=== PATIENT | female | born 1955 ===

== ENCOUNTER 2017-05-30 08:44 | Day surgery (SDC) | payer MEDICARE, OTHER ==
[2017-05-30 08:58] VITALS: BMI 27.2
[2017-05-30 09:19] LABS: HEMATOCRIT 46.3 % (34.0-47.0); MEAN CELL VOLUME 97.9 fl (81.0-99.0); MEAN CORPUSCULAR HEMOGLOBIN 33.2 pg (27.0-31.0); MEAN CORPUSCULAR HGB CONC 33.9 g/dL (33.0-37.0); RED CELL DISTRIBUTION WIDTH 14.4 % (11.5-14.5); WHITE BLOOD COUNT 2.9 K/uL (4.8-10.8)
[2017-05-30 09:22] VITALS: BP 129/82; PULSE 81; RESP 20; TEMP 98.2; O2SAT 97
--- NOTE | 2017-05-30 10:09 | CP.PCM.CON ---
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 She was recently discharged from [facility] a couple weeks ago for possible overdose. Hematology Oncology at that time stated she is clear for surgery from their stand point with INR <1.5 and Plt >75. No dyspnea or chest pain at rest or on exertion. METS > 4. Patient is low risk for moderate risk procedure, medically stable for surgery at this time. 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 per chart review hx heroin use Meds: as below Allergies: NKDA Vitals: reviewed and currently stable Temp Pulse Resp BP Pulse Ox 98.2 F 81 20 129/82 97 05/30/17 09:21 05/30/17 09:23 05/30/17 09:21 05/30/17 09:21 05/30/17 09:21 Exam: GEN: WDWN, alert, cooperative HEENT: NCAT, PERRL, EOMI NECK: supple, no JVD, no lymphadenopathy CARDIAC: +S1S2 RRR LUNG: CTAB No WRR ABD: SOFT NT ND BSX4 NO MASSES NO HSM EXT: +pedal pulses, equal strength NEURO: AAOx3 SKIN warm, dry PSYCH normal mood, normal affect Labs: 05/30/17 09:00 reviewed in chart Rads: no active disease on chest xr 05/30/17 13:54 Haloperidol [Haldol] 5 mg PO Q6 PRN Temazepam [Restoril] 15 mg PO HS PRN 05/30/17 13:55 Bisacodyl [Dulcolax] 10 mg PO DAILY PRN Ibuprofen [Motrin Tab] 400 mg PO Q6 PRN Ondansetron [Zofran Inj] 4 mg IVP Q6 PRN oxyCODONE/Acetaminophen [Percocet 5/325 mg Tab] 1 tab PO Q4 PRN 05/30/17 17:00 DULoxetine [Cymbalta] 60 mg PO BID Lamotrigine [Lamictal] 200 mg PO BID Saccharomyces Boulardi [Florastor] 250 mg PO BID ceFAZolin 2 GM/NS 100ML Q8 ceFAZolin [Ancef] 2 gm Sodium Chloride 0.9% 100 ml IVPB Q8 Assessment and Plan: 62 F PMH (per chart review as pt poor historian) 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 She was recently discharged from [facility] a couple weeks ago for possible overdose. Hematology Oncology at that time stated she is clear for surgery from their stand point with INR <1.5 and Plt >75. No dyspnea or chest pain at rest or on exertion. METS > 4. Patient is low risk for moderate risk procedure, medically stable for surgery at this time. R TKR s/p FALL R total knee with Dr. Sharpe today Ancef total three doses Incentive Spirometry Weight bearing and CPM per Ortho team PT OT Pain Control Zofran for nausea HX CVA on lamictal for SEIZURE prophylaxis Schizoaffective Disorder, Bipliar cont cymbalta cont haldol VTE ppx Past Patient History - Infectious Disease Hx of Infectious Diseases: None - Past Medical History & Family History Past Medical History?: Yes - Past Social History Smoking Status: Never Smoked - CARDIAC Hx Cardiac Disorders: No Hx Angina: No Hx Cardia Arrhythmia: No Hx Circulatory Problems: No Hx Congestive Heart Failure: No Hx Heart Attack: No Hx Heart Murmur: No Hx Heart Transplant: No Hx Hypercholesterolemia: No Hx Hypertension: No - PULMONARY Hx Respiratory Disorders: No Hx Asthma: No Hx Bronchitis: No Hx Chronic Obstructive Pulmonary Disease (COPD): No Hx Emphysema: No Hx Lung Cancer: No Hx Tuberculosis: No - NEUROLOGICAL Hx Neurological Disorder: No Hx Alzheimer's Disease: No HX Cerebrovascular Accident: Yes Hx Dementia: No Hx Dizziness: No Hx Seizures: Yes Hx Transient Ischemic Attacks (TIA): Yes Other/Comment: ANEURYSM - HEENT Hx HEENT Problems: No Hx Blind: No Hx Cataracts: No Hx Difficulty Chewing: No - RENAL Hx Chronic Kidney Disease: No - ENDOCRINE/METABOLIC Hx Endocrine Disorders: No Hx Diabetes Mellitus Type 2: No - HEMATOLOGICAL/ONCOLOGICAL Hx Cancer: No Hx Hepatitis C: Yes Hx Human Immunodeficiency Virus (HIV): No - INTEGUMENTARY Hx Dermatological Problems: No - MUSCULOSKELETAL/RHEUMATOLOGICAL Hx Musculoskeletal Disorders: Yes Hx Back Pain: Yes Hx Falls: Yes - GASTROINTESTINAL Hx Gastrointestinal Disorders: Yes Hx Gastritis: Yes Hx Irritable Bowel: Yes - GENITOURINARY/GYNECOLOGICAL Hx Genitourinary Disorders: No Hx Sexually Transmitted Disorders: No - PSYCHIATRIC Hx Psychophysiologic Disorder: Yes Hx Anxiety: Yes Hx Bipolar Disorder: Yes Hx Depression: Yes Hx Schizophrenia: Yes Hx Substance Use: No - SURGICAL HISTORY Hx Surgeries: No Hx Section: Yes (x2) Hx Cholecystectomy: Yes Hx Orthopedic Surgery: Yes (right hand fx wrist) - ANESTHESIA Hx Anesthesia: Yes Hx Anesthesia Reactions: No Hx Malignant Hyperthermia: No Has any member of the family had a problem w/ anesthesia?: No Meds Allergies/Adverse Reactions: Allergies Allergy/AdvReac Type Severity Reaction Status Date / Time No Known Allergies Allergy Verified 05/03/17 14:38 Results - Vital Signs Recent Vital Signs: Last Vital Signs Temp 98.2 F 05/30/17 09:21 Pulse 81 05/30/17 09:23 Resp 20 05/30/17 09:21 BP 129/82 05/30/17 09:21 Pulse Ox 97 05/30/17 09:21 - Labs Result Diagrams: 05/30/17 09:00 Labs: Laboratory Results - last 24 hr 05/30/17 09:00 WBC 2.9 L RBC 4.72 Hgb 15.7 Hct 46.3 MCV 97.9 MCH 33.2 H MCHC 33.9 RDW 14.4 Plt Count 91 L
[2017-05-30] MEDS ORDERED: Thrombin Topical 5,000 IU Spray Kit ONE (10:52)
[2017-05-30] MEDS ORDERED: Bacitracin Ointment 30 GM TUBE ONE (10:52)
[2017-05-30] MEDS ORDERED: Absorbable Gelatin Sponge Size 100 ONE (10:52)
[2017-05-30] MEDS ORDERED: Lactated Ringer's 1,000 ML IV ONE (12:06)
[2017-05-30] MEDS ORDERED: Ropivacaine 0.5% 30ML IV ONE (13:03)
[2017-05-30] MEDS ORDERED: Propofol 10 mg/ml Inj (20 ML) ONE (13:14)
[2017-05-30] MEDS ORDERED: Lidocaine 4% (Laryng-O-Jet) Kit MM ONE (13:14)
[2017-05-30] MEDS ORDERED: Rocuronium 10 mg/ml (5 ml) ONE (13:14)
[2017-05-30] MEDS ORDERED: Lidocaine Hydrochloride 5 ML INJ ONE (13:14)
[2017-05-30] MEDS ORDERED: Succinylcholine 200 mg/10 ml Inj IV ONE (13:14)
[2017-05-30] MEDS ORDERED: Phenylephrine 10 mg/ml Inj ONE (13:17)
[2017-05-30] MEDS ORDERED: Bisacodyl 5mg EC Tab PO PRN (13:55)
[2017-05-30] MEDS ORDERED: Oxycodone/Acetaminophen 5/325 mg Tab PO PRN (13:55)
[2017-05-30] MEDS ORDERED: ceFAZolin 2 GM in Sodium Chloride 0.9% 100 ML IVPB SCH (17:00)
[2017-05-30] MEDS ORDERED: Saccharomyces Boulardi 250 mg Cap PO SCH (17:00)
[2017-05-31 10:20] LABS: HEMATOCRIT 42.5 % (34.0-47.0); MEAN CELL VOLUME 98.7 fl (81.0-99.0); MEAN CORPUSCULAR HEMOGLOBIN 32.8 pg (27.0-31.0); MEAN CORPUSCULAR HGB CONC 33.3 g/dL (33.0-37.0); RED CELL DISTRIBUTION WIDTH 14.1 % (11.5-14.5); WHITE BLOOD COUNT 2.4 K/uL (4.8-10.8)
[2017-05-31 10:39] LABS: BLOOD UREA NITROGEN 7 mg/dl (7-17); CALCIUM 9.1 mg/dL (8.4-10.2); CARBON DIOXIDE 23 mmol/L (22-30); CHLORIDE 106 mmol/L (98-107); GFR AFRICAN-AMERICAN > 60; GLUCOSE,RANDOM 169 mg/dL (65-105); POTASSIUM 3.7 MMOL/L (3.6-5.0); SODIUM 139 mmol/l (132-148)
--- NOTE | 2017-06-01 09:48 | CP.PCM.CON ---
History of Present Illness - History of Present Illness History of Present Illness: ID 62 yo female CC: chronic Right knee pain and restricted ROM HPI- 62 yo female presents with persistent R knee pain and restricted ROM PT originally treated at [facility];pt not cleared medically for surghery Pt presents at this point with SEVERE pain and restricted ROM R knee; can n o longer stand the discomfort. Pt presents with chronic tibial plateau fx with arthritic changes. Pt presents for surgery today, but presents with multiple comorbidities including neutropenia and throbocytopenia. Surgery cancelled, and case discussed with Dr Yang- hematology/oncology Past Patient History - Infectious Disease Hx of Infectious Diseases: None - Past Medical History & Family History Past Medical History?: Yes - Past Social History Smoking Status: Never Smoked - CARDIAC Hx Cardiac Disorders: No Hx Angina: No Hx Cardia Arrhythmia: No Hx Circulatory Problems: No Hx Congestive Heart Failure: No Hx Heart Attack: No Hx Heart Murmur: No Hx Heart Transplant: No Hx Hypercholesterolemia: No Hx Hypertension: No - PULMONARY Hx Respiratory Disorders: No Hx Asthma: No Hx Bronchitis: No Hx Chronic Obstructive Pulmonary Disease (COPD): No Hx Emphysema: No Hx Lung Cancer: No Hx Tuberculosis: No - NEUROLOGICAL Hx Neurological Disorder: No Hx Alzheimer's Disease: No HX Cerebrovascular Accident: Yes Hx Dementia: No Hx Dizziness: No Hx Seizures: Yes Hx Transient Ischemic Attacks (TIA): Yes Other/Comment: ANEURYSM - HEENT Hx HEENT Problems: No Hx Blind: No Hx Cataracts: No Hx Difficulty Chewing: No - RENAL Hx Chronic Kidney Disease: No - ENDOCRINE/METABOLIC Hx Endocrine Disorders: No Hx Diabetes Mellitus Type 2: No - HEMATOLOGICAL/ONCOLOGICAL Hx Cancer: No Hx Hepatitis C: Yes Hx Human Immunodeficiency Virus (HIV): No - INTEGUMENTARY Hx Dermatological Problems: No - MUSCULOSKELETAL/RHEUMATOLOGICAL Hx Musculoskeletal Disorders: Yes Hx Back Pain: Yes Hx Falls: Yes - GASTROINTESTINAL Hx Gastrointestinal Disorders: Yes Hx Gastritis: Yes Hx Irritable Bowel: Yes - GENITOURINARY/GYNECOLOGICAL Hx Genitourinary Disorders: No Hx Sexually Transmitted Disorders: No - PSYCHIATRIC Hx Psychophysiologic Disorder: Yes Hx Anxiety: Yes Hx Bipolar Disorder: Yes Hx Depression: Yes Hx Schizophrenia: Yes Hx Substance Use: No - SURGICAL HISTORY Hx Surgeries: No Hx Section: Yes (x2) Hx Cholecystectomy: Yes Hx Orthopedic Surgery: Yes (right hand fx wrist) - ANESTHESIA Hx Anesthesia: Yes Hx Anesthesia Reactions: No Hx Malignant Hyperthermia: No Has any member of the family had a problem w/ anesthesia?: No Meds Allergies/Adverse Reactions: Allergies Allergy/AdvReac Type Severity Reaction Status Date / Time No Known Allergies Allergy Verified 05/03/17 14:38 - Medications Medications: Current Medications Bisacodyl (Dulcolax) 10 mg PO DAILY PRN PRN Reason: Constipation Duloxetine HCl (Cymbalta) 60 mg PO BID [facility] Haloperidol (Haldol) 5 mg PO Q6 PRN PRN Reason: SEVERE Agitation Ibuprofen (Motrin Tab) 400 mg PO Q6 PRN PRN Reason: Fever >100.4 F Lamotrigine (Lamictal) 200 mg PO BID [facility] Ondansetron HCl (Zofran Inj) 4 mg IVP Q6 PRN PRN Reason: Nausea/Vomiting Oxycodone/Acetaminophen (Percocet 5/325 Mg Tab) 1 tab PO Q4 PRN PRN Reason: Pain, moderate (4-7) Stop: 06/02/17 13:56 Saccharomyces Boulardii (Florastor) 250 mg PO BID [facility] Temazepam (Restoril) 15 mg PO HS PRN PRN Reason: Insomnia Physical Exam - ENT Exam Additional comments: Physical Exam Systemic exam pt oriented x3 pt with hx of schizophrenia, but lucid at this point and aware fo the medical situation remainder of systemic exam wnl Musculoskeletal: Stance/ gait - deferred R knee immobilizer intact N/V intact no gross/progressive deficits Xraychronic tibial-plateau fx with depresssion; because of the superimposed arthritic change and the poor nature of the bone, Total knere replacement, tholugh technically difficult, is the option of choice Results - Vital Signs Recent Vital Signs: Last Vital Signs Temp 98.2 F 05/30/17 09:21 Pulse 81 05/30/17 09:23 Resp 20 05/30/17 09:21 BP 129/82 05/30/17 09:21 Pulse Ox 97 05/30/17 09:21 - Labs Result Diagrams: 05/31/17 09:30 05/31/17 09:30 Labs: Laboratory Results - last 24 hr 05/31/17 05/31/17 09:30 09:30 WBC 2.4 L RBC 4.30 Hgb 14.1 Hct 42.5 MCV 98.7 MCH 32.8 H MCHC 33.3 RDW 14.1 Plt Count 77 L Sodium 139 Potassium 3.7 Chloride 106 Carbon Dioxide 23 Anion Gap 14 BUN 7 Creatinine 0.5 L Est GFR ( Amer) > 60 Est GFR (Non-Af Amer) > 60 Random Glucose 169 H Calcium 9.1 - Impressions Impression: Imaging Xrays reveal the aforementioned tibial plateau fx,as well as superimposed osteoarthritic chnages Assessment & Plan - Assessment and Plan (Free Text) Assessment: A- 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
== END 2017-05-30 14:00 | disposition short-term general hospital (02) ==
LOC: H.OPSURG 08:44
PROVIDERS: ATTEND Orthopaedic Surgery
DX: S82.143A Displaced bicondylar fracture of unspecified tibia, initial encounter for closed fracture (principal); M17.11 Unilateral primary osteoarthritis, right knee; B19.20 Unspecified viral hepatitis C without hepatic coma; D69.6 Thrombocytopenia, unspecified; D70.9 Neutropenia, unspecified; F25.9 Schizoaffective disorder, unspecified; F31.9 Bipolar disorder, unspecified; G89.29 Other chronic pain; M25.561 Pain in right knee; K29.70 Gastritis, unspecified, without bleeding; K58.9 Irritable bowel syndrome, unspecified; Z86.73 Personal history of transient ischemic attack (TIA), and cerebral infarction without residual deficits; Z87.898 Personal history of other specified conditions; Z53.09 Procedure and treatment not carried out because of other contraindication; Z91.81 History of falling

== ENCOUNTER 2017-05-30 17:54 | Inpatient (IN) | payer MEDICARE, OTHER ==
[2017-05-30 17:54] VITALS: BMI 27.2
--- NOTE | 2017-05-30 18:37 | ED PDOC ---
Lower Extremity Pain/Injury Time Seen by Provider: 05/30/17 18:04 Chief Complaint (Nursing): Lower Extremity Problem/Injury Chief Complaint (Provider): Right knee pain History Per: Patient History/Exam Limitations: no limitations Additional Complaint(s): Nadira Leslie is a 62 y/o female, with a past medical history of Schizophrenia , Bipolar Disorder, and Substance Abuse, presenting to the ER on 05/30/2017 with complaints of right knee pain. Patient denies any chest pain, vomiting, diarrhea , or other symptoms at this time. Patient's PMD is Dr. Yang. She notes her right knee surgery has been canceled due to Leukopenia. Past Medical History Reviewed: Historical Data, Nursing Documentation, Vital Signs Vital Signs: Last Vital Signs Temp 97.8 F 05/30/17 18:03 Pulse 97 H 05/30/17 18:03 Resp 19 05/30/17 18:03 BP 115/78 05/30/17 18:03 Pulse Ox 95 05/30/17 18:03 - Medical History PMH: Anxiety, Bipolar Disorder, Depression, Gastritis, Personality Disorder, Schizophrenia, Seizures, TIA Denies: Alzheimer's Disease, Asthma, Atrial Fibrillation, Bronchitis, Cardia Arrhythmia, CHF, COPD, Dementia, Emphysema, HIV, HTN, Hypercholesterolemia, Chronic Kidney Disease, Sexually Transmitted Disease - Surgical History Surgical History: Cholecystectomy - Family History Family History: States: Unknown Family Hx - Social History Current smoker - smoking cessation education provided: No Alcohol: None Drugs: Denies - Immunization History Hx Tetanus Toxoid Vaccination: No Hx Influenza Vaccination: No Hx Pneumococcal Vaccination: No - Home Medications Home Medications: Ambulatory Orders Medication Instructions Recorded Famotidine [Pepcid] 20 mg PO BID tab 05/14/17 Potassium Chloride [K-Dur 20 mEq 40 meq PO DAILY 5 Days 05/14/17 ER Tab] Saccharomyces Boulardi [Florastor] 250 mg PO BID cap 05/14/17 Acetaminophen [Tylenol 325mg tab] 650 mg PO Q4H PRN 05/30/17 LORazepam [Ativan] 0.5 mg PO Q6H 05/30/17 Magnesium Hydroxide [Milk Of 30 ml PO HS PRN 05/30/17 Magnesia] Paliperidone Palmitate [Invega 156 mg IM Q28D 05/30/17 Sustenna] lamoTRIgine [Lamictal] 25 mg PO DAILY 05/30/17 traZODone [Desyrel] 50 mg PO HS 05/30/17 Benztropine [Cogentin] 0.5 mg PO Q12 tab 06/04/17 Enoxaparin [Lovenox] 40 mg SC DAILY syr 06/04/17 Paliperidone [Invega] [address] 06/04/17 oxyCODONE/Acetaminophen [Percocet 1 tab PO Q4 PRN tab 06/04/17 5/325 mg Tab] oxyCODONE/Acetaminophen [Percocet 2 tab PO Q6 PRN #30 tab 06/04/17 5/325 mg Tab] - Allergies Allergies/Adverse Reactions: Allergies Allergy/AdvReac Type Severity Reaction Status Date / Time No Known Allergies Allergy Verified 05/03/17 14:38 Review of Systems ROS Statement: Except As Marked, All Systems Reviewed And Found Negative Constitutional: Negative for: Fever Cardiovascular: Negative for: Chest Pain Gastrointestinal: Negative for: Vomiting, Diarrhea Musculoskeletal: Positive for: Leg Pain ((+) right knee ) Neurological: Negative for: Weakness, Numbness Physical Exam - Reviewed Nursing Documentation Reviewed: Yes Vital Signs Reviewed: Yes - Physical Exam Appears: Positive for: Non-toxic, No Acute Distress Head Exam: Positive for: ATRAUMATIC, NORMOCEPHALIC Skin: Positive for: Normal Color. Negative for: Rash Neck: Positive for: Normal Cardiovascular/Chest: Positive for: Regular Rate, Rhythm. Negative for: Murmur Respiratory: Positive for: Normal Breath Sounds. Negative for: Respiratory Distress Gastrointestinal/Abdominal: Positive for: Normal Exam, Soft. Negative for: Tenderness Extremity: Negative for: Normal ROM (right knee is in immobilizer ), Tenderness , Deformity, Swelling Neurologic/Psych: Positive for: Alert, Oriented. Negative for: Motor/Sensory Deficits - Laboratory Results Result Diagrams: 06/04/17 06:25 06/04/17 06:25 - ECG O2 Sat by Pulse Oximetry: 95 Medical Decision Making Medical Decision Makin:04 Initial Impression- 62 y/o female with right knee pain sp TKR Initial Plan- * Type and Screen * CMP * CBC w/ differential * PT * PTT 18:39 Case will be consulted with Dr. Samson, orthopedic supervisor photocomposition. Patient will be admitted under the hospitalis as per dr samson. who is made aware. . Documented by Jaydip Keith, acting as a scribe for Mir Gregory MD. All medical record entries made by the Scribe were at my direction and personally dictated by me. I have reviewed the chart and agree that the record accurately reflects my personal performance of the history, physical exam, medical decision making, and the department course for this patient. I have also personally directed, reviewed, and agree with the discharge instructions and disposition. Disposition - Clinical Impression Clinical Impression: Knee pain - Patient ED Disposition Is Patient to be Admitted: Yes Counseled Patient/Family Regarding: Studies Performed, Diagnosis - Disposition Disposition Time: 20:00 Condition: STABLE
[2017-05-30 18:46] LABS: BASO % 1.1 % (0.0-2.0); EOS # 0.2 K/uL (0.0-0.7); EOS % 7.8 % (0.0-4.0); HEMATOCRIT 44.4 % (34.0-47.0); LYMPH # 1.3 K/uL (1.0-4.3); LYMPH % 57.4 % (20.0-40.0); MEAN CELL VOLUME 98.2 fl (81.0-99.0); MEAN CORPUSCULAR HEMOGLOBIN 32.4 pg (27.0-31.0); MEAN PLATELET VOLUME 8.9 fl (7.2-11.7); MONO # 0.3 K/uL (0.0-0.8); MONO % 12.3 % (0.0-10.0); NEUT # 0.5 K/uL (1.8-7.0); NEUT % 21.4 % (50.0-75.0); NRBC % 0.2 % (0.0-0.0); RED CELL DISTRIBUTION WIDTH 14.5 % (11.5-14.5); WHITE BLOOD COUNT 2.3 K/uL (4.8-10.8)
[2017-05-30 18:57] LABS: ALKALINE PHOSPHATASE 146 U/L (38-126); ALT/SGPT 114 U/L (9-52); AST/SGOT 98 U/L (14-36); BILIRUBIN,TOTAL 1.4 mg/dl (0.2-1.3); BLOOD UREA NITROGEN 6 mg/dl (7-17); CALCIUM 9.3 mg/dL (8.4-10.2); CARBON DIOXIDE 24 mmol/L (22-30); CHLORIDE 105 mmol/L (98-107); GFR AFRICAN-AMERICAN > 60; GLUCOSE,RANDOM 83 mg/dL (65-105); SODIUM 137 mmol/l (132-148)
[2017-05-30 19:09] LABS: PARTIAL THROMBOPLASTIN TIME 39.4 Seconds (25.6-37.1)
[2017-05-30] MEDS ORDERED: Magnesium Hydroxide Susp 30 ml UD PO PRN (23:02)
--- NOTE | 2017-05-30 23:09 | CP.PCM.HP ---
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 She was recently discharged from [facility] a couple weeks ago for possible overdose. Hematology Oncology at that time stated she is clear for surgery from their stand point with INR <1.5 and Plt >75. No dyspnea or chest pain at rest or on exertion. METS > 4. Patient is low risk for moderate risk procedure, medically stable for surgery at this time. 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 per chart review hx heroin use Meds: as below Allergies: NKDA Vitals: reviewed and currently stable Temp Pulse Resp BP Pulse Ox 98.2 F 81 20 129/82 97 05/30/17 09:21 05/30/17 09:23 05/30/17 09:21 05/30/17 09:21 05/30/17 09:21 Exam: GEN: WDWN, alert, cooperative HEENT: NCAT, PERRL, EOMI NECK: supple, no JVD, no lymphadenopathy CARDIAC: +S1S2 RRR LUNG: CTAB No WRR ABD: SOFT NT ND BSX4 NO MASSES NO HSM EXT: +pedal pulses, equal strength NEURO: AAOx3 SKIN warm, dry PSYCH normal mood, normal affect Labs: 05/30/17 18:38 05/30/17 18:38 Allergies No Known Allergies Allergy (Verified 05/03/17 14:38) Height & Weight Height 4 ft 10 in Weight 135 lb Start Date/Time Active Medications 05/30/17 23:02 Acetaminophen [Tylenol 325mg tab] 650 mg PO Q4H PRN Acetaminophen [Tylenol 325mg tab] 650 mg PO Q4H PRN Magnesium Hydroxide [Milk Of Magnesia] 30 ml PO HS PRN Temazepam [Restoril] 15 mg PO HS PRN 05/30/17 23:15 LORazepam [Ativan] 0.5 mg PO Q6H Paliperidone Palmitate [Invega Sustenna] 156 mg IM Q28D traZODone [Desyrel] 50 mg PO HS 05/31/17 09:00 Famotidine [Pepcid] 20 mg PO BID Potassium Chloride [K-Dur 20 mEq ER Tab] 40 meq PO DAILY Saccharomyces Boulardi [Florastor] 250 mg PO BID lamoTRIgine [LaMICtal] 25 mg PO DAILY Assessment and Plan: 62 F PMH (per chart review as pt poor historian) 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 She was recently discharged from [facility] a couple weeks ago for possible overdose. Hematology Oncology at that time stated she is clear for surgery from their stand point with INR <1.5 and Plt >75. No dyspnea or chest pain at rest or on exertion. METS > 4. Patient is low risk for moderate risk procedure, medically stable for surgery at this time. s/p FALL R total knee with Dr. Sharpe likely Saturday will getAncef total three doses Pain control for now Cardiology Consult Dr. Serrano Neutropenia, Thrombocytopenia Dr. Yang hematology onc consult WBC 2.3, Plt 95 HX CVA on lamictal for SEIZURE prophylaxis Schizoaffective Disorder, Bipliar cont trazodone cont invega Psych consult per Ortho Present on Admission - Present on Admission Any Indicators Present on Admission: No Past Patient History - Infectious Disease Hx of Infectious Diseases: None - Past Medical History & Family History Past Medical History?: Yes - Past Social History Alcohol: None Drugs: Denies - CARDIAC Hx Atrial Fibrillation: No Hx Cardia Arrhythmia: No Hx Congestive Heart Failure: No Hx Hypercholesterolemia: No Hx Hypertension: No - PULMONARY Hx Asthma: No Hx Bronchitis: No Hx Chronic Obstructive Pulmonary Disease (COPD): No Hx Emphysema: No - NEUROLOGICAL Hx Neurological Disorder: Yes (CVA, aneurysm, seizures) - HEENT Hx HEENT Problems: No Hx Blind: No Hx Cataracts: No Hx Difficulty Chewing: No - RENAL Hx Chronic Kidney Disease: No - ENDOCRINE/METABOLIC Hx Endocrine Disorders: No Hx Diabetes Mellitus Type 2: No - HEMATOLOGICAL/ONCOLOGICAL Hx Blood Disorders: Yes (Hep C) - INTEGUMENTARY Hx Dermatological Problems: No - MUSCULOSKELETAL/RHEUMATOLOGICAL Hx Musculoskeletal Disorders: Yes Hx Back Pain: Yes Hx Falls: Yes - GASTROINTESTINAL Hx Gastritis: Yes - GENITOURINARY/GYNECOLOGICAL Hx Sexually Transmitted Disorders: No - PSYCHIATRIC Hx Psychophysiologic Disorder: Yes (anxiety, bipolar, depression, schizophrenia) - SURGICAL HISTORY Hx Cholecystectomy: Yes - ANESTHESIA Hx Anesthesia: Yes Hx Anesthesia Reactions: No Hx Malignant Hyperthermia: No Meds Allergies/Adverse Reactions: Allergies Allergy/AdvReac Type Severity Reaction Status Date / Time No Known Allergies Allergy Verified 05/03/17 14:38 Results - Vital Signs Recent Vital Signs: Last Vital Signs Temp 98.4 F 05/30/17 21:02 Pulse 88 05/30/17 21:02 Resp 18 05/30/17 21:02 BP 130/91 H 05/30/17 21:02 Pulse Ox 96 05/30/17 21:02 - Labs Result Diagrams: 05/30/17 18:38 05/30/17 18:38 Labs: Laboratory Results - last 24 hr 05/30/17 05/30/17 05/30/17 18:38 18:38 18:38 WBC 2.3 L RBC 4.52 Hgb 14.7 Hct 44.4 MCV 98.2 MCH 32.4 H MCHC 33.0 RDW 14.5 Plt Count 78 L MPV 8.9 Neut % (Auto) 21.4 L Lymph % (Auto) 57.4 H [place] % (Auto) 12.3 H Eos % (Auto) 7.8 H Baso % (Auto) 1.1 Neut # 0.5 L Lymph # 1.3 [place] # 0.3 Eos # 0.2 Baso # 0.0 PT 13.9 H INR 1.2 APTT 39.4 H Sodium 137 Potassium 4.0 Chloride 105 Carbon Dioxide 24 Anion Gap 12 BUN 6 L Creatinine 0.5 L Est GFR ( Amer) > 60 Est GFR (Non-Af Amer) > 60 Random Glucose 83 Calcium 9.3 Total Bilirubin 1.4 H AST 98 H ALT 114 H Alkaline Phosphatase 146 H Total Protein 7.0 Albumin 3.5 Globulin 3.5 Albumin/Globulin Ratio 1.0 Blood Type Antibody Screen BBK History Checked 05/30/17 18:38 WBC RBC Hgb Hct MCV MCH MCHC RDW Plt Count MPV Neut % (Auto) Lymph % (Auto) [place] % (Auto) Eos % (Auto) Baso % (Auto) Neut # Lymph # [place] # Eos # Baso # PT INR APTT Sodium Potassium Chloride Carbon Dioxide Anion Gap BUN Creatinine Est GFR ( Amer) Est GFR (Non-Af Amer) Random Glucose Calcium Total Bilirubin AST ALT Alkaline Phosphatase Total Protein Albumin Globulin Albumin/Globulin Ratio Blood Type O POSITIVE Antibody Screen Negative BBK History Checked Patient has bt
[2017-05-30] MEDS ORDERED: Paliperidone 156 mg/1 ml Syringe IM SCH (23:15)
[2017-05-31] MEDS: Saccharomyces Boulardi 250 mg Cap PO SCH ×2 (08:38→17:17)
[2017-05-31] MEDS: Potassium Chloride 20 mEq ER Tab PO SCH (08:39)
--- NOTE | 2017-05-31 09:15 | CP.PCM.CON ---
History of Present Illness - History of Present Illness History of Present Illness: THE PATIENT IS A 62 YEAR OLD FEMALE WHO IS NOW ADMITTED FOR RIGHT KNEE SURGERY FOLLOWING TRAUMA 2 WEEKS AGO. SHE HAS A LONG MEDICAL HISTORY INCLUDING A CVA TEN YEARS AGO THAT SHE STATES WAS DUE TO A BRAIN ANEURYSM AND REQUIRED SURGERY, HEPATITIS C AND DEPRESSION. CARDIOLOGY WAS ASKED TO SEE AND FOLLOW THE PATIENT. SHE DENIES CHEST PAIN OR CAD. Past Patient History - Infectious Disease Hx of Infectious Diseases: None - Past Medical History & Family History Past Medical History?: Yes - Past Social History Smoking Status: Former Smoker - CARDIAC Hx Atrial Fibrillation: No Hx Cardia Arrhythmia: No - PULMONARY Hx Asthma: No Hx Bronchitis: No Hx Chronic Obstructive Pulmonary Disease (COPD): No Hx Emphysema: No - NEUROLOGICAL Hx Neurological Disorder: Yes (CVA, aneurysm, seizures) - HEENT Hx HEENT Problems: No Hx Blind: No Hx Cataracts: No Hx Difficulty Chewing: No - RENAL Hx Chronic Kidney Disease: No - ENDOCRINE/METABOLIC Hx Endocrine Disorders: No Hx Diabetes Mellitus Type 2: No - HEMATOLOGICAL/ONCOLOGICAL Hx Blood Disorders: Yes (Hep C) Hx AIDS: No Hx Human Immunodeficiency Virus (HIV): No - INTEGUMENTARY Hx Dermatological Problems: No - MUSCULOSKELETAL/RHEUMATOLOGICAL Hx Musculoskeletal Disorders: Yes Hx Back Pain: Yes Hx Falls: Yes - GASTROINTESTINAL Hx Gastritis: Yes - GENITOURINARY/GYNECOLOGICAL Hx Sexually Transmitted Disorders: No - PSYCHIATRIC Hx Psychophysiologic Disorder: Yes (anxiety, bipolar, depression, schizophrenia) Hx Substance Use: Yes - SURGICAL HISTORY Hx Cholecystectomy: Yes - ANESTHESIA Hx Anesthesia: Yes Hx Anesthesia Reactions: No Hx Malignant Hyperthermia: No Meds Allergies/Adverse Reactions: Allergies Allergy/AdvReac Type Severity Reaction Status Date / Time No Known Allergies Allergy Verified 05/03/17 14:38 - Medications Medications: Current Medications Acetaminophen (Tylenol 325mg Tab) 650 mg PO Q4H PRN PRN Reason: Pain, Mild (1-3) Last Admin: 05/31/17 04:35 Dose: 650 mg Acetaminophen (Tylenol 325mg Tab) 650 mg PO Q4H PRN PRN Reason: Temp 101 and above Famotidine (Pepcid) 20 mg PO BID [facility] Last Admin: 05/31/17 08:39 Dose: 20 mg Lamotrigine (Lamictal) 25 mg PO DAILY [facility] Last Admin: 05/31/17 08:39 Dose: 25 mg Lorazepam (Ativan) 0.5 mg PO Q6H [facility] Last Admin: 05/31/17 04:31 Dose: 0.5 mg Magnesium Hydroxide (Milk Of Magnesia) 30 ml PO HS PRN PRN Reason: Constipation Paliperidone Palmitate (Invega Sustenna) 156 mg IM Q28D [facility] Last Admin: 05/31/17 00:00 Dose: Not Given Potassium Chloride (K-Dur 20 Meq Er Tab) 40 meq PO DAILY [facility] Last Admin: 05/31/17 08:39 Dose: 40 meq Saccharomyces Boulardii (Florastor) 250 mg PO BID [facility] Last Admin: 05/31/17 08:38 Dose: 250 mg Temazepam (Restoril) 15 mg PO HS PRN PRN Reason: Insomnia Trazodone HCl (Desyrel) 50 mg PO HS [facility] Last Admin: 05/30/17 23:44 Dose: 50 mg Physical Exam - Respiratory Exam Respiratory Exam: Clear to Auscultation Bilateral - Cardiovascular Exam Cardiovascular Exam: REGULAR RHYTHM, +S1, +S2 - Additional Findings Additional findings: WBC 2.[address] 78K LFT ELEVATED Results - Vital Signs Recent Vital Signs: Last Vital Signs Temp 98.7 F 05/31/17 08:44 Pulse 72 05/31/17 08:44 Resp 20 05/31/17 08:44 BP 118/77 05/31/17 08:44 Pulse Ox 98 05/31/17 08:44 - Labs Result Diagrams: 05/30/17 18:38 05/30/17 18:38 Labs: Laboratory Results - last 24 hr 05/30/17 05/30/17 05/30/17 18:38 18:38 18:38 WBC 2.3 L RBC 4.52 Hgb 14.7 Hct 44.4 MCV 98.2 MCH 32.4 H MCHC 33.0 RDW 14.5 Plt Count 78 L MPV 8.9 Neut % (Auto) 21.4 L Lymph % (Auto) 57.4 H [place] % (Auto) 12.3 H Eos % (Auto) 7.8 H Baso % (Auto) 1.1 Neut # 0.5 L Lymph # 1.3 [place] # 0.3 Eos # 0.2 Baso # 0.0 PT 13.9 H INR 1.2 APTT 39.4 H Sodium 137 Potassium 4.0 Chloride 105 Carbon Dioxide 24 Anion Gap 12 BUN 6 L Creatinine 0.5 L Est GFR ( Amer) > 60 Est GFR (Non-Af Amer) > 60 Random Glucose 83 Calcium 9.3 Total Bilirubin 1.4 H AST 98 H ALT 114 H Alkaline Phosphatase 146 H Total Protein 7.0 Albumin 3.5 Globulin 3.5 Albumin/Globulin Ratio 1.0 Blood Type Antibody Screen BBK History Checked 05/30/17 18:38 WBC RBC Hgb Hct MCV MCH MCHC RDW Plt Count MPV Neut % (Auto) Lymph % (Auto) [place] % (Auto) Eos % (Auto) Baso % (Auto) Neut # Lymph # [place] # Eos # Baso # PT INR APTT Sodium Potassium Chloride Carbon Dioxide Anion Gap BUN Creatinine Est GFR ( Amer) Est GFR (Non-Af Amer) Random Glucose Calcium Total Bilirubin AST ALT Alkaline Phosphatase Total Protein Albumin Globulin Albumin/Globulin Ratio Blood Type O POSITIVE Antibody Screen Negative BBK History Checked Patient has bt Assessment & Plan - Assessment and Plan (Free Text) Assessment: RIGHT KNEE TRAUMA HEPATITIS C OLD CVA Plan: HEMATOLOGY TO SEE
--- NOTE | 2017-05-31 14:00 | CP.PCM.PN ---
Subjective - Date & Time of Evaluation Date of Evaluation: 05/31/17 Time of Evaluation: 13:59 - Subjective Subjective: PATIENT DOING WELL TODAY NO COMPLAINTS HD STABLE Objective - Vital Signs/Intake and Output Vital Signs (last 24 hours): Temp Pulse Resp BP Pulse Ox 98.7 F 72 20 118/77 98 05/31/17 08:44 05/31/17 08:44 05/31/17 08:44 05/31/17 08:44 05/31/17 08:44 - Medications Medications: Current Medications Acetaminophen (Tylenol 325mg Tab) 650 mg PO Q4H PRN PRN Reason: Pain, Mild (1-3) Last Admin: 05/31/17 04:35 Dose: 650 mg Acetaminophen (Tylenol 325mg Tab) 650 mg PO Q4H PRN PRN Reason: Temp 101 and above Benztropine Mesylate (Cogentin) 0.5 mg PO Q12 [facility] Famotidine (Pepcid) 20 mg PO BID [facility] Last Admin: 05/31/17 08:39 Dose: 20 mg Lamotrigine (Lamictal) 25 mg PO DAILY [facility] Last Admin: 05/31/17 08:39 Dose: 25 mg Lorazepam (Ativan) 0.5 mg PO Q6H [facility] Last Admin: 05/31/17 11:27 Dose: 0.5 mg Magnesium Hydroxide (Milk Of Magnesia) 30 ml PO HS PRN PRN Reason: Constipation Paliperidone (Invega) 6 mg PO HS [facility] Paliperidone Palmitate (Invega Sustenna) 156 mg IM Q28D [facility] Last Admin: 05/31/17 00:00 Dose: Not Given Potassium Chloride (K-Dur 20 Meq Er Tab) 40 meq PO DAILY [facility] Last Admin: 05/31/17 08:39 Dose: 40 meq Saccharomyces Boulardii (Florastor) 250 mg PO BID [facility] Last Admin: 05/31/17 08:38 Dose: 250 mg Temazepam (Restoril) 15 mg PO HS PRN PRN Reason: Insomnia Trazodone HCl (Desyrel) 50 mg PO HS [facility] Last Admin: 05/30/17 23:44 Dose: 50 mg - Labs Labs: 05/30/17 18:38 05/30/17 18:38 PT 13.9 Seconds (9.8-13.1) H 05/30/17 18:38 INR 1.2 (0.9-1.2) 05/30/17 18:38 APTT 39.4 Seconds (25.6-37.1) H 05/30/17 18:38 - Constitutional Appears: Non-toxic, No Acute Distress - Head Exam Head Exam: ATRAUMATIC, NORMOCEPHALIC - Eye Exam Eye Exam: EOMI, Normal appearance, PERRL Pupil Exam: NORMAL ACCOMODATION - ENT Exam ENT Exam: Mucous Membranes Dry - Neck Exam Neck Exam: Full ROM, Normal Inspection. absent: Lymphadenopathy - Respiratory Exam Respiratory Exam: Clear to Ausculation Bilateral, NORMAL BREATHING PATTERN - Cardiovascular Exam Cardiovascular Exam: Bradycardia - GI/Abdominal Exam GI & Abdominal Exam: Soft, Normal Bowel Sounds. 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 She was recently discharged from [facility] a couple weeks ago for possible overdose. Hematology Oncology at that time stated she is clear for surgery from their stand point with INR <1.5 and Plt >75. No dyspnea or chest pain at rest or on exertion. METS > 4. Patient is low risk for moderate risk procedure, medically stable for surgery at this time. s/p FALL R total knee with Dr. Sharpe likely Saturday will getAncef total three doses Pain control for now Cardiology Consult Dr. Serrano Neutropenia, Thrombocytopenia Dr. Yang hematology onc consult WBC 2.3, Plt 95 HX CVA on lamictal for SEIZURE prophylaxis Schizoaffective Disorder, Bipliar cont trazodone cont invega -- ONLY ABLE TO GIVE PT HOME DOSE. HOLD WHILE IN HOUSE. Psych consult per Ortho
--- NOTE | 2017-05-31 14:15 | CP.PCM.CON ---
History of Present Illness - History of Present Illness History of Present Illness: psychiatry consult ordered by dr. flores reason: schizoaffective disorder cc: i was seeing things when i got here hpi: 62 yo female, lives with family. has history of cocaine dependence-states sober 1 month, distant history of heroin dependence. she has been dx with schizoaffective disorder and per her report was on invega sustenna, but did not take for over 4 months per pt. in early may was at [facility] and her psychotropic medications were held there (was risperdal, cymbalta at that time) . pt states she is feeling calm now and denies any a/v hallucinations. she states she would seek help if she were to have any suicidal or homicidal thoughts. past psych: reports one hospitalization in past. reports she has outpt providers. reports a suicide attempt in distant past. substance abuse: history of heroin dependence, most recently crack cocaine dependence. denies cigarette use, alcohol use. social: [place], has a daughter who is involved. medical: for knee replacement mse: alert, oriented to self, time and circumstances. poor historian. reports some visual hallucinations. denies si/hi. denies ah. poor i/j. assessment: history of opioid and cocaine dependence schizoaffective disorder recommendation: restart oral invega with cogentin obtain info from outpt providers Past Patient History - Infectious Disease Hx of Infectious Diseases: None - Past Medical History & Family History Past Medical History?: Yes - Past Social History Smoking Status: Former Smoker - CARDIAC Hx Atrial Fibrillation: No Hx Cardia Arrhythmia: No - PULMONARY Hx Asthma: No Hx Bronchitis: No Hx Chronic Obstructive Pulmonary Disease (COPD): No Hx Emphysema: No - NEUROLOGICAL Hx Neurological Disorder: Yes (CVA, aneurysm, seizures) - HEENT Hx HEENT Problems: No Hx Blind: No Hx Cataracts: No Hx Difficulty Chewing: No - RENAL Hx Chronic Kidney Disease: No - ENDOCRINE/METABOLIC Hx Endocrine Disorders: No Hx Diabetes Mellitus Type 2: No - HEMATOLOGICAL/ONCOLOGICAL Hx Blood Disorders: Yes (Hep C) Hx AIDS: No Hx Human Immunodeficiency Virus (HIV): No - INTEGUMENTARY Hx Dermatological Problems: No - MUSCULOSKELETAL/RHEUMATOLOGICAL Hx Musculoskeletal Disorders: Yes Hx Back Pain: Yes Hx Falls: Yes - GASTROINTESTINAL Hx Gastritis: Yes - GENITOURINARY/GYNECOLOGICAL Hx Sexually Transmitted Disorders: No - PSYCHIATRIC Hx Psychophysiologic Disorder: Yes (anxiety, bipolar, depression, schizophrenia) Hx Substance Use: Yes - SURGICAL HISTORY Hx Cholecystectomy: Yes - ANESTHESIA Hx Anesthesia: Yes Hx Anesthesia Reactions: No Hx Malignant Hyperthermia: No Meds Allergies/Adverse Reactions: Allergies Allergy/AdvReac Type Severity Reaction Status Date / Time No Known Allergies Allergy Verified 05/03/17 14:38 - Medications Medications: Current Medications Acetaminophen (Tylenol 325mg Tab) 650 mg PO Q4H PRN PRN Reason: Pain, Mild (1-3) Last Admin: 05/31/17 04:35 Dose: 650 mg Acetaminophen (Tylenol 325mg Tab) 650 mg PO Q4H PRN PRN Reason: Temp 101 and above Benztropine Mesylate (Cogentin) 0.5 mg PO Q12 [facility] Famotidine (Pepcid) 20 mg PO BID [facility] Last Admin: 05/31/17 08:39 Dose: 20 mg Lamotrigine (Lamictal) 25 mg PO DAILY [facility] Last Admin: 05/31/17 08:39 Dose: 25 mg Lorazepam (Ativan) 0.5 mg PO Q6H [facility] Last Admin: 05/31/17 11:27 Dose: 0.5 mg Magnesium Hydroxide (Milk Of Magnesia) 30 ml PO HS PRN PRN Reason: Constipation Paliperidone (Invega) 6 mg PO HS [facility] Paliperidone Palmitate (Invega Sustenna) 156 mg IM Q28D [facility] Last Admin: 05/31/17 00:00 Dose: Not Given Potassium Chloride (K-Dur 20 Meq Er Tab) 40 meq PO DAILY [facility] Last Admin: 05/31/17 08:39 Dose: 40 meq Saccharomyces Boulardii (Florastor) 250 mg PO BID [facility] Last Admin: 05/31/17 08:38 Dose: 250 mg Temazepam (Restoril) 15 mg PO HS PRN PRN Reason: Insomnia Trazodone HCl (Desyrel) 50 mg PO HS [facility] Last Admin: 05/30/17 23:44 Dose: 50 mg Results - Vital Signs Recent Vital Signs: Last Vital Signs Temp 98.7 F 05/31/17 08:44 Pulse 72 05/31/17 08:44 Resp 20 05/31/17 08:44 BP 118/77 05/31/17 08:44 Pulse Ox 98 05/31/17 08:44 - Labs Result Diagrams: 05/30/17 18:38 05/30/17 18:38 Labs: Laboratory Results - last 24 hr 05/30/17 05/30/17 05/30/17 18:38 18:38 18:38 WBC 2.3 L RBC 4.52 Hgb 14.7 Hct 44.4 MCV 98.2 MCH 32.4 H MCHC 33.0 RDW 14.5 Plt Count 78 L MPV 8.9 Neut % (Auto) 21.4 L Lymph % (Auto) 57.4 H Beauregard % (Auto) 12.3 H Eos % (Auto) 7.8 H Baso % (Auto) 1.1 Neut # 0.5 L Lymph # 1.3 Beauregard # 0.3 Eos # 0.2 Baso # 0.0 PT 13.9 H INR 1.2 APTT 39.4 H Sodium 137 Potassium 4.0 Chloride 105 Carbon Dioxide 24 Anion Gap 12 BUN 6 L Creatinine 0.5 L Est GFR ( Amer) > 60 Est GFR (Non-Af Amer) > 60 Random Glucose 83 Calcium 9.3 Total Bilirubin 1.4 H AST 98 H ALT 114 H Alkaline Phosphatase 146 H Total Protein 7.0 Albumin 3.5 Globulin 3.5 Albumin/Globulin Ratio 1.0 Blood Type Antibody Screen BBK History Checked 05/30/17 18:38 WBC RBC Hgb Hct MCV MCH MCHC RDW Plt Count MPV Neut % (Auto) Lymph % (Auto) Beauregard % (Auto) Eos % (Auto) Baso % (Auto) Neut # Lymph # Beauregard # Eos # Baso # PT INR APTT Sodium Potassium Chloride Carbon Dioxide Anion Gap BUN Creatinine Est GFR ( Amer) Est GFR (Non-Af Amer) Random Glucose Calcium Total Bilirubin AST ALT Alkaline Phosphatase Total Protein Albumin Globulin Albumin/Globulin Ratio Blood Type O POSITIVE Antibody Screen Negative BBK History Checked Patient has bt
[2017-05-31] MEDS: Paliperidone 6 MG ER TAB PO SCH (22:04)
[2017-06-01] MEDS: Potassium Chloride 20 mEq ER Tab PO SCH (09:13)
[2017-06-01] MEDS: Saccharomyces Boulardi 250 mg Cap PO SCH ×2 (09:15→16:33)
--- NOTE | 2017-06-01 10:04 | CP.PCM.CON ---
History of Present Illness - History of Present Illness History of Present Illness: ID: 62 yo female CC: pain and restricted ROM R knee HPI: 62 yo female presents with pain and restricted ROM R knee-pt had sustained trauma several months prior- pt presents with pain and restricted ROMR knee Iconsulted [facility] in [facility] Pt NOT cleared for surg at that point. Pt had been admitted for surg to perform R TKR, but pt presented with neutropeniaand thrombocytopenia. Pt admitted as an emergency- case discussed with Dr Yang- pt admitted for workup, clearance. Surgery must be done, but mata not want to perform surg until clearance obtained Past Patient History - Infectious Disease Hx of Infectious Diseases: None - Past Medical History & Family History Past Medical History?: Yes - Past Social History Smoking Status: Former Smoker - CARDIAC Hx Atrial Fibrillation: No Hx Cardia Arrhythmia: No - PULMONARY Hx Asthma: No Hx Bronchitis: No Hx Chronic Obstructive Pulmonary Disease (COPD): No Hx Emphysema: No - NEUROLOGICAL Hx Neurological Disorder: Yes (CVA, aneurysm, seizures) - HEENT Hx HEENT Problems: No Hx Blind: No Hx Cataracts: No Hx Difficulty Chewing: No - RENAL Hx Chronic Kidney Disease: No - ENDOCRINE/METABOLIC Hx Endocrine Disorders: No Hx Diabetes Mellitus Type 2: No - HEMATOLOGICAL/ONCOLOGICAL Hx Blood Disorders: Yes (Hep C) Hx AIDS: No Hx Human Immunodeficiency Virus (HIV): No - INTEGUMENTARY Hx Dermatological Problems: No - MUSCULOSKELETAL/RHEUMATOLOGICAL Hx Musculoskeletal Disorders: Yes Hx Back Pain: Yes Hx Falls: Yes - GASTROINTESTINAL Hx Gastritis: Yes - GENITOURINARY/GYNECOLOGICAL Hx Sexually Transmitted Disorders: No - PSYCHIATRIC Hx Psychophysiologic Disorder: Yes (anxiety, bipolar, depression, schizophrenia) Hx Substance Use: Yes - SURGICAL HISTORY Hx Cholecystectomy: Yes - ANESTHESIA Hx Anesthesia: Yes Hx Anesthesia Reactions: No Hx Malignant Hyperthermia: No Meds Allergies/Adverse Reactions: Allergies Allergy/AdvReac Type Severity Reaction Status Date / Time No Known Allergies Allergy Verified 05/03/17 14:38 - Medications Medications: Current Medications Acetaminophen (Tylenol 325mg Tab) 650 mg PO Q4H PRN PRN Reason: Pain, Mild (1-3) Last Admin: 05/31/17 20:02 Dose: 650 mg Acetaminophen (Tylenol 325mg Tab) 650 mg PO Q4H PRN PRN Reason: Temp 101 and above Benztropine Mesylate (Cogentin) 0.5 mg PO Q12 [facility] Last Admin: 06/01/17 09:16 Dose: 0.5 mg Famotidine (Pepcid) 20 mg PO BID [facility] Last Admin: 06/01/17 09:16 Dose: 20 mg Lamotrigine (Lamictal) 25 mg PO DAILY [facility] Last Admin: 06/01/17 09:12 Dose: 25 mg Lorazepam (Ativan) 0.5 mg PO Q6H [facility] Last Admin: 06/01/17 06:06 Dose: 0.5 mg Magnesium Hydroxide (Milk Of Magnesia) 30 ml PO HS PRN PRN Reason: Constipation Paliperidone (Invega) 6 mg PO HS [facility] Last Admin: 05/31/17 22:04 Dose: 6 mg Potassium Chloride (K-Dur 20 Meq Er Tab) 40 meq PO DAILY [facility] Last Admin: 06/01/17 09:13 Dose: 40 meq Saccharomyces Boulardii (Florastor) 250 mg PO BID [facility] Last Admin: 06/01/17 09:15 Dose: 250 mg Temazepam (Restoril) 15 mg PO HS PRN PRN Reason: Insomnia Trazodone HCl (Desyrel) 50 mg PO HS [facility] Last Admin: 05/31/17 22:04 Dose: 50 mg Physical Exam - Additional Findings Additional findings: Objective exam Musculoskeltal stance/ gait- defrred knee immobilizer intact R Lower extremity. 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
[2017-06-01 12:47] LABS: BASO % 1.2 % (0.0-2.0); EOS # 0.3 K/uL (0.0-0.7); EOS % 7.8 % (0.0-4.0); HEMATOCRIT 44.3 % (34.0-47.0); LYMPH # 1.4 K/uL (1.0-4.3); LYMPH % 41.6 % (20.0-40.0); MEAN CELL VOLUME 98.2 fl (81.0-99.0); MEAN CORPUSCULAR HGB CONC 33.6 g/dL (33.0-37.0); MEAN PLATELET VOLUME 8.8 fl (7.2-11.7); MONO # 0.7 K/uL (0.0-0.8); MONO % 22.1 % (0.0-10.0); NEUT # 0.9 K/uL (1.8-7.0); NEUT % 27.3 % (50.0-75.0); NRBC % 0.3 % (0.0-0.0); PLATELET COUNT 88 K/uL (130-400); RED CELL DISTRIBUTION WIDTH 14.7 % (11.5-14.5); WHITE BLOOD COUNT 3.3 K/uL (4.8-10.8)
--- NOTE | 2017-06-01 12:50 | CP.PCM.CON ---
History of Present Illness - History of Present Illness History of Present Illness: 62 year old female with a history of bipolar depression, schizoaffective disorder, found to have leukopenia, anemia, and coagulopathy prior to elective orthopedic knee surgery, requiring clearance. The patient was seen by me about 3 weeks ago at [facility] and felt to have cytopenias related to her psychiatric medication. A bone marrow biopsy was advised to rule out bone marrow pathology and deferred by the patient. The patient denies abnormal bleeding and bruising. She has had surgery in the past without wound or bleeding complications. Past medical history: Bipolar depression, schizoaffective disorder Past surgical history; Family history: Denies hematologic and oncologic problems Social history: +cocaine Allergies: NKA Review of systems: All remaining review of systems including HEENT, cardiovascular, respiratory, gastrointestinal, genitourinary, musculoskeletal, dermatologic, neurologic, and psychiatric are negative unless mentioned in the HPI. Past Patient History - Infectious Disease Hx of Infectious Diseases: None - Past Medical History & Family History Past Medical History?: Yes - Past Social History Smoking Status: Former Smoker - CARDIAC Hx Atrial Fibrillation: No Hx Cardia Arrhythmia: No - PULMONARY Hx Asthma: No Hx Bronchitis: No Hx Chronic Obstructive Pulmonary Disease (COPD): No Hx Emphysema: No - NEUROLOGICAL Hx Neurological Disorder: Yes (CVA, aneurysm, seizures) - HEENT Hx HEENT Problems: No Hx Blind: No Hx Cataracts: No Hx Difficulty Chewing: No - RENAL Hx Chronic Kidney Disease: No - ENDOCRINE/METABOLIC Hx Endocrine Disorders: No Hx Diabetes Mellitus Type 2: No - HEMATOLOGICAL/ONCOLOGICAL Hx Blood Disorders: Yes (Hep C) Hx AIDS: No Hx Human Immunodeficiency Virus (HIV): No - INTEGUMENTARY Hx Dermatological Problems: No - MUSCULOSKELETAL/RHEUMATOLOGICAL Hx Musculoskeletal Disorders: Yes Hx Back Pain: Yes Hx Falls: Yes - GASTROINTESTINAL Hx Gastritis: Yes - GENITOURINARY/GYNECOLOGICAL Hx Sexually Transmitted Disorders: No - PSYCHIATRIC Hx Psychophysiologic Disorder: Yes (anxiety, bipolar, depression, schizophrenia) Hx Substance Use: Yes - SURGICAL HISTORY Hx Cholecystectomy: Yes - ANESTHESIA Hx Anesthesia: Yes Hx Anesthesia Reactions: No Hx Malignant Hyperthermia: No Meds Allergies/Adverse Reactions: Allergies Allergy/AdvReac Type Severity Reaction Status Date / Time No Known Allergies Allergy Verified 05/03/17 14:38 - Medications Medications: Current Medications Acetaminophen (Tylenol 325mg Tab) 650 mg PO Q4H PRN PRN Reason: Pain, Mild (1-3) Last Admin: 05/31/17 20:02 Dose: 650 mg Acetaminophen (Tylenol 325mg Tab) 650 mg PO Q4H PRN PRN Reason: Temp 101 and above Benztropine Mesylate (Cogentin) 0.5 mg PO Q12 [facility] Last Admin: 06/01/17 09:16 Dose: 0.5 mg Famotidine (Pepcid) 20 mg PO BID [facility] Last Admin: 06/01/17 09:16 Dose: 20 mg Lamotrigine (Lamictal) 25 mg PO DAILY [facility] Last Admin: 06/01/17 09:12 Dose: 25 mg Lorazepam (Ativan) 0.5 mg PO Q6H [facility] Last Admin: 06/01/17 12:16 Dose: 0.5 mg Magnesium Hydroxide (Milk Of Magnesia) 30 ml PO HS PRN PRN Reason: Constipation Paliperidone (Invega) 6 mg PO HS [facility] Last Admin: 05/31/17 22:04 Dose: 6 mg Potassium Chloride (K-Dur 20 Meq Er Tab) 40 meq PO DAILY [facility] Last Admin: 06/01/17 09:13 Dose: 40 meq Saccharomyces Boulardii (Florastor) 250 mg PO BID [facility] Last Admin: 06/01/17 09:15 Dose: 250 mg Temazepam (Restoril) 15 mg PO HS PRN PRN Reason: Insomnia Trazodone HCl (Desyrel) 50 mg PO HS [facility] Last Admin: 05/31/17 22:04 Dose: 50 mg Physical Exam - Head Exam Head Exam: ATRAUMATIC - Eye Exam Eye Exam: Normal appearance - ENT Exam ENT Exam: Mucous Membranes Dry - Respiratory Exam Respiratory Exam: NORMAL BREATHING PATTERN - Cardiovascular Exam Cardiovascular Exam: +S1, +S2 - GI/Abdominal Exam GI & Abdominal Exam: Normal Bowel Sounds Results - Vital Signs Recent Vital Signs: Last Vital Signs Temp 98.8 F 06/01/17 08:06 Pulse 97 H 06/01/17 08:06 Resp 20 06/01/17 08:06 BP 119/81 06/01/17 08:06 Pulse Ox 95 06/01/17 08:06 - Labs Result Diagrams: 05/30/17 18:38 05/30/17 18:38 Assessment & Plan (1) Neutropenia Assessment and Plan: Chronic mild to moderate neutropenia since 2013 suspect related to psych meds deferred bone marrow evaluation Status: Acute (2) Thrombocytopenia Assessment and Plan: will check hepatitis and HIV suspect related to psychiatric meds pt cleared for orthopedic surgery if plt 75,000 and above. Status: Acute (3) Coagulopathy Assessment and Plan: mild cleared for orthopedic surgery if INR < 1.5 Thank you for this interesting consult. Status: Acute
--- NOTE | 2017-06-01 13:30 | CP.PCM.PN ---
Subjective - Date & Time of Evaluation Date of Evaluation: 06/01/17 Time of Evaluation: 12:30 - Subjective Subjective: NO NEW COMPLAINTS Objective - Vital Signs/Intake and Output Vital Signs (last 24 hours): Temp Pulse Resp BP Pulse Ox 98.8 F 97 H 20 119/81 95 06/01/17 08:06 06/01/17 08:06 06/01/17 08:06 06/01/17 08:06 06/01/17 08:06 - Medications Medications: Current Medications Acetaminophen (Tylenol 325mg Tab) 650 mg PO Q4H PRN PRN Reason: Pain, Mild (1-3) Last Admin: 05/31/17 20:02 Dose: 650 mg Acetaminophen (Tylenol 325mg Tab) 650 mg PO Q4H PRN PRN Reason: Temp 101 and above Benztropine Mesylate (Cogentin) 0.5 mg PO Q12 [facility] Last Admin: 06/01/17 09:16 Dose: 0.5 mg Famotidine (Pepcid) 20 mg PO BID [facility] Last Admin: 06/01/17 09:16 Dose: 20 mg Lamotrigine (Lamictal) 25 mg PO DAILY [facility] Last Admin: 06/01/17 09:12 Dose: 25 mg Lorazepam (Ativan) 0.5 mg PO Q6H [facility] Last Admin: 06/01/17 12:16 Dose: 0.5 mg Magnesium Hydroxide (Milk Of Magnesia) 30 ml PO HS PRN PRN Reason: Constipation Paliperidone (Invega) 6 mg PO HS [facility] Last Admin: 05/31/17 22:04 Dose: 6 mg Potassium Chloride (K-Dur 20 Meq Er Tab) 40 meq PO DAILY [facility] Last Admin: 06/01/17 09:13 Dose: 40 meq Saccharomyces Boulardii (Florastor) 250 mg PO BID [facility] Last Admin: 06/01/17 09:15 Dose: 250 mg Temazepam (Restoril) 15 mg PO HS PRN PRN Reason: Insomnia Trazodone HCl (Desyrel) 50 mg PO HS [facility] Last Admin: 05/31/17 22:04 Dose: 50 mg - Labs Labs: 06/01/17 12:40 05/30/17 18:38 PT 13.9 Seconds (9.8-13.1) H 05/30/17 18:38 INR 1.2 (0.9-1.2) 05/30/17 18:38 APTT 39.4 Seconds (25.6-37.1) H 05/30/17 18:38 - Respiratory Exam Respiratory Exam: Clear to Ausculation Bilateral - Cardiovascular Exam Cardiovascular Exam: REGULAR RHYTHM, +S1, +S2 - Additional Findings Additional findings: ORTHOPEDIC AND HEMATOLOGY NOTES REVIEWED Assessment and Plan - Assessment and Plan (Free Text) Assessment: RIGHT KNEE TRAUMA LEUKOPENIA AND THROMBOCYTOPENIA Plan: 12 LEAD EKG ORDERED COMPLETE CBC PENDING
--- NOTE | 2017-06-01 14:33 | RAD ---
HISTORY: Severe djd R knee/possible tibial fx COMPARISON: No prior FINDINGS: BONES: Normal. No fracture. JOINTS: Large effusion. Mild degenerative change. Mild degenerative change. SOFT TISSUE: Normal. OTHER FINDINGS: None . IMPRESSION: Large effusion. Mild degenerative change. Mild degenerative change.
[2017-06-01 15:06] LABS: BASOPHIL 1 % (0-2); EOSINOPHIL 8 % (0-7); NEUTROPHIL 34 % (42-75); TOTAL CELLS COUNTED 100
[2017-06-01 15:07] LABS: GIANT PLATELETS PRESENT; LARGE PLATELETS PRESENT
--- NOTE | 2017-06-01 16:59 | CP.PCM.PN ---
Subjective - Date & Time of Evaluation Date of Evaluation: 06/01/17 Time of Evaluation: 15:00 - Subjective Subjective: No complaints Objective - Vital Signs/Intake and Output Vital Signs (last 24 hours): Temp Pulse Resp BP Pulse Ox 97.7 F 102 H 18 136/81 95 06/01/17 16:28 06/01/17 16:28 06/01/17 16:28 06/01/17 16:28 06/01/17 16:28 - Medications Medications: Current Medications Acetaminophen (Tylenol 325mg Tab) 650 mg PO Q4H PRN PRN Reason: Pain, Mild (1-3) Last Admin: 05/31/17 20:02 Dose: 650 mg Acetaminophen (Tylenol 325mg Tab) 650 mg PO Q4H PRN PRN Reason: Temp 101 and above Benztropine Mesylate (Cogentin) 0.5 mg PO Q12 [facility] Last Admin: 06/01/17 09:16 Dose: 0.5 mg Famotidine (Pepcid) 20 mg PO BID [facility] Last Admin: 06/01/17 16:34 Dose: 20 mg Lamotrigine (Lamictal) 25 mg PO DAILY [facility] Last Admin: 06/01/17 09:12 Dose: 25 mg Lorazepam (Ativan) 0.5 mg PO Q6H [facility] Last Admin: 06/01/17 16:33 Dose: 0.5 mg Magnesium Hydroxide (Milk Of Magnesia) 30 ml PO HS PRN PRN Reason: Constipation Paliperidone (Invega) 6 mg PO HS [facility] Last Admin: 05/31/17 22:04 Dose: 6 mg Potassium Chloride (K-Dur 20 Meq Er Tab) 40 meq PO DAILY [facility] Last Admin: 06/01/17 09:13 Dose: 40 meq Saccharomyces Boulardii (Florastor) 250 mg PO BID [facility] Last Admin: 06/01/17 16:33 Dose: 250 mg Temazepam (Restoril) 15 mg PO HS PRN PRN Reason: Insomnia Trazodone HCl (Desyrel) 50 mg PO HS [facility] Last Admin: 05/31/17 22:04 Dose: 50 mg - Labs Labs: 06/01/17 12:40 05/30/17 18:38 PT 13.9 Seconds (9.8-13.1) H 05/30/17 18:38 INR 1.2 (0.9-1.2) 05/30/17 18:38 APTT 39.4 Seconds (25.6-37.1) H 05/30/17 18:38 - Head Exam Head Exam: ATRAUMATIC - Eye Exam Eye Exam: Normal appearance - ENT Exam ENT Exam: Mucous Membranes Dry - Respiratory Exam Respiratory Exam: NORMAL BREATHING PATTERN - Cardiovascular Exam Cardiovascular Exam: +S1, +S2 - GI/Abdominal Exam GI & Abdominal Exam: Normal Bowel Sounds Assessment and Plan (1) Neutropenia Assessment & Plan: suspect secondary to psychiatric meds mild to moderate neutropenia deferred bone marrow evaluation Status: Acute (2) Thrombocytopenia Assessment & Plan: improved secondary to psych meds Status: Chronic (3) Coagulopathy Assessment & Plan: mild s/p vit k Status: Chronic
--- NOTE | 2017-06-01 17:46 | CP.PCM.PN ---
Subjective - Date & Time of Evaluation Date of Evaluation: 06/01/17 Time of Evaluation: 17:00 - Subjective Subjective: Pt seen and examined Son at bedside Pt is a poor historian accdg to her son , pt gets confused at times- effect of her Psych dis and all the meds she takes discussed plan for surgery on Saturday - pt and son agrees to the surgery Pt denies bleeding denies headache, no dizziness no CP no SOB no abd pain Objective - Vital Signs/Intake and Output Vital Signs (last 24 hours): Temp Pulse Resp BP Pulse Ox 97.7 F 102 H 18 136/81 95 06/01/17 16:28 06/01/17 16:28 06/01/17 16:28 06/01/17 16:28 06/01/17 16:28 - Medications Medications: Current Medications Acetaminophen (Tylenol 325mg Tab) 650 mg PO Q4H PRN PRN Reason: Pain, Mild (1-3) Last Admin: 05/31/17 20:02 Dose: 650 mg Acetaminophen (Tylenol 325mg Tab) 650 mg PO Q4H PRN PRN Reason: Temp 101 and above Benztropine Mesylate (Cogentin) 0.5 mg PO Q12 [facility] Last Admin: 06/01/17 09:16 Dose: 0.5 mg Famotidine (Pepcid) 20 mg PO BID [facility] Last Admin: 06/01/17 16:34 Dose: 20 mg Lamotrigine (Lamictal) 25 mg PO DAILY [facility] Last Admin: 06/01/17 09:12 Dose: 25 mg Lorazepam (Ativan) 0.5 mg PO Q6H [facility] Last Admin: 06/01/17 16:33 Dose: 0.5 mg Magnesium Hydroxide (Milk Of Magnesia) 30 ml PO HS PRN PRN Reason: Constipation Paliperidone (Invega) 6 mg PO HS [facility] Last Admin: 05/31/17 22:04 Dose: 6 mg Potassium Chloride (K-Dur 20 Meq Er Tab) 40 meq PO DAILY [facility] Last Admin: 06/01/17 09:13 Dose: 40 meq Saccharomyces Boulardii (Florastor) 250 mg PO BID [facility] Last Admin: 06/01/17 16:33 Dose: 250 mg Temazepam (Restoril) 15 mg PO HS PRN PRN Reason: Insomnia Trazodone HCl (Desyrel) 50 mg PO HS [facility] Last Admin: 05/31/17 22:04 Dose: 50 mg - Labs Labs: 06/01/17 12:40 05/30/17 18:38 PT 13.9 Seconds (9.8-13.1) H 05/30/17 18:38 INR 1.2 (0.9-1.2) 05/30/17 18:38 APTT 39.4 Seconds (25.6-37.1) H 05/30/17 18:38 - Constitutional Appears: No Acute Distress - Head Exam Head Exam: NORMAL INSPECTION, NORMOCEPHALIC - Eye Exam Eye Exam: EOMI, Normal appearance Pupil Exam: NORMAL ACCOMODATION - ENT Exam ENT Exam: Mucous Membranes Moist, Normal External Ear Exam - Neck Exam Neck Exam: Full ROM. absent: Meningismus - Respiratory Exam Respiratory Exam: NORMAL BREATHING PATTERN. absent: Respiratory Distress - Cardiovascular Exam Cardiovascular Exam: REGULAR RHYTHM, +S1, +S2 - GI/Abdominal Exam GI & Abdominal Exam: Soft, Normal Bowel Sounds. absent: Tenderness - Extremities Exam Extremities Exam: Normal Capillary Refill. absent: Calf Tenderness, Pedal Edema Additional comments: right knee with immobilizer - Back Exam Back Exam: Full ROM. absent: CVA tenderness (L), CVA tenderness (R) - Neurological Exam Neurological Exam: Alert, Awake, CN II-XII Intact Neuro motor strength exam: Left Upper Extremity: 5, Right Upper Extremity: 5, Left Lower Extremity: 5 Additional comments: oriented to person and place - Psychiatric Exam Psychiatric exam: Normal Affect, Normal Mood - Skin Skin Exam: Dry, Normal Color, Warm Assessment and Plan (1) Tibial plateau fracture, right Status: Acute (2) Leukopenia Status: Chronic (3) Thrombocytopenia Status: Chronic (4) Schizoaffective disorder Status: Chronic (5) History of CVA (cerebrovascular accident) Status: Chronic (6) Coagulopathy Status: Chronic (7) Hepatitis C Status: Chronic (8) History of heroin abuse Status: Chronic (9) Abnormal LFTs Status: Chronic - Assessment and Plan (Free Text) Assessment: 62 y/o lady with hx of CVA, Hep C, Schizoaffective Dis, Heroin/Cocaine Abuse, Seizure Dis, came because of right knee pain. Sustained Right knee fracture after a fall. Noted to have Leukopenia and Thrombocytopenia on admission. (1) Tibial plateau fracture, right Status: Acute Ortho consulted- dr Sharpe , plan for TKR on Saturday Dr Serrano consulted for pre op cardiac optimization Pain mgt (2) Leukopenia prob sec to meds Status: Chronic Hematology - Dr Yang consulted (3) Thrombocytopenia Status: Chronic prob sec to meds and also due to liver proble . Pt has Hepc and abn LFTs Hematology consulted to optimize hematological status prior to surgery Platelet better today at 88 no active bleeding (4) Schizoaffective disorder Status: Chronic Pt is on multiple Psych meds- Cymbalta, Haldol, Ativan, Trazodone, Invega and Restoril Psych - Dr Hou consulted (5) History of CVA (cerebrovascular accident) Status: Chronic Pt states this happened when she was on drugs stable at present CT of head : old infarct (6) Coagulopathy Status: Chronic likely sec to liver dis INR normal at present (7) Hepatitis C Status: Chronic abn LFTs discussed with pt need to ff up with Liver soecialist on discharge (8) History of heroin/Cocaine abuse Status: Chronic pt states has been clean for 10 years until she took some Cocaine about 4 wks ago (9) Abnormal LFTs Status: Chronic likely sec to Hep c on top of meds will monitor 10) Seizure Disorder, history - cont lamictal DVT proph : SCD
[2017-06-01] MEDS: Paliperidone 6 MG ER TAB PO SCH (21:29)
[2017-06-01 23:47] LABS: RBC URINE 2 /hpf (0-3); URINE BACTERIA RARE (<OCC); URINE BILIRUBIN NEGATIVE (NEGATIVE); URINE BLOOD NEGATIVE (NEGATIVE); URINE COLOR YELLOW (YELLOW); URINE GLUCOSE (UA) NEG (Normal); URINE KETONE NEGATIVE (NEGATIVE); URINE LEUKOCYTE ESTERASE LARGE Leu/uL (Negative); URINE PROTEIN NEGATIVE (NEGATIVE); WBC URINE 20 /hpf (0-5)
[2017-06-02 07:31] LABS: BASO % 0.8 % (0.0-2.0); EOS # 0.3 K/uL (0.0-0.7); EOS % 5.9 % (0.0-4.0); HEMATOCRIT 44.4 % (34.0-47.0); LYMPH # 1.4 K/uL (1.0-4.3); LYMPH % 33.7 % (20.0-40.0); MEAN CELL VOLUME 98.2 fl (81.0-99.0); MEAN CORPUSCULAR HEMOGLOBIN 33.6 pg (27.0-31.0); MEAN CORPUSCULAR HGB CONC 34.2 g/dL (33.0-37.0); MEAN PLATELET VOLUME 9.5 fl (7.2-11.7); MONO # 0.7 K/uL (0.0-0.8); MONO % 17.3 % (0.0-10.0); NEUT # 1.8 K/uL (1.8-7.0); NEUT % 42.3 % (50.0-75.0); NRBC % 0.3 % (0.0-0.0); RED CELL DISTRIBUTION WIDTH 14.6 % (11.5-14.5); WHITE BLOOD COUNT 4.3 K/uL (4.8-10.8)
[2017-06-02 07:55] LABS: ALB/GLOB RATIO 1.1 (1.0-2.1); ALKALINE PHOSPHATASE 183 U/L (38-126); ALT/SGPT 107 U/L (9-52); AST/SGOT 86 U/L (14-36); BILIRUBIN,TOTAL 1.2 mg/dl (0.2-1.3); BLOOD UREA NITROGEN 5 mg/dl (7-17); CALCIUM 9.8 mg/dL (8.4-10.2); CARBON DIOXIDE 26 mmol/L (22-30); CHLORIDE 106 mmol/L (98-107); GFR AFRICAN-AMERICAN > 60; GLUCOSE,RANDOM 108 mg/dL (65-105); POTASSIUM 3.9 MMOL/L (3.6-5.0); SODIUM 144 mmol/l (132-148); TOTAL PROTEIN 7.8 G/DL (6.3-8.2)
[2017-06-02 08:11] LABS: PARTIAL THROMBOPLASTIN TIME 34.5 Seconds (25.6-37.1)
[2017-06-02] MEDS: Saccharomyces Boulardi 250 mg Cap PO SCH ×2 (09:00→16:20)
[2017-06-02] MEDS: Potassium Chloride 20 mEq ER Tab PO SCH (09:00)
--- NOTE | 2017-06-02 11:11 | CP.PCM.PN ---
Subjective - Date & Time of Evaluation Date of Evaluation: 06/02/17 Time of Evaluation: 11:00 - Subjective Subjective: No fever has slight right knee pain episodes of confusion, pt has hx of Bipolar Dis/Schizoaffective Dis and is on multiple Psyc meds and Benzo , also has hx of Cocaine abuse denies CP no SOB no abd pain no dysuria Objective - Vital Signs/Intake and Output Vital Signs (last 24 hours): Temp Pulse Resp BP Pulse Ox 98.3 F 110 H 20 126/92 H 96 06/02/17 09:20 06/02/17 00:17 06/02/17 09:20 06/02/17 00:17 06/02/17 09:20 - Medications Medications: Current Medications Acetaminophen (Tylenol 325mg Tab) 650 mg PO Q4H PRN PRN Reason: Pain, Mild (1-3) Last Admin: 05/31/17 20:02 Dose: 650 mg Acetaminophen (Tylenol 325mg Tab) 650 mg PO Q4H PRN PRN Reason: Temp 101 and above Benztropine Mesylate (Cogentin) 0.5 mg PO Q12 [facility] Last Admin: 06/02/17 08:59 Dose: 0.5 mg Famotidine (Pepcid) 20 mg PO BID [facility] Last Admin: 06/02/17 09:01 Dose: 20 mg Ceftriaxone Sodium 1 gm/ (Sodium Chloride) 100 mls @ 100 mls/hr IVPB DAILY [facility] Last Admin: 06/02/17 10:53 Dose: 100 mls/hr Lamotrigine (Lamictal) 25 mg PO DAILY [facility] Last Admin: 06/02/17 09:01 Dose: 25 mg Lorazepam (Ativan) 0.5 mg PO Q6H PRN PRN Reason: Agitation Magnesium Hydroxide (Milk Of Magnesia) 30 ml PO HS PRN PRN Reason: Constipation Paliperidone (Invega) 6 mg PO HS [facility] Last Admin: 06/01/17 21:29 Dose: 6 mg Potassium Chloride (K-Dur 20 Meq Er Tab) 40 meq PO DAILY [facility] Last Admin: 06/02/17 09:00 Dose: 40 meq Saccharomyces Boulardii (Florastor) 250 mg PO BID [facility] Last Admin: 06/02/17 09:00 Dose: 250 mg Trazodone HCl (Desyrel) 50 mg PO HS [facility] Last Admin: 06/01/17 21:29 Dose: 50 mg - Labs Labs: 06/02/17 06:00 06/02/17 06:00 PT 13.0 Seconds (9.8-13.1) 06/02/17 06:00 INR 1.2 (0.9-1.2) 06/02/17 06:00 APTT 34.5 Seconds (25.6-37.1) 06/02/17 06:00 - Constitutional Appears: No Acute Distress - Head Exam Head Exam: NORMAL INSPECTION, NORMOCEPHALIC - Eye Exam Eye Exam: EOMI, Normal appearance Pupil Exam: NORMAL ACCOMODATION - ENT Exam ENT Exam: Mucous Membranes Moist, Normal External Ear Exam - Neck Exam Neck Exam: Full ROM. absent: Meningismus - Respiratory Exam Respiratory Exam: NORMAL BREATHING PATTERN. absent: Respiratory Distress - Cardiovascular Exam Cardiovascular Exam: REGULAR RHYTHM, +S1, +S2 - GI/Abdominal Exam GI & Abdominal Exam: Soft, Normal Bowel Sounds. absent: Tenderness - Extremities Exam Extremities Exam: Normal Capillary Refill. absent: Calf Tenderness, Pedal Edema Additional comments: right knee pain on ROM - Back Exam Back Exam: Full ROM. absent: CVA tenderness (L), CVA tenderness (R) - Neurological Exam Neurological Exam: Alert, Awake, CN II-XII Intact Neuro motor strength exam: Left Upper Extremity: 5, Right Upper Extremity: 5, Left Lower Extremity: 5 Additional comments: oriented to person and place - Psychiatric Exam Psychiatric exam: Normal Affect, Normal Mood - Skin Skin Exam: Dry, Normal Color, Warm Assessment and Plan (1) Tibial plateau fracture, right Status: Acute (2) Leukopenia Status: Chronic (3) Thrombocytopenia Status: Chronic (4) Schizoaffective disorder Status: Chronic (5) History of CVA (cerebrovascular accident) Status: Chronic (6) Coagulopathy Status: Chronic (7) Hepatitis C Status: Chronic (8) History of heroin abuse Status: Chronic (9) Abnormal LFTs Status: Chronic - Assessment and Plan (Free Text) Assessment: 62 y/o lady with hx of CVA, Hep C, Schizoaffective Dis, Heroin/Cocaine Abuse, Seizure Dis, came because of right knee pain. Sustained Right knee fracture after a fall. Noted to have Leukopenia and Thrombocytopenia on admission. (1) Tibial plateau fracture, right Status: Acute Ortho consulted- dr Sharpe , plan for TKR tomorrow Dr Serrano consulted for pre op cardiac optimization Pain mgt NPO from [place] (2) Leukopenia prob sec to meds Status: Chronic Hematology - Dr Yang consulted (3) Thrombocytopenia, improving Status: Chronic prob sec to meds and also due to liver proble . Pt has Hep C and abn LFTs Hematology consulted to optimize hematological status prior to surgery- accdg to Dr Yang ok from hematological standpoint as long as Platelet greater than 75 Platelet better today at 98 no active bleeding (4) Schizoaffective disorder Status: Chronic Pt is on multiple Psych meds- Cymbalta, Haldol, Ativan, Trazodone, Invega and Restoril Psych - Dr Hou consulted d/c Restoril, give Ativan PRN only (5) History of CVA (cerebrovascular accident) Status: Chronic Pt states this happened when she was on drugs stable at present CT of head : old infarct (6) Coagulopathy Status: Chronic likely sec to liver dis INR normal at present (7) Hepatitis C Status: Chronic abn LFTs discussed with pt need to ff up with Liver specialist as outpt (8) History of heroin/Cocaine abuse Status: Chronic pt states has been clean for 10 years until she took some Cocaine about 4 wks ago (9) Abnormal LFTs Status: Chronic likely sec to Hep C on top of meds will monitor 10) Seizure Disorder, history - cont lamictal DVT proph : SCD
--- NOTE | 2017-06-02 12:32 | CP.PCM.PN ---
Subjective - Date & Time of Evaluation Date of Evaluation: 06/02/17 Time of Evaluation: 11:40 - Subjective Subjective: NO NEW COMPLAINTS Objective - Vital Signs/Intake and Output Vital Signs (last 24 hours): Temp Pulse Resp BP Pulse Ox 98.3 F 90 20 123/88 96 06/02/17 09:20 06/02/17 08:00 06/02/17 09:20 06/02/17 08:00 06/02/17 09:20 - Medications Medications: Current Medications Acetaminophen (Tylenol 325mg Tab) 650 mg PO Q4H PRN PRN Reason: Pain, Mild (1-3) Last Admin: 05/31/17 20:02 Dose: 650 mg Acetaminophen (Tylenol 325mg Tab) 650 mg PO Q4H PRN PRN Reason: Temp 101 and above Benztropine Mesylate (Cogentin) 0.5 mg PO Q12 [facility] Last Admin: 06/02/17 08:59 Dose: 0.5 mg Famotidine (Pepcid) 20 mg PO BID [facility] Last Admin: 06/02/17 09:01 Dose: 20 mg Ceftriaxone Sodium 1 gm/ (Sodium Chloride) 100 mls @ 100 mls/hr IVPB DAILY [facility] Last Admin: 06/02/17 10:53 Dose: 100 mls/hr Lamotrigine (Lamictal) 25 mg PO DAILY [facility] Last Admin: 06/02/17 09:01 Dose: 25 mg Lorazepam (Ativan) 0.5 mg PO Q6H PRN PRN Reason: Agitation Magnesium Hydroxide (Milk Of Magnesia) 30 ml PO HS PRN PRN Reason: Constipation Paliperidone (Invega) 6 mg PO HS [facility] Last Admin: 06/01/17 21:29 Dose: 6 mg Potassium Chloride (K-Dur 20 Meq Er Tab) 40 meq PO DAILY [facility] Last Admin: 06/02/17 09:00 Dose: 40 meq Saccharomyces Boulardii (Florastor) 250 mg PO BID [facility] Last Admin: 06/02/17 09:00 Dose: 250 mg Trazodone HCl (Desyrel) 50 mg PO HS [facility] Last Admin: 06/01/17 21:29 Dose: 50 mg - Labs Labs: 06/02/17 06:00 06/02/17 06:00 PT 13.0 Seconds (9.8-13.1) 06/02/17 06:00 INR 1.2 (0.9-1.2) 06/02/17 06:00 APTT 34.5 Seconds (25.6-37.1) 06/02/17 06:00 - Respiratory Exam Respiratory Exam: Clear to Ausculation Bilateral - Cardiovascular Exam Cardiovascular Exam: REGULAR RHYTHM, +S1, +S2 - Additional Findings Additional findings: PLT CT 06/01/17 REPORTED SLIGHTLY DECREASED Assessment and Plan - Assessment and Plan (Free Text) Assessment: RIGHT KNEE TRAUMA Plan: FOR SURGERY TOMORROW IF CLEARED BY HEMATOLOGY
--- NOTE | 2017-06-02 19:03 | CP.PCM.PN ---
Subjective - Date & Time of Evaluation Date of Evaluation: 06/02/17 Time of Evaluation: 16:00 - Subjective Subjective: No complaints. Pt cleared for orthopedic surgery from hematology standpoint if plt > 75,000, INR < 1.5 mild leukopenia, neutropenia resolved Objective - Vital Signs/Intake and Output Vital Signs (last 24 hours): Temp Pulse Resp BP Pulse Ox 98 F 86 18 117/77 97 06/02/17 17:00 06/02/17 17:00 06/02/17 17:00 06/02/17 17:00 06/02/17 17:00 - Medications Medications: Current Medications Acetaminophen (Tylenol 325mg Tab) 650 mg PO Q4H PRN PRN Reason: Pain, Mild (1-3) Last Admin: 05/31/17 20:02 Dose: 650 mg Acetaminophen (Tylenol 325mg Tab) 650 mg PO Q4H PRN PRN Reason: Temp 101 and above Benztropine Mesylate (Cogentin) 0.5 mg PO Q12 [facility] Last Admin: 06/02/17 08:59 Dose: 0.5 mg Famotidine (Pepcid) 20 mg PO BID [facility] Last Admin: 06/02/17 16:20 Dose: 20 mg Ceftriaxone Sodium 1 gm/ (Sodium Chloride) 100 mls @ 100 mls/hr IVPB DAILY [facility] Last Admin: 06/02/17 10:53 Dose: 100 mls/hr Lamotrigine (Lamictal) 25 mg PO DAILY [facility] Last Admin: 06/02/17 09:01 Dose: 25 mg Lorazepam (Ativan) 0.5 mg PO Q6H PRN PRN Reason: Agitation Magnesium Hydroxide (Milk Of Magnesia) 30 ml PO HS PRN PRN Reason: Constipation Paliperidone (Invega) 6 mg PO HS [facility] Last Admin: 06/01/17 21:29 Dose: 6 mg Potassium Chloride (K-Dur 20 Meq Er Tab) 40 meq PO DAILY [facility] Last Admin: 06/02/17 09:00 Dose: 40 meq Saccharomyces Boulardii (Florastor) 250 mg PO BID [facility] Last Admin: 06/02/17 16:20 Dose: 250 mg Trazodone HCl (Desyrel) 50 mg PO HS [facility] Last Admin: 06/01/17 21:29 Dose: 50 mg - Labs Labs: 06/02/17 06:00 06/02/17 06:00 PT 13.0 Seconds (9.8-13.1) 06/02/17 06:00 INR 1.2 (0.9-1.2) 06/02/17 06:00 APTT 34.5 Seconds (25.6-37.1) 06/02/17 06:00 - Head Exam Head Exam: ATRAUMATIC - Eye Exam Eye Exam: Normal appearance - ENT Exam ENT Exam: Mucous Membranes Dry - Cardiovascular Exam Cardiovascular Exam: +S1, +S2 - GI/Abdominal Exam GI & Abdominal Exam: Normal Bowel Sounds Assessment and Plan (1) Neutropenia Status: Acute (2) Thrombocytopenia Status: Chronic (3) Coagulopathy Status: Chronic
[2017-06-02] MEDS: Paliperidone 6 MG ER TAB PO SCH (21:57)
[2017-06-03] MEDS ORDERED: Ropivacaine 0.5% 30ML IV ONE (07:09)
[2017-06-03 07:16] LABS: BASO % 0.9 % (0.0-2.0); EOS # 0.3 K/uL (0.0-0.7); EOS % 8.3 % (0.0-4.0); HEMATOCRIT 41.4 % (34.0-47.0); LYMPH # 1.7 K/uL (1.0-4.3); LYMPH % 53.9 % (20.0-40.0); MEAN CORPUSCULAR HEMOGLOBIN 33.2 pg (27.0-31.0); MEAN CORPUSCULAR HGB CONC 34.2 g/dL (33.0-37.0); MEAN PLATELET VOLUME 9.9 fl (7.2-11.7); MONO # 0.5 K/uL (0.0-0.8); MONO % 15.5 % (0.0-10.0); NEUT # 0.7 K/uL (1.8-7.0); NEUT % 21.4 % (50.0-75.0); NRBC % 0.4 % (0.0-0.0); RED CELL DISTRIBUTION WIDTH 14.4 % (11.5-14.5); WHITE BLOOD COUNT 3.2 K/uL (4.8-10.8)
[2017-06-03] MEDS ORDERED: Succinylcholine 200 mg/10 ml Inj IV ONE (07:18)
[2017-06-03] MEDS ORDERED: Rocuronium 10 mg/ml (5 ml) ONE ×2 (07:18→08:42)
[2017-06-03] MEDS ORDERED: Propofol 10 mg/ml Inj (20 ML) ONE (07:18)
[2017-06-03] MEDS ORDERED: Etomidate 20 mg/10ml Inj IV ONE (07:20)
[2017-06-03 07:24] LABS: BLOOD UREA NITROGEN 8 mg/dl (7-17); CALCIUM 9.3 mg/dL (8.4-10.2); CARBON DIOXIDE 24 mmol/L (22-30); CHLORIDE 109 mmol/L (98-107); GFR AFRICAN-AMERICAN > 60; GLUCOSE,RANDOM 94 mg/dL (65-105); POTASSIUM 3.7 MMOL/L (3.6-5.0); SODIUM 142 mmol/l (132-148)
[2017-06-03] MEDS ORDERED: Dexamethasone 4 mg/1 ml ONE ×2 (07:24→08:47)
[2017-06-03] MEDS ORDERED: Bupivacaine 0.5% Inj(30mL) ONE (07:31)
[2017-06-03] MEDS ORDERED: Thrombin Topical 5,000 IU Spray Kit ONE (07:31)
[2017-06-03] MEDS ORDERED: Bacitracin Ointment 30 GM TUBE ONE (07:31)
[2017-06-03] MEDS ORDERED: Absorbable Gelatin Sponge Size 100 ONE (07:31)
--- NOTE | 2017-06-03 07:34 | CP.PCM.PN ---
Subjective - Date & Time of Evaluation Date of Evaluation: 06/03/17 Time of Evaluation: 15:00 - Subjective Subjective: Patient was seen and evaluated . Hemodynamically stable, afebrile. S/p right TKR.Still a little sedated , denies any pain Objective - Vital Signs/Intake and Output Vital Signs (last 24 hours): Temp Pulse Resp BP Pulse Ox 98.2 F 109 H 20 137/76 98 06/03/17 00:42 06/03/17 00:42 06/03/17 00:42 06/03/17 00:42 06/03/17 00:42 - Medications Medications: Current Medications Acetaminophen (Tylenol 325mg Tab) 650 mg PO Q4H PRN PRN Reason: Pain, Mild (1-3) Last Admin: 05/31/17 20:02 Dose: 650 mg Acetaminophen (Tylenol 325mg Tab) 650 mg PO Q4H PRN PRN Reason: Temp 101 and above Benztropine Mesylate (Cogentin) 0.5 mg PO Q12 [facility] Last Admin: 06/02/17 21:57 Dose: 0.5 mg Famotidine (Pepcid) 20 mg PO BID [facility] Last Admin: 06/02/17 16:20 Dose: 20 mg Ceftriaxone Sodium 1 gm/ (Sodium Chloride) 100 mls @ 100 mls/hr IVPB DAILY [facility] Last Admin: 06/02/17 10:53 Dose: 100 mls/hr Lamotrigine (Lamictal) 25 mg PO DAILY [facility] Last Admin: 06/02/17 09:01 Dose: 25 mg Lorazepam (Ativan) 0.5 mg PO Q6H PRN PRN Reason: Agitation Magnesium Hydroxide (Milk Of Magnesia) 30 ml PO HS PRN PRN Reason: Constipation Paliperidone (Invega) 6 mg PO HS [facility] Last Admin: 06/02/17 21:57 Dose: 6 mg Potassium Chloride (K-Dur 20 Meq Er Tab) 40 meq PO DAILY [facility] Last Admin: 06/02/17 09:00 Dose: 40 meq Saccharomyces Boulardii (Florastor) 250 mg PO BID [facility] Last Admin: 06/02/17 16:20 Dose: 250 mg Trazodone HCl (Desyrel) 50 mg PO HS [facility] Last Admin: 06/02/17 21:57 Dose: 50 mg - Labs Labs: 06/03/17 06:05 07/31/17 06:05 PT 13.0 Seconds (9.8-13.1) 06/02/17 06:00 INR 1.2 (0.9-1.2) 06/02/17 06:00 APTT 34.5 Seconds (25.6-37.1) 06/02/17 06:00 - Constitutional Appears: Non-toxic, No Acute Distress - Head Exam Head Exam: ATRAUMATIC, NORMOCEPHALIC - Eye Exam Eye Exam: EOMI, Normal appearance, PERRL Pupil Exam: NORMAL ACCOMODATION - ENT Exam ENT Exam: Mucous Membranes Dry, Normal Exam - Neck Exam Neck Exam: Full ROM, Normal Inspection - Respiratory Exam Respiratory Exam: Clear to Ausculation Bilateral. absent: Rales, Rhonchi, Wheezes - Cardiovascular Exam Cardiovascular Exam: REGULAR RHYTHM, RRR, +S1, +S2. absent: JVD - GI/Abdominal Exam GI & Abdominal Exam: Soft, Normal Bowel Sounds. absent: Distended, Guarding, Tenderness, Rebound - Rectal Exam Rectal Exam: Deferred - Extremities Exam Extremities Exam: Normal Inspection Additional comments: right knee dressing and immobilizer in place - Neurological Exam Neurological Exam: Alert, Awake - Psychiatric Exam Psychiatric exam: Flat Affect - Skin Skin Exam: Dry, Pallor, Warm Assessment and Plan - Assessment and Plan (Free Text) Assessment: 62 y/o lady with hx of CVA, Hep C, Schizoaffective Dis, Heroin/Cocaine Abuse, Seizure Dis, came because of right knee pain. Sustained Right knee fracture after a fall. Noted to have Leukopenia and Thrombocytopenia on admission. Patient cleared for surgery by hematology and cardiology T boston underwent Right TKR 1. Tibial plateau fracture, right s/p TKR Acute Cleared for surgery by cardiology and hematology Ortho consulted- Dr Sharpe s/p TKR today Continue pain management Incentive spirometry CPM machine and PRT as per ortho Start physical therapyt as soon as possible Hold anticoagulation for now 2.Leukopenia prob sec to meds Chronic Hematology - Dr Yang consulted 3. Thrombocytopenia, improving Chronic prob sec to meds and Hep C Hematology consulted to optimize hematological status prior to surgery- accdg to Dr Yang ok from hematological standpoint as long as Platelet greater than 75 no active bleeding 4. Schizoaffective disorder Chronic Pt is on multiple Psych meds- Cymbalta, Haldol, Ativan, Trazodone, Invega and Restoril Psych - Dr Hou consulted d/c Restoril, hold Ativan today for obver sedation 5.History of CVA (cerebrovascular accident) Chronic Pt states this happened when she was on drugs stable at present CT of head : old infarct 6. Coagulopathy Chronic likely sec to liver dis INR normal at present 7.Hepatitis C Chronic abn LFTs discussed with pt need to ff up with Liver specialist as outpt 8. History of heroin/Cocaine abuse Chronic pt states has been clean for 10 years until she took some Cocaine about 4 wks ago 9. Abnormal LFTs Chronic likely sec to Hep C on top of meds monitor 10.Seizure Disorder, history cont lamictal 11.DVT proph SCD
[2017-06-03 07:36] LABS: PARTIAL THROMBOPLASTIN TIME 37.5 Seconds (25.6-37.1)
[2017-06-03] MEDS ORDERED: Lidocaine 4% (Laryng-O-Jet) Kit MM ONE (07:42)
[2017-06-03] MEDS ORDERED: Lactated Ringer's 500 ML IV ONE ×3 (07:45→10:00)
[2017-06-03] MEDS: Saccharomyces Boulardi 250 mg Cap PO SCH ×2 (09:00→16:43)
[2017-06-03] MEDS: Potassium Chloride 20 mEq ER Tab PO SCH (09:00)
[2017-06-03] MEDS ORDERED: Phenylephrine 10 mg/ml Inj ONE ×2 (09:29→10:34)
[2017-06-03] MEDS ORDERED: Neostigmine Methylsulfate 3mg/3ml Syringe IV ONE (09:32)
--- NOTE | 2017-06-03 10:43 | CP.PCM.PN ---
Subjective - Date & Time of Evaluation Date of Evaluation: 06/03/17 Time of Evaluation: 07:00 - Subjective Subjective: NO CHEST PAIN OR SOB Objective - Vital Signs/Intake and Output Vital Signs (last 24 hours): Temp Pulse Resp BP Pulse Ox 98.5 F 107 H 18 116/75 97 06/03/17 07:39 06/03/17 07:39 06/03/17 07:39 06/03/17 07:39 06/03/17 07:39 - Medications Medications: Current Medications Acetaminophen (Tylenol 325mg Tab) 650 mg PO Q4H PRN PRN Reason: Pain, Mild (1-3) Last Admin: 05/31/17 20:02 Dose: 650 mg Acetaminophen (Tylenol 325mg Tab) 650 mg PO Q4H PRN PRN Reason: Temp 101 and above Benztropine Mesylate (Cogentin) 0.5 mg PO Q12 [facility] Last Admin: 06/02/17 21:57 Dose: 0.5 mg Famotidine (Pepcid) 20 mg PO BID [facility] Last Admin: 06/02/17 16:20 Dose: 20 mg Ceftriaxone Sodium 1 gm/ (Sodium Chloride) 100 mls @ 100 mls/hr IVPB DAILY [facility] Last Admin: 06/02/17 10:53 Dose: 100 mls/hr Lamotrigine (Lamictal) 25 mg PO DAILY [facility] Last Admin: 06/02/17 09:01 Dose: 25 mg Lorazepam (Ativan) 0.5 mg PO Q6H PRN PRN Reason: Agitation Magnesium Hydroxide (Milk Of Magnesia) 30 ml PO HS PRN PRN Reason: Constipation Paliperidone (Invega) 6 mg PO HS [facility] Last Admin: 06/02/17 21:57 Dose: 6 mg Potassium Chloride (K-Dur 20 Meq Er Tab) 40 meq PO DAILY [facility] Last Admin: 06/02/17 09:00 Dose: 40 meq Saccharomyces Boulardii (Florastor) 250 mg PO BID [facility] Last Admin: 06/02/17 16:20 Dose: 250 mg Trazodone HCl (Desyrel) 50 mg PO HS [facility] Last Admin: 06/02/17 21:57 Dose: 50 mg - Labs Labs: 06/03/17 06:05 06/03/17 06:05 PT 13.4 Seconds (9.8-13.1) H 06/03/17 06:05 INR 1.2 (0.9-1.2) 06/03/17 06:05 APTT 37.5 Seconds (25.6-37.1) H 06/03/17 06:05 - Respiratory Exam Respiratory Exam: Clear to Ausculation Bilateral - Cardiovascular Exam Cardiovascular Exam: REGULAR RHYTHM, +S1, +S2 Assessment and Plan - Assessment and Plan (Free Text) Assessment: RIGHT KNEE TRAUMA STABLE CARDIAC STATUS Plan: FOR SURGERY TODAY BY DR MORAN
[2017-06-03] MEDS ORDERED: Lactated Ringer's 1,000 ML IV PRN (11:02)
[2017-06-03] MEDS ORDERED: HYDROmorphone 0.5 mg/0.5 ml ISec IVP PRN (11:02)
--- NOTE | 2017-06-03 11:18 | PCM.ANESB2 ---
Popliteal Nerve Block - Popliteal Nerve Block Date of Procedure: 06/03/17 Anesthesiologist: melina Pre-Procedure Diagnosis: Right knee OA Post-Procedure Diagnosis: same Procedure Performed: Popliteal Nerve Block Right - Procedure Popliteal Nerve Block: This procedure was explained to the patient that it is for post-operative pain management. Consent was obtained after a thorough discussion with the patient regarding the benefits and possible complications of local anesthetic block of the sciatic nerve at the popliteal level. The patient was brought to the operating room and standard monitors are applied. Time-out was held with the circulating nurse to confirm the correct surgery and the appropriate block. Under general anesthesia, patient's operative leg was gently raised and supported and the groove in between the biceps femoris and vastus lateralis muscles was carefully palpated. The skin approximately 8cm above the popliteal crease was then marked. The ultrasound transducer was then applied to the posterior thigh approximately 8cm above the popliteal crease in the transverse plane and the sciatic nerve before its division was visualized lateral to the popliteal artery and in between the bicep femoris and semimembranosus/ semitendinosus muscles. After identification, the lateral portion of the thigh was prepped with Betadine solution three times and Lidocaine 1% was injected subcutaneously for topical anesthesia. At this point, a # 21 gauge Stimuplex insulated 4 inch needle was inserted into pre-marked area and advanced in a perpendicular direction. The needle was inserted above the ultrasound transducer in-plane towards the sciatic nerve in a [id number] direction. Needle advancement was performed carefully under direct ultrasound visualization. Nerve stimulator was used and dorsiflexion of the _right____ foot was elicited at a current of __0.5___ MA. After repeated negative aspiration, _2____cc of __0.5___ % ____ropivicaine was injected and this was flowed with ____12__ cc of __0.5____% ____ropivicaine ___. Under ultrasound guidance the local anesthetics were observed tenting the epidural sheath and surrounding the roots of the sciatic nerve. The needle was removed intact and sterile dressing was applied. The patient tolerated the popliteal nerve block well with stable vital signs and was subsequently prepared for the surgery.
--- NOTE | 2017-06-03 11:19 | PCM.ANESB3 ---
Femoral Nerve Block - Femoral Nerve Block Date of Procedure: 06/03/17 Anesthesiologist: Janett Pre-Procedure Diagnosis: Right knee OA Post-Procedure Diagnosis: same Procedure Performed: Femoral Nerve Block Right - Procedure Femoral Nerve Block: The procedure was explained to the patient that it is for the post-operative pain management. Consent was obtained after a thorough discussion with the patient regarding the benefits and possible complications of local anesthetic block of the femoral nerve at the inguinal crease area. The patient was brought to the operating room and standard monitors were applied. Time-out was held with the circulating nurse to confirm the correct surgery and the appropriate block. While under general anesthesia, patient was placed in supine position with fully extended lower extremities and the right___ groin exposed. The femoral artery was then carefully palpated. The ultrasound transducer was then applied to this area in the transverse plane and the femoral nerve was visualized lateral to the femoral artery and underneath the fascia iliaca. After thorough identification, the inguinal crease area was prepped with Betadine solution three times and 1 % Lidocaine was injected subcutaneously for topical anesthesia. At this point, a #22 gauge Stimuplex 2-inch needle was inserted immediately lateral to the femoral artery pulse at the inguinal crease and advanced perpendicularly. The needle was inserted to the ultrasound transducer in-plane towards the femoral nerve in a [id number] direction. Needle advancement was performed carefully under direct ultrasound visualization. Nerve stimulator was used and twitch of the quadriceps muscle was obtained at current of __0.5___ MA. After negative aspiration, __2___cc of __0.5___% ____ropivicaine ____was injected and this was followed with ____12__ cc of ____0.5___ % ropivicaine . Under ultrasound guidance the local anesthetics were observed spreading below fascia iliaca and around the femoral nerve. The needle was removed intact and sterile dressing was applied. The patient had stable vital signs, was conscious and in no apparent distress. The patient tolerated the femoral nerve block well with stable vital signs and was prepared for subsequent surgery.
[2017-06-03] MEDS ORDERED: Naloxone 0.4 mg/ml Inj (Adult) IVP PRN (12:30)
--- NOTE | 2017-06-03 15:55 | RAD ---
PROCEDURE: Right Knee Radiographs. HISTORY: s/p right total knee replacement COMPARISON: Prior right knee radiographs 06/01/2017. FINDINGS: BONES: Patient osteotomy status post total knee replacement prominent spacers in the intervening joint space of the spaces of the medial and lateral femoral tibial compartments. Further clinical correlation is advised. The distal femoral proximal tibial prosthetic components appear at adequately daniels placed. Postop soft tissue changes are identified surrounding the right knee joint with skin trinidad noted anteriorly. JOINTS: As above JOINT EFFUSION: As above OTHER FINDINGS: None. IMPRESSION: Postop change status post right total knee replacement as per above.
--- NOTE | 2017-06-03 19:02 | PCM.SURG1 ---
Surgeon's Initial Post Op Note - Surgeon's Notes Surgeon: Annemarie Manager Domestic: [place] De La Cruz/ 2nd assist [place] De La Cruz Type of Anesthesia: General Endo Anesthesia Administered By: DR Guzman Pre-Operative Diagnosis: Ostearthritis Rigth knee. medial tibial plateau fx Operative Findings: as above. tricompartmenal synovitis. posteroior capsular contracture. lateral patella contracture Post-Operative Diagnosis: as above Operation Performed: R TKR. Open treatment of medial tibial plateau fx. posterior capsular release. lateral patella release. anterior and posterior synovectomy Specimen/Specimens Removed: cartilage/bone/synvoium Estimated Blood Loss: EBL {In ML}: 125 Blood Products Given: N/A Drains Used: No Drains Post-Op Condition: Good Date of Surgery/Procedure: 06/03/17 Time of Surgery/Procedure: 08:55 (time in room/anaesthesia indcution time 0745)
[2017-06-03] MEDS: Sodium Chloride 0.9% 1,000 ML IV SCH (21:15)
[2017-06-03] MEDS: Paliperidone 6 MG ER TAB PO SCH (22:09)
[2017-06-04] MEDS: Sodium Chloride 0.9% 1,000 ML IV SCH (04:43)
[2017-06-04 07:12] LABS: HEMATOCRIT 27.4 % (34.0-47.0); MEAN CELL VOLUME 98.5 fl (81.0-99.0); MEAN CORPUSCULAR HEMOGLOBIN 33.2 pg (27.0-31.0); MEAN CORPUSCULAR HGB CONC 33.7 g/dL (33.0-37.0); RED CELL DISTRIBUTION WIDTH 14.2 % (11.5-14.5); WHITE BLOOD COUNT 5.6 K/uL (4.8-10.8)
[2017-06-04 07:16] LABS: BLOOD UREA NITROGEN 7 mg/dl (7-17); CARBON DIOXIDE 25 mmol/L (22-30); CHLORIDE 107 mmol/L (98-107); GFR AFRICAN-AMERICAN > 60; GLUCOSE,RANDOM 122 mg/dL (65-105); POTASSIUM 3.9 MMOL/L (3.6-5.0); SODIUM 137 mmol/l (132-148)
[2017-06-04] MEDS: Potassium Chloride 20 mEq ER Tab PO SCH (09:08)
[2017-06-04] MEDS: Saccharomyces Boulardi 250 mg Cap PO SCH (09:09)
--- NOTE | 2017-06-04 10:21 | CP.PCM.PN ---
Subjective - Date & Time of Evaluation Date of Evaluation: 06/04/17 Time of Evaluation: 07:45 - Subjective Subjective: NO COMPLAINTS Objective - Vital Signs/Intake and Output Vital Signs (last 24 hours): Temp Pulse Resp BP Pulse Ox 98.4 F 72 18 96/62 L 98 06/04/17 07:58 06/04/17 07:58 06/04/17 07:58 06/04/17 07:58 06/04/17 07:58 - Medications Medications: Current Medications Acetaminophen (Tylenol 325mg Tab) 650 mg PO Q4H PRN PRN Reason: Pain, Mild (1-3) Last Admin: 05/31/17 20:02 Dose: 650 mg Acetaminophen (Tylenol 325mg Tab) 650 mg PO Q4H PRN PRN Reason: Temp 101 and above Benztropine Mesylate (Cogentin) 0.5 mg PO Q12 [facility] Last Admin: 06/04/17 09:09 Dose: 0.5 mg Famotidine (Pepcid) 20 mg PO BID [facility] Last Admin: 06/04/17 09:08 Dose: 20 mg Hydromorphone HCl (Dilaudid 0.2 Mg/Ml [employer]) 0 mg IV PRN PRN; Protocol PRN Reason: Pain, moderate (4-7) Ceftriaxone Sodium 1 gm/ (Sodium Chloride) 100 mls @ 100 mls/hr IVPB DAILY [facility] Last Admin: 06/04/17 09:10 Dose: 100 mls/hr Lactated Ringer's (Lactated Ringer's) 1,000 mls @ 1,000 mls/hr IV .Q1H PRN PRN Reason: Hypotension Last Admin: 06/03/17 13:45 Dose: 300 mls Sodium Chloride (Sodium Chloride 0.9%) 1,000 mls @ 100 mls/hr IV .Q10H [facility] Last Admin: 06/04/17 04:43 Dose: 100 mls/hr Lamotrigine (Lamictal) 25 mg PO DAILY [facility] Last Admin: 06/04/17 09:09 Dose: 25 mg Lorazepam (Ativan) 0.5 mg PO Q6H PRN PRN Reason: Agitation Magnesium Hydroxide (Milk Of Magnesia) 30 ml PO HS PRN PRN Reason: Constipation Naloxone HCl (Narcan) 0.1 mg IVP Q2M PRN PRN Reason: Shortness of Breath Paliperidone (Invega) 6 mg PO HS [facility] Last Admin: 06/03/17 22:09 Dose: 6 mg Potassium Chloride (K-Dur 20 Meq Er Tab) 40 meq PO DAILY [facility] Last Admin: 06/04/17 09:08 Dose: 40 meq Saccharomyces Boulardii (Florastor) 250 mg PO BID [facility] Last Admin: 06/04/17 09:09 Dose: 250 mg Trazodone HCl (Desyrel) 50 mg PO HS [facility] Last Admin: 06/03/17 22:09 Dose: 50 mg - Labs Labs: 06/04/17 06:25 06/04/17 06:25 PT 13.4 Seconds (9.8-13.1) H 06/03/17 06:05 INR 1.2 (0.9-1.2) 06/03/17 06:05 APTT 37.5 Seconds (25.6-37.1) H 06/03/17 06:05 - Respiratory Exam Respiratory Exam: Clear to Ausculation Bilateral - Cardiovascular Exam Cardiovascular Exam: REGULAR RHYTHM, +S1, +S2 - Additional Findings Additional findings: PATIENT HAD RIGHT TKR YESTERDAY BY DR MORAN-OPERATIVE REPORT REVIEWED Assessment and Plan - Assessment and Plan (Free Text) Assessment: S/P RIGHT TKR STABLE CARDIAC STATUS Plan: CONTINUE ANTIBIOTICS AND PAIN MEDS FOR REHAB POST-OP EKG PENDING
--- NOTE | 2017-06-04 14:19 | CP.PCM.PN ---
Objective - Vital Signs/Intake and Output Vital Signs (last 24 hours): Temp Pulse Resp BP Pulse Ox 98.4 F 72 18 116/67 98 06/04/17 07:58 06/04/17 10:22 06/04/17 07:58 06/04/17 10:22 06/04/17 10:22 - Medications Medications: Current Medications Acetaminophen (Tylenol 325mg Tab) 650 mg PO Q4H PRN PRN Reason: Pain, Mild (1-3) Last Admin: 05/31/17 20:02 Dose: 650 mg Acetaminophen (Tylenol 325mg Tab) 650 mg PO Q4H PRN PRN Reason: Temp 101 and above Benztropine Mesylate (Cogentin) 0.5 mg PO Q12 [facility] Last Admin: 06/04/17 09:09 Dose: 0.5 mg Famotidine (Pepcid) 20 mg PO BID [facility] Last Admin: 06/04/17 09:08 Dose: 20 mg Hydromorphone HCl (Dilaudid 0.2 Mg/Ml Bacteriologist Medical) 6 mg IV PRN PRN; Protocol PRN Reason: Pain, moderate (4-7) Stop: 06/05/17 13:30 Ceftriaxone Sodium 1 gm/ (Sodium Chloride) 100 mls @ 100 mls/hr IVPB DAILY [facility] Last Admin: 06/04/17 09:10 Dose: 100 mls/hr Lactated Ringer's (Lactated Ringer's) 1,000 mls @ 1,000 mls/hr IV .Q1H PRN PRN Reason: Hypotension Last Admin: 06/03/17 13:45 Dose: 300 mls Sodium Chloride (Sodium Chloride 0.9%) 1,000 mls @ 100 mls/hr IV .Q10H [facility] Last Admin: 06/04/17 04:43 Dose: 100 mls/hr Lamotrigine (Lamictal) 25 mg PO DAILY [facility] Last Admin: 06/04/17 09:09 Dose: 25 mg Lorazepam (Ativan) 0.5 mg PO Q6H PRN PRN Reason: Agitation Magnesium Hydroxide (Milk Of Magnesia) 30 ml PO HS PRN PRN Reason: Constipation Naloxone HCl (Narcan) 0.1 mg IVP Q2M PRN PRN Reason: Shortness of Breath Paliperidone (Invega) 6 mg PO HS [facility] Last Admin: 06/03/17 22:09 Dose: 6 mg Potassium Chloride (K-Dur 20 Meq Er Tab) 40 meq PO DAILY [facility] Last Admin: 06/04/17 09:08 Dose: 40 meq Saccharomyces Boulardii (Florastor) 250 mg PO BID [facility] Last Admin: 06/04/17 09:09 Dose: 250 mg Trazodone HCl (Desyrel) 50 mg PO HS [facility] Last Admin: 06/03/17 22:09 Dose: 50 mg - Labs Labs: 06/04/17 06:25 06/04/17 06:25 PT 13.4 Seconds (9.8-13.1) H 06/03/17 06:05 INR 1.2 (0.9-1.2) 06/03/17 06:05 APTT 37.5 Seconds (25.6-37.1) H 06/03/17 06:05 Assessment and Plan - Assessment and Plan (Free Text) Assessment: 62 y/o lady with hx of CVA, Hep C, Schizoaffective Dis, Heroin/Cocaine Abuse, Seizure Dis, came because of right knee pain. Sustained Right knee fracture after a fall. Noted to have Leukopenia and Thrombocytopenia on admission. Patient cleared for surgery by hematology and cardiology T boston underwent Right TKR 1. Tibial plateau fracture, right s/p TKR Acute Cleared for surgery by cardiology and hematology Ortho consulted- Dr Sharpe s/p TKR today Continue pain management Incentive spirometry CPM machine and PRT as per ortho Start physical therapyt as soon as possible Hold anticoagulation for now 2.Leukopenia prob sec to meds Chronic Hematology - Dr Yang consulted 3. Thrombocytopenia, improving Chronic prob sec to meds and Hep C Hematology consulted to optimize hematological status prior to surgery- accdg to Dr Yang ok from hematological standpoint as long as Platelet greater than 75 no active bleeding 4. Schizoaffective disorder Chronic Pt is on multiple Psych meds- Cymbalta, Haldol, Ativan, Trazodone, Invega and Restoril Psych - Dr Hou consulted d/c Restoril, hold Ativan today for obver sedation 5.History of CVA (cerebrovascular accident) Chronic Pt states this happened when she was on drugs stable at present CT of head : old infarct 6. Coagulopathy Chronic likely sec to liver dis INR normal at present 7.Hepatitis C Chronic abn LFTs discussed with pt need to ff up with Liver specialist as outpt 8. History of heroin/Cocaine abuse Chronic pt states has been clean for 10 years until she took some Cocaine about 4 wks ago 9. Abnormal LFTs Chronic likely sec to Hep C on top of meds monitor 10.Seizure Disorder, history cont lamictal 11.DVT proph SCD
[2017-06-04] MEDS ORDERED: Oxycodone/Acetaminophen 5/325 mg Tab PO PRN ×2 (14:28)
--- NOTE | 2017-06-04 14:29 | OP ---
PROCEDURE DATE: 06/03/2017 PREOPERATIVE DIAGNOSES: 1. Tricompartmental osteoarthritis of the right knee. 2. Displaced medial tibial plateau fracture. POSTOPERATIVE DIAGNOSES: 1. Tricompartmental osteoarthritis, right knee. 2. Displaced tibial plateau fracture. 3. Anterior and posterior synovitis. 4. Posterior capsular contracture. 5. Lateral patellar retinacular contracture. PROCEDURES: 1. Right total knee replacement arthroplasty. 2. Open treatment of medial tibial plateau fracture. 3. Anterior posterior synovectomy. 4. Posterior capsular release. 5. Lateral patellar retinacular release. 6. Computer navigation. SURGEON: Isaac Sharpe MD TELEPATHIST: HUSSEIN Dickinson SECOND OUTSOLE HANDLER: Marin Doss. TYPE OF ANESTHESIA: Spinal and regional anesthesia, by . ESTIMATED BLOOD LOSS: 125 mL. COMPLICATIONS: None. DRAINS: None. OPERATIVE INDICATIONS: The patient is a 62-year-old woman, who has sustained trauma to the knee several months ago. The patient presents now with decompensation of arthritic change in the right knee and the medial tibial plateau fracture. Because of the nature of the fragment and the length of duration of the nonunion pros, cons, risks, and benefits of knee replacement arthroplasty was discussed. Possibility of mechanical failure, infection, thromboembolic disease, secondary or tertiary surgery discussed. The patient can no longer withstand the discomfort and wished the surgery to be accomplished. Informed consent was obtained from the patient and her daughter, possibility of mechanical failure, infection, thromboembolic disease, secondary or tertiary surgery is discussed. DESCRIPTION OF PROCEDURE: After having obtained informed consent, after having identified side, site and procedure and a critical pause/timeout satisfactory induction of anesthetic. The patient identified as Nadira Leslie, in supine position with all bony prominences well padded. The right lower extremity was prepped and free-draped in the usual fashion for lower extremity surgery. The tourniquet had been applied, but it is not yet inflated. After exsanguinating the limb with 6-inch Esmarch bandage, the tourniquet which had been applied was inflated to 350 mmHg. A straight thin line approach to make the knee 6 inches in extent. Skin incision was carried down to the skin and subcutaneous tissue. A medial arthrotomy was accomplished and the patella was everted, the knee was flexed. Dissection was carried around posterior medially to the direct head up semimembranosus tendon. Anterior and posterior cruciate ligaments were excised. Medial and lateral meniscectomies were accomplished. The tibia was dislocated anteriorly and initial osteotomy was accomplished on the tibial site. This having been accomplished, computer navigation at this point commences, accelerometer was used as the computer navigation device. The anterior tibial struts are fixed. The accelerometer was placed to as was the sensor. This having been accomplished, varus and valgus was set to 0 degrees, posterior slope to 3 degrees. This having been accomplished, the depth was set to 10-mm below the involved the side. The tibial osteotomy was accomplished. The proximal tibia was prepared. Guidance to rotation of the lateral aspect of the tibial condyle, mid malleolar access, medial third of the tibial tuberosity. The proximal tibia was punched. At this point in time, it should be noted that the displaced medial tibial plateau fracture has been identified and taken great care to carry the dissection posterior medially, the fragment was identified and open treatment of the tibial plateau fracture was accomplished. The fragment was excised and the tibial osteotomy was accomplished on the medial aspect. This point having been accomplished, the tibial osteotomy having been accomplished, guidance rotation of the lateral aspect of the tibial condyle, mid malleolar axis, medial third of the tibial tuberosity. The proximal tibia was then prepared as described. Attention was turned to the femur and large osteophytes and border osteophytes were debrided. A pin was placed in the area of the intercondylar notch. The distal cutting guide was fixed one fingerbreadth above. Extensor and the accelerometer was placed. The hip center was found and the varus valgus was set at the 0 degrees as well. On flexion of the femoral components took 25 degrees. This having been accomplished, the femur was osteotomized of the distal cut was accomplished with the depth set at 10 mm. Anterior and posterior sizing is for #1 femoral component. The anterior and posterior osteotomies were accomplished, chamfer cuts as well. At this point in time, the laminar rn homecare was placed, this found to be a posterior capsular contracture. Posterior capsule was released. Lateral patellar retinaculum was released. This having been accomplished, the notch cutter was applied and that intercondylar notch was accomplished as well. Hemostasis controlled at this point with the Aquamantys, especially posteriorly in the area of the posterior capsular release and in the intercondylar notch. was accomplished with the appropriate-sized femoral tibial component and a 26 mm polyethylene. Flexion extension gap was found to be excellent. The patient does achieve full extension. The wound was thoroughly irrigated and found to be excellent. Hemostasis was controlled with the Aquamantys. Attention was turned to the patella. Patella girth was measured. Free hand patellar osteotomy was accomplished and the patella was reamed using the patellar reamer, 32 mm patella was employed. Flexion extension gap was found to be excellent. Patella balance was found to be excellent. The trails were removed. The femur, tibia, and patellar bone was prepared with the [place]. The femoral component was cemented. Tibial component was cemented. A 26 mm polyethylene was inserted, flexion extension gap was found to be excellent. Full flexion and extension was achieved. Patellar balance was achieved as well. The wound was thoroughly irrigated. Closure was in layers with #2 Quill followed by 0 Vicryl, and trinidad for skin. The tourniquet had been deflated. Hemostasis have been controlled with the Aquamantys. Harvey Womack compression dressing and knee immobilizer was applied. Isaac Sharpe MD
[2017-06-04 15:56] VITALS: BP 103/59; PULSE 82; RESP 20; TEMP 98.2
--- NOTE | 2017-06-04 16:52 | CP.PCM.DIS ---
Provider - Provider Date of Admission: 05/30/17 18:17 Attending physician: Vangie Santos DO Primary care physician: Teresita lee Consults: Ortho consult hematology consult cardiology consult psychiatry consult PT / Ot Time Spent in preparation of Discharge (in minutes): 20 Hospital Course - Lab Results Lab Results: Micro Results 06/02/17 14:56 Urine,Clean Catch Urine Culture - Final No Growth (<1,000 CFU/ML) Most Recent Lab Values WBC 5.6 K/uL (4.8-10.8) D 06/04/17 06:25 RBC 2.78 Mil/uL (3.80-5.20) L 06/04/17 06:25 Hgb 9.2 g/dL (12.0-16.0) L D 06/04/17 06:25 Hct 27.4 % (34.0-47.0) L 06/04/17 06:25 MCV 98.5 fl (81.0-99.0) 06/04/17 06:25 MCH 33.2 pg (27.0-31.0) H 06/04/17 06:25 MCHC 33.7 g/dL (33.0-37.0) 06/04/17 06:25 RDW 14.2 % (11.5-14.5) 06/04/17 06:25 Plt Count 68 K/uL (130-400) L 06/04/17 06:25 MPV 9.9 fl (7.2-11.7) 06/03/17 06:05 Neut % (Auto) 21.4 % (50.0-75.0) L 06/03/17 06:05 Lymph % (Auto) 53.9 % (20.0-40.0) H 06/03/17 06:05 Burke % (Auto) 15.5 % (0.0-10.0) H 06/03/17 06:05 Eos % (Auto) 8.3 % (0.0-4.0) H 06/03/17 06:05 Baso % (Auto) 0.9 % (0.0-2.0) 06/03/17 06:05 Neut # 0.7 K/uL (1.8-7.0) L 06/03/17 06:05 Lymph # 1.7 K/uL (1.0-4.3) 06/03/17 06:05 Burke # 0.5 K/uL (0.0-0.8) 06/03/17 06:05 Eos # 0.3 K/uL (0.0-0.7) 06/03/17 06:05 Baso # 0.0 K/uL (0.0-0.2) 06/03/17 06:05 Neutrophils % (Manual) 34 % (42-75) L 06/01/17 12:40 Lymphocytes % (Manual) 42 % (20-50) 06/01/17 12:40 Monocytes % (Manual) 15 % (0-10) H 06/01/17 12:40 Eosinophils % (Manual) 8 % (0-7) H 06/01/17 12:40 Basophils % (Manual) 1 % (0-2) 06/01/17 12:40 Platelet Estimate Slightly decreased (NORMAL) L 06/01/17 12:40 Large Platelets Present 06/01/17 12:40 Giant Platelets Present 06/01/17 12:40 Poikilocytosis (manual Slight 06/01/17 12:40 Anisocytosis (manual) Slight 06/01/17 12:40 Macrocytosis (manual) Slight 06/01/17 12:40 Tear Drop Cells Slight 06/01/17 12:40 Ovalocytes Slight 06/01/17 12:40 PT 13.4 Seconds (9.8-13.1) H 06/03/17 06:05 INR 1.2 (0.9-1.2) 06/03/17 06:05 APTT 37.5 Seconds (25.6-37.1) H 06/03/17 06:05 Sodium 137 mmol/l (132-148) 06/04/17 06:25 Potassium 3.9 MMOL/L (3.6-5.0) 06/04/17 06:25 Chloride 107 mmol/L (98-107) 06/04/17 06:25 Carbon Dioxide 25 mmol/L (22-30) 06/04/17 06:25 Anion Gap 9 (10-20) L 06/04/17 06:25 BUN 7 mg/dl (7-17) 06/04/17 06:25 Creatinine 0.5 mg/dL (0.7-1.2) L 06/04/17 06:25 Est GFR ( Amer) > 60 06/04/17 06:25 Est GFR (Non-Af Amer) > 60 06/04/17 06:25 Random Glucose 122 mg/dL (65-105) H 06/04/17 06:25 Calcium 8.0 mg/dL (8.4-10.2) L 06/04/17 06:25 Total Bilirubin 1.2 mg/dl (0.2-1.3) 06/02/17 06:00 AST 86 U/L (14-36) H 06/02/17 06:00 ALT 107 U/L (9-52) H 06/02/17 06:00 Alkaline Phosphatase 183 U/L (38-126) H D 06/02/17 06:00 Total Protein 7.8 G/DL (6.3-8.2) 06/02/17 06:00 Albumin 4.0 g/dL (3.5-5.0) 06/02/17 06:00 Globulin 3.8 gm/dL (2.2-3.9) 06/02/17 06:00 Albumin/Globulin Ratio 1.1 (1.0-2.1) 06/02/17 06:00 Urine Color Yellow (YELLOW) 06/01/17 23:30 Urine Clarity Slighty-cloudy (Clear) 06/01/17 23:30 Urine pH 6.0 (5.0-8.0) 06/01/17 23:30 Ur Specific [place] 1.011 (1.003-1.030) 06/01/17 23:30 Urine Protein Negative mg/dL (NEGATIVE) 06/01/17 23:30 Urine Glucose (UA) Neg mg/dL (Normal) 06/01/17 23:30 Urine Ketones Negative mg/dL (NEGATIVE) 06/01/17 23:30 Urine Blood Negative (NEGATIVE) 06/01/17 23:30 Urine Nitrate Negative (NEGATIVE) 06/01/17 23:30 Urine Bilirubin Negative (NEGATIVE) 06/01/17 23:30 Urine Urobilinogen 2.0 mg/dL (0.2-1.0) H 06/01/17 23:30 Ur Leukocyte Esterase Large Shannon/uL (Negative) 06/01/17 23:30 Urine RBC (Auto) 2 /hpf (0-3) 06/01/17 23:30 Urine Microscopic WBC 20 /hpf (0-5) H 06/01/17 23:30 Ur Squamous Epith Cells 3 /hpf (0-5) 06/01/17 23:30 Urine Bacteria Rare (<OCC) 06/01/17 23:30 HIV 1&2 Antibody Screen Negative (NEGATIVE) 06/02/17 06:00 Blood Type O POSITIVE 06/03/17 08:20 Antibody Screen Negative 06/03/17 08:20 Crossmatch See Detail 06/03/17 08:20 BBK History Checked Patient has bt 06/03/17 08:20 - Hospital Course Hospital Course: 62 y/o lady with hx of CVA, Hep C, Schizoaffective Dis, Heroin/Cocaine Abuse, Seizure Dis, came because of right knee pain. Sustained Right knee fracture after a fall. Noted to have Leukopenia and Thrombocytopenia on admission. Patient cleared for surgery by hematology and cardiology She underwent right TKR by ortho 06/03 . Post op recovering well and participating with PT . Pain is controlled Cleared for discharge by orthopedist. Will discharge to [facility] for continuation on physical therapy 1. Tibial plateau fracture, right s/p TKR ( 06/03/17) Acute Cleared for surgery by cardiology and hematology Ortho consulted- Dr Sharpe s/p TKR pain is controlled . Continue Percoset PRN Incentive spirometry CPM machine and PT as per ortho recommendations with full weight beraing Discussed with Hematology Dr. yang . Ok to start Lovenox prophylactic Will start Lovenox 40 mg Sq daily d/c to [facility] 2.Leukopenia prob sec to meds Chronic Hematology - Dr Yang consulted 3. Thrombocytopenia Chronic prob sec to meds and Hep C Hematology consulted to optimize hematological status prior to surgery- accdg to Dr Yang ok from hematological standpoint as long as Platelet greater than 75 no active bleeding Can start Lovenox as long as Plt > 50 K 4. Schizoaffective disorder Chronic Pt is on multiple Psych meds- Cymbalta, Haldol, Ativan, Trazodone, Invega and Restoril Psych - Dr Hou consulted d/c Restoril, hold Ativan for sedation 5.History of CVA (cerebrovascular accident) Chronic Pt states this happened when she was on drugs stable at present CT of head : old infarct 6. Coagulopathy Chronic likely sec to liver dis INR normal at present 7.Hepatitis C Chronic abn LFTs discussed with pt need to ff up with Liver specialist as outpt 8. History of heroin/Cocaine abuse Chronic pt states has been clean for 10 years until she took some Cocaine about 4 wks ago 9. Abnormal LFTs Chronic likely sec to Hep C on top of meds monitor 10.Seizure Disorder, history cont lamictal 11. Anemia of acute blood loss Hgb dropped from 14 - 9.2 Continue monitoring 12.DVT proph SCD Discharge Exam - Head Exam Head Exam: ATRAUMATIC, NORMAL INSPECTION, NORMOCEPHALIC - Eye Exam Eye Exam: EOMI, Normal appearance, PERRL Pupil Exam: NORMAL ACCOMODATION - ENT Exam ENT Exam: Mucous Membranes Moist, Normal Exam - Neck Exam Neck exam: Full Rom, Normal Inspection - Respiratory Exam Respiratory Exam: Clear to PA & Lateral, NORMAL BREATHING PATTERN. absent: Rales, Rhonchi, Wheezes, Respiratory Distress - Cardiovascular Exam Cardiovascular Exam: REGULAR RHYTHM, RRR, +S1, +S2. absent: JVD - GI/Abdominal Exam GI & Abdominal Exam: Normal Bowel Sounds, Soft. absent: Distended, Guarding, Rebound, Tenderness - Rectal Exam Rectal Exam: Deferred - Extremities Exam Extremities exam: full ROM, normal inspection Additional comments: Right knee dressing in place pulses intact warm to touch - Back Exam Back exam: NORMAL INSPECTION - Neurological Exam Neurological exam: Alert, CN II-XII Intact, Oriented x3 - Psychiatric Exam Psychiatric exam: Normal Affect - Skin Skin Exam: Dry, Normal Color, Warm Discharge Plan - Follow Up Plan Condition: STABLE Disposition: TRANSF TO SNF Patient education suggested?: Yes Additional Instructions: full weight bearing to RLE CPM machine use Referrals: Isaac Sharpe III, MD [Staff Provider] -
[2017-06-05 03:43] VITALS: O2SAT 95
[2017-06-05] MEDS ORDERED: Enoxaparin 40 mg Syringe SC SCH (09:00)
--- NOTE | 2017-06-05 18:09 | CARD ---
APPROVED REPORT EKG Measurement Heart [id number] <Conclusion> Normal sinus rhythm Minimal voltage criteria for LVH, may be normal variant Anterior infarct, age undetermined Abnormal ECG
== END 2017-06-04 18:08 | DRG 470 ==
LOC: H.ER 17:54 → H.ERHOLD 18:17 → H.MEDSURG1 20:47
PROVIDERS: ADMIT Student in an Organized Health Care Education/Training Program; ATTEND Student in an Organized Health Care Education/Training Program
PROC: 0SNC0ZZ Release Right Knee Joint, Open Approach (ICD-10-PCS; 2017-06-03)
PROC: 8E0YXBZ Computer Assisted Procedure of Lower Extremity (ICD-10-PCS; 2017-06-03)
PROC: 3E0T3BZ Introduction of Anesthetic Agent into Peripheral Nerves and Plexi, Percutaneous Approach (ICD-10-PCS; 2017-06-03)
PROC: 3E0T3BZ Introduction of Anesthetic Agent into Peripheral Nerves and Plexi, Percutaneous Approach (ICD-10-PCS; 2017-06-03)
PROC: 0SRC0J9 Replacement of Right Knee Joint with Synthetic Substitute, Cemented, Open Approach (ICD-10-PCS; principal; 2017-06-03 07:45)
PROC: 0QSG0ZZ Reposition Right Tibia, Open Approach (ICD-10-PCS; 2017-06-03 07:45)
PROC: 0SBC0ZZ Excision of Right Knee Joint, Open Approach (ICD-10-PCS; 2017-06-03 07:45)
DX: S82.141A Displaced bicondylar fracture of right tibia, initial encounter for closed fracture (principal); D68.4 Acquired coagulation factor deficiency; D70.2 Other drug-induced agranulocytosis; D69.59 Other secondary thrombocytopenia; D62 Acute posthemorrhagic anemia; W10.9XXA Fall (on) (from) unspecified stairs and steps, initial encounter; B18.2 Chronic viral hepatitis C; Y93.9 Activity, unspecified; Y92.9 Unspecified place or not applicable; G40.909 Epilepsy, unspecified, not intractable, without status epilepticus; M17.11 Unilateral primary osteoarthritis, right knee; Z86.73 Personal history of transient ischemic attack (TIA), and cerebral infarction without residual deficits; Z87.891 Personal history of nicotine dependence; F25.0 Schizoaffective disorder, bipolar type; K29.70 Gastritis, unspecified, without bleeding; R79.89 Other specified abnormal findings of blood chemistry; R04.0 Epistaxis; M65.9 Synovitis and tenosynovitis, unspecified; T43.95XA Adverse effect of unspecified psychotropic drug, initial encounter; F11.21 Opioid dependence, in remission

== ENCOUNTER 2017-06-23 17:05 | Inpatient (IN) | payer MEDICARE, OTHER ==
[2017-06-23 17:05] VITALS: BMI 27.2
[2017-06-23] MEDS ORDERED: Sodium Chloride 0.9% 1,000 ML IV STA (17:20)
[2017-06-23] MEDS ORDERED: ceFAZolin 1 GM in Sodium Chloride 0.9% 100 ML IVPB ONE (17:24)
[2017-06-23 17:42] LABS: VENOUS BLOOD GAS BASE EXCESS 2.2 mmol/L (0.0-2.0); VENOUS BLOOD GAS PCO2 25 mmHg (40-60); VENOUS BLOOD PH 7.57 (7.32-7.43)
[2017-06-23] MEDS ORDERED: Povidone Iodine Topical 10% Sol ONE ×2 (17:51→18:14)
--- NOTE | 2017-06-23 17:52 | ED PDOC ---
Lower Extremity Pain/Injury Time Seen by Provider: 06/23/17 17:08 Chief Complaint (Nursing): Lower Extremity Problem/Injury Chief Complaint (Provider): "I fell" History Per: Patient History/Exam Limitations: other (poor historian) Current Symptoms Are (Timing): Still Present Severity: Severe Additional Complaint(s): 62yo female s/p TKR approx 3 weeks ago, states went home from rehab on saturday, today was transferring off toilet falling, did not have cane at the time, falling twisting her right knee/leg and falling. Denies head or neck injury, denies pelvic or back pain. C/o pain and bleeding as operative site R knee. EMS states significant blood loss at scene. Patient states she is taking lovenox injections. Past Medical History Reviewed: Historical Data, Nursing Documentation, Vital Signs Vital Signs: Last Vital Signs Temp 99.3 F 06/23/17 17:07 Pulse 90 06/23/17 17:07 Resp 22 06/23/17 17:07 BP 135/78 06/23/17 17:07 Pulse Ox 99 06/23/17 17:07 - Medical History PMH: Anxiety, Bipolar Disorder, Depression, Gastritis, Personality Disorder, Schizophrenia, Seizures, TIA Denies: Alzheimer's Disease, Asthma, Atrial Fibrillation, Bronchitis, Cardia Arrhythmia, CHF, COPD, Dementia, Emphysema, HIV, HTN, Hypercholesterolemia, Chronic Kidney Disease, Sexually Transmitted Disease - Surgical History Surgical History: Cholecystectomy - Family History Family History: States: Unknown Family Hx - Living Arrangements Living Arrangements: With Family - Social History Drugs: Other (history of substance abuse) - Immunization History Hx Tetanus Toxoid Vaccination: No Hx Influenza Vaccination: No Hx Pneumococcal Vaccination: No - Home Medications Home Medications: Ambulatory Orders Medication Instructions Recorded Famotidine [Pepcid] 20 mg PO BID tab 05/14/17 Potassium Chloride [K-Dur 20 mEq 40 meq PO DAILY 5 Days 05/14/17 ER Tab] Saccharomyces Boulardi [Florastor] 250 mg PO BID cap 05/14/17 Acetaminophen [Tylenol 325mg tab] 650 mg PO Q4H PRN 05/30/17 Magnesium Hydroxide [Milk Of 30 ml PO HS PRN 05/30/17 Magnesia] Paliperidone Palmitate [Invega 156 mg IM Q28D 05/30/17 Sustenna] lamoTRIgine [Lamictal] 25 mg PO DAILY 07/27/17 traZODone [Desyrel] 50 mg PO HS 05/30/17 Benztropine [Cogentin] 0.5 mg PO Q12 tab 06/04/17 Enoxaparin [Lovenox] 40 mg SC DAILY syr 06/04/17 Paliperidone [Invega] [address] 06/04/17 oxyCODONE/Acetaminophen [Percocet 2 tab PO Q6 PRN #30 tab 06/04/17 5/325 mg Tab] - Allergies Allergies/Adverse Reactions: Allergies Allergy/AdvReac Type Severity Reaction Status Date / Time lorazepam [From Ativan] Allergy SHORTNESS Verified 06/23/17 17:33 OF BREATH Review of Systems ROS Statement: Except As Marked, All Systems Reviewed And Found Negative Constitutional: Positive for: Weakness. Negative for: Fever, Chills Cardiovascular: Negative for: Chest Pain, Palpitations Gastrointestinal: Negative for: Nausea, Vomiting Musculoskeletal: Positive for: Leg Pain. Negative for: Neck Pain, Arm Pain, Back Pain Neurological: Positive for: Dizziness. Negative for: Weakness, Headache Physical Exam - Reviewed Nursing Documentation Reviewed: Yes Vital Signs Reviewed: Yes - Physical Exam Appears: Positive for: Uncomfortable Head Exam: Positive for: ATRAUMATIC, NORMAL INSPECTION, NORMOCEPHALIC Skin: Positive for: Warm, Pallor Eye Exam: Positive for: EOMI, Normal appearance, PERRL ENT: Positive for: Normal ENT Inspection Neck: Positive for: Normal, Painless ROM Cardiovascular/Chest: Positive for: Regular Rate, Rhythm Respiratory: Positive for: CNT, Normal Breath Sounds Gastrointestinal/Abdominal: Positive for: Bowel Sounds, Soft. Negative for: Tenderness Back: Positive for: Normal Inspection Extremity: Negative for: Other (R knee with large wound dehiscence with visible subcutaneous structures, trace active venous bleeding with clot present; foot and ankle warm/ FROM) Neurologic/Psych: Positive for: Alert, Oriented - Laboratory Results Result Diagrams: 06/26/17 07:00 06/26/17 07:00 - ECG O2 Sat by Pulse Oximetry: 99 Pulse Ox Interpretation: Normal Medical Decision Making Medical Decision Making: Orthopedics Dr Sharpe contacted and case discussed. Wound care initiated immediately with sterile irrigation, betadine rinse to margins and sterile dressings with betadine to margins as per Dr Sharpe. Ancef 1gm ordered. Remain NPO, Labs reviewed, lactate elevated likely secondary to blood loss. IVF bolus ordered, will repeat lactate 3hrs. T&S ordered. XRays reveal no hip fx, knee hardware in place per my prelim read. Admit Dr Kinsey. Recommend psych consult as pt w poor insight. Disposition - Clinical Impression Clinical Impression: Wound dehiscence, surgical - Patient ED Disposition Is Patient to be Admitted: Yes Counseled Patient/Family Regarding: Studies Performed, Diagnosis - Disposition Disposition Time: 17:35 Condition: GUARDED - Pt Status Changed To: Hospital Disposition Of: Inpatient - Admit Certification Admit to Inpatient:: After my assessment, the patient will require hospitalization for at least two midnights. This is because of the severity of symptoms shown, intensity of services needed, and/or the medical risk in this patient being treated as an outpatient. - POA Present On Arrival: Falls Or Trauma
--- NOTE | 2017-06-23 18:20 | CP.PCM.HP ---
History of Present Illness - History of Present Illness History of Present Illness: 62 yo female with history of CVA, Bipolar DO and Heroin use recently discharged from rehab 2 days ago after undergoing right TKR fell and twisted her right knee in the bathroom opening up the surgical wound. Had significant amount of blood loss and pain according to EMS. Present on Admission - Present on Admission Any Indicators Present on Admission: No History of DVT/PE: No History of Uncontrolled Diabetes: No Urinary Catheter: No Decubitus Ulcer Present: No Review of Systems - Review of Systems All systems: reviewed and no additional remarkable complaints except (aside from those mentioned above, 12 point system review were negative by me) Past Patient History - Infectious Disease Hx of Infectious Diseases: None - Tetanus Immunizations Tetanus Immunization: Unknown - Past Medical History & Family History Past Medical History?: Yes - Past Social History Smoking Status: Never Smoked Alcohol: None Drugs: Opiates (heroin user) Home Situation {Lives}: With Family - CARDIAC Hx Atrial Fibrillation: No Hx Cardia Arrhythmia: No Hx Congestive Heart Failure: No Hx Hypercholesterolemia: No Hx Hypertension: No - PULMONARY Hx Asthma: No Hx Bronchitis: No Hx Chronic Obstructive Pulmonary Disease (COPD): No Hx Emphysema: No - NEUROLOGICAL Hx Alzheimer's Disease: No Hx Dementia: No Hx Seizures: Yes Hx Transient Ischemic Attacks (TIA): Yes - HEENT Hx HEENT Problems: No Hx Blind: No Hx Cataracts: No Hx Difficulty Chewing: No - RENAL Hx Chronic Kidney Disease: No - ENDOCRINE/METABOLIC Hx Diabetes Mellitus Type 2: No - HEMATOLOGICAL/ONCOLOGICAL Hx Human Immunodeficiency Virus (HIV): No - INTEGUMENTARY Hx Dermatological Problems: No - MUSCULOSKELETAL/RHEUMATOLOGICAL Hx Falls: Yes - GASTROINTESTINAL Hx Gastritis: Yes - GENITOURINARY/GYNECOLOGICAL Hx Sexually Transmitted Disorders: No - PSYCHIATRIC Hx Anxiety: Yes Hx Bipolar Disorder: Yes Hx Depression: Yes Hx Schizophrenia: Yes - SURGICAL HISTORY Hx Cholecystectomy: Yes Hx Joint Replacement: Yes (right TKR, 06/03/2017) - ANESTHESIA Hx Anesthesia: Yes Hx Anesthesia Reactions: No Meds Allergies/Adverse Reactions: Allergies Allergy/AdvReac Type Severity Reaction Status Date / Time lorazepam [From Ativan] Allergy SHORTNESS Verified 06/23/17 17:33 OF BREATH Physical Exam - Constitutional Appears: No Acute Distress - Head Exam Head Exam: ATRAUMATIC - Eye Exam Eye Exam: absent: Scleral icterus - ENT Exam ENT Exam: Mucous Membranes Moist - Neck Exam Neck exam: Negative for: Meningismus - Respiratory Exam Respiratory Exam: absent: Rhonchi, Wheezes, Respiratory Distress - Cardiovascular Exam Cardiovascular Exam: REGULAR RHYTHM, +S1, +S2 - GI/Abdominal Exam GI & Abdominal Exam: Soft. absent: Tenderness - Rectal Exam Rectal Exam: Deferred - Extremities Exam Extremities exam: Negative for: full ROM (right knee wound dehisced, limited ROM ) - Neurological Exam Neurological exam: Alert, Oriented x3 - Psychiatric Exam Psychiatric exam: Normal Affect - Skin Skin Exam: Dry, Intact Results - Vital Signs Recent Vital Signs: Last Vital Signs Temp 99.3 F 06/23/17 17:07 Pulse 90 06/23/17 17:07 Resp 22 06/23/17 17:07 BP 135/78 06/23/17 17:07 Pulse Ox 99 06/23/17 17:54 Assessment & Plan - Assessment and Plan (Free Text) Assessment: 62 yo female with history of CVA, Bipolar DO and Seizure DO recently discharged from rehab 2 days ago after undergoing right TKR fell and twisted her right knee in the bathroom opening up the surgical wound. Had significant amount of blood loss and pain according to EMS. 1. Wound Dehiscence, Right Knee S/P Right TKR (06/03/2017) orthopedist consult with Dr Sharpe 2. Schizoaffective disorder on multiple psych meds psyche consult with Dr Anderson 3. Seizure Disorder, history continue Lamictal seizure precaution
[2017-06-23 18:22] LABS: PARTIAL THROMBOPLASTIN TIME 45.4 Seconds (25.6-37.1)
[2017-06-23 18:33] LABS: ALB/GLOB RATIO 0.9 (1.0-2.1); ALKALINE PHOSPHATASE 145 U/L (38-126); ALT/SGPT 39 U/L (9-52); AST/SGOT 45 U/L (14-36); BLOOD UREA NITROGEN 3 mg/dl (7-17); CALCIUM 8.3 mg/dL (8.4-10.2); CARBON DIOXIDE 21 mmol/L (22-30); CHLORIDE 107 mmol/L (98-107); GFR AFRICAN-AMERICAN > 60; GLUCOSE,RANDOM 98 mg/dL (65-105); POTASSIUM 3.7 MMOL/L (3.6-5.0); SODIUM 138 mmol/l (132-148); TOTAL PROTEIN 6.5 G/DL (6.3-8.2)
[2017-06-23 18:46] LABS: BASO % 0.6 % (0.0-2.0); EOS # 0.1 K/uL (0.0-0.7); EOS % 2.3 % (0.0-4.0); LYMPH # 1.5 K/uL (1.0-4.3); LYMPH % 45.9 % (20.0-40.0); MEAN CORPUSCULAR HEMOGLOBIN 34.4 pg (27.0-31.0); MEAN CORPUSCULAR HGB CONC 33.4 g/dL (33.0-37.0); MEAN PLATELET VOLUME 8.2 fl (7.2-11.7); MONO # 0.6 K/uL (0.0-0.8); MONO % 17.3 % (0.0-10.0); NEUT # 1.1 K/uL (1.8-7.0); NEUT % 33.9 % (50.0-75.0); NRBC % 0.4 % (0.0-0.0); PLATELET COUNT 166 K/uL (130-400); WHITE BLOOD COUNT 3.3 K/uL (4.8-10.8)
[2017-06-23 18:47] LABS: HEMATOCRIT 34.4 % (34.0-47.0)
[2017-06-23] MEDS ORDERED: Paliperidone 156 mg/1 ml Syringe IM SCH (19:15)
[2017-06-23 19:25] LABS: GIANT PLATELETS PRESENT; LARGE PLATELETS PRESENT; NEUTROPHIL 39 % (42-75); SPHEROCYTES SLIGHT; TOTAL CELLS COUNTED 100
[2017-06-23] MEDS: Sodium Chloride 0.9% 1,000 ML IV SCH (21:30)
[2017-06-23] MEDS: Oxycodone/Acetaminophen 5/325 mg Tab PO PRN (22:16)
[2017-06-23] MEDS: Paliperidone 6 MG ER TAB PO SCH (22:24)
[2017-06-24] MEDS: Sodium Chloride 0.9% 1,000 ML IV SCH ×2 (04:42→14:00)
[2017-06-24 07:08] LABS: BASO % 0.4 % (0.0-2.0); EOS # 0.1 K/uL (0.0-0.7); EOS % 4.8 % (0.0-4.0); HEMATOCRIT 29.5 % (34.0-47.0); LYMPH # 1.2 K/uL (1.0-4.3); LYMPH % 44.4 % (20.0-40.0); MEAN CORPUSCULAR HEMOGLOBIN 33.9 pg (27.0-31.0); MEAN CORPUSCULAR HGB CONC 33.2 g/dL (33.0-37.0); MEAN PLATELET VOLUME 7.8 fl (7.2-11.7); MONO # 0.5 K/uL (0.0-0.8); MONO % 16.9 % (0.0-10.0); NEUT # 0.9 K/uL (1.8-7.0); NEUT % 33.5 % (50.0-75.0); NRBC % 0.3 % (0.0-0.0); RED CELL DISTRIBUTION WIDTH 15.7 % (11.5-14.5); WHITE BLOOD COUNT 2.8 K/uL (4.8-10.8)
[2017-06-24 07:31] LABS: CALCIUM 7.9 mg/dL (8.4-10.2); CARBON DIOXIDE 24 mmol/L (22-30); CHLORIDE 108 mmol/L (98-107); GFR AFRICAN-AMERICAN > 60; GLUCOSE,RANDOM 88 mg/dL (65-105); POTASSIUM 3.8 MMOL/L (3.6-5.0); SODIUM 138 mmol/l (132-148)
[2017-06-24 07:37] LABS: BLOOD UREA NITROGEN 2 mg/dl (7-17)
--- NOTE | 2017-06-24 08:56 | RAD ---
PROCEDURE: Right Knee Radiographs. HISTORY: R knee injury s/p TKR COMPARISON: Postoperative right knee radiographs 06/03/2017 FINDINGS: BONES: Prior right total knee replacement hardware unchanged in position. No acute fracture or dislocation. No suspicious lytic or blastic change. Prior skin [place] been removed gas is seen in the subcutaneous soft tissues anteriorly likely reflecting recent intervention. Clinically correlate as the differential diagnosis would reflect infection or recent trauma. JOINTS: As discussed above. JOINT EFFUSION: A mild suprapatellar bursa effusion is identified with trace gas suspected. OTHER FINDINGS: None. IMPRESSION: Prior right total knee replacement hardware is unchanged in appearance and position overall. Anterior subcutaneous and likely bursal emphysema are identified likely reflecting recent surgical intervention. Clinically correlate. Differential diagnosis discussed above.
--- NOTE | 2017-06-24 09:16 | RAD ---
PROCEDURE: Radiographs of the right tibia and fibula. HISTORY: fall COMPARISON: None available. TECHNIQUE: Frontal and lateral views obtained. FINDINGS: BONES: No fracture or destructive lesion. PA seen to be status post right total knee replacement. JOINT SPACES: As above. No subluxation or dislocation of the right ankle or right knee. OTHER FINDINGS: None. IMPRESSION: Status post right total knee replacement with no initial findings involving the right tibia. The fibula is unremarkable diffusely.
--- NOTE | 2017-06-24 09:18 | RAD ---
PROCEDURE: Right Hip with pelvis Radiographs. HISTORY: fall COMPARISON: None. FINDINGS: BONES: There is no acute fracture dislocation identified. Sclerotic changes at the acetabulum are noted superiorly in reflect degenerative joint changes which are [id number] in severity. Mild osteophyte is seen at the lateral, superior portion of the acetabulum. Pelvic ring appears intact although degenerate change seen the bilateral hip and sacroiliac joints. The sacral arcades appear normal as well as iliac bones and the pubic symphysis is intact. JOINTS: As above SOFT TISSUES: Normal. OTHER FINDINGS: None. IMPRESSION: No acute fracture or dislocation. Degenerative joint disease is seen at the weight-bearing portion of the right hip joint [id number] in severity.
--- NOTE | 2017-06-24 09:21 | RAD ---
PROCEDURE: Right Femur Radiographs. HISTORY: fall COMPARISON: None. TECHNIQUE: AP and Lateral Radiographs of the right femur. FINDINGS: FEMUR: There is no acute fracture involving the right femur. No suspicious lytic or blastic changes identified related. No definite fracture or dislocation delete involving the right hip or knee joints. Note is made of prior right total knee replacement with femoral hardware appearing in good apparent position. Emphysematous soft tissues identified anteriorly at the distal femur and anterior knee soft tissues potentially representing interval instrumentation, trauma or even infection. Clinically correlate. SOFT TISSUES: Normal. OTHER FINDINGS: None. IMPRESSION: No acute fracture seen throughout the right femur with distal right femoral knee replacement hardware in good apparent position. Emphysema soft tissue changes seen anterior to the distal femur and knee potentially representing recent instrumentation. Clinically correlate. See differential diagnosis above.
--- NOTE | 2017-06-24 09:33 | CP.PCM.CON ---
History of Present Illness - History of Present Illness History of Present Illness: THE PATIENT IS A 62 YEAR OLD FEMALE WHO RECENTLY HAD A RIGHT KNEE REPLACEMENT HERE AT [facility]. SHE THEN WENT TO REHAB AND THE OTHER DAY FELL AFTER GOING TO THE BATHROOM AND HURT HER RIGHT KNEE WITH RESULTANT SURGICAL WOUND DEHISCENCE. SHE ALSO HAS A HISTORY OF HYPERTENSION IN THE PAST AND SYNCOPE IN THE PAST. SHE HAD BIPOLAR DISEASE AND HAS A HISTORY OF SUBSTANCE ABUSE. Past Patient History - Infectious Disease Hx of Infectious Diseases: None - Tetanus Immunizations Tetanus Immunization: Unknown - Past Medical History & Family History Past Medical History?: Yes - Past Social History Smoking Status: Former Smoker - CARDIAC Hx Atrial Fibrillation: No Hx Cardia Arrhythmia: No Hx Congestive Heart Failure: No Hx Hypercholesterolemia: No Hx Hypertension: No - PULMONARY Hx Respiratory Disorders: No Hx Asthma: No Hx Bronchitis: No Hx Chronic Obstructive Pulmonary Disease (COPD): No Hx Emphysema: No - NEUROLOGICAL HX Cerebrovascular Accident: Yes Hx Seizures: Yes Hx Transient Ischemic Attacks (TIA): Yes - HEENT Hx HEENT Problems: No - RENAL Hx Chronic Kidney Disease: No - ENDOCRINE/METABOLIC Hx Diabetes Mellitus Type 2: No - HEMATOLOGICAL/ONCOLOGICAL Hx AIDS: No Hx Human Immunodeficiency Virus (HIV): No - INTEGUMENTARY Hx Dermatological Problems: No - MUSCULOSKELETAL/RHEUMATOLOGICAL Hx Falls: Yes - GASTROINTESTINAL Hx Gastritis: Yes - GENITOURINARY/GYNECOLOGICAL Hx Sexually Transmitted Disorders: No - PSYCHIATRIC Hx Anxiety: Yes Hx Bipolar Disorder: Yes Hx Depression: Yes Hx Schizophrenia: Yes Hx Substance Use: Yes - SURGICAL HISTORY Hx Cholecystectomy: Yes Hx Joint Replacement: Yes (right TKR, 06/03/2017) - ANESTHESIA Hx Anesthesia: Yes Hx Anesthesia Reactions: No Meds Allergies/Adverse Reactions: Allergies Allergy/AdvReac Type Severity Reaction Status Date / Time lorazepam [From Ativan] Allergy SHORTNESS Verified 06/23/17 17:33 OF BREATH - Medications Medications: Current Medications Acetaminophen (Tylenol 325mg Tab) 650 mg PO Q4H PRN PRN Reason: Temp 101 and above Benztropine Mesylate (Cogentin) 0.5 mg PO Q12 [facility] Last Admin: 06/24/17 08:48 Dose: 0.5 mg Famotidine (Pepcid) 20 mg PO BID [facility] Last Admin: 06/24/17 08:49 Dose: 20 mg Sodium Chloride (Sodium Chloride 0.9%) 1,000 mls @ 100 mls/hr IV .Q10H [facility] Last Admin: 06/24/17 04:42 Dose: 100 mls/hr Lamotrigine (Lamictal) 25 mg PO DAILY [facility] Last Admin: 06/24/17 08:49 Dose: 25 mg Morphine Sulfate (Morphine) 2 mg IVP Q4 PRN PRN Reason: Pain, moderate (4-7) Last Admin: 06/24/17 08:48 Dose: 2 mg Oxycodone/Acetaminophen (Percocet 5/325 Mg Tab) 2 tab PO Q6 PRN PRN Reason: Pain, severe (8-10) Stop: 06/26/17 19:02 Last Admin: 06/23/17 22:16 Dose: 2 tab Paliperidone (Invega) 6 mg PO [facility] Last Admin: 06/23/17 22:24 Dose: 6 mg Paliperidone Palmitate (Invega Sustenna) 156 mg IM Q28D [facility] Last Admin: 06/23/17 19:27 Dose: Not Given Trazodone HCl (Desyrel) 50 mg PO [facility] Last Admin: 06/23/17 22:24 Dose: 50 mg Physical Exam - Respiratory Exam Respiratory Exam: Clear to Auscultation Bilateral - Cardiovascular Exam Cardiovascular Exam: REGULAR RHYTHM, +S1, +S2 - Additional Findings Additional findings: 12 LEAD EKG SHOWS NSR Results - Vital Signs Recent Vital Signs: Last Vital Signs Temp 98 F 06/24/17 08:00 Pulse 87 06/24/17 08:00 Resp 20 06/24/17 08:00 BP 114/76 06/24/17 08:00 Pulse Ox 97 06/24/17 08:00 - Labs Result Diagrams: 06/24/17 05:40 06/24/17 05:40 Labs: Laboratory Results - last 24 hr 06/23/17 06/24/17 06/24/17 20:15 05:40 05:40 WBC 2.8 L RBC 2.89 L Hgb 9.8 L Hct 29.5 L MCV 102.0 H MCH 33.9 H MCHC 33.2 RDW 15.7 H Plt Count 133 MPV 7.8 Neut % (Auto) 33.5 L Lymph % (Auto) 44.4 H [place] % (Auto) 16.9 H Eos % (Auto) 4.8 H Baso % (Auto) 0.4 Neut # 0.9 L Lymph # 1.2 [place] # 0.5 Eos # 0.1 Baso # 0.0 Sodium 138 Potassium 3.8 Chloride 108 H Carbon Dioxide 24 Anion Gap 10 BUN 2 L Creatinine 0.5 L Est GFR ( Amer) > 60 Est GFR (Non-Af Amer) > 60 Random Glucose 88 Lactic Acid 1.8 Calcium 7.9 L Assessment & Plan - Assessment and Plan (Free Text) Assessment: FALL WITH RIGHT KNEE SURGICAL WOUND DEHISCENCE BIPOLAR DISEASE Plan: PATIENT IS CLEARED FOR SURGERY
--- NOTE | 2017-06-24 09:43 | CP.PCM.PN ---
Subjective - Date & Time of Evaluation Date of Evaluation: 06/24/17 Time of Evaluation: 10:30 - Subjective Subjective: Patient seen and examined bedside. Lying in bed in NAD. Hemodynamically stable, afebrile. [place] is controlled With episode of urinary retention , abdominal discomfort and output 1180 ml urine with straight cath. For Or today with Dr. Sharpe Objective - Vital Signs/Intake and Output Vital Signs (last 24 hours): Temp Pulse Resp BP Pulse Ox 98 F 87 20 114/76 97 06/24/17 08:00 06/24/17 08:00 06/24/17 08:00 06/24/17 08:00 06/24/17 08:00 Intake and Output: 06/24/17 06/24/17 06:59 18:59 Intake Total 1120 Output Total 950 Balance 170 - Medications Medications: Current Medications Acetaminophen (Tylenol 325mg Tab) 650 mg PO Q4H PRN PRN Reason: Temp 101 and above Benztropine Mesylate (Cogentin) 0.5 mg PO Q12 [facility] Last Admin: 06/24/17 08:48 Dose: 0.5 mg Famotidine (Pepcid) 20 mg PO BID [facility] Last Admin: 06/24/17 08:49 Dose: 20 mg Sodium Chloride (Sodium Chloride 0.9%) 1,000 mls @ 100 mls/hr IV .Q10H [facility] Last Admin: 06/24/17 04:42 Dose: 100 mls/hr Lamotrigine (Lamictal) 25 mg PO DAILY [facility] Last Admin: 06/24/17 08:49 Dose: 25 mg Morphine Sulfate (Morphine) 2 mg IVP Q4 PRN PRN Reason: Pain, moderate (4-7) Last Admin: 06/24/17 08:48 Dose: 2 mg Oxycodone/Acetaminophen (Percocet 5/325 Mg Tab) 2 tab PO Q6 PRN PRN Reason: Pain, severe (8-10) Stop: 06/26/17 19:02 Last Admin: 06/23/17 22:16 Dose: 2 tab Paliperidone (Invega) 6 mg PO HS [facility] Last Admin: 06/23/17 22:24 Dose: 6 mg Paliperidone Palmitate (Invega Sustenna) 156 mg IM Q28D [facility] Last Admin: 06/23/17 19:27 Dose: Not Given Trazodone HCl (Desyrel) 50 mg PO HS [facility] Last Admin: 06/23/17 22:24 Dose: 50 mg - Labs Labs: 06/24/17 05:40 06/24/17 05:40 PT 12.3 Seconds (9.8-13.1) 06/23/17 17:20 INR 1.2 (0.9-1.2) 06/23/17 17:20 APTT 45.4 Seconds (25.6-37.1) H 06/23/17 17:20 - Constitutional Appears: Non-toxic, No Acute Distress - Head Exam Head Exam: ATRAUMATIC, NORMAL INSPECTION, NORMOCEPHALIC - Eye Exam Eye Exam: EOMI, Normal appearance, PERRL Pupil Exam: NORMAL ACCOMODATION - ENT Exam ENT Exam: Mucous Membranes Moist, Normal Exam - Neck Exam Neck Exam: Full ROM, Normal Inspection - Respiratory Exam Respiratory Exam: Clear to Ausculation Bilateral, NORMAL BREATHING PATTERN. absent: Rales, Rhonchi, Wheezes - Cardiovascular Exam Cardiovascular Exam: REGULAR RHYTHM, RRR, +S1, +S2. absent: JVD - GI/Abdominal Exam GI & Abdominal Exam: Soft, Normal Bowel Sounds. absent: Distended, Guarding, Tenderness, Rebound - Rectal Exam Rectal Exam: Deferred - Extremities Exam Additional comments: RLE knee wound dehiscence with dressing in place edema to RLE - Back Exam Back Exam: NORMAL INSPECTION - Neurological Exam Neurological Exam: Alert, Awake, CN II-XII Intact, Oriented x3 - Psychiatric Exam Psychiatric exam: Normal Affect, Normal Mood - Skin Skin Exam: Dry, Warm Assessment and Plan - Assessment and Plan (Free Text) Assessment: 62 yo female with history of CVA, Hep c ,Bipolar DO/ schizoaffective disorder , chronic leukopenia ,Seizure DO recent Right TKR 06/03/17 was discharged from rehab 2 days ago . As p4er patient she twisted her right knee in the bathroom opening up the surgical wound. Had significant amount of blood loss and pain according to EMS. 1. Wound Dehiscence, Right Knee S/P Right TKR (06/03/2017) orthopedist consult with Dr Sharpe For Or today Continue pain management 2. Schizoaffective disorder on multiple psych meds psyche consult with Dr Anderson Pt is on multiple Psych meds, Trazodone, Invega 3. Anemia of recent acute blood loss Hgb 9.0 Continue ferrous sulfate Continue monitoring 4. Seizure Disorder, history continue Lamictal seizure precaution 5.Leukopenia prob sec to meds Chronic 6. Thrombocytopenia Chronic , improved since last admission Plt 133 K prob sec to meds and Hep C Hematology was consulted to optimize hematological status p-rior to TKR .As per hematology as long as Platelet greater than 75 K and no active bleeding it is safe to proceed with surgery Can start Lovenox as long as Plt > 50 K 7.History of CVA (cerebrovascular accident) Chronic stable at present 8. Coagulopathy Chronic likely sec to liver dis 9.Hepatitis C Chronic ff up with Liver specialist as outpt 10. History of heroin/Cocaine abuse Chronic pt states has been clean for 10 years until she took some Cocaine about 2 months ago 11. Abnormal LFTs Chronic likely sec to Hep C on top of meds monitor 12.DVT proph SCD
[2017-06-24 11:26] LABS: RBC URINE 2 /hpf (0-3); URINE BILIRUBIN NEGATIVE (NEGATIVE); URINE BLOOD NEGATIVE (NEGATIVE); URINE COLOR YELLOW (YELLOW); URINE GLUCOSE (UA) NEG (Normal); URINE KETONE NEGATIVE (NEGATIVE); URINE LEUKOCYTE ESTERASE NEG Leu/uL (Negative); URINE PROTEIN NEGATIVE (NEGATIVE); WBC URINE < 1 /hpf (0-5)
--- NOTE | 2017-06-24 12:56 | CARD ---
APPROVED REPORT EKG Measurement Heart [id number] <Conclusion> Normal sinus rhythm Prolonged QT Abnormal ECG
[2017-06-24] MEDS ORDERED: Bupivacaine 0.5% Inj(30mL) ONE (15:33)
[2017-06-24] MEDS ORDERED: Thrombin Topical 5,000 IU Spray Kit ONE (15:33)
[2017-06-24] MEDS ORDERED: Lidocaine 1% Inj (20ml) ONE (15:33)
[2017-06-24] MEDS ORDERED: Bacitracin Ointment 30 GM TUBE ONE (15:33)
[2017-06-24] MEDS ORDERED: Absorbable Gelatin Sponge Size 100 ONE (15:33)
[2017-06-24] MEDS ORDERED: Propofol 10 mg/ml Inj (20 ML) ONE (16:00)
--- NOTE | 2017-06-24 19:47 | CP.PCM.CON ---
History of Present Illness - History of Present Illness History of Present Illness: ID - 62 yo female well known to my practice CC_ pt after successful TKR was d/godwin from rehab and ALLEGEDLY fell going to bathroom. Pt is a schizophrenic substance abuser. Presents to ER last PM with wound dehiscence and rupture Quad tendon Pt evaluated prior to transport for surgery. Knee has huge hematoma, and PTT is 2x normal (45) surgery canceleled. hem,atology consult/ ID consult. After normalization wioll take pt to OR for debridement and primary repair quad tendon and primary closure. Pt referral from [facility] and is an extremenly non compliant individual; surgeyr cancelled today to optimize pt. Abnormal hematologic praramenters Past Patient History - Infectious Disease Hx of Infectious Diseases: None - Tetanus Immunizations Tetanus Immunization: Unknown - Past Medical History & Family History Past Medical History?: Yes - Past Social History Smoking Status: Former Smoker - CARDIAC Hx Atrial Fibrillation: No Hx Cardia Arrhythmia: No Hx Congestive Heart Failure: No Hx Hypercholesterolemia: No Hx Hypertension: No - PULMONARY Hx Respiratory Disorders: No Hx Asthma: No Hx Bronchitis: No Hx Chronic Obstructive Pulmonary Disease (COPD): No Hx Emphysema: No - NEUROLOGICAL HX Cerebrovascular Accident: Yes Hx Seizures: Yes Hx Transient Ischemic Attacks (TIA): Yes - HEENT Hx HEENT Problems: No - RENAL Hx Chronic Kidney Disease: No - ENDOCRINE/METABOLIC Hx Diabetes Mellitus Type 2: No - HEMATOLOGICAL/ONCOLOGICAL Hx AIDS: No Hx Human Immunodeficiency Virus (HIV): No - INTEGUMENTARY Hx Dermatological Problems: No - MUSCULOSKELETAL/RHEUMATOLOGICAL Hx Falls: Yes - GASTROINTESTINAL Hx Gastritis: Yes - GENITOURINARY/GYNECOLOGICAL Hx Sexually Transmitted Disorders: No - PSYCHIATRIC Hx Anxiety: Yes Hx Bipolar Disorder: Yes Hx Depression: Yes Hx Schizophrenia: Yes Hx Substance Use: Yes - SURGICAL HISTORY Hx Cholecystectomy: Yes Hx Joint Replacement: Yes (right TKR, 06/03/2017) - ANESTHESIA Hx Anesthesia: Yes Hx Anesthesia Reactions: No Meds Allergies/Adverse Reactions: Allergies Allergy/AdvReac Type Severity Reaction Status Date / Time lorazepam [From Ativan] Allergy SHORTNESS Verified 06/23/17 17:33 OF BREATH - Medications Medications: Current Medications Acetaminophen (Tylenol 325mg Tab) 650 mg PO Q4H PRN PRN Reason: Temp 101 and above Benztropine Mesylate (Cogentin) 0.5 mg PO Q12 [facility] Last Admin: 06/24/17 08:48 Dose: 0.5 mg Famotidine (Pepcid) 20 mg PO BID [facility] Last Admin: 06/24/17 18:00 Dose: 20 mg Sodium Chloride (Sodium Chloride 0.9%) 1,000 mls @ 100 mls/hr IV .Q10H [facility] Last Admin: 06/24/17 14:00 Dose: Not Given Cefepime HCl 1 gm/ Sodium (Chloride) 100 mls @ 100 mls/hr IVPB Q12 [facility] Vancomycin HCl 1 gm/ Sodium (Chloride) 250 mls @ 166.667 mls/hr IVPB Q12 [facility] Lamotrigine (Lamictal) 25 mg PO DAILY [facility] Last Admin: 06/24/17 08:49 Dose: 25 mg Morphine Sulfate (Morphine) 2 mg IVP Q4 PRN PRN Reason: Pain, moderate (4-7) Last Admin: 06/24/17 08:48 Dose: 2 mg Oxycodone/Acetaminophen (Percocet 5/325 Mg Tab) 2 tab PO Q6 PRN PRN Reason: Pain, severe (8-10) Stop: 06/26/17 19:02 Last Admin: 06/23/17 22:16 Dose: 2 tab Paliperidone (Invega) 6 mg PO [facility] Last Admin: 06/23/17 22:24 Dose: 6 mg Paliperidone Palmitate (Invega Sustenna) 156 mg IM Q28D [facility] Last Admin: 06/23/17 19:27 Dose: Not Given Trazodone HCl (Desyrel) 50 mg PO [facility] Last Admin: 06/23/17 22:24 Dose: 50 mg Physical Exam - Additional Findings Additional findings: Musculoskekltal: stance/gait- defrred R knee wound complteely dehiscied quead tendon ruptured no exposed hardware No evdience for sepsis Results - Vital Signs Recent Vital Signs: Last Vital Signs Temp 98.4 F 06/24/17 18:56 Pulse 94 H 06/24/17 18:56 Resp 20 06/24/17 18:56 BP 121/78 06/24/17 18:56 Pulse Ox 97 06/24/17 18:56 - Labs Result Diagrams: 06/24/17 05:40 06/24/17 05:40 Labs: Laboratory Results - last 24 hr 06/23/17 06/24/17 06/24/17 20:15 05:40 05:40 WBC 2.8 L RBC 2.89 L Hgb 9.8 L Hct 29.5 L MCV 102.0 H MCH 33.9 H MCHC 33.2 RDW 15.7 H Plt Count 133 MPV 7.8 Neut % (Auto) 33.5 L Lymph % (Auto) 44.4 H [place] % (Auto) 16.9 H Eos % (Auto) 4.8 H Baso % (Auto) 0.4 Neut # 0.9 L Lymph # 1.2 [place] # 0.5 Eos # 0.1 Baso # 0.0 Sodium 138 Potassium 3.8 Chloride 108 H Carbon Dioxide 24 Anion Gap 10 BUN 2 L Creatinine 0.5 L Est GFR ( Amer) > 60 Est GFR (Non-Af Amer) > 60 Random Glucose 88 Lactic Acid 1.8 Calcium 7.9 L Urine Color Urine Clarity Urine pH Ur Specific [place] Urine Protein Urine Glucose (UA) Urine Ketones Urine Blood Urine Nitrate Urine Bilirubin Urine Urobilinogen Ur Leukocyte Esterase Urine RBC (Auto) Urine Microscopic WBC 06/24/17 11:11 WBC RBC Hgb Hct MCV MCH MCHC RDW Plt Count MPV Neut % (Auto) Lymph % (Auto) [place] % (Auto) Eos % (Auto) Baso % (Auto) Neut # Lymph # [place] # Eos # Baso # Sodium Potassium Chloride Carbon Dioxide Anion Gap BUN Creatinine Est GFR ( Amer) Est GFR (Non-Af Amer) Random Glucose Lactic Acid Calcium Urine Color Yellow Urine Clarity Clear Urine pH 7.0 Ur Specific [place] 1.010 Urine Protein Negative Urine Glucose (UA) Neg Urine Ketones Negative Urine Blood Negative Urine Nitrate Negative Urine Bilirubin Negative Urine Urobilinogen 4.0 H Ur Leukocyte Esterase Neg Urine RBC (Auto) 2 Urine Microscopic WBC < 1 - Impressions Impression: Xray- reveals evidence for completet rupture quad tendon, with proximal patella migration Assessment & Plan - Assessment and Plan (Free Text) Assessment: A- s/p TKR L with componemnts in acceptable position migratioin of patella proximally evidences quad tendon rupture P- To OR for revision /Quad tendon repair and primary closure when cleared bny hematology/ infectious disease and cardiology called as well
[2017-06-24] MEDS: Cefepime 1 GM in Sodium Chloride 0.9% 100 ML IVPB SCH (21:01)
[2017-06-24] MEDS: Paliperidone 6 MG ER TAB PO SCH (21:01)
[2017-06-24] MEDS: Oxycodone/Acetaminophen 5/325 mg Tab PO PRN (21:12)
[2017-06-25] MEDS: Sodium Chloride 0.9% 1,000 ML IV SCH ×2 (00:31→12:00)
[2017-06-25] MEDS ORDERED: Phytonadione 10 mg/ml Inj (Adult) IV ONE (02:43)
--- NOTE | 2017-06-25 02:43 | CON ---
DATE: INFECTIOUS DISEASE CONSULTATION LOCATION: The patient is in room 404, which is on [address] [place] [address] floor. HISTORY OF PRESENT ILLNESS: The patient is a 62-year-old female with a past history of CVA and bipolar disease. She also has past history of heroin use. She had recent right total knee replacement and had been in rehab, which she said she did reasonably well and then went to her daughter's to live f and while she was there she fell in a bathroom and twisted her right knee and had a wound dehiscence. Apparently, there was a significant blood loss. Of note, she told me that prior to this accident she may have had some drainage from the right knee wound after the [place] were removed. No cultures were taken that I am aware of and she did say again that prior to the fall that she had some drainage . Of this, I am questioning only the veracity of her statements; at some point, she seems unsure of which came first. PHYSICAL EXAMINATION: GENERAL: The patient when examined is alert. She is very cooperative. HEENT: Essentially within normal limits. NECK: Supple. LUNGS: Clear. HEART: Regular sinus rhythm. ABDOMEN: Soft. May be some right upper quadrant tenderness, but normal bowel sounds. EXTREMITIES: Left knee is within normal limits. Right knee shows a wound dehiscence with a left limited range of motion. LABORATORY DATA: Shows white count of 3.3, and now today is 2.8, hemoglobin of 9.8, platelet count is 166 and 133. She has 39 neutrophils, 1 band, and 41 lymphocytes; questioning if this secondary to her psychiatric medications, but we will order some appropriate labs to evaluate liver function tests. Alkaline phosphatase is 145, AST is 45, and ALT is 39. Creatinine is 0.5, BUN is 2, and GFR is greater than 60. At present moment, we will treat as possibility of the existence of infection in the knee and we will treat with vancomycin 1 g q.12 hours and Maxipime 1 g q.12 hours. We will also order hepatitis profile considering the CBC, leukopenia, and mild thrombocytopenia and elevated LFTs in a patient c history of heroin abuse Nicholas Fernandes MD [facility]
[2017-06-25 06:22] LABS: BASO % 0.7 % (0.0-2.0); EOS # 0.1 K/uL (0.0-0.7); EOS % 5.5 % (0.0-4.0); HEMATOCRIT 28.6 % (34.0-47.0); LYMPH % 41.3 % (20.0-40.0); MEAN CORPUSCULAR HEMOGLOBIN 33.6 pg (27.0-31.0); MEAN CORPUSCULAR HGB CONC 32.9 g/dL (33.0-37.0); MEAN PLATELET VOLUME 7.8 fl (7.2-11.7); MONO # 0.4 K/uL (0.0-0.8); MONO % 15.2 % (0.0-10.0); NEUT # 0.9 K/uL (1.8-7.0); NEUT % 37.3 % (50.0-75.0); NRBC % 0.1 % (0.0-0.0); RED CELL DISTRIBUTION WIDTH 16.4 % (11.5-14.5); WHITE BLOOD COUNT 2.3 K/uL (4.8-10.8)
[2017-06-25 06:30] LABS: BLOOD UREA NITROGEN 3 mg/dl (7-17); CALCIUM 7.7 mg/dL (8.4-10.2); CARBON DIOXIDE 26 mmol/L (22-30); CHLORIDE 109 mmol/L (98-107); GFR AFRICAN-AMERICAN > 60; GLUCOSE,RANDOM 97 mg/dL (65-105); POTASSIUM 3.5 MMOL/L (3.6-5.0); SODIUM 141 mmol/l (132-148)
[2017-06-25] MEDS ORDERED: Phytonadione 10 MG in Sodium Chloride 0.9% 50 ML IVPB STA (06:47)
--- NOTE | 2017-06-25 07:13 | CP.PCM.PN ---
Subjective - Date & Time of Evaluation Date of Evaluation: 06/25/17 Time of Evaluation: 08:00 - Subjective Subjective: Patient seen and examined bedside.Feeling better. Complains of some pain to right knee. Hemodynamically stable, afebrile. No acute issues overnight Objective - Vital Signs/Intake and Output Vital Signs (last 24 hours): Temp Pulse Resp BP Pulse Ox 98.7 F 85 19 120/78 95 06/25/17 04:39 06/25/17 04:39 06/25/17 04:39 06/25/17 04:39 06/25/17 04:39 Intake and Output: 06/25/17 06/25/17 06:59 18:59 Intake Total 1370 Output Total 1100 Balance 270 - Medications Medications: Current Medications Acetaminophen (Tylenol 325mg Tab) 650 mg PO Q4H PRN PRN Reason: Temp 101 and above Benztropine Mesylate (Cogentin) 0.5 mg PO Q12 [facility] Last Admin: 06/24/17 20:59 Dose: 0.5 mg Famotidine (Pepcid) 20 mg PO BID [facility] Last Admin: 06/24/17 18:00 Dose: 20 mg Sodium Chloride (Sodium Chloride 0.9%) 1,000 mls @ 100 mls/hr IV .Q10H [facility] Last Admin: 06/25/17 00:31 Dose: 100 mls/hr Cefepime HCl 1 gm/ Sodium (Chloride) 100 mls @ 100 mls/hr IVPB Q12 [facility] Last Admin: 06/24/17 21:01 Dose: 100 mls/hr Vancomycin HCl 1 gm/ Sodium (Chloride) 250 mls @ 166.667 mls/hr IVPB Q12 [facility] Last Admin: 06/24/17 22:00 Dose: 166.667 mls/hr Phytonadione 10 mg/ Sodium (Chloride) 51 mls @ 102 mls/hr IVPB STAT STA Stop: 06/25/17 07:16 Lamotrigine (Lamictal) 25 mg PO DAILY [facility] Last Admin: 06/24/17 08:49 Dose: 25 mg Morphine Sulfate (Morphine) 2 mg IVP Q4 PRN PRN Reason: Pain, moderate (4-7) Last Admin: 06/24/17 08:48 Dose: 2 mg Oxycodone/Acetaminophen (Percocet 5/325 Mg Tab) 2 tab PO Q6 PRN PRN Reason: Pain, severe (8-10) Stop: 06/26/17 19:02 Last Admin: 06/24/17 21:12 Dose: 2 tab Paliperidone (Invega) 6 mg PO [facility] Last Admin: 06/24/17 21:01 Dose: 6 mg Paliperidone Palmitate (Invega Sustenna) 156 mg IM Q28D [facility] Last Admin: 06/23/17 19:27 Dose: Not Given Trazodone HCl (Desyrel) 50 mg PO [facility] Last Admin: 06/24/17 21:01 Dose: 50 mg - Labs Labs: 06/25/17 05:45 06/25/17 05:45 PT 12.3 Seconds (9.8-13.1) 06/23/17 17:20 INR 1.2 (0.9-1.2) 06/23/17 17:20 APTT 45.4 Seconds (25.6-37.1) H 06/23/17 17:20 - Constitutional Appears: Non-toxic, No Acute Distress - Head Exam Head Exam: ATRAUMATIC, NORMAL INSPECTION, NORMOCEPHALIC - Eye Exam Eye Exam: EOMI, Normal appearance, PERRL Pupil Exam: NORMAL ACCOMODATION - ENT Exam ENT Exam: Mucous Membranes Moist, Normal Exam - Neck Exam Neck Exam: Full ROM, Normal Inspection - Respiratory Exam Respiratory Exam: Clear to Ausculation Bilateral, NORMAL BREATHING PATTERN. absent: Rales, Wheezes, Respiratory Distress - Cardiovascular Exam Cardiovascular Exam: REGULAR RHYTHM, RRR, +S1, +S2. absent: JVD - GI/Abdominal Exam GI & Abdominal Exam: Soft, Normal Bowel Sounds. absent: Distended, Guarding, Tenderness, Rebound - Rectal Exam Rectal Exam: Deferred - Extremities Exam Extremities Exam: Normal Capillary Refill, Pedal Edema (RLE). absent: Calf Tenderness Additional comments: right knee with dressing in place - Back Exam Back Exam: NORMAL INSPECTION - Neurological Exam Neurological Exam: Alert, Awake, CN II-XII Intact, Oriented x3 - Psychiatric Exam Psychiatric exam: Normal Affect - Skin Skin Exam: Dry, Warm Assessment and Plan - Assessment and Plan (Free Text) Assessment: 62 yo female with history of CVA, Hep c ,Bipolar DO/ schizoaffective disorder , chronic leukopenia ,Seizure DO recent Right TKR 06/03/17 was discharged from rehab 2 days ago . As per patient she twisted her right knee in the bathroom opening up the surgical wound. Had significant amount of blood loss and pain according to EMS.Patient was admitted and ortho consulted.Planned for right knee revision , quad repair and primary closure of the wound 1. Wound Dehiscence, Right Knee S/P Right TKR (06/03/2017) orthopedist consult with Dr Sharpe appreciated OR was cancelled yesterday since aPTT was elevated 45. Hematology consulted for optimization before OR patient s cleared by cardiology or surgery plannded for right knee revision, quad muscle repair and primary closure NPO past midnight Continue pain management 2. Schizoaffective disorder on multiple psych meds psyche consult with Dr Anderson Pt is on multiple Psych meds, Trazodone, Invega , continue 3. Anemia of recent acute blood loss Hgb 9.0 Continue ferrous sulfate Continue monitoring 4. Seizure Disorder, history continue Lamictal seizure precaution 5.Leukopenia prob sec to meds Chronic , WBC 2.3 6. Thrombocytopenia Chronic , improved since last admission Plt 143 K prob sec to meds and Hep C Hematology was consulted to optimize hematological status prior to TKR .As per hematology as long as Platelet greater than 75 K and no active bleeding it is safe to proceed with surgery Can start Lovenox as long as Plt > 50 K 7.History of CVA (cerebrovascular accident) Chronic stable at present 8. Coagulopathy Chronic likely sec to liver dis 9.Hepatitis C Chronic ff up with Liver specialist as outpt 10. History of heroin/Cocaine abuse Chronic pt states has been clean for 10 years until she took some Cocaine about 2 months ago 11. Abnormal LFTs Chronic likely sec to Hep C on top of meds monitor 12.DVT proph SCD
[2017-06-25] MEDS: Cefepime 1 GM in Sodium Chloride 0.9% 100 ML IVPB SCH ×2 (08:59→21:30)
--- NOTE | 2017-06-25 09:39 | CP.PCM.PN ---
Subjective - Date & Time of Evaluation Date of Evaluation: 06/25/17 Time of Evaluation: 08:00 - Subjective Subjective: NO NEW COMPLAINTS Objective - Vital Signs/Intake and Output Vital Signs (last 24 hours): Temp Pulse Resp BP Pulse Ox 98.0 F 85 20 103/68 96 06/25/17 08:30 06/25/17 08:30 06/25/17 08:30 06/25/17 08:30 06/25/17 08:30 Intake and Output: 06/25/17 06/25/17 06:59 18:59 Intake Total 1370 Output Total 1100 Balance 270 - Medications Medications: Current Medications Acetaminophen (Tylenol 325mg Tab) 650 mg PO Q4H PRN PRN Reason: Temp 101 and above Benztropine Mesylate (Cogentin) 0.5 mg PO Q12 [facility] Last Admin: 06/25/17 08:59 Dose: 0.5 mg Famotidine (Pepcid) 20 mg PO BID [facility] Last Admin: 06/25/17 08:57 Dose: 20 mg Sodium Chloride (Sodium Chloride 0.9%) 1,000 mls @ 100 mls/hr IV .Q10H [facility] Last Admin: 06/25/17 00:31 Dose: 100 mls/hr Cefepime HCl 1 gm/ Sodium (Chloride) 100 mls @ 100 mls/hr IVPB Q12 [facility] Last Admin: 06/25/17 08:59 Dose: 100 mls/hr Vancomycin HCl 1 gm/ Sodium (Chloride) 250 mls @ 166.667 mls/hr IVPB Q12 [facility] Last Admin: 06/25/17 09:12 Dose: 166.667 mls/hr Lamotrigine (Lamictal) 25 mg PO DAILY [facility] Last Admin: 06/25/17 08:57 Dose: 25 mg Morphine Sulfate (Morphine) 2 mg IVP Q4 PRN PRN Reason: Pain, moderate (4-7) Last Admin: 06/25/17 09:05 Dose: 2 mg Oxycodone/Acetaminophen (Percocet 5/325 Mg Tab) 2 tab PO Q6 PRN PRN Reason: Pain, severe (8-10) Stop: 06/26/17 19:02 Last Admin: 06/24/17 21:12 Dose: 2 tab Paliperidone (Invega) 6 mg PO HS [facility] Last Admin: 06/24/17 21:01 Dose: 6 mg Paliperidone Palmitate (Invega Sustenna) 156 mg IM Q28D [facility] Last Admin: 06/23/17 19:27 Dose: Not Given Trazodone HCl (Desyrel) 50 mg PO [facility] Last Admin: 06/24/17 21:01 Dose: 50 mg - Labs Labs: 06/25/17 05:45 06/25/17 05:45 PT 12.3 Seconds (9.8-13.1) 06/23/17 17:20 INR 1.2 (0.9-1.2) 06/23/17 17:20 APTT 45.4 Seconds (25.6-37.1) H 06/23/17 17:20 - Respiratory Exam Respiratory Exam: Clear to Ausculation Bilateral - Cardiovascular Exam Cardiovascular Exam: REGULAR RHYTHM, +S1, +S2 Assessment and Plan - Assessment and Plan (Free Text) Assessment: KNEE TRAUMA AND WOUND DEHISCENCE STABLE CARDIAC STATUS Plan: FOR KNEE SURGERY PATIENT CLEARED FROM CARDIAC VIEWPOINT
--- NOTE | 2017-06-25 16:02 | CP.PCM.PN ---
Subjective - Date & Time of Evaluation Date of Evaluation: 06/25/17 Time of Evaluation: 15:44 - Subjective Subjective: I D NOTE PATIENT IS POS FOR HEP C SOME OF THE ABNORMAL HEMATOLOGY RESULTS MAY BE DUE TO HEP C HAVE ORDERED VIRAL LOAD AND GENOTYPE, ALSO T-LYMPHOCYTE COUNT AWAIT HEMATOLOGY CONSULT Objective - Vital Signs/Intake and Output Vital Signs (last 24 hours): Temp Pulse Resp BP Pulse Ox 98.1 F 84 20 101/65 95 06/25/17 12:28 06/25/17 12:28 06/25/17 12:28 06/25/17 12:28 06/25/17 12:28 Intake and Output: 06/25/17 06/25/17 06:59 18:59 Intake Total 1370 Output Total 1100 Balance 270 - Medications Medications: Current Medications Acetaminophen (Tylenol 325mg Tab) 650 mg PO Q4H PRN PRN Reason: Temp 101 and above Benztropine Mesylate (Cogentin) 0.5 mg PO Q12 [facility] Last Admin: 06/25/17 08:59 Dose: 0.5 mg Famotidine (Pepcid) 20 mg PO BID [facility] Last Admin: 06/25/17 08:57 Dose: 20 mg Sodium Chloride (Sodium Chloride 0.9%) 1,000 mls @ 100 mls/hr IV .Q10H [facility] Last Admin: 06/25/17 12:00 Dose: 100 mls/hr Cefepime HCl 1 gm/ Sodium (Chloride) 100 mls @ 100 mls/hr IVPB Q12 [facility] Last Admin: 06/25/17 08:59 Dose: 100 mls/hr Vancomycin HCl 1 gm/ Sodium (Chloride) 250 mls @ 166.667 mls/hr IVPB Q12 [facility] Last Admin: 06/25/17 09:12 Dose: 166.667 mls/hr Lamotrigine (Lamictal) 25 mg PO DAILY [facility] Last Admin: 06/25/17 08:57 Dose: 25 mg Morphine Sulfate (Morphine) 2 mg IVP Q4 PRN PRN Reason: Pain, moderate (4-7) Last Admin: 06/25/17 13:12 Dose: 2 mg Oxycodone/Acetaminophen (Percocet 5/325 Mg Tab) 2 tab PO Q6 PRN PRN Reason: Pain, severe (8-10) Stop: 06/26/17 19:02 Last Admin: 06/24/17 21:12 Dose: 2 tab Paliperidone (Invega) 6 mg PO HS [facility] Last Admin: 06/24/17 21:01 Dose: 6 mg Paliperidone Palmitate (Invega Sustenna) 156 mg IM Q28D [facility] Last Admin: 06/23/17 19:27 Dose: Not Given Trazodone HCl (Desyrel) 50 mg PO HS [facility] Last Admin: 06/24/17 21:01 Dose: 50 mg - Labs Labs: 06/25/17 05:45 06/25/17 05:45 PT 12.3 Seconds (9.8-13.1) 06/23/17 17:20 INR 1.2 (0.9-1.2) 06/23/17 17:20 APTT 45.4 Seconds (25.6-37.1) H 06/23/17 17:20
[2017-06-25 19:13] LABS: PARTIAL THROMBOPLASTIN TIME 35.9 Seconds (25.6-37.1)
--- NOTE | 2017-06-25 20:27 | CP.PCM.CON ---
History of Present Illness - History of Present Illness History of Present Illness: 62 year old female with a history of schizophrenia, substance abuse, recent right TKR, admitted with wound dehiscence and ruptured quadricep s/p fall with coagulopathy and neutropenia. The patient reports to slipping and falling. She notes to bleeding from the knee after her fall. Prior to her trauma, she denies abnormal bleeding and bruising. Past medical history: Schizophrenia, leukopenia Past surgical history: right TKR Family history: Denies hematologic and oncologic problems Social history: Denies tobacco, alcohol, and illicit drug use. Allergies: Lorazepam Review of systems: All remaining review of systems including HEENT, cardiovascular, respiratory, gastrointestinal, genitourinary, musculoskeletal, dermatologic, neurologic, and psychiatric are negative unless mentioned in the HPI. Past Patient History - Infectious Disease Hx of Infectious Diseases: None - Tetanus Immunizations Tetanus Immunization: Unknown - Past Medical History & Family History Past Medical History?: Yes - Past Social History Smoking Status: Former Smoker - CARDIAC Hx Atrial Fibrillation: No Hx Cardia Arrhythmia: No Hx Congestive Heart Failure: No Hx Hypercholesterolemia: No Hx Hypertension: No - PULMONARY Hx Respiratory Disorders: No Hx Asthma: No Hx Bronchitis: No Hx Chronic Obstructive Pulmonary Disease (COPD): No Hx Emphysema: No - NEUROLOGICAL HX Cerebrovascular Accident: Yes Hx Seizures: Yes Hx Transient Ischemic Attacks (TIA): Yes - HEENT Hx HEENT Problems: No - RENAL Hx Chronic Kidney Disease: No - ENDOCRINE/METABOLIC Hx Diabetes Mellitus Type 2: No - HEMATOLOGICAL/ONCOLOGICAL Hx AIDS: No Hx Human Immunodeficiency Virus (HIV): No - INTEGUMENTARY Hx Dermatological Problems: No - MUSCULOSKELETAL/RHEUMATOLOGICAL Hx Falls: Yes - GASTROINTESTINAL Hx Gastritis: Yes - GENITOURINARY/GYNECOLOGICAL Hx Sexually Transmitted Disorders: No - PSYCHIATRIC Hx Anxiety: Yes Hx Bipolar Disorder: Yes Hx Depression: Yes Hx Schizophrenia: Yes Hx Substance Use: Yes - SURGICAL HISTORY Hx Cholecystectomy: Yes Hx Joint Replacement: Yes (right TKR, 06/03/2017) - ANESTHESIA Hx Anesthesia: Yes Hx Anesthesia Reactions: No Meds Allergies/Adverse Reactions: Allergies Allergy/AdvReac Type Severity Reaction Status Date / Time lorazepam [From Ativan] Allergy SHORTNESS Verified 06/23/17 17:33 OF BREATH - Medications Medications: Current Medications Acetaminophen (Tylenol 325mg Tab) 650 mg PO Q4H PRN PRN Reason: Temp 101 and above Benztropine Mesylate (Cogentin) 0.5 mg PO Q12 [facility] Last Admin: 06/25/17 08:59 Dose: 0.5 mg Famotidine (Pepcid) 20 mg PO BID [facility] Last Admin: 06/25/17 16:49 Dose: 20 mg Sodium Chloride (Sodium Chloride 0.9%) 1,000 mls @ 100 mls/hr IV .Q10H [facility] Last Admin: 06/25/17 12:00 Dose: 100 mls/hr Cefepime HCl 1 gm/ Sodium (Chloride) 100 mls @ 100 mls/hr IVPB Q12 [facility] Last Admin: 06/25/17 08:59 Dose: 100 mls/hr Vancomycin HCl 1 gm/ Sodium (Chloride) 250 mls @ 166.667 mls/hr IVPB Q12 [facility] Last Admin: 06/25/17 09:12 Dose: 166.667 mls/hr Lamotrigine (Lamictal) 25 mg PO DAILY [facility] Last Admin: 06/25/17 08:57 Dose: 25 mg Morphine Sulfate (Morphine) 2 mg IVP Q4 PRN PRN Reason: Pain, moderate (4-7) Last Admin: 06/25/17 13:12 Dose: 2 mg Oxycodone/Acetaminophen (Percocet 5/325 Mg Tab) 2 tab PO Q6 PRN PRN Reason: Pain, severe (8-10) Stop: 06/26/17 19:02 Last Admin: 06/24/17 21:12 Dose: 2 tab Paliperidone (Invega) 6 mg PO [facility] Last Admin: 06/24/17 21:01 Dose: 6 mg Paliperidone Palmitate (Invega Sustenna) 156 mg IM Q28D [facility] Last Admin: 06/23/17 19:27 Dose: Not Given Trazodone HCl (Desyrel) 50 mg PO [facility] Last Admin: 06/24/17 21:01 Dose: 50 mg Physical Exam - Head Exam Head Exam: ATRAUMATIC - Eye Exam Eye Exam: Normal appearance - ENT Exam ENT Exam: Mucous Membranes Dry - Respiratory Exam Respiratory Exam: NORMAL BREATHING PATTERN - Cardiovascular Exam Cardiovascular Exam: +S1, +S2 - GI/Abdominal Exam GI & Abdominal Exam: Normal Bowel Sounds - Extremities Exam Extremities exam: Positive for: pedal edema - Neurological Exam Neurological exam: Oriented x3 - Psychiatric Exam Psychiatric exam: Normal Affect, Normal Mood - Skin Skin Exam: Warm Results - Vital Signs Recent Vital Signs: Last Vital Signs Temp 98.0 F 06/25/17 18:58 Pulse 61 06/25/17 18:58 Resp 20 06/25/17 18:58 BP 124/58 L 06/25/17 18:58 Pulse Ox 100 06/25/17 18:58 - Labs Result Diagrams: 06/25/17 05:45 06/25/17 05:45 Labs: Laboratory Results - last 24 hr 06/25/17 06/25/17 06/25/17 05:45 05:45 05:45 WBC 2.3 L RBC 2.80 L Hgb 9.4 L Hct 28.6 L MCV 102.0 H MCH 33.6 H MCHC 32.9 L RDW 16.4 H Plt Count 143 MPV 7.8 Neut % (Auto) 37.3 L Lymph % (Auto) 41.3 H Carroll % (Auto) 15.2 H Eos % (Auto) 5.5 H Baso % (Auto) 0.7 Neut # 0.9 L Lymph # 1.0 Carroll # 0.4 Eos # 0.1 Baso # 0.0 ESR 22 PT INR APTT Sodium 141 Potassium 3.5 L Chloride 109 H Carbon Dioxide 26 Anion Gap 10 BUN 3 L Creatinine 0.5 L Est GFR ( Amer) > 60 Est GFR (Non-Af Amer) > 60 Random Glucose 97 Calcium 7.7 L Procalcitonin 0.08 L Hepatitis A IgM Ab Hep Bs Antigen Hep Bs Antibody Hep B Core IgM Ab Hepatitis C Antibody 06/25/17 06/25/17 06/25/17 05:45 05:45 05:45 WBC RBC Hgb Hct MCV MCH MCHC RDW Plt Count MPV Neut % (Auto) Lymph % (Auto) Carroll % (Auto) Eos % (Auto) Baso % (Auto) Neut # Lymph # Carroll # Eos # Baso # ESR PT INR APTT Sodium Potassium Chloride Carbon Dioxide Anion Gap BUN Creatinine Est GFR ( Amer) Est GFR (Non-Af Amer) Random Glucose Calcium Procalcitonin Hepatitis A IgM Ab Negative Hep Bs Antigen Negative Hep Bs Antibody Negative Hep B Core IgM Ab Negative Negative Hepatitis C Antibody Reactive Reactive 06/25/17 18:30 WBC RBC Hgb Hct MCV MCH MCHC RDW Plt Count MPV Neut % (Auto) Lymph % (Auto) Carroll % (Auto) Eos % (Auto) Baso % (Auto) Neut # Lymph # Carroll # Eos # Baso # ESR PT 12.4 INR 1.2 APTT 35.9 D Sodium Potassium Chloride Carbon Dioxide Anion Gap BUN Creatinine Est GFR ( Amer) Est GFR (Non-Af Amer) Random Glucose Calcium Procalcitonin Hepatitis A IgM Ab Hep Bs Antigen Hep Bs Antibody Hep B Core IgM Ab Hepatitis C Antibody Assessment & Plan (1) Coagulopathy Assessment and Plan: resolved with vit K supplementation cleared for orthopedic surgery from hematologic standpoint. Status: Chronic (2) Neutropenia Assessment and Plan: mild and intermittent suspect medication induced found to have hep C Ab positivity which may also be contributing cleared from heme standpoint for orthopedic surgery Thank you for this interesting consult. Status: Acute
[2017-06-25] MEDS: Paliperidone 6 MG ER TAB PO SCH (21:33)
[2017-06-25] MEDS: Oxycodone/Acetaminophen 5/325 mg Tab PO PRN (23:21)
[2017-06-26] MEDS: Sodium Chloride 0.9% 1,000 ML IV SCH ×3 (04:06→16:09)
[2017-06-26 07:57] LABS: HEMATOCRIT 29.2 % (34.0-47.0); MEAN CELL VOLUME 101.2 fl (81.0-99.0); MEAN CORPUSCULAR HEMOGLOBIN 33.6 pg (27.0-31.0); MEAN CORPUSCULAR HGB CONC 33.2 g/dL (33.0-37.0); RED CELL DISTRIBUTION WIDTH 15.7 % (11.5-14.5); WHITE BLOOD COUNT 2.3 K/uL (4.8-10.8)
[2017-06-26 08:15] LABS: BLOOD UREA NITROGEN 3 mg/dl (7-17); CALCIUM 7.8 mg/dL (8.4-10.2); CARBON DIOXIDE 24 mmol/L (22-30); CHLORIDE 109 mmol/L (98-107); GFR AFRICAN-AMERICAN > 60; GLUCOSE,RANDOM 93 mg/dL (65-105); POTASSIUM 3.4 MMOL/L (3.6-5.0); SODIUM 141 mmol/l (132-148)
[2017-06-26] MEDS: Cefepime 1 GM in Sodium Chloride 0.9% 100 ML IVPB SCH ×2 (08:18→20:32)
[2017-06-26 08:31] LABS: PARTIAL THROMBOPLASTIN TIME 34.6 Seconds (25.6-37.1)
[2017-06-26] MEDS ORDERED: Iohexol 300 10 ML ONE (08:41)
[2017-06-26] MEDS ORDERED: MethylPREDNISolone Depo 40 mg/ml Inj ONE (08:41)
[2017-06-26] MEDS ORDERED: Lidocaine 1% Inj (20ml) ONE (08:42)
[2017-06-26] MEDS ORDERED: Bupivacaine HCl 0.25% PF (10 ml) Inj ONE (08:42)
--- NOTE | 2017-06-26 09:21 | CP.PCM.PN ---
Subjective - Date & Time of Evaluation Date of Evaluation: 06/26/17 Time of Evaluation: 07:00 - Subjective Subjective: NO COMPLAINTS Objective - Vital Signs/Intake and Output Vital Signs (last 24 hours): Temp Pulse Resp BP Pulse Ox 98.2 F 77 20 112/71 93 L 06/26/17 08:31 06/26/17 08:31 06/26/17 08:31 06/26/17 08:31 06/26/17 08:31 - Medications Medications: Current Medications Acetaminophen (Tylenol 325mg Tab) 650 mg PO Q4H PRN PRN Reason: Temp 101 and above Benztropine Mesylate (Cogentin) 0.5 mg PO Q12 [facility] Last Admin: 06/26/17 08:06 Dose: Not Given Famotidine (Pepcid) 20 mg PO BID [facility] Last Admin: 06/26/17 08:06 Dose: Not Given Sodium Chloride (Sodium Chloride 0.9%) 1,000 mls @ 100 mls/hr IV .Q10H [facility] Last Admin: 06/26/17 06:33 Dose: 100 mls/hr Cefepime HCl 1 gm/ Sodium (Chloride) 100 mls @ 100 mls/hr IVPB Q12 [facility] Last Admin: 06/26/17 08:18 Dose: 100 mls/hr Vancomycin HCl 1 gm/ Sodium (Chloride) 250 mls @ 166.667 mls/hr IVPB Q12 [facility] Last Admin: 06/26/17 08:18 Dose: 166.667 mls/hr Lamotrigine (Lamictal) 25 mg PO DAILY [facility] Last Admin: 06/26/17 08:06 Dose: Not Given Morphine Sulfate (Morphine) 2 mg IVP Q4 PRN PRN Reason: Pain, moderate (4-7) Last Admin: 06/25/17 20:44 Dose: 2 mg Oxycodone/Acetaminophen (Percocet 5/325 Mg Tab) 2 tab PO Q6 PRN PRN Reason: Pain, severe (8-10) Stop: 06/26/17 19:02 Last Admin: 06/25/17 23:21 Dose: 2 tab Paliperidone (Invega) 6 mg PO HS [facility] Last Admin: 06/25/17 21:33 Dose: 6 mg Paliperidone Palmitate (Invega Sustenna) 156 mg IM Q28D [facility] Last Admin: 06/23/17 19:27 Dose: Not Given Trazodone HCl (Desyrel) 50 mg PO HS [facility] Last Admin: 06/25/17 21:33 Dose: 50 mg - Labs Labs: 06/26/17 07:00 06/26/17 07:00 PT 12.3 Seconds (9.8-13.1) 06/26/17 07:00 INR 1.2 (0.9-1.2) 06/26/17 07:00 APTT 34.6 Seconds (25.6-37.1) 06/26/17 07:00 - Respiratory Exam Respiratory Exam: Clear to Ausculation Bilateral - Cardiovascular Exam Cardiovascular Exam: REGULAR RHYTHM, +S1, +S2 Assessment and Plan - Assessment and Plan (Free Text) Assessment: FALL WITH RIGHT KNEE SURGICAL WOUND DEHISCENCE Plan: FOR SURGERY TODAY
[2017-06-26] MEDS ORDERED: Potassium CL 10 MEQ/50 ML 50 ML IVPB ONE (10:23)
--- NOTE | 2017-06-26 10:25 | CP.PCM.PN ---
Subjective - Date & Time of Evaluation Date of Evaluation: 06/26/17 Time of Evaluation: 09:00 - Subjective Subjective: patient seen and examined bedside. Feeling better. NPO. For OR today Hemodynamically stable, afebrile Denies any CP, SOB Objective - Vital Signs/Intake and Output Vital Signs (last 24 hours): Temp Pulse Resp BP Pulse Ox 98.2 F 77 20 112/71 93 L 06/26/17 08:31 06/26/17 08:31 06/26/17 08:31 06/26/17 08:31 06/26/17 08:31 - Medications Medications: Current Medications Acetaminophen (Tylenol 325mg Tab) 650 mg PO Q4H PRN PRN Reason: Temp 101 and above Benztropine Mesylate (Cogentin) 0.5 mg PO Q12 [facility] Last Admin: 06/26/17 08:06 Dose: Not Given Famotidine (Pepcid) 20 mg PO BID [facility] Last Admin: 06/26/17 08:06 Dose: Not Given Sodium Chloride (Sodium Chloride 0.9%) 1,000 mls @ 100 mls/hr IV .Q10H [facility] Last Admin: 06/26/17 06:33 Dose: 100 mls/hr Cefepime HCl 1 gm/ Sodium (Chloride) 100 mls @ 100 mls/hr IVPB Q12 [facility] Last Admin: 06/26/17 08:18 Dose: 100 mls/hr Vancomycin HCl 1 gm/ Sodium (Chloride) 250 mls @ 166.667 mls/hr IVPB Q12 [facility] Last Admin: 06/26/17 08:18 Dose: 166.667 mls/hr Potassium Chloride (Potassium Cl 10meq/50ml Sterile Water) 50 mls @ 50 mls/hr IVPB ONCE ONE Stop: 06/26/17 11:22 Lamotrigine (Lamictal) 25 mg PO DAILY [facility] Last Admin: 06/26/17 08:06 Dose: Not Given Morphine Sulfate (Morphine) 2 mg IVP Q4 PRN PRN Reason: Pain, moderate (4-7) Last Admin: 06/25/17 20:44 Dose: 2 mg Oxycodone/Acetaminophen (Percocet 5/325 Mg Tab) 2 tab PO Q6 PRN PRN Reason: Pain, severe (8-10) Stop: 06/26/17 19:02 Last Admin: 06/25/17 23:21 Dose: 2 tab Paliperidone (Invega) 6 mg PO HS [facility] Last Admin: 06/25/17 21:33 Dose: 6 mg Paliperidone Palmitate (Invega Sustenna) 156 mg IM Q28D [facility] Last Admin: 06/23/17 19:27 Dose: Not Given Trazodone HCl (Desyrel) 50 mg PO [facility] Last Admin: 06/25/17 21:33 Dose: 50 mg - Labs Labs: 06/26/17 07:00 06/26/17 07:00 PT 12.3 Seconds (9.8-13.1) 06/26/17 07:00 INR 1.2 (0.9-1.2) 06/26/17 07:00 APTT 34.6 Seconds (25.6-37.1) 06/26/17 07:00 - Constitutional Appears: Well, Non-toxic, No Acute Distress - Head Exam Head Exam: ATRAUMATIC, NORMAL INSPECTION, NORMOCEPHALIC - Eye Exam Eye Exam: EOMI, Normal appearance, PERRL Pupil Exam: NORMAL ACCOMODATION - ENT Exam ENT Exam: Mucous Membranes Moist, Normal Exam - Neck Exam Neck Exam: Full ROM, Normal Inspection - Respiratory Exam Respiratory Exam: Clear to Ausculation Bilateral. absent: Rales, Rhonchi, Wheezes - Cardiovascular Exam Cardiovascular Exam: REGULAR RHYTHM, RRR, +S1, +S2. absent: JVD - GI/Abdominal Exam GI & Abdominal Exam: Soft, Normal Bowel Sounds. absent: Distended, Guarding, Tenderness, Rebound - Rectal Exam Rectal Exam: Deferred - Extremities Exam Extremities Exam: Full ROM, Normal Capillary Refill, Normal Inspection Additional comments: left knee with madeline dressing in place - Back Exam Back Exam: NORMAL INSPECTION - Neurological Exam Neurological Exam: Alert, Awake, CN II-XII Intact, Oriented x3 - Psychiatric Exam Psychiatric exam: Normal Affect, Normal Mood - Skin Skin Exam: Dry, Normal Color, Warm Assessment and Plan - Assessment and Plan (Free Text) Assessment: 62 yo female with history of CVA, Hep c ,Bipolar DO/ schizoaffective disorder , chronic leukopenia ,Seizure DO recent Right TKR 06/03/17 was discharged from rehab 2 days ago . As per patient she twisted her right knee in the bathroom opening up the surgical wound. Had significant amount of blood loss and pain according to EMS.Patient was admitted and ortho consulted.Planned for right knee revision , quad repair and primary closure of the wound. Preop cardio and hematology were consulted for clearance and optimization. Vitamin K was given to reverse her coagulopathy For OR today 1. Wound Dehiscence, Right Knee S/P Right TKR (06/03/2017) orthopedist consult with Dr Sharpe appreciated OR was cancelled 06/24 since aPTT was elevated 45. Hematology consulted for optimization before OR and Vitamin K was given patient cleared now both by hematology and by cardiology for surgery For Or today for right knee revision, quad muscle repair and primary closure Id consulted and patient strated on Maxipime and vancomycine empirically Continue pain management will start PT and DVT prohylaxs post op as per recommendations by ortho and hematology 2. Schizoaffective disorder on multiple psych meds Trazodone, Invega 3. Anemia of recent acute blood loss Hgb 9.7 Continue ferrous sulfate Continue monitoring 4. Seizure Disorder, history continue Lamictal seizure precaution 5.Leukopenia prob sec to meds Chronic , WBC 2.3 6. Thrombocytopenia Chronic , improved since last admission Plt 155 K prob sec to meds and Hep C Hematology was consulted to optimize hematological status prior to TKR As per hematology as long as Platelet greater than 75 K and no active bleeding it is safe to proceed with surgery Can start Lovenox as long as Plt > 50 K 7.History of CVA (cerebrovascular accident) Chronic stable at present 8. Coagulopathy Chronic likely sec to liver dis Given Vitamin K 9.Hepatitis C Chronic ff up with Liver specialist as outpt 10. History of heroin/Cocaine abuse Chronic pt states has been clean for 10 years until she took some Cocaine about 2 months ago 11. Abnormal LFTs Chronic likely sec to Hep C on top of meds monitor 12.DVT proph SCD
[2017-06-26] MEDS ORDERED: Lidocaine 4% (Laryng-O-Jet) Kit MM ONE (12:06)
[2017-06-26] MEDS ORDERED: Rocuronium 10 mg/ml (5 ml) ONE (12:06)
[2017-06-26] MEDS ORDERED: Propofol 10 mg/ml Inj (20 ML) ONE (12:06)
[2017-06-26] MEDS ORDERED: Sodium Chloride 0.9% 1,000 ML IV ONE ×3 (12:40→17:00)
[2017-06-26] MEDS ORDERED: Etomidate 20 mg/10ml Inj IV ONE (13:44)
[2017-06-26 14:06] LABS: FLUID TYPE SYNOVIAL FLUID
[2017-06-26] MEDS ORDERED: Neostigmine Methylsulfate 3mg/3ml Syringe IV ONE (14:12)
[2017-06-26] MEDS ORDERED: Dexamethasone 4 mg/1 ml IVP PRN (15:40)
--- NOTE | 2017-06-26 15:43 | PCM.ANESB3 ---
Femoral Nerve Block - Femoral Nerve Block Date of Procedure: 06/26/17 Anesthesiologist: Gerardo Pre-Procedure Diagnosis: Right knee wound Post-Procedure Diagnosis: Same Procedure Performed: Femoral Nerve Block Right - Procedure Femoral Nerve Block: The procedure was explained to the patient that it is for the post-operative pain management. Consent was obtained after a thorough discussion with the patient regarding the benefits and possible complications of local anesthetic block of the femoral nerve at the inguinal crease area. The patient was brought to the operating room and standard monitors were applied. Time-out was held with the circulating nurse to confirm the correct surgery and the appropriate block. After completion of surgery, patient was placed in supine position with fully extended lower extremities and the ___right groin exposed. The femoral artery was then carefully palpated. The ultrasound transducer was then applied to this area in the transverse plane and the femoral nerve was visualized lateral to the femoral artery and underneath the fascia iliaca. After thorough identification, the inguinal crease area was prepped with Betadine solution three times and 1 % Lidocaine was injected subcutaneously for topical anesthesia. At this point, a #22 gauge Stimuplex 2-inch needle was inserted immediately lateral to the femoral artery pulse at the inguinal crease and advanced perpendicularly. The needle was inserted to the ultrasound transducer in-plane towards the femoral nerve in a [id number] direction. Needle advancement was performed carefully under direct ultrasound visualization. Nerve stimulator was used and twitch of the quadriceps muscle was obtained at current of __0.4___ MA. After negative aspiration, ___20__cc of __.5___% Bupivacaine ____was injected. Under ultrasound guidance the local anesthetics were observed spreading below fascia iliaca and around the femoral nerve. The needle was removed intact and sterile dressing was applied. The patient had stable vital signs, was conscious and in no apparent distress. The patient tolerated the femoral nerve block well with stable vital signs and was prepared for transfer to PACU.
[2017-06-26] MEDS: HYDROmorphone 0.5 mg/0.5 ml ISec IVP PRN ×5 (16:12→17:19)
--- NOTE | 2017-06-26 19:21 | PCM.SURG1 ---
Surgeon's Initial Post Op Note - Surgeon's Notes Surgeon: Annemarie Astronomy Professor: ALEXANDRIA De La Cruz Type of Anesthesia: General Endo Anesthesia Administered By: DR Carrillo Pre-Operative Diagnosis: wound dehiscience. s/p TKR with a/p instability after fall wiuth wound dehiscience Operative Findings: as above. quad tendon rupture Post-Operative Diagnosis: same Operation Performed: Revision TKR 1 component ( tibial poly). primary repair quad tendon. irrigation debridemnt - excision skin subq tissue and musclarthrotomy/synvocectomy. applx wound vac Specimen/Specimens Removed: synoviumj. tibial poly. sutures(foreign body -deep ) Estimated Blood Loss: EBL {In ML}: 100 Blood Products Given: N/A Drains Used: No Drains Post-Op Condition: Good Date of Surgery/Procedure: 06/26/17 Time of Surgery/Procedure: 13:40 (12:40- time in room/ansethsia indcution time)
[2017-06-26] MEDS: Paliperidone 6 MG ER TAB PO SCH (22:03)
[2017-06-27 05:53] LABS: HEMATOCRIT 38.7 % (34.0-47.0); MEAN CELL VOLUME 98.4 fl (81.0-99.0); MEAN CORPUSCULAR HEMOGLOBIN 32.5 pg (27.0-31.0); RED CELL DISTRIBUTION WIDTH 17.6 % (11.5-14.5); WHITE BLOOD COUNT 4.5 K/uL (4.8-10.8)
[2017-06-27] MEDS: Sodium Chloride 0.9% 1,000 ML IV SCH ×3 (05:55→15:27)
[2017-06-27 06:05] LABS: BLOOD UREA NITROGEN 3 mg/dl (7-17); CALCIUM 8.8 mg/dL (8.4-10.2); CARBON DIOXIDE 27 mmol/L (22-30); CHLORIDE 109 mmol/L (98-107); GFR AFRICAN-AMERICAN > 60; GLUCOSE,RANDOM 113 mg/dL (65-105); POTASSIUM 4.3 MMOL/L (3.6-5.0); SODIUM 144 mmol/l (132-148)
--- NOTE | 2017-06-27 07:26 | CP.PCM.PN ---
Subjective - Date & Time of Evaluation Date of Evaluation: 06/27/17 Time of Evaluation: 07:26 - Subjective Subjective: pt seen examined bedside denies pain, still on [employer]ER for PT today HD stbale NAD Objective - Vital Signs/Intake and Output Vital Signs (last 24 hours): Temp Pulse Resp BP Pulse Ox 97.7 F 81 18 124/74 100 06/27/17 07:24 06/27/17 07:24 06/27/17 07:24 06/27/17 07:24 06/27/17 07:24 Vitals stable and reviewed GEN: WDWN, alert, cooperative HEENT: NCAT, PERRL, EOMI Neck: supple, no lymphadenopathy CARDIO: +S1S2, RRR, NO M/R/G LUNG: CTAB, NO W/R/R ABD: soft, NT, ND, no masses, no HSM EXT: no edema, pedal pulses post op dressings in place Neuro: AAOx3, NV intact Psych: normal mood, normal affect - Medications Medications: Current Medications Acetaminophen (Tylenol 325mg Tab) 650 mg PO Q4H PRN PRN Reason: Temp 101 and above Benztropine Mesylate (Cogentin) 0.5 mg PO Q12 [facility] Last Admin: 06/26/17 22:03 Dose: 0.5 mg Famotidine (Pepcid) 20 mg PO BID [facility] Last Admin: 06/26/17 16:09 Dose: Not Given Hydromorphone HCl (Dilaudid 0.2 Mg/Ml Assistant Softball Coach) 0 mg IV PRN PRN; Protocol PRN Reason: Pain, severe (8-10) Last Admin: 06/26/17 17:34 Dose: 0 mg Sodium Chloride (Sodium Chloride 0.9%) 1,000 mls @ 100 mls/hr IV .Q10H [facility] Last Admin: 06/27/17 06:03 Dose: Not Given Cefepime HCl 1 gm/ Sodium (Chloride) 100 mls @ 100 mls/hr IVPB Q12 [facility] Last Admin: 06/26/17 20:32 Dose: 100 mls/hr Vancomycin HCl 1 gm/ Sodium (Chloride) 250 mls @ 166.667 mls/hr IVPB Q12 [facility] Last Admin: 06/26/17 22:03 Dose: 166.667 mls/hr Lamotrigine (Lamictal) 25 mg PO DAILY [facility] Last Admin: 06/26/17 08:06 Dose: Not Given Morphine Sulfate (Morphine) 2 mg IVP Q4 PRN PRN Reason: Pain, moderate (4-7) Last Admin: 06/25/17 20:44 Dose: 2 mg Paliperidone (Invega) 6 mg PO [facility] Last Admin: 06/26/17 22:03 Dose: 6 mg Paliperidone Palmitate (Invega Sustenna) 156 mg IM Q28D [facility] Last Admin: 06/23/17 19:27 Dose: Not Given Trazodone HCl (Desyrel) 50 mg PO HS [facility] Last Admin: 06/26/17 22:03 Dose: 50 mg - Labs Labs: 06/27/17 05:15 06/27/17 05:15 PT 12.3 Seconds (9.8-13.1) 06/26/17 07:00 INR 1.2 (0.9-1.2) 06/26/17 07:00 APTT 34.6 Seconds (25.6-37.1) 06/26/17 07:00 Assessment and Plan - Assessment and Plan (Free Text) Plan: 62 yo female with history of CVA, Hep c ,Bipolar DO/ schizoaffective disorder , chronic leukopenia ,Seizure DO recent Right TKR 06/03/17 was discharged from rehab 2 days ago . As per patient she twisted her right knee in the bathroom opening up the surgical wound. Had significant amount of blood loss and pain according to EMS.Patient was admitted and ortho consulted.Planned for right knee revision , quad repair and primary closure of the wound. Preop cardio and hematology were consulted for clearance and optimization. Vitamin K was given to reverse her coagulopathy 1. Wound Dehiscence, Right Knee POD 1 s/p Revision TKR 1 component, primary repair quad tendon, irrigation debridement with wound vac S/P Right TKR (06/03/2017) orthopedist consult with Dr Sharpe appreciated OR was cancelled 06/24 since aPTT was elevated 45. Hematology consulted for optimization before OR and Vitamin K was given patient cleared now both by hematology and by cardiology for surgery For Or today for right knee revision, quad muscle repair and primary closure Id consulted and patient strated on Maxipime and vancomycine empirically Continue pain management will start PT and DVT prohylaxs post op as per recommendations by ortho and hematology 2. Schizoaffective disorder on multiple psych meds Trazodone, Invega 3. Anemia of recent acute blood loss Hgb 9.7 Continue ferrous sulfate Continue monitoring 4. Seizure Disorder, history continue Lamictal seizure precaution 5.Leukopenia prob sec to meds Chronic , WBC 2.3 6. Thrombocytopenia Chronic , improved since last admission Plt 155 K prob sec to meds and Hep C Hematology was consulted to optimize hematological status prior to TKR As per hematology as long as Platelet greater than 75 K and no active bleeding it is safe to proceed with surgery Can start Lovenox as long as Plt > 50 K 7.History of CVA (cerebrovascular accident) Chronic stable at present 8. Coagulopathy Chronic likely sec to liver dis Given Vitamin K 9.Hepatitis C Chronic ff up with Liver specialist as outpt 10. History of heroin/Cocaine abuse Chronic pt states has been clean for 10 years until she took some Cocaine about 2 months ago 11. Abnormal LFTs Chronic likely sec to Hep C on top of meds monitor 12.DVT proph SCD
[2017-06-27] MEDS: Cefepime 1 GM in Sodium Chloride 0.9% 100 ML IVPB SCH (08:41)
--- NOTE | 2017-06-27 10:03 | CP.PCM.PN ---
Subjective - Date & Time of Evaluation Date of Evaluation: 06/27/17 Time of Evaluation: 08:30 - Subjective Subjective: NO CHEST PAIN OR SOB Objective - Vital Signs/Intake and Output Vital Signs (last 24 hours): Temp Pulse Resp BP Pulse Ox 97.7 F 81 18 124/74 100 06/27/17 07:24 06/27/17 07:24 06/27/17 07:24 06/27/17 07:24 06/27/17 07:24 - Medications Medications: Current Medications Acetaminophen (Tylenol 325mg Tab) 650 mg PO Q4H PRN PRN Reason: Temp 101 and above Benztropine Mesylate (Cogentin) 0.5 mg PO Q12 [facility] Last Admin: 06/27/17 08:41 Dose: 0.5 mg Famotidine (Pepcid) 20 mg PO BID [facility] Last Admin: 06/27/17 08:41 Dose: 20 mg Hydromorphone HCl (Dilaudid 0.2 Mg/Ml Occupational Therapy Co Director) 0 mg IV PRN PRN; Protocol PRN Reason: Pain, severe (8-10) Last Admin: 06/26/17 17:34 Dose: 0 mg Sodium Chloride (Sodium Chloride 0.9%) 1,000 mls @ 100 mls/hr IV .Q10H [facility] Last Admin: 06/27/17 06:03 Dose: Not Given Cefepime HCl 1 gm/ Sodium (Chloride) 100 mls @ 100 mls/hr IVPB Q12 [facility] Last Admin: 06/27/17 08:41 Dose: 100 mls/hr Vancomycin HCl 1 gm/ Sodium (Chloride) 250 mls @ 166.667 mls/hr IVPB Q12 [facility] Last Admin: 06/27/17 08:40 Dose: 166.667 mls/hr Lamotrigine (Lamictal) 25 mg PO DAILY [facility] Last Admin: 06/27/17 08:41 Dose: 25 mg Morphine Sulfate (Morphine) 2 mg IVP Q4 PRN PRN Reason: Pain, moderate (4-7) Last Admin: 06/25/17 20:44 Dose: 2 mg Paliperidone (Invega) 6 mg PO HS [facility] Last Admin: 06/26/17 22:03 Dose: 6 mg Paliperidone Palmitate (Invega Sustenna) 156 mg IM Q28D [facility] Last Admin: 06/23/17 19:27 Dose: Not Given Trazodone HCl (Desyrel) 50 mg PO HS [facility] Last Admin: 06/26/17 22:03 Dose: 50 mg - Labs Labs: 06/27/17 05:15 06/27/17 05:15 PT 12.3 Seconds (9.8-13.1) 06/26/17 07:00 INR 1.2 (0.9-1.2) 06/26/17 07:00 APTT 34.6 Seconds (25.6-37.1) 06/26/17 07:00 - Respiratory Exam Respiratory Exam: Clear to Ausculation Bilateral - Cardiovascular Exam Cardiovascular Exam: REGULAR RHYTHM, +S1, +S2 - Additional Findings Additional findings: DR MORAN'S POST-OP NOTE REVIEWED Assessment and Plan - Assessment and Plan (Free Text) Assessment: S/P RIGHT KNEE REVISION AFTER FALL AND TRAUMA Plan: CONTINUE PRESENT TREATMENT
--- NOTE | 2017-06-27 12:09 | CP.PCM.DIS ---
Provider - Provider Date of Admission: 06/23/17 17:43 Attending physician: Carl Kinsey MD Time Spent in preparation of Discharge (in minutes): 30 Hospital Course - Lab Results Lab Results: Micro Results 06/26/17 14:04 Synovial Fluid Gram Stain - Final 06/26/17 14:04 Synovial Fluid Body Fluid Culture - Preliminary NO GROWTH AFTER 24 HOURS 06/26/17 14:04 Knee - Right Gram Stain - Final 06/26/17 14:04 Knee - Right Gram Stain - Final 06/26/17 14:04 Knee - Right Gram Stain - Final 06/26/17 14:04 Knee - Right Gram Stain - Final 06/26/17 14:04 Knee - Right Gram Stain - Final 06/26/17 14:04 Knee - Right Gram Stain - Final 06/26/17 14:04 Knee - Right Gram Stain - Final 06/26/17 14:04 Knee - Right Gram Stain - Final 06/26/17 14:04 Knee Right Fungal Culture - Preliminary 06/24/17 11:11 Urine,Catheterized Urine Culture - Final No Growth (<1,000 CFU/ML) Most Recent Lab Values WBC 4.5 K/uL (4.8-10.8) L D 06/27/17 05:15 RBC 3.93 Mil/uL (3.80-5.20) 06/27/17 05:15 Hgb 12.8 g/dL (12.0-16.0) D 06/27/17 05:15 Hct 38.7 % (34.0-47.0) 06/27/17 05:15 MCV 98.4 fl (81.0-99.0) D 06/27/17 05:15 MCH 32.5 pg (27.0-31.0) H 06/27/17 05:15 MCHC 33.0 g/dL (33.0-37.0) 06/27/17 05:15 RDW 17.6 % (11.5-14.5) H 06/27/17 05:15 Plt Count 169 K/uL (130-400) 06/27/17 05:15 MPV 7.8 fl (7.2-11.7) 06/25/17 05:45 Neut % (Auto) 37.3 % (50.0-75.0) L 06/25/17 05:45 Lymph % (Auto) 41.3 % (20.0-40.0) H 06/25/17 05:45 Fannin % (Auto) 15.2 % (0.0-10.0) H 06/25/17 05:45 Eos % (Auto) 5.5 % (0.0-4.0) H 06/25/17 05:45 Baso % (Auto) 0.7 % (0.0-2.0) 06/25/17 05:45 Neut # 0.9 K/uL (1.8-7.0) L 06/25/17 05:45 Lymph # 1.0 K/uL (1.0-4.3) 06/25/17 05:45 Fannin # 0.4 K/uL (0.0-0.8) 06/25/17 05:45 Eos # 0.1 K/uL (0.0-0.7) 06/25/17 05:45 Baso # 0.0 K/uL (0.0-0.2) 06/25/17 05:45 Neutrophils % (Manual) 39 % (42-75) L 06/23/17 17:20 Band Neutrophils % 1 % (0-2) 06/23/17 17:20 Lymphocytes % (Manual) 41 % (20-50) 06/23/17 17:20 Monocytes % (Manual) 19 % (0-10) H 06/23/17 17:20 Platelet Estimate Normal (NORMAL) 06/23/17 17:20 Large Platelets Present 06/23/17 17:20 Giant Platelets Present 06/23/17 17:20 Poikilocytosis (manual Slight 06/23/17 17:20 Anisocytosis (manual) Slight 06/23/17 17:20 Macrocytosis (manual) Slight 06/23/17 17:20 Spherocytes Slight 06/23/17 17:20 ESR 22 mm/hr (0-30) 06/25/17 05:45 PT 12.3 Seconds (9.8-13.1) 06/26/17 07:00 INR 1.2 (0.9-1.2) 06/26/17 07:00 APTT 34.6 Seconds (25.6-37.1) 06/26/17 07:00 pO2 41 mm/Hg (30-55) 06/23/17 17:30 VBG pH 7.57 (7.32-7.43) H 06/23/17 17:30 VBG pCO2 25 mmHg (40-60) L 06/23/17 17:30 VBG HCO3 26.3 mmol/L 06/23/17 17:30 VBG Total CO2 23.7 mmol/L (22-28) 06/23/17 17:30 VBG O2 Sat (Calc) 89.4 % (40-65) H 06/23/17 17:30 VBG Base Excess 2.2 mmol/L (0.0-2.0) H 06/23/17 17:30 VBG Potassium 3.6 mmol/L (3.6-5.2) 06/23/17 17:30 Sodium 136.0 mmol/L (132-148) 06/23/17 17:30 Chloride 107.0 mmol/L (98-107) 06/23/17 17:30 Glucose 106 mg/dL (65-105) H 06/23/17 17:30 Lactate 3.6 mmol/L (0.7-2.1) H 06/23/17 17:30 FiO2 21.0 % 06/23/17 17:30 Sodium 144 mmol/l (132-148) 06/27/17 05:15 Potassium 4.3 MMOL/L (3.6-5.0) 06/27/17 05:15 Chloride 109 mmol/L (98-107) H 06/27/17 05:15 Carbon Dioxide 27 mmol/L (22-30) 06/27/17 05:15 Anion Gap 12 (10-20) 06/27/17 05:15 BUN 3 mg/dl (7-17) L 06/27/17 05:15 Creatinine 0.5 mg/dL (0.7-1.2) L 06/27/17 05:15 Est GFR ( Amer) > 60 06/27/17 05:15 Est GFR (Non-Af Amer) > 60 06/27/17 05:15 Random Glucose 113 mg/dL (65-105) H 06/27/17 05:15 Lactic Acid 1.8 MMOL/L (0.7-2.1) 06/23/17 20:15 Calcium 8.8 mg/dL (8.4-10.2) 06/27/17 05:15 Total Bilirubin 1.0 mg/dl (0.2-1.3) 06/23/17 17:20 AST 45 U/L (14-36) H D 06/23/17 17:20 ALT 39 U/L (9-52) 06/23/17 17:20 Alkaline Phosphatase 145 U/L (38-126) H D 06/23/17 17:20 Total Protein 6.5 G/DL (6.3-8.2) 06/23/17 17:20 Albumin 3.1 g/dL (3.5-5.0) L D 06/23/17 17:20 Globulin 3.4 gm/dL (2.2-3.9) 06/23/17 17:20 Albumin/Globulin Ratio 0.9 (1.0-2.1) L 06/23/17 17:20 Procalcitonin 0.08 NG/ML (0.19-0.49) L 06/25/17 05:45 Venous Blood Potassium 3.6 mmol/L (3.6-5.2) 06/23/17 17:30 Urine Color Yellow (YELLOW) 06/24/17 11:11 Urine Clarity Clear (Clear) 06/24/17 11:11 Urine pH 7.0 (5.0-8.0) 06/24/17 11:11 Ur Specific Kaycee 1.010 (1.003-1.030) 06/24/17 11:11 Urine Protein Negative mg/dL (NEGATIVE) 06/24/17 11:11 Urine Glucose (UA) Neg mg/dL (Normal) 06/24/17 11:11 Urine Ketones Negative mg/dL (NEGATIVE) 06/24/17 11:11 Urine Blood Negative (NEGATIVE) 06/24/17 11:11 Urine Nitrate Negative (NEGATIVE) 06/24/17 11:11 Urine Bilirubin Negative (NEGATIVE) 06/24/17 11:11 Urine Urobilinogen 4.0 mg/dL (0.2-1.0) H 06/24/17 11:11 Ur Leukocyte Esterase Neg Shannon/uL (Negative) 06/24/17 11:11 Urine RBC (Auto) 2 /hpf (0-3) 06/24/17 11:11 Urine Microscopic WBC < 1 /hpf (0-5) 06/24/17 11:11 Fluid Type Synovial fluid 06/26/17 14:04 Synovial WBC 39.0 /mm3 (0.0-150.0) 06/26/17 14:04 Synovial RBC 6336.0 /mm3 (0.0-0.0) H 06/26/17 14:04 Synovial Neutrophils 36.0 % (0-0) H 06/26/17 14:04 Synovial Lymphocytes 19.0 % (0-0) H 06/26/17 14:04 Synov Monos/Macrophage 5 % (0-0) H 06/26/17 14:04 Synovial Fluid Comment Moderately bloody 06/26/17 14:04 RAMIRO Screen Negative (Negative) 06/25/17 05:45 Hepatitis A IgM Ab Negative (NEGATIVE) 06/25/17 05:45 Hep Bs Antigen Negative (NEGATIVE) 06/25/17 05:45 Hep Bs Antibody Negative (NEGATIVE) 06/25/17 05:45 Hep B Core IgM Ab Negative (NEGATIVE) 06/25/17 05:45 Hepatitis C Antibody Reactive (NEGATIVE) 06/25/17 05:45 Hepatitis C RNA TNP 06/26/17 07:00 HCV RNA Quant (PCR) TNP 06/26/17 07:00 Blood Type O POSITIVE 06/23/17 17:20 Antibody Screen Negative 06/23/17 17:20 Crossmatch See Detail 06/23/17 17:20 BBK History Checked Patient has bt 06/23/17 17:20 - Hospital Course Hospital Course: 62 yo female with history of CVA, Hep c ,Bipolar DO/ schizoaffective disorder , chronic leukopenia ,Seizure DO recent Right TKR 06/03/17 was discharged from rehab 2 days ago . As per patient she twisted her right knee in the bathroom opening up the surgical wound. Had significant amount of blood loss and pain according to EMS.Patient was admitted and ortho consulted.Planned for right knee revision , quad repair and primary closure of the wound. Preop cardio and hematology were consulted for clearance and optimization. Vitamin K was given to reverse her coagulopathy 06/27/17 POD 1 s/p Revision TKR 1 component, primary repair quad tendon, irrigation debridement with wound vac patient can go to [facility] with PO Bactrim for 14 day sper ID stable for discharge with PO meds 1. Wound Dehiscence, Right Knee POD 1 s/p Revision TKR 1 component, primary repair quad tendon, irrigation debridement with wound vac S/P Right TKR (06/03/2017) orthopedist consult with Dr Sharpe appreciated OR was cancelled 06/24 since aPTT was elevated 45. Hematology consulted for optimization before OR and Vitamin K was given patient cleared now both by hematology and by cardiology for surgery For Or today for right knee revision, quad muscle repair and primary closure Id consulted and patient strated on Maxipime and vancomycine empirically Continue pain management will start PT and DVT prohylaxs post op as per recommendations by ortho and hematology patient can go to [facility] with PO Bactrim for 14 day sper ID 2. Schizoaffective disorder on multiple psych meds Trazodone, Invega 3. Anemia of recent acute blood loss Hgb 9.7 Continue ferrous sulfate Continue monitoring 4. Seizure Disorder, history continue Lamictal seizure precaution 5.Leukopenia prob sec to meds Chronic , WBC 2.3 6. Thrombocytopenia Chronic , improved since last admission Plt 155 K prob sec to meds and Hep C Hematology was consulted to optimize hematological status prior to TKR As per hematology as long as Platelet greater than 75 K and no active bleeding it is safe to proceed with surgery Can start Lovenox as long as Plt > 50 K 7.History of CVA (cerebrovascular accident) Chronic stable at present 8. Coagulopathy Chronic likely sec to liver dis Given Vitamin K 9.Hepatitis C Chronic ff up with Liver specialist as outpt 10. History of heroin/Cocaine abuse Chronic pt states has been clean for 10 years until she took some Cocaine about 2 months ago 11. Abnormal LFTs Chronic likely sec to Hep C on top of meds monitor 12.DVT proph SCD Discharge Exam - Head Exam Head Exam: ATRAUMATIC, NORMAL INSPECTION, NORMOCEPHALIC - Eye Exam Eye Exam: EOMI, Normal appearance, PERRL Pupil Exam: NORMAL ACCOMODATION - ENT Exam ENT Exam: Mucous Membranes Moist, Normal Oropharynx - Neck Exam Neck exam: Full Rom, Normal Inspection - Respiratory Exam Respiratory Exam: Clear to PA & Lateral, NORMAL BREATHING PATTERN - Cardiovascular Exam Cardiovascular Exam: RRR, +S1, +S2 - GI/Abdominal Exam GI & Abdominal Exam: Normal Bowel Sounds, Soft. absent: Mass, Organomegaly, Tenderness - Extremities Exam Extremities exam: normal capillary refill, pedal pulses present - Back Exam Back exam: absent: CVA tenderness (L), CVA tenderness (R) - Neurological Exam Neurological exam: Alert, Oriented x3 - Psychiatric Exam Psychiatric exam: Normal Affect, Normal Mood - Skin Skin Exam: Dry, Warm Discharge Plan - Discharge Medications Prescriptions: Sulfamethoxazole/Trimethoprim [Bactrim DS 800 mg-160 mg] 1 tab PO Q12 #14 tab - Follow Up Plan Condition: GUARDED Disposition: TRANSF TO SNF
--- NOTE | 2017-06-27 15:54 | CP.PCM.PN ---
Subjective - Date & Time of Evaluation Date of Evaluation: 06/26/17 Time of Evaluation: 12:00 - Subjective Subjective: No complaints, awaiting ortho surgery Objective - Vital Signs/Intake and Output Vital Signs (last 24 hours): Temp Pulse Resp BP Pulse Ox 98.2 F 76 16 110/69 95 06/27/17 13:00 06/27/17 13:00 06/27/17 13:00 06/27/17 13:00 06/27/17 13:00 - Medications Medications: Current Medications Acetaminophen (Tylenol 325mg Tab) 650 mg PO Q4H PRN PRN Reason: Temp 101 and above Benztropine Mesylate (Cogentin) 0.5 mg PO Q12 [facility] Last Admin: 06/27/17 08:41 Dose: 0.5 mg Famotidine (Pepcid) 20 mg PO BID [facility] Last Admin: 06/27/17 08:41 Dose: 20 mg Sodium Chloride (Sodium Chloride 0.9%) 1,000 mls @ 100 mls/hr IV .Q10H [facility] Last Admin: 06/27/17 15:27 Dose: Not Given Cefepime HCl 1 gm/ Sodium (Chloride) 100 mls @ 100 mls/hr IVPB Q12 [facility] Last Admin: 06/27/17 08:41 Dose: 100 mls/hr Vancomycin HCl 1 gm/ Sodium (Chloride) 250 mls @ 166.667 mls/hr IVPB Q12 [facility] Last Admin: 06/27/17 08:40 Dose: 166.667 mls/hr Lamotrigine (Lamictal) 25 mg PO DAILY [facility] Last Admin: 06/27/17 08:41 Dose: 25 mg Morphine Sulfate (Morphine) 2 mg IVP Q4 PRN PRN Reason: Pain, moderate (4-7) Last Admin: 06/25/17 20:44 Dose: 2 mg Paliperidone (Invega) 6 mg PO HS [facility] Last Admin: 06/26/17 22:03 Dose: 6 mg Paliperidone Palmitate (Invega Sustenna) 156 mg IM Q28D [facility] Last Admin: 06/23/17 19:27 Dose: Not Given Trazodone HCl (Desyrel) 50 mg PO HS [facility] Last Admin: 06/26/17 22:03 Dose: 50 mg - Labs Labs: 06/27/17 05:15 06/27/17 05:15 PT 12.3 Seconds (9.8-13.1) 06/26/17 07:00 INR 1.2 (0.9-1.2) 06/26/17 07:00 APTT 34.6 Seconds (25.6-37.1) 06/26/17 07:00 - Head Exam Head Exam: ATRAUMATIC - Eye Exam Eye Exam: Normal appearance - ENT Exam ENT Exam: Mucous Membranes Dry - Respiratory Exam Respiratory Exam: NORMAL BREATHING PATTERN - Cardiovascular Exam Cardiovascular Exam: +S1, +S2 - GI/Abdominal Exam GI & Abdominal Exam: Normal Bowel Sounds Assessment and Plan (1) Coagulopathy Assessment & Plan: resolved with vit k Status: Chronic (2) Neutropenia Assessment & Plan: mild cleared for orthopedic surgery Status: Acute
--- NOTE | 2017-06-27 15:55 | CP.PCM.PN ---
Subjective - Date & Time of Evaluation Date of Evaluation: 06/27/17 Time of Evaluation: 12:00 - Subjective Subjective: No complaints s/p orthopedic surgery Objective - Vital Signs/Intake and Output Vital Signs (last 24 hours): Temp Pulse Resp BP Pulse Ox 98.2 F 76 16 110/69 95 06/27/17 13:00 06/27/17 13:00 06/27/17 13:00 06/27/17 13:00 06/27/17 13:00 - Medications Medications: Current Medications Acetaminophen (Tylenol 325mg Tab) 650 mg PO Q4H PRN PRN Reason: Temp 101 and above Benztropine Mesylate (Cogentin) 0.5 mg PO Q12 [facility] Last Admin: 06/27/17 08:41 Dose: 0.5 mg Famotidine (Pepcid) 20 mg PO BID [facility] Last Admin: 06/27/17 08:41 Dose: 20 mg Sodium Chloride (Sodium Chloride 0.9%) 1,000 mls @ 100 mls/hr IV .Q10H [facility] Last Admin: 06/27/17 15:27 Dose: Not Given Cefepime HCl 1 gm/ Sodium (Chloride) 100 mls @ 100 mls/hr IVPB Q12 [facility] Last Admin: 06/27/17 08:41 Dose: 100 mls/hr Vancomycin HCl 1 gm/ Sodium (Chloride) 250 mls @ 166.667 mls/hr IVPB Q12 [facility] Last Admin: 06/27/17 08:40 Dose: 166.667 mls/hr Lamotrigine (Lamictal) 25 mg PO DAILY [facility] Last Admin: 06/27/17 08:41 Dose: 25 mg Morphine Sulfate (Morphine) 2 mg IVP Q4 PRN PRN Reason: Pain, moderate (4-7) Last Admin: 06/25/17 20:44 Dose: 2 mg Paliperidone (Invega) 6 mg PO HS [facility] Last Admin: 06/26/17 22:03 Dose: 6 mg Paliperidone Palmitate (Invega Sustenna) 156 mg IM Q28D [facility] Last Admin: 06/23/17 19:27 Dose: Not Given Trazodone HCl (Desyrel) 50 mg PO HS [facility] Last Admin: 06/26/17 22:03 Dose: 50 mg - Labs Labs: 06/27/17 05:15 06/27/17 05:15 PT 12.3 Seconds (9.8-13.1) 06/26/17 07:00 INR 1.2 (0.9-1.2) 06/26/17 07:00 APTT 34.6 Seconds (25.6-37.1) 06/26/17 07:00 - Head Exam Head Exam: ATRAUMATIC - Eye Exam Eye Exam: Normal appearance - ENT Exam ENT Exam: Mucous Membranes Dry - Respiratory Exam Respiratory Exam: NORMAL BREATHING PATTERN - Cardiovascular Exam Cardiovascular Exam: +S1, +S2 - GI/Abdominal Exam GI & Abdominal Exam: Normal Bowel Sounds Assessment and Plan (1) Coagulopathy Assessment & Plan: resolved with vit k no hemostasis issues Status: Chronic (2) Neutropenia Assessment & Plan: mild no intervention Status: Acute
[2017-06-27 16:22] VITALS: BP 104/64; PULSE 96; RESP 18; TEMP 98.3; O2SAT 97
--- NOTE | 2017-06-28 15:00 | OP ---
DATE OF SURGERY: 06/26/2017 PREOPERATIVE DIAGNOSES: Quadriceps tendon rupture after fall, status post successful total knee replacement with wound dehiscence. POSTOPERATIVE DIAGNOSES: Quadriceps tendon rupture after fall, status post successful total knee replacement with wound dehiscence. PROCEDURES: 1. Revision total knee replacement one component (tibial). 2. Primary repair of quad tendon. 3. Application of wound VAC. 4. Arthrotomy and synovectomy. 5. Excision of skin and subcutaneous tissue, and removal of foreign bodies, deep. SURGEON: Dr. Sharpe. BUSINESS INSIGHT AND ANALYTICS MANAGER: Dinora Way, certified registered nursing. ANESTHESIA: General endotracheal anesthesia, Dr. Soto. COMPLICATIONS: None. DRAINS: None. The wound VAC was employed. SPECIMENS REMOVED: Tibial polyethylene, sutures, foreign bodies, deep, synovium. ESTIMATED BLOOD LOSS: Approximately 100 mL. BLOOD PRODUCTS GIVEN: None. INDICATIONS FOR PROCEDURE: The patient is a woman who approximately 5 weeks ago had a successful total knee replacement arthroplasty for tibial plateau fracture. The patient was doing well. She got up in the middle of the night to go to the bathroom, fell on the knee, and suffered a quad tendon rupture with a wound dehiscence. The patient was admitted as an emergency on 06/23/2017. The patient was stabilized and taken to surgery on 06/26/2017. Pros, cons, risks, and benefits of the surgical approach were discussed with the patient. The patient's culturally competent billiard table assembler was present although her Welsh is satisfactory. The possibility of mechanical failure, infection, thromboembolic disease, secondary or tertiary surgery were discussed. DESCRIPTION OF PROCEDURE: After having obtained informed consent in the above fashion, after having identified site, side, and procedure, and a critical pause/time-out, after satisfactory induction of the anesthetic, the patient identified as Nadira Leslie in the supine position with all bony prominences well padded. The right lower extremity was prepped and free-draped in usual fashion for lower extremity surgery. The tourniquet had been applied but it was not yet inflated. After sterilely prepping and draping, after exsanguinating the limb using a 6-inch Esmarch bandage, the tourniquet which had been applied was inflated to 350 mmHg. The initial incision was extended 2 fingerbreadths proximally and 2 fingerbreadths distally. The skin incision was carried down through the skin and subcutaneous tissue. At this point in time, there was an evidence of complete rupture of the quad tendon extending to mid patella. At this point in time, the skin margins were excised using a #10 blade down to the subcutaneous tissue and a bit of muscle. Deep foreign bodies/sutures were removed. At this point in time, the stability was evaluated after the injury. The polyethylene was found to be not satisfactory for the flexion extension gap. So at this point in time, the 26-mm polyethylene was removed. The wound was thoroughly irrigated. There was sign of exuberant synovitis. Arthrotomy and synovectomy were accomplished. The tibia was exposed and dislocated anteriorly. The original 26-mm polyethylene was removed. It was replaced with a 30-mm polyethylene. This having been accomplished, the knee was reduced. Flexion extension gap was found to be acceptable. At this point in time, the quadriceps tendon was repaired using interrupted #2 FiberWire, the arthrotomy was repaired with #2 FiberWire, and a modified Tupelo-type suture was employed with the FiberWire to repair the quadriceps tendon. The wound was thoroughly irrigated. At this point in time, closure was in layers with interrupted FiberWire, Vicryl, Quill, and trinidad for the skin. It should be noted that the Prevena Hemovac was measured. The initial base of the Prevena construct was applied to the wound. The cutout was applied for the suction VAC. The Prevena wound VAC was thus applied. Harvey Vu compression dressing and knee immobilizer were applied. Right knee is the correct knee for the patient. Isaac Sharpe MD
== END 2017-06-27 20:00 | DRG 467 ==
LOC: H.ER 17:05 → H.ERHOLD 17:43 → H.TEL 21:18 → H.MEDSURG1 06-25 18:57
PROC: 0SPV0JZ Removal of Synthetic Substitute from Right Knee Joint, Tibial Surface, Open Approach (ICD-10-PCS; 2017-06-26)
PROC: 0LQL0ZZ Repair Right Upper Leg Tendon, Open Approach (ICD-10-PCS; 2017-06-26)
PROC: 0SBC0ZZ Excision of Right Knee Joint, Open Approach (ICD-10-PCS; 2017-06-26)
PROC: 0SCC0ZZ Extirpation of Matter from Right Knee Joint, Open Approach (ICD-10-PCS; 2017-06-26)
PROC: 3E0T3BZ Introduction of Anesthetic Agent into Peripheral Nerves and Plexi, Percutaneous Approach (ICD-10-PCS; principal; 2017-06-26 12:00)
PROC: 0SRV0JZ Replacement of Right Knee Joint, Tibial Surface with Synthetic Substitute, Open Approach (ICD-10-PCS; 2017-06-26 12:00)
DX: S76.111A Strain of right quadriceps muscle, fascia and tendon, initial encounter (principal); T81.31XA Disruption of external operation (surgical) wound, not elsewhere classified, initial encounter; D68.4 Acquired coagulation factor deficiency; D70.9 Neutropenia, unspecified; D62 Acute posthemorrhagic anemia; D69.59 Other secondary thrombocytopenia; I10 Essential (primary) hypertension; D72.819 Decreased white blood cell count, unspecified; W01.0XXA Fall on same level from slipping, tripping and stumbling without subsequent striking against object, initial encounter; B18.2 Chronic viral hepatitis C; Y83.8 Other surgical procedures as the cause of abnormal reaction of the patient, or of later complication, without mention of misadventure at the time of the procedure; F25.9 Schizoaffective disorder, unspecified; R33.9 Retention of urine, unspecified; K29.70 Gastritis, unspecified, without bleeding; G40.909 Epilepsy, unspecified, not intractable, without status epilepticus; Z86.73 Personal history of transient ischemic attack (TIA), and cerebral infarction without residual deficits; F31.9 Bipolar disorder, unspecified; Z96.651 Presence of right artificial knee joint; R79.89 Other specified abnormal findings of blood chemistry; M65.9 Synovitis and tenosynovitis, unspecified

== ENCOUNTER 2017-10-02 13:48 | Emergency (ER) | payer MEDICARE, OTHER ==
[2017-10-02 13:48] VITALS: BMI 27.2
[2017-10-02 14:13] VITALS: RESP 20
[2017-10-02] MEDS ORDERED: Morphine 4 MG/ML VIAL IVP ONE (15:13)
[2017-10-02] MEDS ORDERED: Morphine 4 MG/ML VIAL ONE (15:54)
--- NOTE | 2017-10-02 16:01 | ED PDOC ---
Lower Extremity Pain/Injury Time Seen by Provider: 10/02/17 15:07 Chief Complaint (Nursing): Lower Extremity Problem/Injury Chief Complaint (Provider): RIGHT KNEE PAIN History Per: Patient (62 Y/O FEMALE S/P KNEE REPLACEMENT SX BY DR. SHANNON HERE WITH INCREASING PAIN AND SWELLING RIGHT KNEE. NO FEVERS/CHILLS. SENT BY PHYSICAL THERAPIST) Past Medical History Vital Signs: Last Vital Signs Temp 98.9 F 10/02/17 14:09 Pulse 77 10/02/17 14:09 Resp 20 10/02/17 14:09 BP 122/77 10/02/17 14:09 Pulse Ox 100 10/02/17 14:09 - Medical History PMH: Anxiety, Bipolar Disorder, Depression, Gastritis, Personality Disorder, Schizophrenia, Seizures, TIA Denies: Alzheimer's Disease, Asthma, Atrial Fibrillation, Bronchitis, Cardia Arrhythmia, CHF, COPD, Dementia, Emphysema, HIV, HTN, Hypercholesterolemia, Chronic Kidney Disease, Sexually Transmitted Disease - Surgical History Surgical History: Cholecystectomy - Family History Family History: States: Unknown Family Hx - Immunization History Hx Tetanus Toxoid Vaccination: No Hx Influenza Vaccination: No Hx Pneumococcal Vaccination: No - Home Medications Home Medications: Ambulatory Orders Medication Instructions Recorded Saccharomyces Boulardi [Florastor] 250 mg PO BID cap 05/14/17 Acetaminophen [Tylenol 325mg tab] 650 mg PO Q4H PRN 05/30/17 Magnesium Hydroxide [Milk Of 30 ml PO HS PRN 05/30/17 Magnesia] Paliperidone Palmitate [Invega 156 mg IM Q28D 05/30/17 Sustenna] lamoTRIgine [Lamictal] 25 mg PO DAILY 05/30/17 traZODone [Desyrel] 50 mg PO HS 05/30/17 Benztropine [Cogentin] 0.5 mg PO Q12 tab 06/04/17 Enoxaparin [Lovenox] 40 mg SC DAILY syr 06/04/17 Paliperidone [Invega] [address] 06/04/17 oxyCODONE/Acetaminophen [Percocet 2 tab PO Q6 PRN #30 tab 06/04/17 5/325 mg Tab] Famotidine [Pepcid] 20 mg PO BID tab 06/27/17 Sulfamethoxazole/Trimethoprim 1 tab PO Q12 #14 tab 08/24/17 [Bactrim DS 800 mg-160 mg] Naproxen 375 mg PO Q8 PRN #15 tablet 10/02/17 Naproxen 375 mg PO Q8 PRN #15 tablet 10/02/17 - Allergies Allergies/Adverse Reactions: Allergies Allergy/AdvReac Type Severity Reaction Status Date / Time No Known Allergies Allergy Verified 10/02/17 14:58 - Laboratory Results Result Diagrams: 10/02/17 15:55 10/02/17 15:55 - ECG O2 Sat by Pulse Oximetry: 100 - Progress ED Course And Treament: D/W DR. MORAN. PATIENT TO F/U WITH HIM ON SATURDAY. REQUESTS XRY IN ED AND F/U. Disposition - Clinical Impression Clinical Impression: Knee pain - Patient ED Disposition Is Patient to be Admitted: No - Disposition Disposition: Routine/Home Disposition Time: 17:28 Condition: FAIR Prescriptions: Naproxen 375 mg PO Q8 PRN #15 tablet PRN Reason: Pain, Moderate (4-7) Naproxen 375 mg PO Q8 PRN #15 tablet PRN Reason: Pain, Moderate (4-7) Instructions: Knee Pain (ED) Forms: [facility] (Danish)
[2017-10-02 16:09] LABS: BLOOD UREA NITROGEN 11 mg/dl (7-17); CALCIUM 8.6 mg/dL (8.4-10.2); CARBON DIOXIDE 23 mmol/L (22-30); CHLORIDE 111 mmol/L (98-107); GFR AFRICAN-AMERICAN > 60; GLUCOSE,RANDOM 93 mg/dL (65-105); POTASSIUM 3.9 MMOL/L (3.6-5.0); SODIUM 143 mmol/l (132-148)
[2017-10-02 16:26] LABS: BASO % 0.7 % (0.0-2.0); EOS # 0.2 K/uL (0.0-0.7); EOS % 4.5 % (0.0-4.0); HEMATOCRIT 37.8 % (34.0-47.0); LYMPH # 1.2 K/uL (1.0-4.3); LYMPH % 28.5 % (20.0-40.0); MEAN CELL VOLUME 91.5 fl (81.0-99.0); MEAN CORPUSCULAR HEMOGLOBIN 30.6 pg (27.0-31.0); MEAN CORPUSCULAR HGB CONC 33.4 g/dL (33.0-37.0); MONO # 0.8 K/uL (0.0-0.8); MONO % 19.5 % (0.0-10.0); NEUT # 1.9 K/uL (1.8-7.0); NEUT % 46.8 % (50.0-75.0); NRBC % 0.1 % (0.0-0.0); RED CELL DISTRIBUTION WIDTH 15.8 % (11.5-14.5); WHITE BLOOD COUNT 4.1 K/uL (4.8-10.8)
[2017-10-02 17:59] VITALS: BP 120/70; PULSE 76; TEMP 98.5
--- NOTE | 2017-10-03 12:08 | RAD ---
PROCEDURE: Right Knee Radiographs. HISTORY: COMPARISON: Right knee radiographs performed 06/23/17 FINDINGS: BONES: Patient has undergone knee arthroplasty. No acute displaced fracture. JOINTS: Dislocation of the patella. JOINT EFFUSION: Probable small joint effusion. OTHER FINDINGS: Soft tissue swelling. IMPRESSION: Age indeterminate dislocation of the patella. Soft tissue swelling. Probable small joint effusion. Findings discussed with Oniel Pelletier on 10/03/17 at 12:06 p.m. and study has been placed for PA review.
[2017-10-05 21:33] VITALS: O2SAT 100
== END 2017-10-02 17:59 | disposition home or self-care (01) ==
LOC: H.ER 13:48
DX: M25.561 Pain in right knee (principal); F20.9 Schizophrenia, unspecified; F31.9 Bipolar disorder, unspecified; F41.9 Anxiety disorder, unspecified; Z86.73 Personal history of transient ischemic attack (TIA), and cerebral infarction without residual deficits
CPT/HCPCS: 73562; 80048; 85025; 87040; 96374; 99283; J2270

== ENCOUNTER 2017-11-11 13:32 | Inpatient (IN) | payer MEDICARE, OTHER ==
[2017-11-11 13:32] VITALS: BMI 27.2
[2017-11-11] MEDS ORDERED: Oxycodone/Acetaminophen 5/325 mg Tab PO ONE (14:27)
--- NOTE | 2017-11-11 15:06 | ED PDOC ---
Lower Extremity Pain/Injury Time Seen by Provider: 11/11/17 14:09 Chief Complaint (Nursing): Lower Extremity Problem/Injury Chief Complaint (Provider): Right knee pain History Per: Patient History/Exam Limitations: no limitations Onset/Duration Of Symptoms: Days (x1 month) Current Symptoms Are (Timing): Still Present Additional Complaint(s): Nadira Leslie is a 62 year old female, with a past medical history of CVA, brain aneurysm, arthritis, and total knee arthroplasty, who presents to the emergency department complaining of a worsening right knee pain associated with chills onset for x1 month. Patient states she didn't fill her prescriptions of Percocet for pain given by Dr. Davis. She reports an increasing bloody discharge from wound of right knee, ongoing for about a month. Patient is post- op after total knee replacement revision in October by Dr. Sharpe, she reports x3 surgeries for TKA, the first original and second were in 2016. She saw Dr. Sharpe on Saturday for the same symptoms, and was instructed to return if the pain, swelling or discharge worsened. She denies any fever or other medical complaints. PMD: Dr. Janine Hassan Of Note: Patient is currently seeing Dr. Davis in rehab. Past Medical History Reviewed: Historical Data, Nursing Documentation, Vital Signs Vital Signs: Last Vital Signs Temp 98.0 F 11/11/17 13:33 Pulse 98 H 11/11/17 13:33 Resp 16 11/11/17 13:33 BP 113/72 11/11/17 13:33 Pulse Ox 99 11/11/17 13:33 - Medical History PMH: Anxiety, Bipolar Disorder, Depression, Gastritis, Personality Disorder, Schizophrenia, Seizures, TIA Denies: Alzheimer's Disease, Asthma, Atrial Fibrillation, Bronchitis, Cardia Arrhythmia, CHF, COPD, Dementia, Emphysema, HIV, HTN, Hypercholesterolemia, Chronic Kidney Disease, Sexually Transmitted Disease - Surgical History Surgical History: Cholecystectomy, Other surgeries: Total knee arthroplasty - Family History Family History: States: Unknown Family Hx - Social History Current smoker - smoking cessation education provided: No Alcohol: None Drugs: Prescription medications - Immunization History Hx Tetanus Toxoid Vaccination: No Hx Influenza Vaccination: No Hx Pneumococcal Vaccination: No - Home Medications Home Medications: Ambulatory Orders Medication Instructions Recorded lamoTRIgine [Lamictal] 25 mg PO DAILY 05/30/17 traZODone [Desyrel] 50 mg PO HS 05/30/17 Famotidine [Pepcid] 20 mg PO BID tab 06/27/17 Benztropine [Cogentin] 1 mg PO DAILY 10/06/17 Ibuprofen [Motrin Tab] 600 mg PO Q8 10/06/17 Vancomycin [Vancomycin Inj] 1 gm IV Q12 #84 vial 10/11/17 cefTRIAXone [Rocephin] 2 gm IVPB DAILY #42 vial 10/11/17 oxyCODONE/Acetaminophen [Percocet 1 tab PO Q4 PRN #30 tab 10/11/17 5/325 mg Tab] - Allergies Allergies/Adverse Reactions: Allergies Allergy/AdvReac Type Severity Reaction Status Date / Time No Known Allergies Allergy Verified 10/06/17 13:07 Review of Systems ROS Statement: Except As Marked, All Systems Reviewed And Found Negative Constitutional: Positive for: Chills. Negative for: Fever Musculoskeletal: Positive for: Leg Pain (right knee pain with bloody discharge) Physical Exam - Reviewed Nursing Documentation Reviewed: Yes Vital Signs Reviewed: Yes - Physical Exam Appears: Positive for: Well (comfortable), No Acute Distress Head Exam: Positive for: ATRAUMATIC, NORMAL INSPECTION Skin: Positive for: Normal Color, Warm, Dry Eye Exam: Positive for: Normal appearance Neck: Positive for: Normal, Painless ROM, Supple Cardiovascular/Chest: Positive for: Regular Rate, Rhythm. Negative for: Murmur Respiratory: Positive for: Normal Breath Sounds. Negative for: Respiratory Distress Gastrointestinal/Abdominal: Positive for: Normal Exam, Soft. Negative for: Tenderness Extremity: Positive for: Normal ROM, Tenderness (mild tenderness around the wound with redness and small amount of bloody discharge. ), Other (Dehiscence of upper portion of wound. ). Negative for: Deformity (right knee doesn't appear deformed), Swelling (right knee doesn't appear swollen) Neurologic/Psych: Positive for: Alert, Oriented - Laboratory Results Result Diagrams: 11/11/17 15:30 11/11/17 15:30 - ECG O2 Sat by Pulse Oximetry: 99 (RA) Pulse Ox Interpretation: Normal Medical Decision Making Medical Decision Making: Initial Impression:Surgical wound dehiscence and wound discharge. Differential includes but not limited to: wound dehiscence, surgical complication such as superficial wound infection, deep wound infection as well as post-operative bleeding Initial Plan: --BMP --CBC w/ differential --ESR [ erythrocyte sedimentation rate] --Knee 3 views RT [RAD] --Knee w/o contrast right [MRI] --Percocet 5/325 mg tab, 1 tab PO --Blood culture --reevaluation 14:30 --Discussed with Dr. Sharpe, through Oniel Pelletier PA-C, who recommends blood work, CT scan and X-Ray 16:17 Knee X-Ray FINDINGS: BONES: Prior right total knee replacement hardware unchanged in position. No evidence of loosening is appreciated of either prosthesis. No interval fracture or subluxation is evident and a rather large spacers again seen given the intervening between the 2 prostheses. No subluxation or dislocation of the tibia is appreciated, however, the patella is markedly subluxed laterally. JOINTS: As above. JOINT EFFUSION: A limited suprapatellar bursa effusion is suggested. OTHER FINDINGS: Interval resorption of numerous small nodular radiodensities in the pretibial in pre femoral soft tissues is noted with none remaining at the level of the upper knee and few remaining in the pretibial space presumptively representing antibiotic vehicles. IMPRESSION: Gross lateral subluxation of the patella appreciate without fracture. Right right total knee replacement hardware unchanged in appearance 17:[address] FINDINGS: Prominent artifact obscures evaluation of the prosthetic interfaces with the distal femur and proximal tibia however no definitive fractures appreciated or gross loosening. Patella appears slightly subluxed laterally as compared to the prior CT dated 10/06/2017. A [id number] suprapatellar bursa effusion is suggested. Prior abscess pattern anterior to the tibia extending to the level of the patella now appears partially calcified in the periphery with residual antibiotic ribs material remaining in the distal portion of the cavity. No emphysematous changes are appreciated at this time suggesting at least partial success in therapy of the abscess. Further clinical correlation is advised. No interval fracture is appreciated with a large spacer again appreciated intervening between the prosthetic components. No destructive bony lesion grossly evident at this time. Solitary screw component is appreciated at the proximal tibial diaphysis once again. IMPRESSION: Mild subluxation of the patella is is suggested laterally without acute fracture grossly evident. Hardware artifact from total knee replacement devices limit the interpretation of the distal femur and proximal tibia. Potential fibrosis of the prior abscess cavity as peripheral calcifications are identified, now without the presence of emphysema. Residual antibiotic material is seen at the distal portion of the cavity with the overall pattern suggesting significant interval improvement in the prior abscess if successful treatment. Residual infection is not completely excluded. Further clinical correlation is advised. No periosteal reaction or erosive cortical change to suggest osteomyelitis grossly. No prominent evidence to suggest loosening though artifacts limit the evaluation as discussed above. 1800 Discussed the case and CT findings with Dr Sharpe who recommends admission to hospitalist for surgical wound dehiscence and IV antibiotics. Scribe Attestation: Documented by Marin Ash, acting as a scribe for Do Stewart MD Provider Scribe Attestation: All medical record entries made by the Scribe were at my direction and personally dictated by me. I have reviewed the chart and agree that the record accurately reflects my personal performance of the history, physical exam, medical decision making, and the department course for this patient. I have also personally directed, reviewed, and agree with the discharge instructions and disposition. Disposition - Clinical Impression Clinical Impression: Wound dehiscence - Patient ED Disposition Is Patient to be Admitted: Yes Discussed With : Vangie Santos Doctor Will See Patient In The: ED Counseled Patient/Family Regarding: Studies Performed, Diagnosis - Disposition Disposition Time: 18:00 Condition: FAIR - Pt Status Changed To: Hospital Disposition Of: Inpatient - Admit Certification Admit to Inpatient:: After my assessment, the patient will require hospitalization for at least two midnights. This is because of the severity of symptoms shown, intensity of services needed, and/or the medical risk in this patient being treated as an outpatient. - POA Present On Arrival: Surgical Site Infection
[2017-11-11] MEDS ORDERED: Oxycodone/Acetaminophen 5/325 mg Tab ONE (15:16)
[2017-11-11 15:36] LABS: EOS # 0.6 K/uL (0.0-0.7); HEMOGLOBIN 10.4 g/dL (12.0-16.0); LYMPH % 32.8 % (20.0-40.0); MEAN CELL VOLUME 91.8 fl (81.0-99.0); MEAN CORPUSCULAR HEMOGLOBIN 29.8 pg (27.0-31.0); MEAN CORPUSCULAR HGB CONC 32.4 g/dL (33.0-37.0); MEAN PLATELET VOLUME 9.2 fl (7.2-11.7); MONO # 0.4 K/uL (0.0-0.8); MONO % 12.1 % (0.0-10.0); NEUT # 1.1 K/uL (1.8-7.0); NEUT % 36.1 % (50.0-75.0); NRBC % 0.2 % (0.0-0.0); RBC 3.49 Mil/uL (3.80-5.20); RED CELL DISTRIBUTION WIDTH 15.9 % (11.5-14.5); WHITE BLOOD COUNT 3.1 K/uL (4.8-10.8)
[2017-11-11 15:49] LABS: BLOOD UREA NITROGEN 11 mg/dl (7-17); CALCIUM 8.2 mg/dL (8.4-10.2); GFR AFRICAN-AMERICAN > 60; GFR NON-AFRICAN AMERICAN > 60
--- NOTE | 2017-11-11 16:18 | RAD ---
PROCEDURE: Right Knee Radiographs. HISTORY: knee pain swelling s/p TKA COMPARISON: Portable right knee radiographs 10/09/2017. FINDINGS: BONES: Prior right total knee replacement hardware unchanged in position. No evidence of loosening is appreciated of either prosthesis. No interval fracture or subluxation is evident and a rather large spacers again seen given the intervening between the 2 prostheses. No subluxation or dislocation of the tibia is appreciated, however, the patella is markedly subluxed laterally. JOINTS: As above. JOINT EFFUSION: A limited suprapatellar bursa effusion is suggested. OTHER FINDINGS: Interval resorption of numerous small nodular radiodensities in the pretibial in pre femoral soft tissues is noted with none remaining at the level of the upper knee and few remaining in the pretibial space presumptively representing antibiotic vehicles. IMPRESSION: Gross lateral subluxation of the patella appreciate without fracture. Right right total knee replacement hardware unchanged in appearance
--- NOTE | 2017-11-11 17:06 | CT ---
PROCEDURE: HISTORY: right knee pain COMPARISON: Right knee radiographs dated 11/11/2017. TECHNIQUE: A volumetric CT acquisition was performed through the right knee without intravenous contrast as requested with reformatted datasets provided in sagittal and coronal views as well as original axial acquisition. Contrast Dose: None. Radiation dose: Total exam DLP = 327.27 mGy-cm. This CT exam was performed using one or more of the following dose reduction techniques: Automated exposure control, adjustment of the mA and/or kV according to patient size, and/or use of iterative reconstruction technique. FINDINGS: Prominent artifact obscures evaluation of the prosthetic interfaces with the distal femur and proximal tibia however no definitive fractures appreciated or gross loosening. Patella appears slightly subluxed laterally as compared to the prior CT dated 10/06/2017. A [id number] suprapatellar bursa effusion is suggested. Prior abscess pattern anterior to the tibia extending to the level of the patella now appears partially calcified in the periphery with residual antibiotic ribs material remaining in the distal portion of the cavity. No emphysematous changes are appreciated at this time suggesting at least partial success in therapy of the abscess. Further clinical correlation is advised. No interval fracture is appreciated with a large spacer again appreciated intervening between the prosthetic components. No destructive bony lesion grossly evident at this time. Solitary screw component is appreciated at the proximal tibial diaphysis once again. IMPRESSION: Mild subluxation of the patella is is suggested laterally without acute fracture grossly evident. Hardware artifact from total knee replacement devices limit the interpretation of the distal femur and proximal tibia. Potential fibrosis of the prior abscess cavity as peripheral calcifications are identified, now without the presence of emphysema. Residual antibiotic material is seen at the distal portion of the cavity with the overall pattern suggesting significant interval improvement in the prior abscess if successful treatment. Residual infection is not completely excluded. Further clinical correlation is advised. No periosteal reaction or erosive cortical change to suggest osteomyelitis grossly. No prominent evidence to suggest loosening though artifacts limit the evaluation as discussed above.
--- NOTE | 2017-11-11 18:53 | CP.PCM.HP ---
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 Patient has been on Vancomycin and Rocephin, has PICC R arm. Patient to be admitted for wound dehiscence per Dr. Sharpe, and to be evaluated by infectious disease as well. HD stable NAD. 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 per chart review hx heroin use Meds: as below Allergies: NKDA Present on Admission - Present on Admission Any Indicators Present on Admission: No Past Patient History - Infectious Disease Hx of Infectious Diseases: None - Tetanus Immunizations Tetanus Immunization: Unknown - Past Medical History & Family History Past Medical History?: Yes - Past Social History Alcohol: None Drugs: Prescription medications - CARDIAC Hx Atrial Fibrillation: No Hx Cardia Arrhythmia: No Hx Congestive Heart Failure: No Hx Hypercholesterolemia: No Hx Hypertension: No - PULMONARY Hx Asthma: No Hx Bronchitis: No Hx Chronic Obstructive Pulmonary Disease (COPD): No Hx Emphysema: No - NEUROLOGICAL Hx Neurological Disorder: Yes - HEENT Hx HEENT Problems: No - RENAL Hx Chronic Kidney Disease: No - ENDOCRINE/METABOLIC Hx Endocrine Disorders: No - HEMATOLOGICAL/ONCOLOGICAL Hx Human Immunodeficiency Virus (HIV): No - INTEGUMENTARY Hx Dermatological Problems: No - MUSCULOSKELETAL/RHEUMATOLOGICAL Hx Musculoskeletal Disorders: Yes - GASTROINTESTINAL Hx Gastritis: Yes - GENITOURINARY/GYNECOLOGICAL Hx Sexually Transmitted Disorders: No - PSYCHIATRIC Hx Psychophysiologic Disorder: Yes - SURGICAL HISTORY Hx Cholecystectomy: Yes - ANESTHESIA Hx Anesthesia: Yes Hx Anesthesia Reactions: No Meds Allergies/Adverse Reactions: Allergies Allergy/AdvReac Type Severity Reaction Status Date / Time No Known Allergies Allergy Verified 10/06/17 13:07 Physical Exam - Constitutional Appears: Well, Non-toxic, No Acute Distress - Head Exam Head Exam: ATRAUMATIC, NORMOCEPHALIC - Eye Exam Eye Exam: EOMI, Normal appearance, PERRL Pupil Exam: NORMAL ACCOMODATION - ENT Exam ENT Exam: Mucous Membranes Moist, Normal Oropharynx - Neck Exam Neck exam: Positive for: Full Rom, Normal Inspection - Respiratory Exam Respiratory Exam: Clear to Auscultation Bilateral, NORMAL BREATHING PATTERN - Cardiovascular Exam Cardiovascular Exam: RRR, +S1, +S2 - GI/Abdominal Exam GI & Abdominal Exam: Normal Bowel Sounds, Soft. absent: Organomegaly, Tenderness - Extremities Exam Extremities exam: Positive for: normal capillary refill, pedal pulses present Additional comments: DRESSINGS CLEAN DRY INTACT - Back Exam Back exam: absent: CVA tenderness (L), CVA tenderness (R) - Neurological Exam Neurological exam: Alert, Oriented x3 - Psychiatric Exam Psychiatric exam: Normal Affect, Normal Mood - Skin Skin Exam: Dry, Warm Results - Vital Signs Recent Vital Signs: Last Vital Signs Temp 98.0 F 11/11/17 18:10 Pulse 98 H 11/11/17 18:10 Resp 16 11/11/17 18:10 BP 113/72 11/11/17 18:10 Pulse Ox 99 11/11/17 17:08 - Labs Result Diagrams: 11/11/17 15:30 11/11/17 15:30 Labs: Laboratory Results - last 24 hr 11/11/17 11/11/17 15:30 15:30 WBC 3.1 L RBC 3.49 L Hgb 10.4 L Hct 32.0 L MCV 91.8 MCH 29.8 MCHC 32.4 L RDW 15.9 H Plt Count 105 L D MPV 9.2 Neut % (Auto) 36.1 L Lymph % (Auto) 32.8 Linn % (Auto) 12.1 H Eos % (Auto) 19.0 H Baso % (Auto) 0.0 Neut # 1.1 L Lymph # 1.0 Linn # 0.4 Eos # 0.6 Baso # 0.0 ESR 22 Sodium 145 Potassium 3.6 Chloride 110 H Carbon Dioxide 25 Anion Gap 14 BUN 11 Creatinine 0.5 L Est GFR ( Amer) > 60 Est GFR (Non-Af Amer) > 60 Random Glucose 98 Calcium 8.2 L Assessment & Plan - Assessment and Plan (Free Text) Plan: 62 F PMH 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 Patient has been on Vancomycin and Rocephin, has PICC R arm. Patient to be admitted for wound dehiscence per Dr. Sharpe, and to be evaluated by infectious disease as well. HD stable NAD. Wound Dehiscence s/p R knee revision x2 cont Percocet for pain control continue Rocephin and Vancomycin ID consult Dr. Fernandes appreciated and followed Ortho consult Dr. Sharpe appreciated and followed PT OT Seizures cont Lamictal Schizoaffective Disorder pt states she is on Invega cont cogentin VTE PPX SCDs
[2017-11-11] MEDS ORDERED: Oxycodone/Acetaminophen 5/325 mg Tab PO PRN (18:54)
[2017-11-11] MEDS ORDERED: Vancomycin 1 g Inj IVPB SCH (21:00)
[2017-11-12] MEDS: cefTRIAXone 2 GM in Sodium Chloride 0.9% 100 ML IVPB SCH (08:23)
--- NOTE | 2017-11-12 08:28 | PQF GENQUE ---
This form is a permanent part of the medical record 11/12/17 Dr. Marcia Santos, Would you please clarify if there is an associated diagnosis or not to go along with the following CBC findings: Admitted with R knee post-op wound dehiscence. WBC 3.1, H&H 10.4/ 32, Platelets 105. Clarification of your documentation is requested to better reflect the severity of illness and intensity of treatment of your patient. Indicators present [] Specify: [] [] Specify: [] [] Specify: [] [] Specify: [] Location in the medical record that reflects the above clinical findings: [] Treatment Provided: [] PHYSICIAN'S RESPONSE no Based on your medical judgment of the clinical indicators outlined above please clarify the following: [] Practitioner response [] If unable to determine, please check the box, sign and date. Present On Admission (POA) Indicator: [] Present at the time of admission [] Not present at the time of admission [] Clinically Undetermined In responding to this query, please exercise your independent professional judgment. The fact that a question is asked does not imply that any particular answer is desired or expected. Thank you for your clarification on this documentation. If you have any questions please call:extension [phone] * Thank you, Loreto Sheets RN CDMP MTDD
[2017-11-12] MEDS ORDERED: cefTRIAXone (Rocephin) 2 gm Inj IVPB SCH (09:00)
[2017-11-12] MEDS ORDERED: Povidone Iodine Topical 10% Sol ONE (10:05)
--- NOTE | 2017-11-12 10:51 | CP.PCM.PN ---
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 Patient is AAOx3 and is in NAD. Patient states that she is managing the pain well with the medications. Denies of having any acute overnight events. Denies of any recent F/N/V/C/SOB/CP/ headache/diarrhea. Denies of any other complains at this time. Objective - Vital Signs/Intake and Output Vital Signs (last 24 hours): Temp Pulse Resp BP Pulse Ox 98.8 F 77 20 122/78 97 11/12/17 07:50 11/12/17 07:50 11/12/17 07:50 11/12/17 07:50 11/12/17 07:50 - Medications Medications: Current Medications Benztropine Mesylate (Cogentin) 1 mg PO DAILY [facility] Last Admin: 11/12/17 08:21 Dose: 1 mg Famotidine (Pepcid) 20 mg PO BID [facility] Last Admin: 11/12/17 08:21 Dose: 20 mg Ceftriaxone Sodium 2 gm/ (Sodium Chloride) 100 mls @ 100 mls/hr IVPB DAILY [facility] Last Admin: 11/12/17 08:23 Dose: 100 mls/hr Vancomycin HCl 1 gm/ Sodium (Chloride) 250 mls @ 125 mls/hr IVPB Q12H [facility] Last Admin: 11/12/17 09:39 Dose: 125 mls/hr Ibuprofen (Motrin Tab) 600 mg PO Q8 [facility] Last Admin: 11/12/17 08:27 Dose: 600 mg Lamotrigine (Lamictal) 25 mg PO DAILY [facility] Last Admin: 11/12/17 08:21 Dose: 25 mg Tramadol HCl (Ultram) 50 mg PO Q6 PRN PRN Reason: Pain, severe (8-10) Last Admin: 11/12/17 01:20 Dose: 50 mg Trazodone HCl (Desyrel) 50 mg PO HS [facility] Last Admin: 11/11/17 23:05 Dose: 50 mg - Labs Labs: 11/11/17 15:30 11/11/17 15:30 - Constitutional Appears: Well, Non-toxic, No Acute Distress - Head Exam Head Exam: ATRAUMATIC - Eye Exam Eye Exam: Normal appearance Pupil Exam: NORMAL ACCOMODATION - ENT Exam ENT Exam: Normal Exam - Neck Exam Neck Exam: Full ROM, Normal Inspection - Respiratory Exam Respiratory Exam: Clear to Ausculation Bilateral, NORMAL BREATHING PATTERN - Cardiovascular Exam Cardiovascular Exam: REGULAR RHYTHM, +S1, +S2 - GI/Abdominal Exam GI & Abdominal Exam: Soft, Normal Bowel Sounds - Rectal Exam Rectal Exam: Deferred - Extremities Exam Extremities Exam: Full ROM, Normal Inspection. 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 Plan: 1). Wound Dehiscence s/p R knee revision x2 - Ortho consult Dr. Sharpe appreciated - ID consult Dr. Fernandes appreciated - continue Rocephin and Vancomycin - cont Percocet for pain control - PT OT eval 2). Seizures - cont Lamictal 3). Schizoaffective Disorder -cont cogentin 1 mg PO qd -pt states she is on Invega 4). VTE ppx - SCDs <Vangie Santos - Last Filed: 11/12/17 16:19> Objective - Vital Signs/Intake and Output Vital Signs (last 24 hours): Temp Pulse Resp BP Pulse Ox 98.6 F 66 18 94/52 L 95 11/12/17 16:16 11/12/17 16:16 11/12/17 16:16 11/12/17 16:16 11/12/17 16:16 - Medications Medications: Current Medications Benztropine Mesylate (Cogentin) 1 mg PO DAILY [facility] Last Admin: 11/12/17 08:21 Dose: 1 mg Famotidine (Pepcid) 20 mg PO BID [facility] Last Admin: 11/12/17 08:21 Dose: 20 mg Ceftriaxone Sodium 2 gm/ (Sodium Chloride) 100 mls @ 100 mls/hr IVPB DAILY [facility] Last Admin: 11/12/17 08:23 Dose: 100 mls/hr Vancomycin HCl 1 gm/ Sodium (Chloride) 250 mls @ 125 mls/hr IVPB Q12 [facility] Ibuprofen (Motrin Tab) 600 mg PO Q8 [facility] Last Admin: 11/12/17 08:27 Dose: 600 mg Lamotrigine (Lamictal) 25 mg PO DAILY [facility] Last Admin: 11/12/17 08:21 Dose: 25 mg Tramadol HCl (Ultram) 50 mg PO Q6 PRN PRN Reason: Pain, severe (8-10) Last Admin: 11/12/17 01:20 Dose: 50 mg Trazodone HCl (Desyrel) 50 mg PO HS [facility] Last Admin: 11/11/17 23:05 Dose: 50 mg - Labs Labs: 11/11/17 15:30 11/11/17 15:30 Attending/Attestation - Attestation I have personally seen and examined this patient.: Yes I have fully participated in the care of the patient.: Yes I have reviewed all pertinent clinical information, including history, physical exam and plan: Yes Notes (Text): 11/12/17 16:19 seen examined discussed with resident Dr. Viry Hassan. Agree with findings and plan as above.
--- NOTE | 2017-11-12 17:53 | CP.PCM.PN ---
Subjective - Date & Time of Evaluation Date of Evaluation: 11/12/17 Time of Evaluation: 17:53 - Subjective Subjective: I D NOTE PATIENT WHO HAS BEENN ADMITTED FOR WOUND DEHISCENCE ,HAS SOME DRAINAGE AND HAS BEEN RXED SINCE 10/07/17 C IV ANTIBIOTICS STATES SHE HAS CHILLS BUT NO FEVER. NURSING REPORTS DRAINAGE TO BE BLOODY CONTINUE SAME ANTIBIOTIC COVERAGE Objective - Vital Signs/Intake and Output Vital Signs (last 24 hours): Temp Pulse Resp BP Pulse Ox 98.6 F 66 18 94/52 L 95 11/12/17 16:16 11/12/17 16:16 11/12/17 16:16 11/12/17 16:16 11/12/17 16:16 - Medications Medications: Current Medications Benztropine Mesylate (Cogentin) 1 mg PO DAILY [facility] Last Admin: 11/12/17 08:21 Dose: 1 mg Famotidine (Pepcid) 20 mg PO BID [facility] Last Admin: 11/12/17 16:41 Dose: 20 mg Ceftriaxone Sodium 2 gm/ (Sodium Chloride) 100 mls @ 100 mls/hr IVPB DAILY [facility] Last Admin: 11/12/17 08:23 Dose: 100 mls/hr Vancomycin HCl 1 gm/ Sodium (Chloride) 250 mls @ 125 mls/hr IVPB Q12 [facility] Ibuprofen (Motrin Tab) 600 mg PO Q8 [facility] Last Admin: 11/12/17 16:42 Dose: 600 mg Lamotrigine (Lamictal) 25 mg PO DAILY [facility] Last Admin: 11/12/17 08:21 Dose: 25 mg Tramadol HCl (Ultram) 50 mg PO Q6 PRN PRN Reason: Pain, severe (8-10) Last Admin: 11/12/17 01:20 Dose: 50 mg Trazodone HCl (Desyrel) 50 mg PO HS [facility] Last Admin: 11/11/17 23:05 Dose: 50 mg - Labs Labs: 11/11/17 15:30 11/11/17 15:30
--- NOTE | 2017-11-12 19:31 | CP.PCM.CON ---
History of Present Illness - History of Present Illness History of Present Illness: Plastic Surgery Consult Nadira Leslie is a 62 year old female admitted for a wound dehiscence over the proximal tibial region following a revision of a total knee replacement in October. Her original surgery was in May, which was then followed by two revisions: The first in July and the second in October. At the time of this admission, she states the wound has been draining a "sanguinous" discharge for nearly a month. Her past medical history is positive for a CVA 10 years ago [address] use[address] Dr[address] Fernandes has placed her on Ceftriaxone and Vancomycin. No growth in the blood cultures. WBC = 3.1. PE: Right Leg: Well healed vertical scar over the distal femur, knee, and tibial region with the exception of an 0.5 cm open area through the scar over the proximal tibia. Serosanginous drainage present. No redness or edema. The wound tunnels 1 cm medially. IMP: Although she has no temperature and her WBC is only 3.1, this appears to the wound infection which needs surgical intervention to debride the sinus tract and all nonviable tissue. PLAN: No flap reconstruction is indicated at this time. Thank you. Nicholas Tafoya M.D. Past Patient History - Infectious Disease Hx of Infectious Diseases: None - Tetanus Immunizations Tetanus Immunization: Unknown - Past Medical History & Family History Past Medical History?: Yes - Past Social History Alcohol: None Drugs: Prescription medications - CARDIAC Hx Atrial Fibrillation: No Hx Cardia Arrhythmia: No Hx Congestive Heart Failure: No Hx Hypercholesterolemia: No Hx Hypertension: No - PULMONARY Hx Asthma: No Hx Bronchitis: No Hx Chronic Obstructive Pulmonary Disease (COPD): No Hx Emphysema: No - NEUROLOGICAL Hx Alzheimer's Disease: No Hx Dementia: No Hx Seizures: Yes Hx Transient Ischemic Attacks (TIA): Yes - HEENT Hx HEENT Problems: No - RENAL Hx Chronic Kidney Disease: No - ENDOCRINE/METABOLIC Hx Endocrine Disorders: No - HEMATOLOGICAL/ONCOLOGICAL Hx Human Immunodeficiency Virus (HIV): No - INTEGUMENTARY Hx Dermatological Problems: No - MUSCULOSKELETAL/RHEUMATOLOGICAL Hx Musculoskeletal Disorders: Yes Hx Falls: Yes - GASTROINTESTINAL Hx Gastritis: Yes - GENITOURINARY/GYNECOLOGICAL Hx Sexually Transmitted Disorders: No - PSYCHIATRIC Hx Anxiety: Yes Hx Bipolar Disorder: Yes Hx Depression: Yes Hx Schizophrenia: Yes - SURGICAL HISTORY Hx Cholecystectomy: Yes - ANESTHESIA Hx Anesthesia: Yes Hx Anesthesia Reactions: No Meds Allergies/Adverse Reactions: Allergies Allergy/AdvReac Type Severity Reaction Status Date / Time No Known Allergies Allergy Verified 10/06/17 13:07 - Medications Medications: Current Medications Benztropine Mesylate (Cogentin) 1 mg PO DAILY [facility] Last Admin: 11/12/17 08:21 Dose: 1 mg Famotidine (Pepcid) 20 mg PO BID [facility] Last Admin: 11/12/17 16:41 Dose: 20 mg Ceftriaxone Sodium 2 gm/ (Sodium Chloride) 100 mls @ 100 mls/hr IVPB DAILY [facility] Last Admin: 11/12/17 08:23 Dose: 100 mls/hr Vancomycin HCl 1 gm/ Sodium (Chloride) 250 mls @ 125 mls/hr IVPB Q12 [facility] Ibuprofen (Motrin Tab) 600 mg PO Q8 [facility] Last Admin: 11/12/17 16:42 Dose: 600 mg Lamotrigine (Lamictal) 25 mg PO DAILY [facility] Last Admin: 11/12/17 08:21 Dose: 25 mg Tramadol HCl (Ultram) 50 mg PO Q6 PRN PRN Reason: Pain, severe (8-10) Last Admin: 11/12/17 01:20 Dose: 50 mg Trazodone HCl (Desyrel) 50 mg PO HS [facility] Last Admin: 11/11/17 23:05 Dose: 50 mg Results - Vital Signs Recent Vital Signs: Last Vital Signs Temp 98.6 F 11/12/17 16:16 Pulse 66 11/12/17 16:16 Resp 18 11/12/17 16:16 BP 94/52 L 11/12/17 16:16 Pulse Ox 95 11/12/17 16:16 - Labs Result Diagrams: 11/11/17 15:30 11/11/17 15:30 Labs: Laboratory Results - last 24 hr 11/12/17 11/12/17 18:10 18:10 Lactic Acid 1.1 Vancomycin Trough 14.9 H
[2017-11-13 06:18] LABS: BASO % 1.2 % (0.0-2.0); EOS # 0.3 K/uL (0.0-0.7); HEMOGLOBIN 10.3 g/dL (12.0-16.0); LYMPH # 0.9 K/uL (1.0-4.3); LYMPH % 39.2 % (20.0-40.0); MEAN CORPUSCULAR HEMOGLOBIN 29.2 pg (27.0-31.0); MEAN CORPUSCULAR HGB CONC 31.7 g/dL (33.0-37.0); MONO # 0.4 K/uL (0.0-0.8); MONO % 18.3 % (0.0-10.0); NEUT # 0.6 K/uL (1.8-7.0); NEUT % 28.3 % (50.0-75.0); NRBC % 0.4 % (0.0-0.0); RBC 3.52 Mil/uL (3.80-5.20); RED CELL DISTRIBUTION WIDTH 15.1 % (11.5-14.5); WHITE BLOOD COUNT 2.2 K/uL (4.8-10.8)
[2017-11-13] MEDS: cefTRIAXone 2 GM in Sodium Chloride 0.9% 100 ML IVPB SCH (09:12)
--- NOTE | 2017-11-13 10:16 | CP.PCM.PN ---
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 Patient is AAOx3 and is in NAD. Patient states that she is managing the pain well with the medications. Patient reports that she is feeling little anxious because one of her medication that she takes at home isn't started here. Denies of having any acute overnight events. Denies of having any recent F/N/V/C/SOB/CP/headache/diarrhea. Denies of having any other complains at this time. Objective - Vital Signs/Intake and Output Vital Signs (last 24 hours): Temp Pulse Resp BP Pulse Ox 97.5 F L 66 20 109/65 95 11/13/17 08:24 11/13/17 08:24 11/13/17 08:24 11/13/17 08:24 11/13/17 08:24 - Medications Medications: Current Medications Benztropine Mesylate (Cogentin) 1 mg PO DAILY [facility] Last Admin: 11/13/17 09:11 Dose: 1 mg Famotidine (Pepcid) 20 mg PO BID [facility] Last Admin: 11/13/17 09:12 Dose: 20 mg Ceftriaxone Sodium 2 gm/ (Sodium Chloride) 100 mls @ 100 mls/hr IVPB DAILY [facility] Last Admin: 11/13/17 09:12 Dose: 100 mls/hr Vancomycin HCl 750 mg/ Sodium (Chloride) 250 mls @ 166.667 mls/hr IVPB Q12 [facility] PRN Reason: Protocol Last Admin: 11/12/17 21:40 Dose: 166.667 mls/hr Ibuprofen (Motrin Tab) 600 mg PO Q8 [facility] Last Admin: 11/13/17 09:16 Dose: 600 mg Lamotrigine (Lamictal) 25 mg PO DAILY [facility] Last Admin: 11/13/17 09:11 Dose: 25 mg Paliperidone (Invega) 3 mg PO BID [facility] Tramadol HCl (Ultram) 50 mg PO Q6 PRN PRN Reason: Pain, severe (8-10) Last Admin: 11/13/17 06:23 Dose: 50 mg Trazodone HCl (Desyrel) 50 mg PO HS [facility] Last Admin: 11/12/17 21:10 Dose: 50 mg - Labs Labs: 11/13/17 05:30 11/11/17 15:30 - Constitutional Appears: Well, Non-toxic, No Acute Distress - Eye Exam Eye Exam: Normal appearance - ENT Exam ENT Exam: Normal Exam - Neck Exam Neck Exam: Full ROM, Normal Inspection - Respiratory Exam Respiratory Exam: Clear to Ausculation Bilateral, NORMAL BREATHING PATTERN - Cardiovascular Exam Cardiovascular Exam: REGULAR RHYTHM, +S1, +S2 - GI/Abdominal Exam GI & Abdominal Exam: Soft, Normal Bowel Sounds - Rectal Exam Rectal Exam: Deferred - Extremities Exam Extremities Exam: Normal Capillary Refill, Normal Inspection. absent: Calf Tenderness - Back Exam Back Exam: Full ROM, NORMAL INSPECTION - Neurological Exam Neurological Exam: Alert, Awake, Oriented x3 - Psychiatric Exam Psychiatric exam: Normal Affect, Normal Mood - Skin Additional comments: Dressing on the right knee is clean, dry and intact with mild serosanguinous drainage strike through noted. 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 Plan: 1). Wound Dehiscence s/p R knee revision x2 - Ortho consult Dr. Sharpe appreciated - Plastic surgery: - No flap reconstruction is indicated at this time, suggests patient may benefit from wound debridement procedure - wound cultures taken - ID consult Dr. Fernandes appreciated - Recommends to continue current abx coverage - continue Rocephin and Vancomycin - cont Percocet for pain control - PT OT eval 2). Seizures - cont Lamictal 3). Schizoaffective Disorder -cont cogentin 1 mg PO qd -pt states she is on Invega 4). VTE ppx - SCDs <Vangie Santos - Last Filed: 11/13/17 11:39> Objective - Vital Signs/Intake and Output Vital Signs (last 24 hours): Temp Pulse Resp BP Pulse Ox 97.5 F L 66 20 109/65 95 11/13/17 08:24 11/13/17 08:24 11/13/17 08:24 11/13/17 08:24 11/13/17 08:24 - Medications Medications: Current Medications Benztropine Mesylate (Cogentin) 1 mg PO DAILY [facility] Last Admin: 11/13/17 09:11 Dose: 1 mg Famotidine (Pepcid) 20 mg PO BID [facility] Last Admin: 11/13/17 09:12 Dose: 20 mg Ceftriaxone Sodium 2 gm/ (Sodium Chloride) 100 mls @ 100 mls/hr IVPB DAILY [facility] Last Admin: 11/13/17 09:12 Dose: 100 mls/hr Vancomycin HCl 750 mg/ Sodium (Chloride) 250 mls @ 166.667 mls/hr IVPB Q12 [facility] PRN Reason: Protocol Last Admin: 11/13/17 10:28 Dose: 166.667 mls/hr Ibuprofen (Motrin Tab) 600 mg PO Q8 [facility] Last Admin: 11/13/17 09:16 Dose: 600 mg Lamotrigine (Lamictal) 25 mg PO DAILY [facility] Last Admin: 11/13/17 09:11 Dose: 25 mg Paliperidone (Invega) 3 mg PO BID [facility] Tramadol HCl (Ultram) 50 mg PO Q6 PRN PRN Reason: Pain, severe (8-10) Last Admin: 11/13/17 06:23 Dose: 50 mg Trazodone HCl (Desyrel) 50 mg PO HS [facility] Last Admin: 11/12/17 21:10 Dose: 50 mg - Labs Labs: 11/13/17 05:30 11/11/17 15:30 Attending/Attestation - Attestation I have personally seen and examined this patient.: Yes I have fully participated in the care of the patient.: Yes I have reviewed all pertinent clinical information, including history, physical exam and plan: Yes Notes (Text): 11/13/17 11:39 seen examined and discussed with resident Dr. Hassan. Agree with findings and plan as above.
[2017-11-13] MEDS ORDERED: Bacitracin Ointment 30 GM TUBE ONE (13:43)
[2017-11-13] MEDS ORDERED: Iohexol 300 100 ML IJ ONE (13:53)
[2017-11-13] MEDS ORDERED: Iohexol 240 200 ML ONE (13:53)
[2017-11-13] MEDS ORDERED: Bupivacaine 0.5% Inj(30mL) ONE (14:02)
[2017-11-13] MEDS ORDERED: Lidocaine 1% Inj (20ml) ONE (14:02)
[2017-11-13] MEDS ORDERED: Dexamethasone 4 mg/1 ml ONE (14:02)
[2017-11-13] MEDS ORDERED: MethylPREDNISolone Depo 40 mg/ml Inj ONE (14:02)
[2017-11-13] MEDS ORDERED: Lidocaine 2% w Epi 1:100,000 Inj IJ ONE (14:03)
--- NOTE | 2017-11-13 14:42 | CP.PCM.CON ---
History of Present Illness - History of Present Illness History of Present Illness: ID: 62 yo female s/pcomplex TKR for tibial plateau fx CC_ pt presents to [facility] with sanguinous drainage s/p I+D and debridemtn of knee wound HPI: Pt presents with pristent sanguinous drainage. Pt was not treated at [facility] with appropriate BETYADINE WET TO DRY DRESSING CHAGES. pT D/[facility] EITH DRAING WOUND APPARENTLY. pTS son called and I told him to bring Nadira to ER immediately. PT admitted and ID and plastic surgical conasultas callled. Pt for aspiration arthrogram, possible arthrotomy/debiremnt; pssoible removal com[ponents and insertion of abio impregnated spacer. Past Patient History - Infectious Disease Hx of Infectious Diseases: None - Tetanus Immunizations Tetanus Immunization: Unknown - Past Medical History & Family History Past Medical History?: Yes - Past Social History Alcohol: None Drugs: Prescription medications - CARDIAC Hx Atrial Fibrillation: No Hx Cardia Arrhythmia: No Hx Congestive Heart Failure: No Hx Hypercholesterolemia: No Hx Hypertension: No - PULMONARY Hx Asthma: No Hx Bronchitis: No Hx Chronic Obstructive Pulmonary Disease (COPD): No Hx Emphysema: No - NEUROLOGICAL Hx Alzheimer's Disease: No Hx Dementia: No Hx Seizures: Yes Hx Transient Ischemic Attacks (TIA): Yes - HEENT Hx HEENT Problems: No - RENAL Hx Chronic Kidney Disease: No - ENDOCRINE/METABOLIC Hx Endocrine Disorders: No - HEMATOLOGICAL/ONCOLOGICAL Hx Human Immunodeficiency Virus (HIV): No - INTEGUMENTARY Hx Dermatological Problems: No - MUSCULOSKELETAL/RHEUMATOLOGICAL Hx Musculoskeletal Disorders: Yes Hx Falls: Yes - GASTROINTESTINAL Hx Gastritis: Yes - GENITOURINARY/GYNECOLOGICAL Hx Sexually Transmitted Disorders: No - PSYCHIATRIC Hx Anxiety: Yes Hx Bipolar Disorder: Yes Hx Depression: Yes Hx Schizophrenia: Yes - SURGICAL HISTORY Hx Cholecystectomy: Yes - ANESTHESIA Hx Anesthesia: Yes Hx Anesthesia Reactions: No Meds Allergies/Adverse Reactions: Allergies Allergy/AdvReac Type Severity Reaction Status Date / Time No Known Allergies Allergy Verified 10/06/17 13:07 - Medications Medications: Current Medications Benztropine Mesylate (Cogentin) 1 mg PO DAILY [facility] Last Admin: 11/13/17 09:11 Dose: 1 mg Famotidine (Pepcid) 20 mg PO BID [facility] Last Admin: 11/13/17 09:12 Dose: 20 mg Ceftriaxone Sodium 2 gm/ (Sodium Chloride) 100 mls @ 100 mls/hr IVPB DAILY [facility] Last Admin: 11/13/17 09:12 Dose: 100 mls/hr Vancomycin HCl 750 mg/ Sodium (Chloride) 250 mls @ 166.667 mls/hr IVPB Q12 [facility] PRN Reason: Protocol Last Admin: 11/13/17 10:28 Dose: 166.667 mls/hr Ibuprofen (Motrin Tab) 600 mg PO Q8 [facility] Last Admin: 11/13/17 09:16 Dose: 600 mg Lamotrigine (Lamictal) 25 mg PO DAILY [facility] Last Admin: 11/13/17 09:11 Dose: 25 mg Paliperidone (Invega) 3 mg PO BID [facility] Tramadol HCl (Ultram) 50 mg PO Q6 PRN PRN Reason: Pain, severe (8-10) Last Admin: 11/13/17 06:23 Dose: 50 mg Trazodone HCl (Desyrel) 50 mg PO HS [facility] Last Admin: 11/12/17 21:10 Dose: 50 mg Physical Exam - Constitutional Appears: Well - Head Exam Head Exam: ATRAUMATIC, NORMAL INSPECTION, NORMOCEPHALIC - Eye Exam Eye Exam: EOMI, Normal appearance, PERRL Pupil Exam: NORMAL ACCOMODATION, PERRL - ENT Exam ENT Exam: Mucous Membranes Moist, Normal Exam - Neck Exam Neck exam: Positive for: Normal Inspection - Respiratory Exam Respiratory Exam: Clear to Auscultation Bilateral, NORMAL BREATHING PATTERN - Cardiovascular Exam Cardiovascular Exam: REGULAR RHYTHM - GI/Abdominal Exam GI & Abdominal Exam: Normal Bowel Sounds, Soft. absent: Tenderness - Rectal Exam Rectal Exam: NORMAL INSPECTION - Exam Exam: Circumcision, NORMAL INSPECTION External exam: NORMAL EXTERNAL EXAM Speculum exam: NORMAL SPECULUM EXAM Bimanual exam: NORMAL BIMANUAL EXAM - Extremities Exam Extremities exam: Positive for: normal inspection - Back Exam Back exam: NORMAL INSPECTION - Neurological Exam Neurological exam: Alert, CN II-XII Intact, Normal Gait, Oriented x3, Reflexes Normal - Psychiatric Exam Psychiatric exam: Normal Affect, Normal Mood - Skin Skin Exam: Dry, Intact, Normal Color, Warm Additional comments: Physical Exam Musculoskekltal exam exam stance/gait- defrred ROM knee not painful pt weith tendereness in area of patell evidence for serosanguinous drainage Results - Vital Signs Recent Vital Signs: Last Vital Signs Temp 98.1 F 11/13/17 13:48 Pulse 68 11/13/17 13:48 Resp 18 11/13/17 13:48 BP 110/48 L 11/13/17 13:48 Pulse Ox 95 11/13/17 08:24 - Labs Result Diagrams: 11/13/17 05:30 11/11/17 15:30 Labs: Laboratory Results - last 24 hr 11/12/17 11/12/17 11/12/17 18:10 18:10 18:10 WBC RBC Hgb Hct MCV MCH MCHC RDW Plt Count MPV Neut % (Auto) Lymph % (Auto) [place] % (Auto) Eos % (Auto) Baso % (Auto) Neut # Lymph # [place] # Eos # Baso # ESR Lactic Acid 1.1 Procalcitonin < 0.05 L Vancomycin Trough 14.9 H 11/13/17 05:30 WBC 2.2 L RBC 3.52 L Hgb 10.3 L Hct 32.4 L MCV 92.0 MCH 29.2 MCHC 31.7 L RDW 15.1 H Plt Count 100 L MPV 9.0 Neut % (Auto) 28.3 L Lymph % (Auto) 39.2 [place] % (Auto) 18.3 H Eos % (Auto) 13.0 H Baso % (Auto) 1.2 Neut # 0.6 L Lymph # 0.9 L [place] # 0.4 Eos # 0.3 Baso # 0.0 ESR 20 Lactic Acid Procalcitonin Vancomycin Trough - Impressions Impression: Xrays- reveal acceptable position of tibio femoral joint with subluxation odf pateel laterally. Assessment & Plan - Assessment and Plan (Free Text) Assessment: A- s/p complex R TKR fgor fx tibial plateau (chronic) when pt was seen on consult at [facility] Plan: Plan- to OR for aspiration arthrogram Situation discussed at [facility] with pt, and her daughters Sandra and Olga.. Concept of inciison/draiage, as recommende by Dr Gabbie Tafoya, discussed. Possibiity of componenet removal and insettion of abio impreganted spacer discussed. Concept of insertion of spacer at secondaryu procedure and reomval of TKR discussed Concept of 6 wks IV abios discussed to be followed by reimplantation discussed No promised guararntees. Pt wishes the aspiaration arthrogram to be done temi
--- NOTE | 2017-11-13 14:48 | PCM.SURG1 ---
Surgeon's Initial Post Op Note - Surgeon's Notes Surgeon: Annemarie Laboratory Immunologist: ALEXANDRIA De La Cruz Type of Anesthesia: Local Anesthesia Administered By: DR Sharpe(local anaesthesia) Pre-Operative Diagnosis: Ro septic TKR. persisitent serous/ serosanguinous drain age R knee ( pt readmitted thru ER) Operative Findings: as above. serosanguionous/ R/O purulent draiangeR knee Post-Operative Diagnosis: as above. R/O deep sepsis Operation Performed: Aspiration arthrogram R Knee. manipulation knee under anaesthesia. positioning of fluoro/interpretation of video images. applx knee immobilizer Specimen/Specimens Removed: fluid aspiarte from knee sent for aerobic/anaerobic/ afb and fungal cultures. sent for stat gm stain number of WBC's per hi power field Estimated Blood Loss: EBL {In ML}: 15 Blood Products Given: N/A Drains Used: No Drains Post-Op Condition: Good Date of Surgery/Procedure: 11/13/17 Time of Surgery/Procedure: 14:25 ([id number])
[2017-11-13 15:08] LABS: FLUID TYPE SYNOVIAL FLUID
[2017-11-13 15:25] LABS: FLUID TYPE SYNOVIAL FLUID
[2017-11-13 16:23] LABS: SF GROSS APPEARANCE BLOODY (CLEAR); SYNOVIAL FLUID COMMENT CLOUDY
[2017-11-13 16:23] LABS: SF GROSS APPEARANCE TURBID (CLEAR)
[2017-11-13 16:24] LABS: SYNOVIAL FLUID COMMENT GROSSLY BLOODY
[2017-11-13 16:32] LABS: SYNOVIAL FLUID MONO/MACROPHAGE 1 % (0-0)
[2017-11-13 16:32] LABS: SYNOVIAL FLUID MONO/MACROPHAGE 4 % (0-0)
[2017-11-13] MEDS: Paliperidone 3 MG ER TAB PO SCH (16:35)
[2017-11-14] MEDS: Lactobacillus Acidophilus 500 MU Cap PO SCH ×2 (08:35→18:43)
[2017-11-14] MEDS: Paliperidone 3 MG ER TAB PO SCH ×2 (08:36→16:13)
[2017-11-14] MEDS: cefTRIAXone 2 GM in Sodium Chloride 0.9% 100 ML IVPB SCH (08:37)
--- NOTE | 2017-11-14 10:03 | CP.PCM.PN ---
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 Patient is AAOx3 and is in NAD. Patient reports that she had a small knee procedure yesterday. Patient reports of little pain to the knee but is managing it well with the medication. Patient denies of having any acute overnight events. Denied of having any overnight F/N/ V/C/SOB/CP/headache/diarrhea. No new complains. Objective - Vital Signs/Intake and Output Vital Signs (last 24 hours): Temp Pulse Resp BP Pulse Ox 98.3 F 84 20 108/65 96 11/14/17 08:03 11/14/17 08:03 11/14/17 08:03 11/14/17 08:03 11/14/17 08:03 - Medications Medications: Current Medications Benztropine Mesylate (Cogentin) 1 mg PO DAILY [facility] Last Admin: 11/14/17 08:36 Dose: 1 mg Famotidine (Pepcid) 20 mg PO BID [facility] Last Admin: 11/14/17 08:36 Dose: 20 mg Ceftriaxone Sodium 2 gm/ (Sodium Chloride) 100 mls @ 100 mls/hr IVPB DAILY [facility] Last Admin: 11/14/17 08:37 Dose: 100 mls/hr Vancomycin HCl 750 mg/ Sodium (Chloride) 250 mls @ 166.667 mls/hr IVPB Q12 [facility] PRN Reason: Protocol Last Admin: 11/13/17 20:36 Dose: 166.667 mls/hr Ibuprofen (Motrin Tab) 600 mg PO Q8 [facility] Last Admin: 11/14/17 08:36 Dose: 600 mg Lactobacillus Acidophilus (Bacid Acidophilus) 1 cap PO BID [facility] Last Admin: 11/14/17 08:35 Dose: 1 cap Lamotrigine (Lamictal) 25 mg PO DAILY [facility] Last Admin: 11/14/17 08:36 Dose: 25 mg Paliperidone (Invega) 3 mg PO BID [facility] Last Admin: 11/14/17 08:36 Dose: 3 mg Tramadol HCl (Ultram) 50 mg PO Q6 PRN PRN Reason: Pain, severe (8-10) Last Admin: 11/14/17 05:01 Dose: 50 mg Trazodone HCl (Desyrel) 50 mg PO [facility] Last Admin: 11/13/17 22:22 Dose: 50 mg - Labs Labs: 11/13/17 05:30 11/11/17 15:30 - Constitutional Appears: Well, Non-toxic, No Acute Distress - Head Exam Head Exam: ATRAUMATIC - Eye Exam Eye Exam: Normal appearance - ENT Exam ENT Exam: Normal Exam - Neck Exam Neck Exam: Full ROM, Normal Inspection - Respiratory Exam Respiratory Exam: Clear to Ausculation Bilateral, NORMAL BREATHING PATTERN - Cardiovascular Exam Cardiovascular Exam: REGULAR RHYTHM, +S1, +S2 - GI/Abdominal Exam GI & Abdominal Exam: Soft, Normal Bowel Sounds - Rectal Exam Rectal Exam: Deferred - Extremities Exam Extremities Exam: Normal Capillary Refill, Normal Inspection, Tenderness. absent: Calf Tenderness - Back Exam Back Exam: Full ROM, NORMAL INSPECTION - Neurological Exam Neurological Exam: Alert, Awake, Oriented x3 - Psychiatric Exam Psychiatric exam: Normal Affect, Normal Mood - Skin Additional comments: Dressing on the right knee is clean, dry and intact. 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 Plan: 1). Wound Dehiscence s/p R knee revision x2 - Ortho consult Dr. Sharpe appreciated - Aspiration arthrogram R Knee performed yesterday. Educated patient of possibility of component removal and insertion of abio impregnated spacer - Elevated WBC observed from synovial aspiration - Plastic surgery: - No flap reconstruction is indicated at this time, suggests patient may benefit from wound debridement procedure - wound cultures taken - Final Gram stain shows no growth - ID consult Dr. Fernandes appreciated - Recommends to continue current abx coverage - continue Rocephin and Vancomycin - cont Percocet for pain control - PT OT eval 2). Seizures - cont Lamictal 3). Schizoaffective Disorder -cont cogentin 1 mg PO qd -pt states she is on Invega 4). VTE ppx - SCDs <Marcial Dumont - Last Filed: 11/14/17 18:47> Objective - Vital Signs/Intake and Output Vital Signs (last 24 hours): Temp Pulse Resp BP Pulse Ox 98.4 F 82 18 112/74 96 11/14/17 16:10 11/14/17 16:10 11/14/17 16:10 11/14/17 16:10 11/14/17 16:10 - Medications Medications: Current Medications Benztropine Mesylate (Cogentin) 1 mg PO DAILY [facility] Last Admin: 11/14/17 08:36 Dose: 1 mg Famotidine (Pepcid) 20 mg PO BID [facility] Last Admin: 11/14/17 16:13 Dose: 20 mg Ceftriaxone Sodium 2 gm/ (Sodium Chloride) 100 mls @ 100 mls/hr IVPB DAILY [facility] Last Admin: 11/14/17 08:37 Dose: 100 mls/hr Vancomycin HCl 750 mg/ Sodium (Chloride) 250 mls @ 166.667 mls/hr IVPB Q12 [facility] PRN Reason: Protocol Last Admin: 11/14/17 10:04 Dose: 166.667 mls/hr Ibuprofen (Motrin Tab) 600 mg PO Q8 [facility] Last Admin: 11/14/17 18:44 Dose: 600 mg Lactobacillus Acidophilus (Bacid Acidophilus) 1 cap PO BID [facility] Last Admin: 11/14/17 18:43 Dose: 1 cap Lamotrigine (Lamictal) 25 mg PO DAILY [facility] Last Admin: 11/14/17 08:36 Dose: 25 mg Paliperidone (Invega) 3 mg PO BID [facility] Last Admin: 11/14/17 16:13 Dose: 3 mg Tramadol HCl (Ultram) 50 mg PO Q6 PRN PRN Reason: Pain, severe (8-10) Last Admin: 11/14/17 15:12 Dose: 50 mg Trazodone HCl (Desyrel) 50 mg PO HS [facility] Last Admin: 11/13/17 22:22 Dose: 50 mg - Labs Labs: 11/13/17 05:30 11/11/17 15:30 Assessment and Plan - Assessment and Plan (Free Text) Plan: ATTENDING ATTESTATION: Patient was seen and examined. I discussed the case with the resident and agree with the findings and plan as documented in the residents note.
[2017-11-14] MEDS ORDERED: Povidone Iodine Topical 10% Sol ONE (10:19)
--- NOTE | 2017-11-14 15:02 | CP.PCM.PN ---
Subjective - Date & Time of Evaluation Date of Evaluation: 11/14/17 Time of Evaluation: 15:00 - Subjective Subjective: Patient states knee pain is controlled. She is able to use walker TTWB independently to bathroom. No new complaints. Objective - Vital Signs/Intake and Output Vital Signs (last 24 hours): Temp Pulse Resp BP Pulse Ox 98.3 F 84 20 108/65 96 11/14/17 08:03 11/14/17 08:03 11/14/17 08:03 11/14/17 08:03 11/14/17 08:03 - Medications Medications: Current Medications Benztropine Mesylate (Cogentin) 1 mg PO DAILY [facility] Last Admin: 11/14/17 08:36 Dose: 1 mg Famotidine (Pepcid) 20 mg PO BID [facility] Last Admin: 11/14/17 08:36 Dose: 20 mg Ceftriaxone Sodium 2 gm/ (Sodium Chloride) 100 mls @ 100 mls/hr IVPB DAILY [facility] Last Admin: 11/14/17 08:37 Dose: 100 mls/hr Vancomycin HCl 750 mg/ Sodium (Chloride) 250 mls @ 166.667 mls/hr IVPB Q12 [facility] PRN Reason: Protocol Last Admin: 11/14/17 10:04 Dose: 166.667 mls/hr Ibuprofen (Motrin Tab) 600 mg PO Q8 [facility] Last Admin: 11/14/17 08:36 Dose: 600 mg Lactobacillus Acidophilus (Bacid Acidophilus) 1 cap PO BID [facility] Last Admin: 11/14/17 08:35 Dose: 1 cap Lamotrigine (Lamictal) 25 mg PO DAILY [facility] Last Admin: 11/14/17 08:36 Dose: 25 mg Paliperidone (Invega) 3 mg PO BID [facility] Last Admin: 11/14/17 08:36 Dose: 3 mg Tramadol HCl (Ultram) 50 mg PO Q6 PRN PRN Reason: Pain, severe (8-10) Last Admin: 11/14/17 05:01 Dose: 50 mg Trazodone HCl (Desyrel) 50 mg PO HS [facility] Last Admin: 11/13/17 22:22 Dose: 50 mg - Labs Labs: 11/13/17 05:30 11/11/17 15:30 - Extremities Exam Additional comments: Right knee: dressing just changed by RN as was saturated. +ROM ankle/toes, sensation intact +DP pulse calves soft NT neg homans Assessment and Plan (1) Wound dehiscence Assessment & Plan: POD#1 s/p aspiration right knee -awaiting cultures, all still pending -TTWB RLE, knee immobilizer -VTE proph -PT/OT -d/w Dr. Sharpe, f/u cultures Status: Acute
--- NOTE | 2017-11-15 08:31 | CP.PCM.PN ---
Subjective - Date & Time of Evaluation Date of Evaluation: 11/15/17 Time of Evaluation: 08:15 - Subjective Subjective: S- pt comfortable s/p aspiration arthrogram Still with drainage from knee, although deep cultures have been consistently negative. Still waiting for definitive culture results Objective - Vital Signs/Intake and Output Vital Signs (last 24 hours): Temp Pulse Resp BP Pulse Ox 98.8 F 93 H 20 104/64 97 11/15/17 07:56 11/15/17 07:56 11/15/17 07:56 11/15/17 07:56 11/15/17 07:56 - Medications Medications: Current Medications Benztropine Mesylate (Cogentin) 1 mg PO DAILY [facility] Last Admin: 11/14/17 08:36 Dose: 1 mg Famotidine (Pepcid) 20 mg PO BID [facility] Last Admin: 11/14/17 16:13 Dose: 20 mg Ceftriaxone Sodium 2 gm/ (Sodium Chloride) 100 mls @ 100 mls/hr IVPB DAILY [facility] Last Admin: 11/14/17 08:37 Dose: 100 mls/hr Vancomycin HCl 750 mg/ Sodium (Chloride) 250 mls @ 166.667 mls/hr IVPB Q12 [facility] PRN Reason: Protocol Last Admin: 11/14/17 21:07 Dose: 166.667 mls/hr Ibuprofen (Motrin Tab) 600 mg PO Q8 [facility] Last Admin: 11/15/17 02:03 Dose: 600 mg Lactobacillus Acidophilus (Bacid Acidophilus) 1 cap PO BID [facility] Last Admin: 11/14/17 18:43 Dose: 1 cap Lamotrigine (Lamictal) 25 mg PO DAILY [facility] Last Admin: 11/14/17 08:36 Dose: 25 mg Paliperidone (Invega) 3 mg PO BID [facility] Last Admin: 11/14/17 16:13 Dose: 3 mg Tramadol HCl (Ultram) 50 mg PO Q6 PRN PRN Reason: Pain, severe (8-10) Last Admin: 11/14/17 22:18 Dose: 50 mg Trazodone HCl (Desyrel) 50 mg PO HS [facility] Last Admin: 11/14/17 21:08 Dose: 50 mg - Labs Labs: 11/13/17 05:30 11/11/17 15:30 - Additional Findings Additional findings: Objective systemic exam - wnl Musculoskekeltal stance/gait- deferred wound drainage better, but not completely resolved arthroigram reviewed- possible fistulous tract evidence for patella instability Assessment and Plan - Assessment and Plan (Free Text) Assessment: A- drainage from L TKR wound s/p complex TKR ?patella maltracking P- awaiintg definitve culture results pt to OR after definitive cultures have declared themselves possible component revision discussed as well/ waitying for media producer to provide custom component
[2017-11-15] MEDS: Lactobacillus Acidophilus 500 MU Cap PO SCH ×2 (09:29→16:25)
[2017-11-15] MEDS: Paliperidone 3 MG ER TAB PO SCH ×2 (09:35→16:25)
--- NOTE | 2017-11-15 09:53 | CP.PCM.PN ---
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 Patient is AAOx3 and is in NAD. Patient reports of little pain to the knee but is managing it well with the medication. Patient denies of having any acute overnight events. Denied of having any overnight F/N/V/C/SOB/CP/headache/diarrhea. No new complains at this time. Objective - Vital Signs/Intake and Output Vital Signs (last 24 hours): Temp Pulse Resp BP Pulse Ox 98.8 F 93 H 20 104/64 97 11/15/17 07:56 11/15/17 07:56 11/15/17 07:56 11/15/17 07:56 11/15/17 07:56 - Medications Medications: Current Medications Benztropine Mesylate (Cogentin) 1 mg PO DAILY [facility] Last Admin: 11/15/17 09:34 Dose: 1 mg Famotidine (Pepcid) 20 mg PO BID [facility] Last Admin: 11/15/17 09:34 Dose: 20 mg Ceftriaxone Sodium 2 gm/ (Sodium Chloride) 100 mls @ 100 mls/hr IVPB DAILY [facility] Last Admin: 11/14/17 08:37 Dose: 100 mls/hr Vancomycin HCl 750 mg/ Sodium (Chloride) 250 mls @ 166.667 mls/hr IVPB Q12 [facility] PRN Reason: Protocol Last Admin: 11/15/17 09:29 Dose: 166.667 mls/hr Ibuprofen (Motrin Tab) 600 mg PO Q8 [facility] Last Admin: 11/15/17 09:35 Dose: Not Given Lactobacillus Acidophilus (Bacid Acidophilus) 1 cap PO BID [facility] Last Admin: 11/15/17 09:29 Dose: 1 cap Lamotrigine (Lamictal) 25 mg PO DAILY [facility] Last Admin: 11/15/17 09:34 Dose: 25 mg Paliperidone (Invega) 3 mg PO BID [facility] Last Admin: 11/15/17 09:35 Dose: 3 mg Tramadol HCl (Ultram) 50 mg PO Q6 PRN PRN Reason: Pain, severe (8-10) Last Admin: 11/14/17 22:18 Dose: 50 mg Trazodone HCl (Desyrel) 50 mg PO HS [facility] Last Admin: 11/14/17 21:08 Dose: 50 mg - Labs Labs: 11/13/17 05:30 11/11/17 15:30 - Constitutional Appears: Well, Non-toxic, No Acute Distress - Head Exam Head Exam: ATRAUMATIC - Eye Exam Eye Exam: Normal appearance Pupil Exam: NORMAL ACCOMODATION - Neck Exam Neck Exam: Full ROM, Normal Inspection - Respiratory Exam Respiratory Exam: Clear to Ausculation Bilateral, NORMAL BREATHING PATTERN - Cardiovascular Exam Cardiovascular Exam: REGULAR RHYTHM, +S1, +S2 - GI/Abdominal Exam GI & Abdominal Exam: Soft, Normal Bowel Sounds - Rectal Exam Rectal Exam: Deferred - Extremities Exam Extremities Exam: Full ROM, Normal Capillary Refill, Normal Inspection. absent : Calf Tenderness - Back Exam Back Exam: Full ROM, NORMAL INSPECTION - Neurological Exam Neurological Exam: Alert, Awake, Oriented x3 - Psychiatric Exam Psychiatric exam: Normal Affect, Normal Mood - Skin Additional comments: Dressing on the right knee is clean, dry and intact. 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 Plan: 1). Wound Dehiscence s/p R knee revision x2 - Ortho consult Dr. Sharpe appreciated - Aspiration arthrogram R Knee performed 11/13. Educated patient of possibility of component removal and insertion of abio impregnated spacer - Patient to the OR; awaiting final culture results. - Elevated WBC observed from synovial aspiration - Plastic surgery: - No flap reconstruction is indicated at this time, suggests patient may benefit from wound debridement procedure - wound cultures taken - Final Gram stain shows no growth - ID consult Dr. Fernandes appreciated - Recommends to continue current abx coverage - continue Rocephin and Vancomycin - cont Percocet for pain control - PT OT eval 2). Seizures - cont Lamictal 3). Schizoaffective Disorder -cont cogentin 1 mg PO qd -pt states she is on Invega 4). VTE ppx - SCDs <Marcial Dumont - Last Filed: 11/15/17 14:09> Objective - Vital Signs/Intake and Output Vital Signs (last 24 hours): Temp Pulse Resp BP Pulse Ox 98.8 F 93 H 20 104/64 97 11/15/17 07:56 11/15/17 07:56 11/15/17 07:56 11/15/17 07:56 11/15/17 07:56 - Medications Medications: Current Medications Benztropine Mesylate (Cogentin) 1 mg PO DAILY [facility] Last Admin: 11/15/17 09:34 Dose: 1 mg Famotidine (Pepcid) 20 mg PO BID [facility] Last Admin: 11/15/17 09:34 Dose: 20 mg Ceftriaxone Sodium 2 gm/ (Sodium Chloride) 100 mls @ 100 mls/hr IVPB DAILY [facility] Last Admin: 11/15/17 11:42 Dose: 100 mls/hr Vancomycin HCl 750 mg/ Sodium (Chloride) 250 mls @ 166.667 mls/hr IVPB Q12 [facility] PRN Reason: Protocol Last Admin: 11/15/17 09:29 Dose: 166.667 mls/hr Ibuprofen (Motrin Tab) 600 mg PO Q8 [facility] Last Admin: 11/15/17 09:35 Dose: Not Given Lactobacillus Acidophilus (Bacid Acidophilus) 1 cap PO BID [facility] Last Admin: 11/15/17 09:29 Dose: 1 cap Lamotrigine (Lamictal) 25 mg PO DAILY [facility] Last Admin: 11/15/17 09:34 Dose: 25 mg Paliperidone (Invega) 3 mg PO BID [facility] Last Admin: 11/15/17 09:35 Dose: 3 mg Tramadol HCl (Ultram) 50 mg PO Q6 PRN PRN Reason: Pain, severe (8-10) Last Admin: 11/14/17 22:18 Dose: 50 mg Trazodone HCl (Desyrel) 50 mg PO HS [facility] Last Admin: 11/14/17 21:08 Dose: 50 mg - Labs Labs: 11/13/17 05:30 11/11/17 15:30 Assessment and Plan - Assessment and Plan (Free Text) Plan: ATTENDING ATTESTATION: Patient was seen and examined. I discussed the case with the resident and agree with the findings and plan as documented in the residents note. Patient continues to have bleeding from surgical site with anemia. Continue close observation. IV antibiotics. As per Dr. Sharpe, patient to likely have further revision. ID consultation with Dr. Fernandes appeciated; recommends Vancomycin and Rocephin. Further wound cultures from last surgical revision pending.
[2017-11-15] MEDS: cefTRIAXone 2 GM in Sodium Chloride 0.9% 100 ML IVPB SCH (11:42)
--- NOTE | 2017-11-15 13:55 | CP.PCM.PN ---
Subjective - Date & Time of Evaluation Date of Evaluation: 11/15/17 Time of Evaluation: 13:48 - Subjective Subjective: Patient states pain is controlled. No new complaints. Objective - Vital Signs/Intake and Output Vital Signs (last 24 hours): Temp Pulse Resp BP Pulse Ox 98.8 F 93 H 20 104/64 97 11/15/17 07:56 11/15/17 07:56 11/15/17 07:56 11/15/17 07:56 11/15/17 07:56 - Medications Medications: Current Medications Benztropine Mesylate (Cogentin) 1 mg PO DAILY [facility] Last Admin: 11/15/17 09:34 Dose: 1 mg Famotidine (Pepcid) 20 mg PO BID [facility] Last Admin: 11/15/17 09:34 Dose: 20 mg Ceftriaxone Sodium 2 gm/ (Sodium Chloride) 100 mls @ 100 mls/hr IVPB DAILY [facility] Last Admin: 11/15/17 11:42 Dose: 100 mls/hr Vancomycin HCl 750 mg/ Sodium (Chloride) 250 mls @ 166.667 mls/hr IVPB Q12 [facility] PRN Reason: Protocol Last Admin: 11/15/17 09:29 Dose: 166.667 mls/hr Ibuprofen (Motrin Tab) 600 mg PO Q8 [facility] Last Admin: 11/15/17 09:35 Dose: Not Given Lactobacillus Acidophilus (Bacid Acidophilus) 1 cap PO BID [facility] Last Admin: 11/15/17 09:29 Dose: 1 cap Lamotrigine (Lamictal) 25 mg PO DAILY [facility] Last Admin: 11/15/17 09:34 Dose: 25 mg Paliperidone (Invega) 3 mg PO BID [facility] Last Admin: 11/15/17 09:35 Dose: 3 mg Tramadol HCl (Ultram) 50 mg PO Q6 PRN PRN Reason: Pain, severe (8-10) Last Admin: 11/14/17 22:18 Dose: 50 mg Trazodone HCl (Desyrel) 50 mg PO HS [facility] Last Admin: 11/14/17 21:08 Dose: 50 mg - Labs Labs: 11/13/17 05:30 11/11/17 15:30 - Extremities Exam Additional comments: RLE: knee immob intact. +ROM toes, sensation intact. +DP pulse Assessment and Plan (1) Wound dehiscence Assessment & Plan: awaiting cultures plan to follow d/w Dr. Sharpe, agrees with above Status: Acute
[2017-11-16] MEDS ORDERED: Povidone Iodine Topical 10% Sol ONE (08:11)
[2017-11-16] MEDS: cefTRIAXone 2 GM in Sodium Chloride 0.9% 100 ML IVPB SCH (08:47)
[2017-11-16] MEDS: Paliperidone 3 MG ER TAB PO SCH ×2 (08:48→16:17)
[2017-11-16] MEDS: Lactobacillus Acidophilus 500 MU Cap PO SCH ×2 (08:48→16:17)
--- NOTE | 2017-11-16 09:55 | CP.PCM.PN ---
Subjective - Date & Time of Evaluation Date of Evaluation: 11/16/17 Time of Evaluation: 10:30 - Subjective Subjective: Patient seen and examined bedside. Feeling better. Pain is controlled. Hemodynamically stable, afebrile. No acute issues overnight Feeling a little anxious. Objective - Vital Signs/Intake and Output Vital Signs (last 24 hours): Temp Pulse Resp BP Pulse Ox 97.6 F 70 20 114/71 96 11/16/17 08:13 11/16/17 08:13 11/16/17 08:13 11/16/17 08:13 11/16/17 08:13 - Medications Medications: Current Medications Benztropine Mesylate (Cogentin) 1 mg PO DAILY [facility] Last Admin: 11/16/17 08:48 Dose: 1 mg Famotidine (Pepcid) 20 mg PO BID [facility] Last Admin: 11/16/17 08:48 Dose: 20 mg Ceftriaxone Sodium 2 gm/ (Sodium Chloride) 100 mls @ 100 mls/hr IVPB DAILY [facility] Last Admin: 11/16/17 08:47 Dose: 100 mls/hr Vancomycin HCl 750 mg/ Sodium (Chloride) 250 mls @ 166.667 mls/hr IVPB Q12 [facility] PRN Reason: Protocol Last Admin: 11/15/17 20:58 Dose: 166.667 mls/hr Ibuprofen (Motrin Tab) 600 mg PO Q8 [facility] Last Admin: 11/16/17 01:00 Dose: Not Given Lactobacillus Acidophilus (Bacid Acidophilus) 1 cap PO BID [facility] Last Admin: 11/16/17 08:48 Dose: 1 cap Lamotrigine (Lamictal) 25 mg PO DAILY [facility] Last Admin: 11/16/17 08:48 Dose: 25 mg Paliperidone (Invega) 3 mg PO BID [facility] Last Admin: 11/16/17 08:48 Dose: 3 mg Tramadol HCl (Ultram) 50 mg PO Q6 PRN PRN Reason: Pain, severe (8-10) Last Admin: 11/15/17 20:56 Dose: 50 mg Trazodone HCl (Desyrel) 50 mg PO HS [facility] Last Admin: 11/15/17 20:59 Dose: 50 mg - Labs Labs: 11/13/17 05:30 11/11/17 15:30 - Constitutional Appears: Non-toxic, No Acute Distress - Head Exam Head Exam: ATRAUMATIC, NORMAL INSPECTION, NORMOCEPHALIC - Eye Exam Eye Exam: EOMI, Normal appearance, PERRL Pupil Exam: NORMAL ACCOMODATION - ENT Exam ENT Exam: Mucous Membranes Moist, Normal Exam - Neck Exam Neck Exam: Full ROM, Normal Inspection - Respiratory Exam Respiratory Exam: Clear to Ausculation Bilateral, NORMAL BREATHING PATTERN. absent: Rales, Rhonchi, Wheezes - Cardiovascular Exam Cardiovascular Exam: REGULAR RHYTHM, RRR, +S1, +S2. absent: JVD - GI/Abdominal Exam GI & Abdominal Exam: Soft, Normal Bowel Sounds. absent: Distended, Guarding, Tenderness, Rebound - Rectal Exam Rectal Exam: Deferred - Extremities Exam Extremities Exam: absent: Calf Tenderness, Pedal Edema Additional comments: right knee immobilizer in place surgical scar to anterior knee healed well small opening inferior to the knee, to the proximal portion of tibia with minimal bloody drainage - Back Exam Back Exam: NORMAL INSPECTION - Neurological Exam Neurological Exam: Alert, Awake, CN II-XII Intact, Oriented x3 - Psychiatric Exam Psychiatric exam: Anxious, Normal Affect - Skin Skin Exam: Dry, Normal Color, Warm Assessment and Plan - Assessment and Plan (Free Text) Assessment: 62 y/o female patient with 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 Patient admitted and started on vanco and rocephin Iv as per ID Plastic surgery and ortho consulted 1. Wound Dehiscence with infection s/p R knee revision x2 Ortho [address] Sharpe appreciated Aspiration arthrogram R Knee performed 11/13.Patient for OR on Saturday for component removal and insertion of antibiotic impregnated spacer Follow up cultures Plastic surgery consult with Dr. Tafoya appreciated. No flap reconstruction is indicated at this time, suggested patient have wound debridement procedure for infected wound ID consult with Dr. Fernandes appreciated.Recommends to continue IV Rocephin and Vancomycin cont Percocet for pain control PT OT eval 2. Seizures cont Lamictal 3. Schizoaffective Disorder cont cogentin 1 mg PO qd pt states she is on Invega 4.Leukopenia, WBC 2.2 today Chronic, possibly due to medications 5. History of CVA, Brain Aneurysm Chronic Stable at present 6.History of hep C Seek treatment as outpatient 7.History of heroin/cocaine abuse in the past 8.Anemia stable 9. VTE ppx SCDs start lovenox Close monitoring
--- NOTE | 2017-11-16 11:15 | CP.PCM.PN ---
Subjective - Date & Time of Evaluation Date of Evaluation: 11/16/17 Time of Evaluation: 11:10 - Subjective Subjective: S pt comfortable-still with drainage/ problem with protein malnutrition Objective - Vital Signs/Intake and Output Vital Signs (last 24 hours): Temp Pulse Resp BP Pulse Ox 97.6 F 70 20 114/71 96 11/16/17 08:13 11/16/17 08:13 11/16/17 08:13 11/16/17 08:13 11/16/17 08:13 - Medications Medications: Current Medications Benztropine Mesylate (Cogentin) 1 mg PO DAILY [facility] Last Admin: 11/16/17 08:48 Dose: 1 mg Famotidine (Pepcid) 20 mg PO BID [facility] Last Admin: 11/16/17 08:48 Dose: 20 mg Ceftriaxone Sodium 2 gm/ (Sodium Chloride) 100 mls @ 100 mls/hr IVPB DAILY [facility] Last Admin: 11/16/17 08:47 Dose: 100 mls/hr Vancomycin HCl 750 mg/ Sodium (Chloride) 250 mls @ 166.667 mls/hr IVPB Q12 [facility] PRN Reason: Protocol Last Admin: 11/16/17 10:07 Dose: 166.667 mls/hr Ibuprofen (Motrin Tab) 600 mg PO Q8 [facility] Last Admin: 11/16/17 10:08 Dose: Not Given Lactobacillus Acidophilus (Bacid Acidophilus) 1 cap PO BID [facility] Last Admin: 11/16/17 08:48 Dose: 1 cap Lamotrigine (Lamictal) 25 mg PO DAILY [facility] Last Admin: 11/16/17 08:48 Dose: 25 mg Paliperidone (Invega) 3 mg PO BID [facility] Last Admin: 11/16/17 08:48 Dose: 3 mg Tramadol HCl (Ultram) 50 mg PO Q6 PRN PRN Reason: Pain, severe (8-10) Last Admin: 11/15/17 20:56 Dose: 50 mg Trazodone HCl (Desyrel) 50 mg PO HS [facility] Last Admin: 11/15/17 20:59 Dose: 50 mg - Labs Labs: 11/13/17 05:30 11/11/17 15:30 - Additional Findings Additional findings: Objective systemic- wnl pt not eating /malnutrition contributing to overall clinical picture Musculoskeletal stance/gait- defrred R knee dressing intact still with draigae cultures pending to OR when medically/nuteritionally stable for revsision/possible [id number] removal Assessment and Plan - Assessment and Plan (Free Text) Assessment: A- s/p aspiration arthrogram R knee P to OR for definitve procedure, when culuteres have declared themselves, and when all appropriate equipment is available
--- NOTE | 2017-11-16 15:46 | OP ---
PROCEDURE DATE: 11/13/2017 OPERATIVE INDICATION: Nadira Leslie is a woman who was consulted months ago at [facility] with a chronic fracture of the tibial plateau. The fracture had been consulted and essentially ignored. The patient was taken to surgery where replacement arthroplasty was successfully accomplished. The patient was taken to a subacute nursing facility with poor wound care and the patient developed a wound drainage. Specific discussions were had regarding this patient several times regarding the application of Betadine, wet to dry dressing changes, and Infectious Disease consultation. Orders were not followed. The patient presents after having been discharged to the emergency room at [facility] with a persistently draining wound. Whether the wound is infected is not clear. The patient is admitted at this point in time and stabilization is accomplished and the patient was taken to surgery after informed consent was obtained from the patient and the daughters, Court, and after the patient's informed consent. Pros, cons, risks and benefits of aspiration arthrogram were discussed. The concept of possible patellar instability was discussed. The concept of removal of the components at a later time, insertion of an antibiotic impregnated spacer is discussed. The patient wishes the aspiration arthrogram to be accomplished, fully aware of the fact that the information obtained from the arthrogram will be important to the management of her problem. PREOPERATIVE DIAGNOSES: Rule out septic total knee replacement, persistence serosanguineous drainage from the right knee. The patient had been readmitted through the ER. POSTOPERATIVE DIAGNOSES: Awaiting cultures. As above, no active sepsis operation performed. Aspiration arthrogram of the right knee, manipulation of the knee under anesthesia, positioning of fluoroscope, interpretation of video images, application of compression dressing and knee immobilizer. SURGEON: Isaac Sharpe MD. BURNISHER AND BUMPER: Dinora Way. TYPE OF ANESTHESIA: Strict local anesthesia. ANESTHESIA ADMINISTERED BY: Dr. Isaac Sharpe, strict local anesthesia. OPERATIVE FINDINGS: As above, serosanguineous, possibly sanguineous and possibly purulent drainage, right knee. SPECIMENS REMOVED: Fluid aspirate from the knee were sent for aerobic, anaerobic, AFB, and fungal cultures, also sent for stat Gram stain with number of white cells per high-power field. No blood products given. No drains. POSTOPERATIVE CONDITION: Stable. TIME IN THE ROOM: 14:10. INCISION TIME: 14:25. DESCRIPTION OF PROCEDURE: After having obtained informed consent in the above fashion, after having obtained informed consent from the patient, Nadira Leslie and her daughters, Sandra and Olga, the patient identified as Nadira Leslie in the supine position with all bony prominences well padded. The right lower extremity was prepped and free draped in the usual fashion for extremity surgery. Under the surgeon's direction, the fluoroscope was positioned, the video images were generated, therapeutic decisions were made therefrom. There was found to be a draining sinus tract of approximately 5-6 mm communicating with the skin. At this point in time, Hypaque radiopaque contrast was introduced in the suprapatellar region and in the knee region. Manipulation of the knee was accomplished. The knee was found to be stable. There was evidence of some patellar instability. There was possibly damaged medial patellar retinaculum from a previous rehab in the rehab facility. This was not evident on discharge from [facility] from the initial procedure. This having been accomplished, the fluid was removed. Under the surgeon's direction, the fluoroscope was positioned. Video images were generated. Therapeutic decisions were made therefrom. There was found to be no evidence of loosening, no evidence of osteomyelitis on fluoroscopy. There was evidence of some patella luxation. The fluid was removed and aliquots of fluid were sent for aerobic, anaerobic, AFB, and fungal cultures, stat Gram stain with number of white cells per high-power field was sent as well. The wound was thoroughly irrigated. The knee was again manipulated. Harvey Womack compression dressing is applied and a knee immobilizer. Isaac Sharpe MD
[2017-11-17 07:42] LABS: INR 1.2 (0.9-1.2); PROTHROMBIN TIME 13.1 Seconds (9.8-13.1)
[2017-11-17 07:45] LABS: BLOOD UREA NITROGEN 11 mg/dl (7-17); CALCIUM 8.6 mg/dL (8.4-10.2); GFR AFRICAN-AMERICAN > 60; GFR NON-AFRICAN AMERICAN > 60
[2017-11-17] MEDS: Lactobacillus Acidophilus 500 MU Cap PO SCH ×2 (08:32→16:37)
[2017-11-17] MEDS: Enoxaparin 40 mg Syringe SC SCH (08:32)
[2017-11-17] MEDS: Paliperidone 3 MG ER TAB PO SCH ×2 (08:32→16:38)
[2017-11-17] MEDS: cefTRIAXone 2 GM in Sodium Chloride 0.9% 100 ML IVPB SCH (08:33)
--- NOTE | 2017-11-17 10:53 | CP.PCM.PN ---
Subjective - Date & Time of Evaluation Date of Evaluation: 11/17/17 Time of Evaluation: 10:45 - Subjective Subjective: Patient seen bedside. Comfortable , pain is controlled Hemodynamically stable, afebrile No acute issues overnight Objective - Vital Signs/Intake and Output Vital Signs (last 24 hours): Temp Pulse Resp BP Pulse Ox 98.4 F 81 20 104/68 95 11/17/17 07:35 11/17/17 07:35 11/17/17 07:35 11/17/17 07:35 11/17/17 07:35 - Medications Medications: Current Medications Benztropine Mesylate (Cogentin) 1 mg PO DAILY [facility] Last Admin: 11/17/17 08:32 Dose: 1 mg Enoxaparin Sodium (Lovenox) 40 mg SC DAILY [facility] PRN Reason: Protocol Last Admin: 11/17/17 08:32 Dose: 40 mg Famotidine (Pepcid) 20 mg PO BID [facility] Last Admin: 11/17/17 08:32 Dose: 20 mg Vancomycin HCl 750 mg/ Sodium (Chloride) 250 mls @ 166.667 mls/hr IVPB Q12 [facility] PRN Reason: Protocol Last Admin: 11/17/17 10:10 Dose: 166.667 mls/hr Ibuprofen (Motrin Tab) 600 mg PO Q8 [facility] Last Admin: 11/17/17 08:38 Dose: Not Given Lactobacillus Acidophilus (Bacid Acidophilus) 1 cap PO BID [facility] Last Admin: 11/17/17 08:32 Dose: 1 cap Lamotrigine (Lamictal) 25 mg PO DAILY [facility] Last Admin: 11/17/17 08:32 Dose: 25 mg Paliperidone (Invega) 3 mg PO BID [facility] Last Admin: 11/17/17 08:32 Dose: 3 mg Tramadol HCl (Ultram) 50 mg PO Q6 PRN PRN Reason: Pain, severe (8-10) Last Admin: 11/16/17 21:25 Dose: 50 mg Trazodone HCl (Desyrel) 50 mg PO HS [facility] Last Admin: 11/16/17 21:22 Dose: 50 mg - Labs Labs: 11/13/17 05:30 11/17/17 06:30 PT 13.1 Seconds (9.8-13.1) 11/17/17 06:30 INR 1.2 (0.9-1.2) 11/17/17 06:30 - Constitutional Appears: Non-toxic, No Acute Distress - Head Exam Head Exam: ATRAUMATIC, NORMOCEPHALIC - Eye Exam Eye Exam: EOMI, PERRL Pupil Exam: NORMAL ACCOMODATION - ENT Exam ENT Exam: Mucous Membranes Moist, Normal Exam - Neck Exam Neck Exam: Full ROM, Normal Inspection - Respiratory Exam Respiratory Exam: Clear to Ausculation Bilateral, NORMAL BREATHING PATTERN. absent: Accessory Muscle Use, Prolonged Expiratory Phase, Wheezes, Respiratory Distress - Cardiovascular Exam Cardiovascular Exam: REGULAR RHYTHM, RRR, +S1, +S2. absent: JVD - GI/Abdominal Exam GI & Abdominal Exam: Soft, Normal Bowel Sounds. 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 Patient admitted and started on vanco and rocephin Iv as per ID Plastic surgery and ortho consulted 1. Wound Dehiscence with infection s/p R knee revision x2 Ortho consult Dr. Sharpe appreciated Aspiration arthrogram R Knee performed 11/13.Patient for OR on Saturday for component removal and insertion of antibiotic impregnated spacer Follow up cultures Plastic surgery consult with Dr. Tafoya appreciated. No flap reconstruction is indicated at this time, suggested patient have wound debridement procedure for infected wound ID consult with Dr. Fernandes appreciated.Recommends to continue IV Rocephin and Vancomycin cont Percocet for pain control PT OT eval 2. Seizures cont Lamictal 3. Schizoaffective Disorder cont cogentin 1 mg PO qd pt states she is on Invega 4.Leukopenia, WBC 2.2 today Chronic, possibly due to medications 5. History of CVA, Brain Aneurysm Chronic Stable at present 6.History of hep C Seek treatment as outpatient 7.History of heroin/cocaine abuse in the past 8.Anemia stable 9. VTE ppx SCDs started lovenox Close monitoring
[2017-11-17 12:33] LABS: HEMOGLOBIN 10.2 g/dL (12.0-16.0); MEAN CELL VOLUME 91.9 fl (81.0-99.0); MEAN CORPUSCULAR HEMOGLOBIN 30.1 pg (27.0-31.0); MEAN CORPUSCULAR HGB CONC 32.7 g/dL (33.0-37.0); RBC 3.39 Mil/uL (3.80-5.20); RED CELL DISTRIBUTION WIDTH 15.3 % (11.5-14.5); WHITE BLOOD COUNT 2.3 K/uL (4.8-10.8)
--- NOTE | 2017-11-17 15:41 | CP.PCM.PN ---
Subjective - Date & Time of Evaluation Date of Evaluation: 11/17/17 Time of Evaluation: 15:39 - Subjective Subjective: id note continue iv antibiotics need to discuss patient c chapin ross Objective - Vital Signs/Intake and Output Vital Signs (last 24 hours): Temp Pulse Resp BP Pulse Ox 98.4 F 81 20 104/68 95 11/17/17 07:35 11/17/17 07:35 11/17/17 07:35 11/17/17 07:35 11/17/17 07:35 - Medications Medications: Current Medications Benztropine Mesylate (Cogentin) 1 mg PO DAILY [facility] Last Admin: 11/17/17 08:32 Dose: 1 mg Enoxaparin Sodium (Lovenox) 40 mg SC DAILY [facility] PRN Reason: Protocol Last Admin: 11/17/17 08:32 Dose: 40 mg Famotidine (Pepcid) 20 mg PO BID [facility] Last Admin: 11/17/17 08:32 Dose: 20 mg Vancomycin HCl 750 mg/ Sodium (Chloride) 250 mls @ 166.667 mls/hr IVPB Q12 [facility] PRN Reason: Protocol Last Admin: 11/17/17 10:10 Dose: 166.667 mls/hr Ibuprofen (Motrin Tab) 600 mg PO Q8 [facility] Last Admin: 11/17/17 08:38 Dose: Not Given Lactobacillus Acidophilus (Bacid Acidophilus) 1 cap PO BID [facility] Last Admin: 11/17/17 08:32 Dose: 1 cap Lamotrigine (Lamictal) 25 mg PO DAILY [facility] Last Admin: 11/17/17 08:32 Dose: 25 mg Paliperidone (Invega) 3 mg PO BID [facility] Last Admin: 11/17/17 08:32 Dose: 3 mg Tramadol HCl (Ultram) 50 mg PO Q6 PRN PRN Reason: Pain, severe (8-10) Last Admin: 11/16/17 21:25 Dose: 50 mg Trazodone HCl (Desyrel) 50 mg PO HS [facility] Last Admin: 11/16/17 21:22 Dose: 50 mg - Labs Labs: 11/17/17 06:30 11/17/17 06:30 PT 13.1 Seconds (9.8-13.1) 11/17/17 06:30 INR 1.2 (0.9-1.2) 11/17/17 06:30
--- NOTE | 2017-11-18 07:37 | CP.PCM.PN ---
Subjective - Date & Time of Evaluation Date of Evaluation: 11/18/17 Time of Evaluation: 11:00 - Subjective Subjective: patient seen and examined bedside. feeling well. pain is controlled. Hemodynamically stable, afebrile for OR in Am Objective - Vital Signs/Intake and Output Vital Signs (last 24 hours): Temp Pulse Resp BP Pulse Ox 98.1 F 104 H 20 123/83 97 11/17/17 23:30 11/17/17 23:30 11/17/17 23:30 11/17/17 23:30 11/17/17 23:30 - Medications Medications: Current Medications Benztropine Mesylate (Cogentin) 1 mg PO DAILY [facility] Last Admin: 11/17/17 08:32 Dose: 1 mg Enoxaparin Sodium (Lovenox) 40 mg SC DAILY [facility] PRN Reason: Protocol Last Admin: 11/17/17 08:32 Dose: 40 mg Famotidine (Pepcid) 20 mg PO BID [facility] Last Admin: 11/17/17 16:38 Dose: 20 mg Vancomycin HCl 750 mg/ Sodium (Chloride) 250 mls @ 166.667 mls/hr IVPB Q12 [facility] PRN Reason: Protocol Last Admin: 11/17/17 20:59 Dose: 166.667 mls/hr Ibuprofen (Motrin Tab) 600 mg PO Q8 [facility] Last Admin: 11/18/17 01:55 Dose: 600 mg Lactobacillus Acidophilus (Bacid Acidophilus) 1 cap PO BID [facility] Last Admin: 11/17/17 16:37 Dose: 1 cap Lamotrigine (Lamictal) 25 mg PO DAILY [facility] Last Admin: 11/17/17 08:32 Dose: 25 mg Paliperidone (Invega) 3 mg PO BID [facility] Last Admin: 11/17/17 16:38 Dose: 3 mg Tramadol HCl (Ultram) 50 mg PO Q6 PRN PRN Reason: Pain, severe (8-10) Last Admin: 11/18/17 03:49 Dose: 50 mg Trazodone HCl (Desyrel) 50 mg PO HS [facility] Last Admin: 11/17/17 20:59 Dose: 50 mg - Labs Labs: 11/17/17 06:30 11/17/17 06:30 PT 13.1 Seconds (9.8-13.1) 11/17/17 06:30 INR 1.2 (0.9-1.2) 11/17/17 06:30 - Constitutional Appears: Non-toxic, No Acute Distress - Head Exam Head Exam: ATRAUMATIC, NORMAL INSPECTION, NORMOCEPHALIC - Eye Exam Eye Exam: EOMI, Normal appearance, PERRL Pupil Exam: NORMAL ACCOMODATION - ENT Exam ENT Exam: Mucous Membranes Moist, Normal Exam - Neck Exam Neck Exam: Full ROM, Normal Inspection - Respiratory Exam Respiratory Exam: Clear to Ausculation Bilateral, NORMAL BREATHING PATTERN. absent: Rales, Rhonchi, Wheezes - Cardiovascular Exam Cardiovascular Exam: REGULAR RHYTHM, RRR, +S1, +S2. absent: JVD - GI/Abdominal Exam GI & Abdominal Exam: Soft, Normal Bowel Sounds. 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 Patient admitted and started on vanco and rocephin Iv as per ID Plastic surgery and ortho consulted Plan to go back to OR tomorrow by Dr. Riddle 1. Wound Dehiscence with infection s/p R knee revision x2 Ortho consult Dr. Sharpe appreciated Aspiration arthrogram R Knee performed 11/13.Patient for OR i n AM for component removal and insertion of antibiotic impregnated spacer Cultures with no growth so far .Follow up results Plastic surgery consult with Dr. Tafoya appreciated. No flap reconstruction is indicated at this time, suggested patient have wound debridement procedure for infected wound ID consult with Dr. Fernandes appreciated.Recommends to continue IV Rocephin and Vancomycin cont Percocet for pain control PT OT eval 2. Seizures cont Lamictal 3. Schizoaffective Disorder cont cogentin 1 mg PO qd pt states she is on Invega 4.Leukopenia, WBC 2.2 today Chronic, possibly due to medications 5. History of CVA, Brain Aneurysm Chronic Stable at present 6.History of hep C Seek treatment as outpatient 7.History of heroin/cocaine abuse in the past 8.Anemia stable 9. VTE ppx SCDs on lovenox hold lovenox tonight for OR in Am Close monitoring
[2017-11-18] MEDS: Lactobacillus Acidophilus 500 MU Cap PO SCH ×2 (08:26→16:49)
[2017-11-18] MEDS: Enoxaparin 40 mg Syringe SC SCH (08:27)
[2017-11-18] MEDS: Paliperidone 3 MG ER TAB PO SCH ×2 (08:27→16:49)
--- NOTE | 2017-11-18 10:24 | CP.PCM.PN ---
Subjective - Date & Time of Evaluation Date of Evaluation: 11/18/17 Time of Evaluation: 10:22 - Subjective Subjective: Patient comfortable. No new complaints. Objective - Vital Signs/Intake and Output Vital Signs (last 24 hours): Temp Pulse Resp BP Pulse Ox 98 F 60 20 97/60 L 98 11/18/17 07:56 11/18/17 07:56 11/18/17 07:56 11/18/17 07:56 11/18/17 07:56 - Medications Medications: Current Medications Benztropine Mesylate (Cogentin) 1 mg PO DAILY [facility] Last Admin: 11/18/17 08:26 Dose: 1 mg Enoxaparin Sodium (Lovenox) 40 mg SC DAILY [facility] PRN Reason: Protocol Last Admin: 11/18/17 08:27 Dose: 40 mg Famotidine (Pepcid) 20 mg PO BID [facility] Last Admin: 11/18/17 08:26 Dose: 20 mg Vancomycin HCl 750 mg/ Sodium (Chloride) 250 mls @ 166.667 mls/hr IVPB Q12 [facility] PRN Reason: Protocol Last Admin: 11/18/17 08:27 Dose: 166.667 mls/hr Ibuprofen (Motrin Tab) 600 mg PO Q8 [facility] Last Admin: 11/18/17 09:43 Dose: Not Given Lactobacillus Acidophilus (Bacid Acidophilus) 1 cap PO BID [facility] Last Admin: 11/18/17 08:26 Dose: 1 cap Lamotrigine (Lamictal) 25 mg PO DAILY [facility] Last Admin: 11/18/17 08:27 Dose: 25 mg Paliperidone (Invega) 3 mg PO BID [facility] Last Admin: 11/18/17 08:27 Dose: 3 mg Tramadol HCl (Ultram) 50 mg PO Q6 PRN PRN Reason: Pain, severe (8-10) Last Admin: 11/18/17 03:49 Dose: 50 mg Trazodone HCl (Desyrel) 50 mg PO HS [facility] Last Admin: 11/17/17 20:59 Dose: 50 mg - Labs Labs: 11/17/17 06:30 11/17/17 06:30 PT 13.1 Seconds (9.8-13.1) 11/17/17 06:30 INR 1.2 (0.9-1.2) 11/17/17 06:30 - Extremities Exam Additional comments: RLE: +ROM ankle/toes, sensation intact, +DP/PT pulses Assessment and Plan (1) Wound dehiscence Assessment & Plan: cultures prelim negative d/w Dr. samson regarding plan f/u final cultures Status: Acute
[2017-11-18] MEDS: cefTRIAXone 2 GM in Sodium Chloride 0.9% 100 ML IVPB SCH (15:00)
--- NOTE | 2017-11-18 16:09 | RAD ---
PROCEDURE: Intraoperative Fluoroscopy. HISTORY: RIGHT KNEE FINDINGS: Fluoroscopic assistance was provided for right knee surgical intervention. Please refer to the operative report from the procedure: 3.0 seconds. Total exam DLP: (mGy): 0.16.
--- NOTE | 2017-11-18 16:17 | CP.PCM.PN ---
Subjective - Date & Time of Evaluation Date of Evaluation: 11/18/17 Time of Evaluation: 16:15 - Subjective Subjective: I D NOTE FOR OR TOMORROW CULTURES ARE ALL NEGATIVE WILL REVIEW C ORTHO TOMORROW POST OP Objective - Vital Signs/Intake and Output Vital Signs (last 24 hours): Temp Pulse Resp BP Pulse Ox 98.2 F 71 18 106/68 98 11/18/17 16:08 11/18/17 16:08 11/18/17 16:08 11/18/17 16:08 11/18/17 16:08 - Medications Medications: Current Medications Benztropine Mesylate (Cogentin) 1 mg PO DAILY [facility] Last Admin: 11/18/17 08:26 Dose: 1 mg Enoxaparin Sodium (Lovenox) 40 mg SC DAILY [facility] PRN Reason: Protocol Last Admin: 11/18/17 08:27 Dose: 40 mg Famotidine (Pepcid) 20 mg PO BID [facility] Last Admin: 11/18/17 08:26 Dose: 20 mg Vancomycin HCl 750 mg/ Sodium (Chloride) 250 mls @ 166.667 mls/hr IVPB Q12 [facility] PRN Reason: Protocol Last Admin: 11/18/17 08:27 Dose: 166.667 mls/hr Ceftriaxone Sodium 2 gm/ (Sodium Chloride) 100 mls @ 100 mls/hr IVPB DAILY [facility] PRN Reason: Protocol Ibuprofen (Motrin Tab) 600 mg PO Q8 [facility] Last Admin: 11/18/17 09:43 Dose: Not Given Lactobacillus Acidophilus (Bacid Acidophilus) 1 cap PO BID [facility] Last Admin: 11/18/17 08:26 Dose: 1 cap Lamotrigine (Lamictal) 25 mg PO DAILY [facility] Last Admin: 11/18/17 08:27 Dose: 25 mg Paliperidone (Invega) 3 mg PO BID [facility] Last Admin: 11/18/17 08:27 Dose: 3 mg Tramadol HCl (Ultram) 50 mg PO Q6 PRN PRN Reason: Pain, severe (8-10) Last Admin: 11/18/17 03:49 Dose: 50 mg Trazodone HCl (Desyrel) 50 mg PO HS [facility] Last Admin: 11/17/17 20:59 Dose: 50 mg - Labs Labs: 11/17/17 06:30 11/17/17 06:30 PT 13.1 Seconds (9.8-13.1) 11/17/17 06:30 INR 1.2 (0.9-1.2) 11/17/17 06:30
[2017-11-19 06:12] LABS: HEMOGLOBIN 10.3 g/dL (12.0-16.0); MEAN CELL VOLUME 91.1 fl (81.0-99.0); MEAN CORPUSCULAR HEMOGLOBIN 29.9 pg (27.0-31.0); MEAN CORPUSCULAR HGB CONC 32.9 g/dL (33.0-37.0); RBC 3.44 Mil/uL (3.80-5.20); RED CELL DISTRIBUTION WIDTH 14.9 % (11.5-14.5)
[2017-11-19 06:19] LABS: BLOOD UREA NITROGEN 11 mg/dl (7-17); CALCIUM 8.5 mg/dL (8.4-10.2); GFR AFRICAN-AMERICAN > 60; GFR NON-AFRICAN AMERICAN > 60
[2017-11-19 06:20] LABS: WHITE BLOOD COUNT 2.3 K/uL (4.8-10.8)
[2017-11-19 06:41] LABS: INR 1.2 (0.9-1.2)
[2017-11-19] MEDS: Lactobacillus Acidophilus 500 MU Cap PO SCH ×2 (08:35→17:23)
[2017-11-19] MEDS: Enoxaparin 40 mg Syringe SC SCH (08:36)
[2017-11-19] MEDS: Paliperidone 3 MG ER TAB PO SCH ×2 (08:36→17:19)
--- NOTE | 2017-11-19 11:44 | CP.PCM.CON ---
History of Present Illness - History of Present Illness History of Present Illness: 62 year old female with a history of schizophrenia, substance abuse, right TKR s /p revission x 2, admitted with right wound dehiscence and drainage for OR with pancytopenia and neutropenia. She has not had any abnormal bleeding or hemostasis issues with prior surgery. She denies getting sick frequently but is noted to have neutropenia going back in our system since 2013. Past medical history: Schizophrenia, leukopenia Past surgical history: right TKR Family history: Denies hematologic and oncologic problems Social history: Denies tobacco, alcohol, and illicit drug use. Allergies: Lorazepam Review of systems: All remaining review of systems including HEENT, cardiovascular, respiratory, gastrointestinal, genitourinary, musculoskeletal, dermatologic, neurologic, and psychiatric are negative unless mentioned in the HPI. Past Patient History - Infectious Disease Hx of Infectious Diseases: None - Tetanus Immunizations Tetanus Immunization: Unknown - Past Medical History & Family History Past Medical History?: Yes - Past Social History Alcohol: None Drugs: Prescription medications - CARDIAC Hx Atrial Fibrillation: No Hx Cardia Arrhythmia: No Hx Congestive Heart Failure: No Hx Hypercholesterolemia: No Hx Hypertension: No - PULMONARY Hx Asthma: No Hx Bronchitis: No Hx Chronic Obstructive Pulmonary Disease (COPD): No Hx Emphysema: No - NEUROLOGICAL Hx Alzheimer's Disease: No Hx Dementia: No Hx Seizures: Yes Hx Transient Ischemic Attacks (TIA): Yes - HEENT Hx HEENT Problems: No - RENAL Hx Chronic Kidney Disease: No - ENDOCRINE/METABOLIC Hx Endocrine Disorders: No - HEMATOLOGICAL/ONCOLOGICAL Hx Human Immunodeficiency Virus (HIV): No - INTEGUMENTARY Hx Dermatological Problems: No - MUSCULOSKELETAL/RHEUMATOLOGICAL Hx Musculoskeletal Disorders: Yes Hx Falls: Yes - GASTROINTESTINAL Hx Gastritis: Yes - GENITOURINARY/GYNECOLOGICAL Hx Sexually Transmitted Disorders: No - PSYCHIATRIC Hx Anxiety: Yes Hx Bipolar Disorder: Yes Hx Depression: Yes Hx Schizophrenia: Yes - SURGICAL HISTORY Hx Cholecystectomy: Yes - ANESTHESIA Hx Anesthesia: Yes Hx Anesthesia Reactions: No Meds Home Medications: Home Medication List Medication Instructions Recorded Confirmed Type Vancomycin [Vancomycin Inj] 1 gm IV Q12 21 Days #42 vial 11/14/17 Rx cefTRIAXone [Rocephin] 2 gm IVPB DAILY #21 vial 11/14/17 Rx Allergies/Adverse Reactions: Allergies Allergy/AdvReac Type Severity Reaction Status Date / Time No Known Allergies Allergy Verified 10/06/17 13:07 - Medications Medications: Current Medications Benztropine Mesylate (Cogentin) 1 mg PO DAILY [facility] Last Admin: 11/18/17 08:26 Dose: 1 mg Enoxaparin Sodium (Lovenox) 40 mg SC DAILY [facility] PRN Reason: Protocol Last Admin: 11/19/17 08:36 Dose: Not Given Famotidine (Pepcid) 20 mg PO BID [facility] Last Admin: 11/19/17 08:36 Dose: Not Given Vancomycin HCl 750 mg/ Sodium (Chloride) 250 mls @ 166.667 mls/hr IVPB Q12 [facility] PRN Reason: Protocol Last Admin: 11/18/17 21:20 Dose: 166.667 mls/hr Ceftriaxone Sodium 2 gm/ (Sodium Chloride) 100 mls @ 100 mls/hr IVPB DAILY [facility] PRN Reason: Protocol Last Admin: 11/18/17 15:00 Dose: 100 mls/hr Ibuprofen (Motrin Tab) 600 mg PO Q8 [facility] Last Admin: 11/19/17 10:06 Dose: Not Given Lactobacillus Acidophilus (Bacid Acidophilus) 1 cap PO BID [facility] Last Admin: 11/19/17 08:35 Dose: Not Given Lamotrigine (Lamictal) 25 mg PO DAILY [facility] Last Admin: 11/18/17 08:27 Dose: 25 mg Paliperidone (Invega) 3 mg PO BID [facility] Last Admin: 11/19/17 08:36 Dose: Not Given Tramadol HCl (Ultram) 50 mg PO Q6 PRN PRN Reason: Pain, severe (8-10) Last Admin: 11/18/17 19:48 Dose: 50 mg Trazodone HCl (Desyrel) 50 mg PO HS [facility] Last Admin: 11/18/17 21:21 Dose: 50 mg Physical Exam - Head Exam Head Exam: ATRAUMATIC - Eye Exam Eye Exam: Normal appearance - ENT Exam ENT Exam: Mucous Membranes Dry - Respiratory Exam Respiratory Exam: NORMAL BREATHING PATTERN - Cardiovascular Exam Cardiovascular Exam: +S1, +S2 - GI/Abdominal Exam GI & Abdominal Exam: Normal Bowel Sounds Results - Vital Signs Recent Vital Signs: Last Vital Signs Temp 97.6 F 11/19/17 08:29 Pulse 79 11/19/17 08:29 Resp 20 11/19/17 08:29 BP 94/63 L 11/19/17 08:29 Pulse Ox 97 11/19/17 08:29 - Labs Result Diagrams: 11/19/17 05:20 11/19/17 05:20 Labs: Laboratory Results - last 24 hr 11/18/17 11/19/17 11/19/17 16:19 05:20 05:20 WBC 2.3 L RBC 3.44 L Hgb 10.3 L Hct 31.4 L MCV 91.1 MCH 29.9 MCHC 32.9 L RDW 14.9 H Plt Count 96 L PT 13.0 INR 1.2 Sodium Potassium Chloride Carbon Dioxide Anion Gap BUN Creatinine Est GFR ( Amer) Est GFR (Non-Af Amer) Random Glucose Calcium Vancomycin Trough 13.2 H 11/19/17 11/19/17 05:20 07:25 WBC RBC Hgb Hct MCV MCH MCHC RDW Plt Count PT INR Sodium 141 Potassium 3.9 Chloride 106 Carbon Dioxide 30 Anion Gap 9 L BUN 11 Creatinine 0.6 L Est GFR ( Amer) > 60 Est GFR (Non-Af Amer) > 60 Random Glucose 88 Calcium 8.5 Vancomycin Trough 11.7 H Assessment & Plan (1) Pancytopenia Assessment and Plan: chronic since 2012 in our system hep C positive ? liver disease with splenomegaly causing sequestration; will check ultrasound of the abdomen discussed bone marrow biopsy evaluation to rule out bone marrow pathology; pt agreeable and will plan for tomorrow AM repeat coags and manual platelet count prior to orthopedic surgery Thank you for this interesting consult. Status: Acute
[2017-11-19] MEDS: cefTRIAXone 2 GM in Sodium Chloride 0.9% 100 ML IVPB SCH (14:10)
[2017-11-19] MEDS ORDERED: Lidocaine 2% Inj (20ml) IJ ONE (14:15)
--- NOTE | 2017-11-19 16:42 | CP.PCM.PN ---
Subjective - Date & Time of Evaluation Date of Evaluation: 11/19/17 Time of Evaluation: 10:45 - Subjective Subjective: No fever Pain controlled no bleeding no CP no SOB no abd pain Objective - Vital Signs/Intake and Output Vital Signs (last 24 hours): Temp Pulse Resp BP Pulse Ox 98.5 F 96 H 20 104/65 95 11/19/17 16:37 11/19/17 16:37 11/19/17 16:37 11/19/17 16:37 11/19/17 16:37 - Medications Medications: Current Medications Benztropine Mesylate (Cogentin) 1 mg PO DAILY [facility] Last Admin: 11/19/17 12:30 Dose: 1 mg Enoxaparin Sodium (Lovenox) 40 mg SC DAILY [facility] PRN Reason: Protocol Last Admin: 11/19/17 08:36 Dose: Not Given Famotidine (Pepcid) 20 mg PO BID [facility] Last Admin: 11/19/17 08:36 Dose: Not Given Vancomycin HCl 750 mg/ Sodium (Chloride) 250 mls @ 166.667 mls/hr IVPB Q12 [facility] PRN Reason: Protocol Last Admin: 11/19/17 09:00 Dose: 166.667 mls/hr Ceftriaxone Sodium 2 gm/ (Sodium Chloride) 100 mls @ 100 mls/hr IVPB DAILY [facility] PRN Reason: Protocol Last Admin: 11/19/17 14:10 Dose: 100 mls/hr Ibuprofen (Motrin Tab) 600 mg PO Q8 [facility] Last Admin: 11/19/17 10:06 Dose: Not Given Lactobacillus Acidophilus (Bacid Acidophilus) 1 cap PO BID [facility] Last Admin: 11/19/17 08:35 Dose: Not Given Lamotrigine (Lamictal) 25 mg PO DAILY [facility] Last Admin: 11/19/17 12:30 Dose: 25 mg Paliperidone (Invega) 3 mg PO BID [facility] Last Admin: 11/19/17 08:36 Dose: Not Given Tramadol HCl (Ultram) 50 mg PO Q6 PRN PRN Reason: Pain, severe (8-10) Last Admin: 11/19/17 12:35 Dose: 50 mg Trazodone HCl (Desyrel) 50 mg PO HS [facility] Last Admin: 11/18/17 21:21 Dose: 50 mg - Labs Labs: 11/19/17 05:20 11/19/17 05:20 PT 13.0 Seconds (9.8-13.1) 11/19/17 05:20 INR 1.2 (0.9-1.2) 11/19/17 05:20 - Constitutional Appears: Non-toxic, No Acute Distress - Head Exam Head Exam: ATRAUMATIC, NORMAL INSPECTION, NORMOCEPHALIC - Eye Exam Eye Exam: EOMI, Normal appearance, PERRL Pupil Exam: NORMAL ACCOMODATION - ENT Exam ENT Exam: Mucous Membranes Moist, Normal Exam - Neck Exam Neck Exam: Full ROM, Normal Inspection - Respiratory Exam Respiratory Exam: Clear to Ausculation Bilateral, NORMAL BREATHING PATTERN. absent: Rales, Rhonchi, Wheezes - Cardiovascular Exam Cardiovascular Exam: REGULAR RHYTHM, RRR, +S1, +S2. absent: JVD - GI/Abdominal Exam GI & Abdominal Exam: Soft, Normal Bowel Sounds. 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 Patient admitted and started on vanco and rocephin Iv as per ID recommendation. Ortho and plastic Surgery consulted 1. Wound Dehiscence with infection s/p R knee revision x2 Ortho consult Dr. Sharpe Aspiration arthrogram R Knee performed 11/13. Plan for component removal and insertion of antibiotic impregnated spacer once pt is medically optimized Cultures with no growth so far .Follow up results Plastic surgery consult with Dr. Tafoya appreciated. No flap reconstruction is indicated at this time, suggested patient have wound debridement procedure for infected wound ID consult with Dr. Fernandes appreciated. Recommends to continue IV Rocephin and Vancomycin cont Percocet for pain control PT OT eval 2. Seizures cont Lamictal 3. Schizoaffective Disorder cont cogentin 1 mg PO qd pt is on Invega 4. Pancytopenia ? related to Hep C ??? Hematology consulted Plan for Bone Marrow Biopsy in am 5. History of CVA, Brain Aneurysm Chronic Stable at present 6.History of hep C advised pt to have outpt ff up 7.History of heroin/cocaine abuse in the past VTE ppx SCDs on lovenox hold lovenox for now - plan for BM in am Close monitoring
--- NOTE | 2017-11-20 08:55 | CP.PCM.PN ---
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 Patient is AAOx3 and is in NAD. Denies of having any acute overnight events. Denies of having any recent F/N/V/C /SOB/CP/headache/diarrhea. Denies of having any other complains at this time. Objective - Vital Signs/Intake and Output Vital Signs (last 24 hours): Temp Pulse Resp BP Pulse Ox 97.9 F 80 20 95/58 L 95 11/20/17 08:37 11/20/17 08:37 11/20/17 08:37 11/20/17 08:37 11/20/17 08:37 - Medications Medications: Current Medications Benztropine Mesylate (Cogentin) 1 mg PO DAILY [facility] Last Admin: 11/19/17 12:30 Dose: 1 mg Famotidine (Pepcid) 20 mg PO BID [facility] Last Admin: 11/19/17 17:18 Dose: 20 mg Vancomycin HCl 750 mg/ Sodium (Chloride) 250 mls @ 166.667 mls/hr IVPB Q12 [facility] PRN Reason: Protocol Last Admin: 11/19/17 21:29 Dose: 166.667 mls/hr Ceftriaxone Sodium 2 gm/ (Sodium Chloride) 100 mls @ 100 mls/hr IVPB DAILY [facility] PRN Reason: Protocol Last Admin: 11/19/17 14:10 Dose: 100 mls/hr Ibuprofen (Motrin Tab) 600 mg PO Q8 [facility] Last Admin: 11/19/17 23:59 Dose: 600 mg Lactobacillus Acidophilus (Bacid Acidophilus) 1 cap PO BID [facility] Last Admin: 11/19/17 17:23 Dose: 1 cap Lamotrigine (Lamictal) 25 mg PO DAILY [facility] Last Admin: 11/19/17 12:30 Dose: 25 mg Paliperidone (Invega) 3 mg PO BID [facility] Last Admin: 11/19/17 17:19 Dose: 3 mg Tramadol HCl (Ultram) 50 mg PO Q6 PRN PRN Reason: Pain, severe (8-10) Last Admin: 11/20/17 03:00 Dose: 50 mg Trazodone HCl (Desyrel) 50 mg PO HS [facility] Last Admin: 11/19/17 21:30 Dose: 50 mg - Labs Labs: 11/19/17 05:20 11/19/17 05:20 PT 13.0 Seconds (9.8-13.1) 11/19/17 05:20 INR 1.2 (0.9-1.2) 11/19/17 05:20 - Constitutional Appears: Well, Non-toxic, No Acute Distress - Head Exam Head Exam: ATRAUMATIC - Eye Exam Eye Exam: Normal appearance - ENT Exam ENT Exam: Normal Exam - Neck Exam Neck Exam: Full ROM - Respiratory Exam Respiratory Exam: Clear to Ausculation Bilateral, NORMAL BREATHING PATTERN - Cardiovascular Exam Cardiovascular Exam: REGULAR RHYTHM, +S1, +S2 - GI/Abdominal Exam GI & Abdominal Exam: Soft, Normal Bowel Sounds - Rectal Exam Rectal Exam: Deferred - Extremities Exam Extremities Exam: Normal Capillary Refill, Normal Inspection. 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 Plan: 1. Wound Dehiscence with infection s/p R knee revision x2 - Ortho consult Dr. Sharpe - Aspiration arthrogram R Knee performed 11/13. Plan for component removal and insertion of antibiotic impregnated spacer once pt is medically optimized - Cultures with no growth - Plastic surgery consult with Dr. Tafoya appreciated. No flap reconstruction is indicated at this time, suggested patient have wound debridement procedure for infected wound - ID consult with Dr. Fernandes appreciated. Recommends to continue IV Rocephin and Vancomycin - cont Percocet for pain control - PT OT eval 2. Seizures - cont Lamictal 3. Schizoaffective Disorder - cont cogentin 1 mg PO qd - pt is on Invega 4. Pancytopenia - ? related to Hep C ??? - Hematology consulted - Bone Marrow Biopsy today 5. History of CVA, Brain Aneurysm - Chronic - Stable at present 6.History of hep C - advised pt to have outpt follow up 7.History of heroin/cocaine abuse in the past 8.VTE ppx - SCDs - on lovenox - hold lovenox for now - plan for Bone marrow biopsy today - Close monitoring <Mile Wiggins - Last Filed: 11/20/17 14:26> Objective - Vital Signs/Intake and Output Vital Signs (last 24 hours): Temp Pulse Resp BP Pulse Ox 97.9 F 80 20 95/58 L 95 11/20/17 08:37 11/20/17 08:37 11/20/17 08:37 11/20/17 08:37 11/20/17 08:37 - Medications Medications: Current Medications Benztropine Mesylate (Cogentin) 1 mg PO DAILY [facility] Last Admin: 11/20/17 09:05 Dose: 1 mg Famotidine (Pepcid) 20 mg PO BID [facility] Last Admin: 11/20/17 09:06 Dose: 20 mg Vancomycin HCl 750 mg/ Sodium (Chloride) 250 mls @ 166.667 mls/hr IVPB Q12 [facility] PRN Reason: Protocol Last Admin: 11/20/17 11:23 Dose: 166.667 mls/hr Ceftriaxone Sodium 2 gm/ (Sodium Chloride) 100 mls @ 100 mls/hr IVPB DAILY [facility] PRN Reason: Protocol Last Admin: 11/20/17 09:57 Dose: 100 mls/hr Ibuprofen (Motrin Tab) 600 mg PO Q8 [facility] Last Admin: 11/20/17 09:09 Dose: 600 mg Lactobacillus Acidophilus (Bacid Acidophilus) 1 cap PO BID [facility] Last Admin: 11/20/17 09:05 Dose: 1 cap Lamotrigine (Lamictal) 25 mg PO DAILY [facility] Last Admin: 11/20/17 09:05 Dose: 25 mg Paliperidone (Invega) 3 mg PO BID [facility] Last Admin: 11/20/17 09:05 Dose: 3 mg Tramadol HCl (Ultram) 50 mg PO Q6 PRN PRN Reason: Pain, severe (8-10) Last Admin: 11/20/17 03:00 Dose: 50 mg Trazodone HCl (Desyrel) 50 mg PO HS [facility] Last Admin: 11/19/17 21:30 Dose: 50 mg - Labs Labs: 11/19/17 05:20 11/19/17 05:20 PT 13.0 Seconds (9.8-13.1) 11/19/17 05:20 INR 1.2 (0.9-1.2) 11/19/17 05:20 Attending/Attestation - Attestation I have personally seen and examined this patient.: Yes I have fully participated in the care of the patient.: Yes I have reviewed all pertinent clinical information, including history, physical exam and plan: Yes Notes (Text): Discussed plan for BM aspiration/biopsy with pt and daughter Isela - agrees with plan Further Ortho surgery on hold pending Hematology optimization cont IV Vanco and Ceftraxone, Vanco level
[2017-11-20] MEDS: Paliperidone 3 MG ER TAB PO SCH ×2 (09:05→17:18)
[2017-11-20] MEDS: Lactobacillus Acidophilus 500 MU Cap PO SCH ×2 (09:05→17:18)
[2017-11-20] MEDS: cefTRIAXone 2 GM in Sodium Chloride 0.9% 100 ML IVPB SCH (09:57)
--- NOTE | 2017-11-20 12:16 | CP.PCM.PN ---
Subjective - Date & Time of Evaluation Date of Evaluation: 11/20/17 Time of Evaluation: 10:00 - Subjective Subjective: Bone marrow aspiration and biopsy procedure Indication: Pancytopenia and neutropenia - Time-out was called to confirm: patients name and date of , procedure, side and site of biopsy, safety procedures followed. - Informed consent: signed by patient. - Aspiration and biopsy site: [right] superior posterior iliac crest. - Patient position: [left lateral decubitus] - Preparation and technique: sterile preparation of site with Betadyne, Chloraprep, draped to expose aspirate/biopsy area, local anesthesia with 2% lidocaine (approximately 10ml), frequent pressure application on incision to maintain hemostasis. - Tissue obtained: bone marrow aspirate and biopsy were successfully obtained in sterile manner. - Toleration of procedure and any complications: slight localized bleeding (<1ml ). Patient tolerated procedure well with minimal pain. Objective - Vital Signs/Intake and Output Vital Signs (last 24 hours): Temp Pulse Resp BP Pulse Ox 97.9 F 80 20 95/58 L 95 11/20/17 08:37 11/20/17 08:37 11/20/17 08:37 11/20/17 08:37 11/20/17 08:37 - Medications Medications: Current Medications Benztropine Mesylate (Cogentin) 1 mg PO DAILY [facility] Last Admin: 11/20/17 09:05 Dose: 1 mg Famotidine (Pepcid) 20 mg PO BID [facility] Last Admin: 11/20/17 09:06 Dose: 20 mg Vancomycin HCl 750 mg/ Sodium (Chloride) 250 mls @ 166.667 mls/hr IVPB Q12 [facility] PRN Reason: Protocol Last Admin: 11/20/17 11:23 Dose: 166.667 mls/hr Ceftriaxone Sodium 2 gm/ (Sodium Chloride) 100 mls @ 100 mls/hr IVPB DAILY [facility] PRN Reason: Protocol Last Admin: 11/20/17 09:57 Dose: 100 mls/hr Ibuprofen (Motrin Tab) 600 mg PO Q8 [facility] Last Admin: 11/20/17 09:09 Dose: 600 mg Lactobacillus Acidophilus (Bacid Acidophilus) 1 cap PO BID [facility] Last Admin: 11/20/17 09:05 Dose: 1 cap Lamotrigine (Lamictal) 25 mg PO DAILY [facility] Last Admin: 11/20/17 09:05 Dose: 25 mg Paliperidone (Invega) 3 mg PO BID [facility] Last Admin: 11/20/17 09:05 Dose: 3 mg Tramadol HCl (Ultram) 50 mg PO Q6 PRN PRN Reason: Pain, severe (8-10) Last Admin: 11/20/17 03:00 Dose: 50 mg Trazodone HCl (Desyrel) 50 mg PO HS [facility] Last Admin: 11/19/17 21:30 Dose: 50 mg - Labs Labs: 11/19/17 05:20 11/19/17 05:20 PT 13.0 Seconds (9.8-13.1) 11/19/17 05:20 INR 1.2 (0.9-1.2) 11/19/17 05:20 - Head Exam Head Exam: ATRAUMATIC - Eye Exam Eye Exam: Normal appearance - ENT Exam ENT Exam: Mucous Membranes Dry - Respiratory Exam Respiratory Exam: NORMAL BREATHING PATTERN - Cardiovascular Exam Cardiovascular Exam: +S1, +S2 - GI/Abdominal Exam GI & Abdominal Exam: Normal Bowel Sounds - Neurological Exam Neurological Exam: Oriented x3 - Psychiatric Exam Psychiatric exam: Normal Affect, Normal Mood - Skin Skin Exam: Warm Assessment and Plan (1) Pancytopenia Assessment & Plan: s/p bone marrow aspirate and biopsy to rule out bone marrow pathology ? hep C related CBC w/diff, manual plt count, and PT/PTT in AM Status: Acute
--- NOTE | 2017-11-20 13:54 | CP.PCM.PN ---
Subjective - Date & Time of Evaluation Date of Evaluation: 11/20/17 Time of Evaluation: 13:52 - Subjective Subjective: Patient comfortable, tolerated bone marrow aspiration well. Objective - Vital Signs/Intake and Output Vital Signs (last 24 hours): Temp Pulse Resp BP Pulse Ox 97.9 F 80 20 95/58 L 95 11/20/17 08:37 11/20/17 08:37 11/20/17 08:37 11/20/17 08:37 11/20/17 08:37 - Medications Medications: Current Medications Benztropine Mesylate (Cogentin) 1 mg PO DAILY [facility] Last Admin: 11/20/17 09:05 Dose: 1 mg Famotidine (Pepcid) 20 mg PO BID [facility] Last Admin: 11/20/17 09:06 Dose: 20 mg Vancomycin HCl 750 mg/ Sodium (Chloride) 250 mls @ 166.667 mls/hr IVPB Q12 [facility] PRN Reason: Protocol Last Admin: 11/20/17 11:23 Dose: 166.667 mls/hr Ceftriaxone Sodium 2 gm/ (Sodium Chloride) 100 mls @ 100 mls/hr IVPB DAILY [facility] PRN Reason: Protocol Last Admin: 11/20/17 09:57 Dose: 100 mls/hr Ibuprofen (Motrin Tab) 600 mg PO Q8 [facility] Last Admin: 11/20/17 09:09 Dose: 600 mg Lactobacillus Acidophilus (Bacid Acidophilus) 1 cap PO BID [facility] Last Admin: 11/20/17 09:05 Dose: 1 cap Lamotrigine (Lamictal) 25 mg PO DAILY [facility] Last Admin: 11/20/17 09:05 Dose: 25 mg Paliperidone (Invega) 3 mg PO BID [facility] Last Admin: 11/20/17 09:05 Dose: 3 mg Tramadol HCl (Ultram) 50 mg PO Q6 PRN PRN Reason: Pain, severe (8-10) Last Admin: 11/20/17 03:00 Dose: 50 mg Trazodone HCl (Desyrel) 50 mg PO HS [facility] Last Admin: 11/19/17 21:30 Dose: 50 mg - Labs Labs: 11/19/17 05:20 11/19/17 05:20 PT 13.0 Seconds (9.8-13.1) 11/19/17 05:20 INR 1.2 (0.9-1.2) 11/19/17 05:20 - Extremities Exam Additional comments: +ROM ankle toes/sensation intact +DP/PATTERN PAINTER pulses calves soft NT neg homans Assessment and Plan (1) Wound dehiscence Assessment & Plan: awaiting hematology work up as per Dr. Sharpe will hold ortho surgery until at least Saturday 11/[address] Sharpe consults appreciated and d/w Dr. Sharpe Status: Acute
[2017-11-20 16:36] LABS: HEMOGLOBIN 10.2 g/dL (12.0-16.0); MEAN CELL VOLUME 91.4 fl (81.0-99.0); MEAN CORPUSCULAR HEMOGLOBIN 29.7 pg (27.0-31.0); MEAN CORPUSCULAR HGB CONC 32.4 g/dL (33.0-37.0); RBC 3.43 Mil/uL (3.80-5.20); RED CELL DISTRIBUTION WIDTH 15.4 % (11.5-14.5)
[2017-11-20 17:15] LABS: PROTHROMBIN TIME 12.8 Seconds (9.8-13.1)
[2017-11-20 17:16] LABS: INR 1.2 (0.9-1.2)
[2017-11-21 07:13] LABS: HEMOGLOBIN 10.3 g/dL (12.0-16.0); MEAN CELL VOLUME 90.3 fl (81.0-99.0); MEAN CORPUSCULAR HEMOGLOBIN 29.9 pg (27.0-31.0); MEAN CORPUSCULAR HGB CONC 33.1 g/dL (33.0-37.0); RBC 3.44 Mil/uL (3.80-5.20); RED CELL DISTRIBUTION WIDTH 15.1 % (11.5-14.5); WHITE BLOOD COUNT 2.1 K/uL (4.8-10.8)
[2017-11-21] MEDS ORDERED: Bupivacaine 0.5% Inj(30mL) ONE (07:22)
[2017-11-21 07:24] LABS: BLOOD UREA NITROGEN 12 mg/dl (7-17); CALCIUM 8.5 mg/dL (8.4-10.2); GFR AFRICAN-AMERICAN > 60; GFR NON-AFRICAN AMERICAN > 60
[2017-11-21] MEDS ORDERED: Propofol 10 mg/ml Inj (20 ML) ONE (07:25)
[2017-11-21] MEDS ORDERED: Succinylcholine 200 mg/10 ml Inj IV ONE (07:25)
[2017-11-21] MEDS ORDERED: Rocuronium 10 mg/ml (5 ml) ONE ×2 (07:25→10:31)
[2017-11-21] MEDS ORDERED: Absorbable Gelatin Sponge Size 100 ONE (07:28)
[2017-11-21] MEDS ORDERED: Bacitracin Ointment 30 GM TUBE ONE (07:28)
[2017-11-21 07:41] LABS: INR 1.2 (0.9-1.2); PARTIAL THROMBOPLASTIN TIME 36.7 Seconds (25.6-37.1); PROTHROMBIN TIME 12.9 Seconds (9.8-13.1)
[2017-11-21] MEDS ORDERED: Dextrose 5%/0.9% NS 1,000 ML IV SCH (07:45)
[2017-11-21] MEDS ORDERED: Bupivacaine HCl 0.5% PF (10 ml) Inj ONE (08:27)
[2017-11-21] MEDS: Lactobacillus Acidophilus 500 MU Cap PO SCH ×2 (08:33→16:48)
[2017-11-21] MEDS: Paliperidone 3 MG ER TAB PO SCH ×2 (08:34→16:49)
[2017-11-21] MEDS ORDERED: Lactated Ringer's 1,000 ML IV ONE (09:20)
[2017-11-21] MEDS ORDERED: Midazolam 2 MG/2 ML VIAL ONE (09:24)
[2017-11-21] MEDS ORDERED: Sodium Chloride 0.9% 1,000 ML IV ONE (09:30)
[2017-11-21] MEDS ORDERED: Vancomycin 750 mg Inj IVPB ONE (09:35)
[2017-11-21] MEDS ORDERED: cefTRIAXone (Rocephin) 2 gm Inj IVPB ONE (09:35)
[2017-11-21 10:29] LABS: FLUID TYPE SYNOVIAL FLUID
[2017-11-21] MEDS ORDERED: Calcium Chloride 1000 mg/10 ml Syringe IV ONE (10:38)
[2017-11-21] MEDS ORDERED: Neostigmine Methylsulfate 2 MG/2 ML ML IV ONE (10:48)
[2017-11-21 10:55] LABS: FLUID TYPE SYNOVIAL FLUID
[2017-11-21 11:01] LABS: SF GROSS APPEARANCE CLOUDY (CLEAR); SYNOVIAL FLUID COMMENT SLIGHTLY BLOODY
[2017-11-21 11:21] LABS: SF GROSS APPEARANCE BLOODY (CLEAR); SYNOVIAL FLUID COMMENT TURBID
[2017-11-21] MEDS ORDERED: Dexamethasone 4 mg/1 ml ONE (11:22)
[2017-11-21 12:58] LABS: SYNOVIAL FLUID MONO/MACROPHAGE 3 % (0-0)
[2017-11-21 12:58] LABS: SYNOVIAL FLUID MONO/MACROPHAGE 6 % (0-0)
[2017-11-21] MEDS ORDERED: HYDROmorphone 0.5 mg/0.5 ml ISec IVP PRN (13:10)
--- NOTE | 2017-11-21 13:13 | PCM.ANESB3 ---
Femoral Nerve Block - Femoral Nerve Block Date of Procedure: 11/21/17 Anesthesiologist: Janett Pre-Procedure Diagnosis: Wound dehiscence right TKA Post-Procedure Diagnosis: same Procedure Performed: Femoral Nerve Block Right - Procedure Femoral Nerve Block: The procedure was explained to the patient that it is for the post-operative pain management. Consent was obtained after a thorough discussion with the patient regarding the benefits and possible complications of local anesthetic block of the femoral nerve at the inguinal crease area. The patient was brought to the operating room and standard monitors were applied. Time-out was held with the circulating nurse to confirm the correct surgery and the appropriate block. Under general anesthesia, patient was placed in supine position with fully extended lower extremities and the __right groin exposed. The femoral artery was then carefully palpated. The ultrasound transducer was then applied to this area in the transverse plane and the femoral nerve was visualized lateral to the femoral artery and underneath the fascia iliaca. After thorough identification, the inguinal crease area was prepped with Chloraprep. At this point, a #22 gauge Stimuplex 2-inch needle was inserted immediately lateral to the femoral artery pulse at the inguinal crease and advanced perpendicularly. The needle was inserted to the ultrasound transducer in-plane towards the femoral nerve in a [id number] direction. Needle advancement was performed carefully under direct ultrasound visualization. Nerve stimulator was used and twitch of the quadriceps muscle was obtained at current of __0.4___ MA. After negative aspiration, __2___cc of _.0375___% ____bupivicaine was injected and this was followed with ___18___ cc of ___0.375____ % ____ bupiviciaine . Under ultrasound guidance the local anesthetics were observed spreading below fascia iliaca and around the femoral nerve. The needle was removed intact. The patient tolerated the femoral nerve block well with stable vital signs and was prepared for subsequent surgery.
--- NOTE | 2017-11-21 13:15 | PCM.ANESB2 ---
Popliteal Nerve Block - Popliteal Nerve Block Date of Procedure: 11/21/17 Anesthesiologist: Janett Pre-Procedure Diagnosis: Wound dehiscence right TKA Post-Procedure Diagnosis: same Procedure Performed: Popliteal Nerve Block Right - Procedure Popliteal Nerve Block: This procedure was explained to the patient that it is for post-operative pain management. Consent was obtained after a thorough discussion with the patient regarding the benefits and possible complications of local anesthetic block of the sciatic nerve at the popliteal level. The patient was brought to the operating room and standard monitors are applied. Time-out was held with the circulating nurse to confirm the correct surgery and the appropriate block. Under general anesthesia, patient's operative leg was gently raised and supported and the groove in between the biceps femoris and vastus lateralis muscles was carefully palpated. The skin approximately 8cm above the popliteal crease was then marked. The ultrasound transducer was then applied to the posterior thigh approximately 8cm above the popliteal crease in the transverse plane and the sciatic nerve before its division was visualized lateral to the popliteal artery and in between the bicep femoris and semimembranosus/ semitendinosus muscles. After identification, the lateral portion of the thigh was prepped with Chloraprep. At this point, a # 21 gauge Stimuplex insulated 4 inch needle was inserted into pre-marked area and advanced in a perpendicular direction. The needle was inserted above the ultrasound transducer in-plane towards the sciatic nerve in a [id number] direction. Needle advancement was performed carefully under direct ultrasound visualization. Nerve stimulator was used and dorsiflexion of the __right___ foot was elicited at a current of __0.4___ MA. After repeated negative aspiration, _2____cc of ___0.375__ % ___bupivicaine was injected and this was flowed with ___18___ cc of __0.375____% ____bupivicaine___ . Under ultrasound guidance the local anesthetics were observed surrounding sciatic nerve . The needle was removed intact. The patient tolerated the popliteal nerve block well with stable vital signs and was subsequently prepared for the surgery.
--- NOTE | 2017-11-21 14:32 | RAD ---
PROCEDURE: Right Knee Radiographs. HISTORY: s/p rt. total knee revision COMPARISON: None. FINDINGS: BONES: No acute fracture. Status post TKR revision. . JOINTS: TKR JOINT EFFUSION: None. OTHER FINDINGS: None. IMPRESSION: Status post right TKR revision.
--- NOTE | 2017-11-21 15:42 | CP.PCM.PN ---
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 Patient reports that she has mild pain to the knee but she is managing it well with the medications. Patient denies of having any new complains at this time. Patient denies of having any N/V/SOB/CP now. Objective - Vital Signs/Intake and Output Vital Signs (last 24 hours): Temp Pulse Resp BP Pulse Ox 97.4 F L 79 18 107/73 100 11/21/17 14:10 11/21/17 14:10 11/21/17 14:10 11/21/17 14:10 11/21/17 14:10 Intake and Output: 11/21/17 11/21/17 06:59 18:59 Intake Total 1750 Output Total 400 Balance 1350 - Medications Medications: Current Medications Benztropine Mesylate (Cogentin) 1 mg PO DAILY [facility] Last Admin: 11/21/17 08:34 Dose: Not Given Enoxaparin Sodium (Lovenox) 40 mg SC Q24H [facility] PRN Reason: Protocol Famotidine (Pepcid) 20 mg PO BID [facility] Last Admin: 11/21/17 08:34 Dose: Not Given Vancomycin HCl 750 mg/ Sodium (Chloride) 250 mls @ 166.667 mls/hr IVPB Q12 [facility] PRN Reason: Protocol Last Admin: 11/21/17 08:35 Dose: Not Given Ceftriaxone Sodium 2 gm/ (Sodium Chloride) 100 mls @ 100 mls/hr IVPB DAILY [facility] PRN Reason: Protocol Last Admin: 11/20/17 09:57 Dose: 100 mls/hr Dextrose/Sodium Chloride (Dextrose 5%/0.9% Ns 1000 Ml) 1,000 mls @ 80 mls/hr IV .[id number] [facility] Stop: 11/22/17 07:41 Lactated Ringer's (Lactated Ringer's) 1,000 mls @ 50 mls/hr IV .Q20H [facility] Ibuprofen (Motrin Tab) 600 mg PO Q8 [facility] Last Admin: 11/21/17 08:34 Dose: Not Given Lactobacillus Acidophilus (Bacid Acidophilus) 1 cap PO BID [facility] Last Admin: 11/21/17 08:33 Dose: Not Given Lamotrigine (Lamictal) 25 mg PO DAILY [facility] Last Admin: 11/21/17 08:34 Dose: Not Given Paliperidone (Invega) 3 mg PO BID [facility] Last Admin: 11/21/17 08:34 Dose: Not Given Tramadol HCl (Ultram) 50 mg PO Q6 PRN PRN Reason: Pain, severe (8-10) Last Admin: 11/20/17 18:10 Dose: 50 mg Trazodone HCl (Desyrel) 50 mg PO HS [facility] Last Admin: 11/20/17 21:36 Dose: 50 mg - Labs Labs: 11/21/17 06:00 11/21/17 06:00 PT 12.9 Seconds (9.8-13.1) 11/21/17 06:00 INR 1.2 (0.9-1.2) 11/21/17 06:00 APTT 36.7 Seconds (25.6-37.1) 11/21/17 06:00 - Constitutional Appears: Well, Non-toxic, No Acute Distress - Head Exam Head Exam: ATRAUMATIC - Eye Exam Eye Exam: Normal appearance Pupil Exam: NORMAL ACCOMODATION - ENT Exam ENT Exam: Normal Exam - Neck Exam Neck Exam: Full ROM, Normal Inspection - Respiratory Exam Respiratory Exam: Clear to Ausculation Bilateral, NORMAL BREATHING PATTERN. absent: Rales, Rhonchi, Wheezes - Cardiovascular Exam Cardiovascular Exam: REGULAR RHYTHM, +S1, +S2. 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 Plan: 1. Wound Dehiscence with infection s/p R knee revision x2 - Ortho consult Dr. Sharpe - Aspiration arthrogram R Knee performed 11/13. Plan for component removal and insertion of antibiotic impregnated spacer once pt is medically optimized - Patient returned from an orthopedic procedure today - Cultures with no growth - Plastic surgery consult with Dr. Tafoya appreciated. No flap reconstruction is indicated at this time, suggested patient have wound debridement procedure for infected wound - ID consult with Dr. Fernandes appreciated. Recommends to continue IV Rocephin and Vancomycin - cont Percocet for pain control - PT OT eval 2. Seizures - cont Lamictal 3. Schizoaffective Disorder - cont cogentin 1 mg PO qd - pt is on Invega 4. Pancytopenia - ? related to Hep C ??? - Hematology consulted - Bone marrow biopsy performed yesterday - pending results 5. History of CVA, Brain Aneurysm - Chronic - Stable at present 6.History of hep C - advised pt to have outpt follow up 7.History of heroin/cocaine abuse in the past 8.VTE ppx - SCDs - on lovenox - hold lovenox for now - Close monitoring <Mile Wiggins - Last Filed: 11/21/17 19:07> Objective - Vital Signs/Intake and Output Vital Signs (last 24 hours): Temp Pulse Resp BP Pulse Ox 97.8 F 114 H 20 106/73 96 11/21/17 18:00 11/21/17 18:00 11/21/17 18:00 11/21/17 18:00 11/21/17 18:00 Intake and Output: 11/21/17 11/22/17 18:59 06:59 Intake Total 1850 Output Total 400 Balance 1450 - Medications Medications: Current Medications Benztropine Mesylate (Cogentin) 1 mg PO DAILY [facility] Last Admin: 11/21/17 08:34 Dose: Not Given Enoxaparin Sodium (Lovenox) 40 mg SC Q24H [facility] PRN Reason: Protocol Famotidine (Pepcid) 20 mg PO BID [facility] Last Admin: 11/21/17 16:49 Dose: 20 mg Vancomycin HCl 750 mg/ Sodium (Chloride) 250 mls @ 166.667 mls/hr IVPB Q12 [facility] PRN Reason: Protocol Last Admin: 11/21/17 08:35 Dose: Not Given Ceftriaxone Sodium 2 gm/ (Sodium Chloride) 100 mls @ 100 mls/hr IVPB DAILY [facility] PRN Reason: Protocol Last Admin: 11/21/17 16:11 Dose: Not Given Lactated Ringer's (Lactated Ringer's) 1,000 mls @ 50 mls/hr IV .Q20H [facility] Dextrose/Sodium Chloride (Dextrose 5%/0.9% Ns 1000 Ml) 1,000 mls @ 100 mls/hr IV .Q10H [facility] Stop: 11/22/17 07:41 Last Admin: 11/21/17 18:21 Dose: 100 mls/hr Lactobacillus Acidophilus (Bacid Acidophilus) 1 cap PO BID [facility] Last Admin: 11/21/17 16:48 Dose: 1 cap Lamotrigine (Lamictal) 25 mg PO DAILY [facility] Last Admin: 11/21/17 08:34 Dose: Not Given Paliperidone (Invega) 3 mg PO BID [facility] Last Admin: 11/21/17 16:49 Dose: 3 mg Tramadol HCl (Ultram) 50 mg PO Q6 PRN PRN Reason: Pain, severe (8-10) Last Admin: 11/21/17 18:17 Dose: 50 mg Trazodone HCl (Desyrel) 50 mg PO HS [facility] Last Admin: 11/20/17 21:36 Dose: 50 mg - Labs Labs: 11/21/17 06:00 11/21/17 06:00 PT 12.9 Seconds (9.8-13.1) 11/21/17 06:00 INR 1.2 (0.9-1.2) 11/21/17 06:00 APTT 36.7 Seconds (25.6-37.1) 11/21/17 06:00 Attending/Attestation - Attestation I have personally seen and examined this patient.: Yes I have fully participated in the care of the patient.: Yes I have reviewed all pertinent clinical information, including history, physical exam and plan: Yes Notes (Text): Pt seen post op in PACU Pt underwent Right Revision TKR , and placement of Antibiotic spacer and Wound Vac - she was transfused 2 units PRBC in the OR - doing well post op - rpt CBC, BMP in am -cont IV abx
[2017-11-21] MEDS: cefTRIAXone 2 GM in Sodium Chloride 0.9% 100 ML IVPB SCH (16:11)
--- NOTE | 2017-11-21 17:00 | PCM.SURG1 ---
Surgeon's Initial Post Op Note - Surgeon's Notes Surgeon: Annemarie Irrigation Foreman: [address]/2nd assist Marin Doss Type of Anesthesia: General Endo Anesthesia Administered By: DR Bharathi Dunlap Pre-Operative Diagnosis: Chronic drainage R TKR- R/O deep sepsis Operative Findings: septic R TKR- + gm stain > 5 WBC's /hi p[ower field, with POOR DEEP TISSUE QUALITY, FRIABILITY AND EVIDENCE FOR DEEP SEPSIS Post-Operative Diagnosis: septic R TKR Operation Performed: Removal TKR/ insertion abio impregnated spacer. tricompartmental synovectomy. excision skin/subcutaneous tissue and muscle. lateral patella release. posterior capsular release. applx knee immobilizer Specimen/Specimens Removed: synovium/total knee prosthesis(septic) Estimated Blood Loss: EBL {In ML}: 75 Blood Products Given: N/A, PRBC Drains Used: No Drains Post-Op Condition: Fair Date of Surgery/Procedure: 11/21/17 Time of Surgery/Procedure: 10:05 (time in room 9:20/anaesthesia indcution time)
--- NOTE | 2017-11-21 17:39 | CP.PCM.PN ---
Subjective - Date & Time of Evaluation Date of Evaluation: 11/21/17 Time of Evaluation: 17:00 - Subjective Subjective: s/p orthopedic surgery Objective - Vital Signs/Intake and Output Vital Signs (last 24 hours): Temp Pulse Resp BP Pulse Ox 98 F 96 H 20 111/78 95 11/21/17 17:01 11/21/17 17:01 11/21/17 17:01 11/21/17 17:01 11/21/17 17:01 Intake and Output: 11/21/17 11/21/17 06:59 18:59 Intake Total 1850 Output Total 400 Balance 1450 - Medications Medications: Current Medications Benztropine Mesylate (Cogentin) 1 mg PO DAILY [facility] Last Admin: 11/21/17 08:34 Dose: Not Given Enoxaparin Sodium (Lovenox) 40 mg SC Q24H [facility] PRN Reason: Protocol Famotidine (Pepcid) 20 mg PO BID [facility] Last Admin: 11/21/17 16:49 Dose: 20 mg Vancomycin HCl 750 mg/ Sodium (Chloride) 250 mls @ 166.667 mls/hr IVPB Q12 [facility] PRN Reason: Protocol Last Admin: 11/21/17 08:35 Dose: Not Given Ceftriaxone Sodium 2 gm/ (Sodium Chloride) 100 mls @ 100 mls/hr IVPB DAILY [facility] PRN Reason: Protocol Last Admin: 11/21/17 16:11 Dose: Not Given Dextrose/Sodium Chloride (Dextrose 5%/0.9% Ns 1000 Ml) 1,000 mls @ 80 mls/hr IV .[id number] [facility] Stop: 11/22/17 07:41 Lactated Ringer's (Lactated Ringer's) 1,000 mls @ 50 mls/hr IV .Q20H [facility] Lactobacillus Acidophilus (Bacid Acidophilus) 1 cap PO BID [facility] Last Admin: 11/21/17 16:48 Dose: 1 cap Lamotrigine (Lamictal) 25 mg PO DAILY [facility] Last Admin: 11/21/17 08:34 Dose: Not Given Paliperidone (Invega) 3 mg PO BID [facility] Last Admin: 11/21/17 16:49 Dose: 3 mg Tramadol HCl (Ultram) 50 mg PO Q6 PRN PRN Reason: Pain, severe (8-10) Last Admin: 11/20/17 18:10 Dose: 50 mg Trazodone HCl (Desyrel) 50 mg PO HS [facility] Last Admin: 11/20/17 21:36 Dose: 50 mg - Labs Labs: 11/21/17 06:00 11/21/17 06:00 PT 12.9 Seconds (9.8-13.1) 11/21/17 06:00 INR 1.2 (0.9-1.2) 11/21/17 06:00 APTT 36.7 Seconds (25.6-37.1) 11/21/17 06:00 - Head Exam Head Exam: ATRAUMATIC - Eye Exam Eye Exam: Normal appearance - ENT Exam ENT Exam: Mucous Membranes Dry - Respiratory Exam Respiratory Exam: NORMAL BREATHING PATTERN - Cardiovascular Exam Cardiovascular Exam: +S1, +S2 - GI/Abdominal Exam GI & Abdominal Exam: Normal Bowel Sounds Assessment and Plan (1) Pancytopenia Assessment & Plan: s/p bone marrow biopsy; f/u results hep C positive ? liver disease Status: Acute
[2017-11-21] MEDS: Dextrose 5%/0.9% NS 1,000 ML IV SCH (18:21)
--- NOTE | 2017-11-21 19:14 | CP.PCM.PN ---
Subjective - Date & Time of Evaluation Date of Evaluation: 11/21/17 Time of Evaluation: 19:13 - Subjective Subjective: I D NOTE HAD REMOVAL OF TKR AND PLACEMENT OF IMPREGNATED SPACER HAVE DC/ED ROCEPHEN AND REPLACED c MEROPENEM WILL AGAIN NEED EXTENDED RX Objective - Vital Signs/Intake and Output Vital Signs (last 24 hours): Temp Pulse Resp BP Pulse Ox 97.8 F 114 H 20 106/73 96 11/21/17 18:00 11/21/17 18:00 11/21/17 18:00 11/21/17 18:00 11/21/17 18:00 Intake and Output: 11/21/17 11/22/17 18:59 06:59 Intake Total 1850 Output Total 400 Balance 1450 - Medications Medications: Current Medications Benztropine Mesylate (Cogentin) 1 mg PO DAILY [facility] Last Admin: 11/21/17 08:34 Dose: Not Given Enoxaparin Sodium (Lovenox) 40 mg SC Q24H [facility] PRN Reason: Protocol Famotidine (Pepcid) 20 mg PO BID [facility] Last Admin: 11/21/17 16:49 Dose: 20 mg Vancomycin HCl 750 mg/ Sodium (Chloride) 250 mls @ 166.667 mls/hr IVPB Q12 [facility] PRN Reason: Protocol Last Admin: 11/21/17 08:35 Dose: Not Given Ceftriaxone Sodium 2 gm/ (Sodium Chloride) 100 mls @ 100 mls/hr IVPB DAILY [facility] PRN Reason: Protocol Last Admin: 11/21/17 16:11 Dose: Not Given Lactated Ringer's (Lactated Ringer's) 1,000 mls @ 50 mls/hr IV .Q20H [facility] Dextrose/Sodium Chloride (Dextrose 5%/0.9% Ns 1000 Ml) 1,000 mls @ 100 mls/hr IV .Q10H [facility] Stop: 11/22/17 07:41 Last Admin: 11/21/17 18:21 Dose: 100 mls/hr Meropenem 1 gm/ Sodium (Chloride) 100 mls @ 100 mls/hr IVPB Q12H [facility] PRN Reason: Protocol Lactobacillus Acidophilus (Bacid Acidophilus) 1 cap PO BID [facility] Last Admin: 11/21/17 16:48 Dose: 1 cap Lamotrigine (Lamictal) 25 mg PO DAILY [facility] Last Admin: 11/21/17 08:34 Dose: Not Given Paliperidone (Invega) 3 mg PO BID [facility] Last Admin: 11/21/17 16:49 Dose: 3 mg Tramadol HCl (Ultram) 50 mg PO Q6 PRN PRN Reason: Pain, severe (8-10) Last Admin: 11/21/17 18:17 Dose: 50 mg Trazodone HCl (Desyrel) 50 mg PO HS [facility] Last Admin: 11/20/17 21:36 Dose: 50 mg - Labs Labs: 11/21/17 06:00 11/21/17 06:00 PT 12.9 Seconds (9.8-13.1) 11/21/17 06:00 INR 1.2 (0.9-1.2) 11/21/17 06:00 APTT 36.7 Seconds (25.6-37.1) 11/21/17 06:00
[2017-11-21] MEDS: Meropenem 1 GM in Sodium Chloride 0.9% 100 ML IVPB SCH (21:10)
[2017-11-22] MEDS ORDERED: Morphine 4 MG/ML VIAL IVP ONE ×2 (01:17→13:00)
[2017-11-22] MEDS: Dextrose 5%/0.9% NS 1,000 ML IV SCH (04:12)
[2017-11-22] MEDS: Meropenem 1 GM in Sodium Chloride 0.9% 100 ML IVPB SCH ×2 (06:15→20:00)
--- NOTE | 2017-11-22 07:43 | CP.PCM.PN ---
Subjective - Date & Time of Evaluation Date of Evaluation: 11/22/17 Time of Evaluation: 07:41 - Subjective Subjective: Patient states pain is controlled, she did need some morphine as the feeling is coming back to knee. Denies CP/SOB/dizziness. numbness in foot is improving. Objective - Vital Signs/Intake and Output Vital Signs (last 24 hours): Temp Pulse Resp BP Pulse Ox 98.1 F 90 19 118/64 97 11/22/17 03:52 11/22/17 03:52 11/22/17 03:52 11/22/17 03:52 11/22/17 03:52 - Medications Medications: Current Medications Benztropine Mesylate (Cogentin) 1 mg PO DAILY [facility] Last Admin: 11/21/17 08:34 Dose: Not Given Enoxaparin Sodium (Lovenox) 40 mg SC Q24H [facility] PRN Reason: Protocol Famotidine (Pepcid) 20 mg PO BID [facility] Last Admin: 11/21/17 16:49 Dose: 20 mg Vancomycin HCl 750 mg/ Sodium (Chloride) 250 mls @ 166.667 mls/hr IVPB Q12 [facility] PRN Reason: Protocol Last Admin: 11/21/17 22:16 Dose: 166.667 mls/hr Ceftriaxone Sodium 2 gm/ (Sodium Chloride) 100 mls @ 100 mls/hr IVPB DAILY [facility] PRN Reason: Protocol Last Admin: 11/21/17 16:11 Dose: Not Given Lactated Ringer's (Lactated Ringer's) 1,000 mls @ 50 mls/hr IV .Q20H [facility] Dextrose/Sodium Chloride (Dextrose 5%/0.9% Ns 1000 Ml) 1,000 mls @ 100 mls/hr IV .Q10H [facility] Stop: 11/22/17 07:41 Last Admin: 11/22/17 04:12 Dose: 100 mls/hr Meropenem 1 gm/ Sodium (Chloride) 100 mls @ 100 mls/hr IVPB Q12H [facility] PRN Reason: Protocol Last Admin: 11/22/17 06:15 Dose: 100 mls/hr Lactobacillus Acidophilus (Bacid Acidophilus) 1 cap PO BID [facility] Last Admin: 11/21/17 16:48 Dose: 1 cap Lamotrigine (Lamictal) 25 mg PO DAILY [facility] Last Admin: 11/21/17 08:34 Dose: Not Given Paliperidone (Invega) 3 mg PO BID [facility] Last Admin: 11/21/17 16:49 Dose: 3 mg Tramadol HCl (Ultram) 50 mg PO Q6 PRN PRN Reason: Pain, severe (8-10) Last Admin: 11/22/17 00:17 Dose: 50 mg Trazodone HCl (Desyrel) 50 mg PO HS [facility] Last Admin: 11/21/17 21:11 Dose: 50 mg - Labs Labs: 11/21/17 06:00 11/21/17 06:00 PT 12.9 Seconds (9.8-13.1) 11/21/17 06:00 INR 1.2 (0.9-1.2) 11/21/17 06:00 APTT 36.7 Seconds (25.6-37.1) 11/21/17 06:00 - Extremities Exam Additional comments: wound vac intact, functioning. +toe flex/PF, no active DF or ext (pt with periop block), sensation intact, +DP/PT, calves soft NT neg homans Assessment and Plan (1) Wound dehiscence Assessment & Plan: POD#1 s/p explant/implant of spacer, wound vac application -antibiotics per ID -PT/OT -foot flat WB -VTE proph -d/c planning -d/w Dr. Sharpe, agrees with above Status: Acute
[2017-11-22 07:44] LABS: HEMOGLOBIN 9.5 g/dL (12.0-16.0); MEAN CELL VOLUME 90.4 fl (81.0-99.0); MEAN CORPUSCULAR HEMOGLOBIN 30.3 pg (27.0-31.0); MEAN CORPUSCULAR HGB CONC 33.5 g/dL (33.0-37.0); RBC 3.14 Mil/uL (3.80-5.20); RED CELL DISTRIBUTION WIDTH 14.6 % (11.5-14.5); WHITE BLOOD COUNT 5.6 K/uL (4.8-10.8)
[2017-11-22 07:47] LABS: BLOOD UREA NITROGEN 10 mg/dl (7-17); CALCIUM 7.9 mg/dL (8.4-10.2); GFR AFRICAN-AMERICAN > 60; GFR NON-AFRICAN AMERICAN > 60
[2017-11-22] MEDS: cefTRIAXone 2 GM in Sodium Chloride 0.9% 100 ML IVPB SCH (08:21)
[2017-11-22] MEDS: Lactobacillus Acidophilus 500 MU Cap PO SCH ×2 (08:22→16:24)
[2017-11-22] MEDS: Paliperidone 3 MG ER TAB PO SCH ×2 (08:22→16:31)
[2017-11-22] MEDS: Lactated Ringer's 1,000 ML IV SCH (08:23)
--- NOTE | 2017-11-22 09:58 | CP.PCM.DIS ---
Provider - Provider Date of Admission: 11/11/17 18:05 Attending physician: Vangie Santos DO Time Spent in preparation of Discharge (in minutes): 20 Hospital Course - Lab Results Lab Results: Micro Results 11/21/17 10:54 Knee Right Fungal Culture - Preliminary 11/21/17 11:26 Knee Right Fungal Culture - Preliminary 11/21/17 13:09 Knee - Right Gram Stain - Final 11/21/17 13:09 Knee - Right Gram Stain - Final 11/21/17 13:09 Knee - Right Gram Stain - Final 11/21/17 13:09 Knee - Right Gram Stain - Final 11/21/17 13:09 Knee - Right Gram Stain - Final 11/21/17 13:09 Knee - Right Gram Stain - Final 11/21/17 13:09 Knee - Right Gram Stain - Final 11/21/17 13:09 Knee - Right Gram Stain - Final 11/21/17 13:09 Knee - Right Gram Stain - Final 11/21/17 13:09 Knee - Right Gram Stain - Final 11/21/17 13:09 Knee - Right Gram Stain - Final 11/21/17 13:09 Knee - Right Gram Stain - Final 11/21/17 13:09 Knee - Right Gram Stain - Final 11/21/17 13:09 Knee - Right Gram Stain - Final 11/21/17 13:09 Knee - Right Gram Stain - Final 11/21/17 13:09 Knee - Right Gram Stain - Final 11/21/17 10:54 Other: Please Indicate Gram Stain - Final 11/13/17 15:06 Other: Please Indicate Mycobacterial Culture - Preliminary 11/13/17 15:18 Other: Please Indicate Mycobacterial Culture - Preliminary 11/13/17 15:18 Body Fluid - Knee-Right Gram Stain - Final 11/13/17 15:18 Body Fluid - Knee-Right Body Fluid Culture - Final NO GROWTH AFTER 4 DAYS 11/13/17 15:06 Body Fluid - Knee-Right Gram Stain - Final 11/13/17 15:06 Body Fluid - Knee-Right Anaerobic Culture - Final NO ANAEROBES ISOLATED. 11/13/17 15:06 Body Fluid - Knee-Right Body Fluid Culture - Final NO GROWTH AFTER 4 DAYS 11/11/17 19:03 Blood Blood Culture - Final NO GROWTH AFTER 5 DAYS 11/11/17 19:03 Blood Gram Stain - Final TEST NOT PERFORMED 11/13/17 15:18 Knee - Right Gram Stain - Final 11/13/17 15:18 Knee - Right Wound Culture - Final No growth. 11/13/17 15:18 Knee - Right Gram Stain - Final 11/13/17 15:18 Knee - Right Wound Culture - Final No growth. 11/13/17 15:18 Knee - Right Gram Stain - Final 11/13/17 15:18 Knee - Right Wound Culture - Final No growth. 11/13/17 15:18 Knee - Right Gram Stain - Final 11/13/17 15:18 Knee - Right Wound Culture - Final No growth. 11/13/17 15:18 Knee - Right Gram Stain - Final 11/13/17 15:18 Knee - Right Wound Culture - Final No growth. 11/13/17 15:18 Knee - Right Gram Stain - Final 11/13/17 15:18 Knee - Right Wound Culture - Final No growth. 11/13/17 15:18 Knee - Right Gram Stain - Final 11/13/17 15:18 Knee - Right Wound Culture - Final No growth. 11/13/17 15:18 Knee - Right Gram Stain - Final 11/13/17 15:18 Knee - Right Anaerobic Culture - Final NO ANAEROBES ISOLATED. 11/13/17 15:18 Knee - Right Wound Culture - Final No growth. 11/13/17 15:06 Knee - Right Gram Stain - Final 11/13/17 15:06 Knee - Right Wound Culture - Final No growth. 11/13/17 15:06 Knee - Right Gram Stain - Final 11/13/17 15:06 Knee - Right Wound Culture - Final No growth. 11/13/17 15:06 Knee - Right Gram Stain - Final 11/13/17 15:06 Knee - Right Wound Culture - Final No growth. 11/13/17 15:06 Knee - Right Gram Stain - Final 11/13/17 15:06 Knee - Right Wound Culture - Final No growth. 11/13/17 15:06 Knee - Right Gram Stain - Final 11/13/17 15:06 Knee - Right Wound Culture - Final No Growth 11/13/17 15:18 Knee - Right Gram Stain - Final 11/13/17 15:18 Knee - Right Wound Culture - Final No Growth 11/13/17 15:06 Knee - Right Gram Stain - Final 11/13/17 15:06 Knee - Right Wound Culture - Final No Growth 11/13/17 15:06 Knee - Right Gram Stain - Final 11/13/17 15:06 Knee - Right Anaerobic Culture - Final NO ANAEROBES ISOLATED. 11/13/17 15:06 Knee - Right Wound Culture - Final No Growth 11/12/17 08:00 Knee - Right Gram Stain - Final 11/12/17 08:00 Knee - Right Wound Culture - Final No Growth 11/11/17 15:30 Blood Blood Culture - Final NO GROWTH AFTER 5 DAYS 11/11/17 15:30 Blood Gram Stain - Final TEST NOT PERFORMED 11/13/17 15:18 Body Fluid - Knee-Right Anaerobic Culture - Final NO ANAEROBES ISOLATED. 11/13/17 15:06 Knee Right Fungal Culture - Preliminary 11/13/17 15:18 Knee Right Fungal Culture - Preliminary Most Recent Lab Values WBC 5.6 K/uL (4.8-10.8) D 11/22/17 06:20 RBC 3.14 Mil/uL (3.80-5.20) L 11/22/17 06:20 Hgb 9.5 g/dL (12.0-16.0) L 11/22/17 06:20 Hct 28.3 % (34.0-47.0) L 11/22/17 06:20 MCV 90.4 fl (81.0-99.0) 11/22/17 06:20 MCH 30.3 pg (27.0-31.0) 11/22/17 06:20 MCHC 33.5 g/dL (33.0-37.0) 11/22/17 06:20 RDW 14.6 % (11.5-14.5) H 11/22/17 06:20 Plt Count 87 K/uL (130-400) L 11/22/17 06:20 Manual Plt Count 91 K/uL (130-400) L 11/21/17 06:00 MPV 9.0 fl (7.2-11.7) 11/13/17 05:30 Neut % (Auto) 28.3 % (50.0-75.0) L 11/13/17 05:30 Lymph % (Auto) 39.2 % (20.0-40.0) 11/13/17 05:30 Toombs % (Auto) 18.3 % (0.0-10.0) H 11/13/17 05:30 Eos % (Auto) 13.0 % (0.0-4.0) H 11/13/17 05:30 Baso % (Auto) 1.2 % (0.0-2.0) 11/13/17 05:30 Neut # 0.6 K/uL (1.8-7.0) L 11/13/17 05:30 Lymph # 0.9 K/uL (1.0-4.3) L 11/13/17 05:30 Toombs # 0.4 K/uL (0.0-0.8) 11/13/17 05:30 Eos # 0.3 K/uL (0.0-0.7) 11/13/17 05:30 Baso # 0.0 K/uL (0.0-0.2) 11/13/17 05:30 ESR 20 mm/hr (0-30) 11/13/17 05:30 PT 12.9 Seconds (9.8-13.1) 11/21/17 06:00 INR 1.2 (0.9-1.2) 11/21/17 06:00 APTT 36.7 Seconds (25.6-37.1) 11/21/17 06:00 Sodium 139 mmol/l (132-148) 11/22/17 06:20 Potassium 3.9 MMOL/L (3.6-5.0) 11/22/17 06:20 Chloride 109 mmol/L (98-107) H 11/22/17 06:20 Carbon Dioxide 24 mmol/L (22-30) 11/22/17 06:20 Anion Gap 10 (10-20) 11/22/17 06:20 BUN 10 mg/dl (7-17) 11/22/17 06:20 Creatinine 0.5 mg/dl (0.7-1.2) L 11/22/17 06:20 Est GFR ( Amer) > 60 11/22/17 06:20 Est GFR (Non-Af Amer) > 60 11/22/17 06:20 Random Glucose 117 mg/dL (65-105) H 11/22/17 06:20 Lactic Acid 1.1 MMOL/L (0.7-2.1) 11/12/17 18:10 Calcium 7.9 mg/dL (8.4-10.2) L 11/22/17 06:20 Procalcitonin < 0.05 NG/ML (0.19-0.49) L 11/19/17 05:20 Fluid Type Synovial fluid 11/21/17 10:54 Synovial WBC 164.0 /mm3 (0.0-150.0) H 11/21/17 10:54 Synovial RBC 82430.0 /mm3 (0.0-0.0) H 11/21/17 10:54 Synovial Neutrophils 14.0 % (0-0) H 11/21/17 10:54 Synovial Lymphocytes 33.0 % (0-0) H 11/21/17 10:54 Synov Monos/Macrophage 3 % (0-0) H 11/21/17 10:54 Synovial Fluid Comment Turbid 11/21/17 10:54 Vancomycin Trough 11.7 ug/mL (5.0-10.0) H 11/19/17 07:25 Blood Type O POSITIVE 11/21/17 00:30 Antibody Screen Negative 11/21/17 00:30 Crossmatch See Detail 11/21/17 00:30 BBK History Checked Patient has bt 11/21/17 00:30 - Hospital Course Hospital Course: 62 y/o female with PMHx of of 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 During the hospital stay, patient was found to have pancytopenia for which hematology was consulted who performed bone marrow biopsy. Patient was also seen by infectious disease, and orthopedics. Patient underwent removal TKR and insertion abio impregnated spacer. Infectious disease recommended patient to remain on meropenem and vancomycin for 6 weeks. Patient is stable to be discharged to subacute rehab. 1. Wound Dehiscence with infection s/p R knee revision x2 - Ortho consult Dr. Sharpe - Aspiration arthrogram R Knee performed 11/13. Plan for component removal and insertion of antibiotic impregnated spacer once pt is medically optimized - Right Revision TKR, and placement of Antibiotic spacer and Wound Vac performed 11/22/17 - Cultures with no growth - Plastic surgery consult with Dr. Tafoya appreciated. No flap reconstruction is indicated at this time, suggested patient have wound debridement procedure for infected wound - ID consult with Dr. Fernandes appreciated. Recommends to continue IV Vancomycin and meropenem for 6 weeks - PT OT eval 2. Seizures - cont Lamictal 3. Schizoaffective Disorder - cont cogentin 1 mg PO qd - pt is on Invega 4. Pancytopenia - ? related to Hep C ??? - Hematology consulted - Bone marrow biopsy performed - pending results 5. History of CVA, Brain Aneurysm - Chronic - Stable at present 6.History of hep C - advised pt to have outpt follow up 7.History of heroin/cocaine abuse in the past - Date & Time of H&P Date of H&P: 11/22/17 Time of H&P: 08:30 Discharge Exam - Head Exam Head Exam: ATRAUMATIC - Eye Exam Eye Exam: Normal appearance - ENT Exam ENT Exam: Normal Exam, Normal External Ear Exam - Neck Exam Neck exam: Full Rom, Normal Inspection - Respiratory Exam Respiratory Exam: Clear to PA & Lateral, NORMAL BREATHING PATTERN, UNREMARKABLE. absent: Rales, Rhonchi, Wheezes - Cardiovascular Exam Cardiovascular Exam: REGULAR RHYTHM, +S1, +S2. absent: Bradycardia, Tachycardia - GI/Abdominal Exam GI & Abdominal Exam: Normal Bowel Sounds, Soft, Unremarkable - Rectal Exam Rectal Exam: Deferred - Extremities Exam Extremities exam: normal capillary refill, normal inspection, tenderness, pedal pulses present - Back Exam Back exam: FULL ROM, NORMAL INSPECTION - Neurological Exam Neurological exam: Alert, Oriented x3 - Psychiatric Exam Psychiatric exam: Normal Affect, Normal Mood - Skin Skin Exam: Intact, Normal Color, Warm Discharge Plan - Discharge Medications Prescriptions: Meropenem IV 1 gm in NS [Merrem IV 1 gm Premix] 1 gm IVPB Q12 #84 bag Vancomycin/0.9 % Sod Chloride [Vanco 750 mg/150 ml-0.9% NaCl] 750 mg IV Q12 #84 plast..bag - Follow Up Plan Condition: FAIR Disposition: TRANSF TO SNF Instructions: Bone Marrow Failure in Children (DC), Bone Marrow Failure in Children (GEN), Wound Dehiscence (DC) Additional Instructions: amedysis visiting nurse [phone] homecare services infusion [phone]
--- NOTE | 2017-11-22 12:57 | OP ---
PROCEDURE DATE: 11/21/2017 ADDENDUM At this point, having removed the femoral component, tibial component, and the patellar button with retained tags, use of the oscillating saw and the freddie was used to remove all retained cement. The wound was sterilely irrigated. At this point in time, the tourniquet is deflated, hemostasis controlled with the Aquamantys. The operation is awaiting the gram stain result. The gram stain is obtained, which reveals greater than 5 white cells per high power field. In the milieu of the exposure with gush of purulent fluid, we feel that there are more cells but to mandate in the clinical environment consistent drainage and the gram stain results to remove the components. Components having been removed, all excess cement having been removed, posterior capsular release having been accomplished, lateral patellar retinacular release having been accomplished, the wound is sterilely irrigated. At this point in time, the bone having been prepared, the antibiotic impregnated spacer is introduced on the tibial and femoral side. It is tacked on the tibial side to allow maintenance of the gaps. The wound was sterilely irrigated. Hemostasis was controlled. Closures in layers of arthrotomy with #1 Vicryl followed by 0 Vicryl, 2-0 Vicryl, [place] for skin. At this point in time, the PREVENA wound VAC dressing is applied. The sponge is cut the length of the incision. It is affixed and sealed and the central aspect was placed through the port to the cylindrical setup through the wound VAC. Harvey Womack compression dressing and knee immobilizers were applied. Postoperative x-rays revealed acceptable position of the construct. Isaac Sharpe MD
[2017-11-22] MEDS ORDERED: Enoxaparin 40 mg Syringe SC SCH (13:00)
[2017-11-23] MEDS ORDERED: Morphine 4 MG/ML VIAL ONE (01:07)
[2017-11-23] MEDS ORDERED: Morphine 4 MG/ML VIAL IVP ONE ×2 (01:30→11:01)
[2017-11-23 05:59] VITALS: TEMP 98.4
[2017-11-23] MEDS: Meropenem 1 GM in Sodium Chloride 0.9% 100 ML IVPB SCH (06:42)
[2017-11-23 07:39] VITALS: BP 101/68; PULSE 94; RESP 19; O2SAT 97
[2017-11-23] MEDS: Lactobacillus Acidophilus 500 MU Cap PO SCH (08:37)
[2017-11-23] MEDS: Lactated Ringer's 1,000 ML IV SCH (08:38)
[2017-11-23] MEDS: Paliperidone 3 MG ER TAB PO SCH (08:38)
--- NOTE | 2017-11-23 12:51 | OP ---
PROCEDURE DATE: 11/21/2017 PREOPERATIVE DIAGNOSES: Chronic drainage, right total knee replacement, rule out deep sepsis. POSTOPERATIVE DIAGNOSIS: Septic right total knee replacement. OPERATIVE FINDINGS: 1. Septic right total knee replacement with a positive Gram stain x2 greater than 5 white cells per high-power field, clinically with poor deep tissue quality, friability, and evidence for deep sepsis with purulence. 2. Posterior capsular contracture. 3. Lateral patellar contracture. OPERATION PERFORMED: 1. Removal of total knee replacement insertion antibiotic impregnated spacer. 2. Tricompartmental synovectomy. 3. Posterior capsular release. 4. Lateral patellar retinacular release. 5. Excision of skin and subcutaneous tissue and muscle, and application of knee immobilizer. 6. Application of Prevena Wound VAC. SURGEON: Isaac Sharpe MD PRODUCT SAFETY ENGINEER: Dinora Way, certified registered nursing pediatric dental assistant. SECOND MANAGER PRACTICE: Marin Doss. ANESTHESIA: General endotracheal anesthesia. ANESTHESIA ADMINISTERED BY: Bharathi Rowland MD BLOOD LOSS: Approximately 75 mL. BLOOD PRODUCTS GIVEN: Two units packed red blood cells. DRAINS: Prevena drain is employed. POSTOPERATIVE CONDITION: Stable. TIME OF PROCEDURE: Time in the room 9:20, incision time 10:05. OPERATIVE INDICATION: Nadira Leslie is a woman who had a complex knee replacement arthroplasty for a tibial plateau fracture, which had been neglected. The patient was consulted at [facility] months ago and the knee replacement was accomplished. The patient underwent incision and drainage after poor wound care at the nursing facility. The recommended Betadine wet-to-dry dressing changes were not adhered to. As a result, the patient had continued drainage. The patient was discharged from the facility with continued drainage without notifying me. The patient is admitted through the emergency room as an emergency with chronic drainage, after discussion with family, both the daughters, Court. Pros, cons, risks, and benefits of surgery approach were discussed at length with the patient. The possibility of mechanical failure, infection, thromboembolic disease, secondary or tertiary surgery were discussed. The concept of recurrent sepsis, concept of nerve injury, stiffness is discussed. The concept of possible amputation and even possible is discussed. The patient wished the surgery be accomplished. OPERATIVE PROCEDURE: After having obtained informed consent in the above fashion, after having identified side, site and procedure and a critical pause/time-out, after the satisfactory induction of the anesthetic, patient identified as Nadira Leslie in the supine position with all bony prominence well padded. The right lower extremity was prepped and free-draped in the usual fashion for extremity surgery. The tourniquet have been applied, but was not yet inflated. After exsanguinating the limb using a 6-inch Esmarch bandage, the tourniquet, which have been applied, was inflated to 350 mmHg. This having been accomplished, the initial skin incision was carried out 2 fingerbreadths distal and 2 fingerbreadths proximal. An ellipse of skin, subcutaneous tissue, and some muscle was excised. This having been accomplished, a medial arthrotomy was accomplished. There was a gush of purulent fluid and the tissue has a very poor, friable, and discolored quality. Synovial fluid was sent for stat Gram stain with a number of white cells per high-power field, aerobic, anaerobic, AFB, and fungal cultures. This was sent x2. This having been accomplished, the lateral patellar retinaculum was found to be contracted. A lateral patellar retinacular release was accomplished. The patella was everted. The knee was flexed. There was found to be a posterior capsular contracture and the posterior capsule was released as well. Extensive anterior and posterior synovectomy was accomplished. Hemostasis was controlled with the Aquamantys. This having been accomplished, attention was turned to the tibia. The interface and the interval between the tibial component and the cement was developed using an oscillating saw and then the Accu-drive. Great care was taken to remove the cement. This was extremely tedious process. The procedure was carried out 360 degrees around the tibia. The tibia was loosened and was removed. All remaining cement was removed with the high-speed Christel drill with both the pencil tip and the acorn bur attachments. All cement was removed from the tibia and the tibial cut is free handed to neutral, neutral tibial cut with may be a degree or two of posterior slope. Attention is turned to the femur. The exact same process was accomplished. The interval between the cement and the prosthesis is developed using the oscillating saw and then the Accu-Drive. This having been accomplished, the femoral component was loosened. The femoral component is removed and all cement was removed as well. Distal cut was accomplished as well to remove all cement. All cement was removed. Intercondylar notch was debrided. The posterior capsular release was accomplished at this point in time. Extensive synovectomy having been accomplished. Cultures and biopsy of the soft tissues were accomplished. This having been accomplished, the wound was thoroughly irrigated. Hemostasis was controlled with the Aquamantys. The tourniquet was deflated. At this point in time, the femur tibia was prepared. The patella was removed using the oscillating saw and the pegs were removed using the high-power drill. This having been accomplished, the small antibiotic impregnated spacer was placed into the gap and the tibial side was built up as well to allow maintenance of the flexion and extension gap. A small amount of cement was placed on the patella. The wound was thoroughly irrigated. Hemostasis controlled with the Aquamantys. All three total knee components having been removed. The antibiotic impregnated spacer having been applied. The wound was thoroughly irrigated. Closures in layers, #1 Vicryl for the arthrotomy followed by 0 Vicryl, 2-0 Vicryl, [place] for skin. At this point in time, the Prevena wound VAC was applied to the anterior aspect of the wound. It should be noted that having removed the femoral component, tibial component and the patellar button using the oscillating saw, the bur was used to remove all retained cement. Wound was thoroughly irrigated. The tourniquet have been deflated. Hemostasis was controlled with the Aquamantys. The operation is paused awaiting the Gram-stain results. The Gram stain results x2 were obtained, which revealed greater than 5 white cells per high-power field. In the milieu of the exposure, with a gush of purulent fluid, and with the friability and poor nature of the tissues, we feel intuitively that there is certainly more than 5 white cells per high-power field, especially in conjunction with clinical environment that was reflected. Decision was made to remove the components. All excess cement was removed. The antibiotic impregnated spacer was introduced as discussed above. Closures in layers again with #1 Vicryl, 0 Vicryl, 2-0 Vicryl, [place] for skin at this point in time. The Prevena wound VAC dressing was applied. The sponge is cut to the length of the incision. It is affixed and sealed in the central aspect. A circular window was cut and the port was placed through the cylindrical setup to cupola melter helper to the wound VAC. Harvey Womack compression dressing and knee immobilizer were applied. The patient was transferred from the operating table to the stretcher. Postoperative x-rays revealed acceptable position of the construct. Isaac Sharpe MD
--- NOTE | 2017-11-25 09:13 | OP ---
PROCEDURE DATE: 11/21/2017 PREOPERATIVE DIAGNOSES: Persistent drainage, right knee, rule out septic total knee replacement. POSTOPERATIVE DIAGNOSES: Septic total knee replacement, florid synovitis, lateral patellar retinacular contracture, posterior capsular contracture. PROCEDURES: 1. Removal of total knee components x3 and insertion of antibiotic impregnated spacer. 2. Anterior and posterior synovectomy. 3. Posterior capsular release. 4. Lateral patellar retinacular release. 5. Excision of skin, subcutaneous tissue and muscle. 6. Application of wound VAC (Prevena wound VAC drain). SURGEON: Isaac Sharpe MD SERVICE ASSOCIATE: Dinora Way, certified registered nursing human resource assistant. SECOND COIL INSPECTOR: Marin Doss. TYPE OF ANESTHESIA: General regional anesthesia. ANESTHESIA ADMINISTERED BY: Bharathi Rowland MD COMPLICATIONS: No complications. DRAINS: Prevena wound VAC drainage. OPERATIVE INDICATIONS: Nadira Leslie is a woman who had a complex total knee replacement arthroplasty for fracture, which had been ignored. The patient was consulted at [facility]. The patient was taken back after successful total knee after improper wound management at the nursing facility, not following Betadine with dry dressing changes and antibiotic orders. The patient was taken back to surgery. The patient went back to the rehab facility and developed persistent drainage. The patient was taken back to surgery today with proximal debridement and possible removal of the components. Pros, cons, risks and benefits of this approach were discussed at length with the patient. Her South Korean is perfect, but also in the presence of a culturally competent surgical scrub technologist. Possibility of stiffness, mechanical failure, recurrent sepsis, even amputation and was discussed, with the possibility of nerve injury. Concept of reimplantation was discussed after a period of IV antibiotics and reimplantation. OPERATIVE PROCEDURE: After having obtained informed consent, after having identified the side, site and procedure, and a critical pause/time-out, after the satisfactory induction of the anesthetic, the patient identified as Nadira Leslie in the supine position with all bony prominences well padded, the right lower extremity was prepped and free draped in the usual fashion for lower extremity surgery. Tourniquet had been applied, but was not yet inflated. After exsanguinating the limb using a 6-inch Esmarch bandage, the tourniquet which had been applied was inflated to 350 mmHg. Medial arthrotomy was accomplished. There was a gush of purulent fluid, this was sent to the lab. Two aliquots of fluid were sent for aerobic, anaerobic, AFB and fungal cultures as well as stat Gram stain; number of white cells per high-power field. Gram stain results came back in excess of 5 to 7 white cells per high-power field, and in the clinical environment after exposure of the knee, the knee was deemed septic and the components will be removed. A lateral patellar retinacular release was accomplished to facilitate exposure. The knee was dislocated. Anterior and posterior synovectomy was accomplished. The wound was thoroughly irrigated. Posterior capsular release was accomplished as well, as there was found to be a lateral patella and a posterior capsular contracture. Hemostasis controlled with the Aquamantys. An extensive synovitis anteriorly and posteriorly was accomplished. Attention was turned to the tibia initially. The tibia was dislocated anteriorly. The interface between the components and the bone was developed using the oscillating saw. The Accu-drive was accomplished to further develop the interface between the components of the bone. The proximal tibia was loosened and the tibia was removed. Great care was taken to remove all retained cement using the high-speed drill. This having been accomplished, the remainder of the cement was removed from the tibia. Attention was turned to the femur. The interface between the component and the cement was developed using Accu-drive and using the osteotome. This having been accomplished, the femur was removed. The cement was removed, and at this point in time, further synovectomy was accomplished. Synovectomy having been accomplished, tibia and femur having been removed, using a bur, any retained cement was removed from both the femur and the tibia. The patellar button was removed and the retained tags were removed. This having been accomplished, using the oscillating saw, the interface was developed. The bone was removed. The wound was thoroughly irrigated. Anterior and posterior synovectomy was accomplished. Lex Sharpe MD
== END 2017-11-23 12:28 | DRG 463 ==
LOC: H.ER 13:32 → H.ERHOLD 18:05 → H.MEDSURG1 22:00
PROVIDERS: ADMIT Student in an Organized Health Care Education/Training Program; ATTEND Student in an Organized Health Care Education/Training Program
PROC: 0S9C4ZX Drainage of Right Knee Joint, Percutaneous Endoscopic Approach, Diagnostic (ICD-10-PCS; 2017-11-13)
PROC: BQ0 Imaging, Non-Axial Lower Bones, Plain Radiography (ICD-10-PCS; 2017-11-13)
PROC: 0SHC08Z Insertion of Spacer into Right Knee Joint, Open Approach (ICD-10-PCS; 2017-11-21)
PROC: 3E0T3BZ Introduction of Anesthetic Agent into Peripheral Nerves and Plexi, Percutaneous Approach (ICD-10-PCS; 2017-11-21)
PROC: 3E0T33Z Introduction of Anti-inflammatory into Peripheral Nerves and Plexi, Percutaneous Approach (ICD-10-PCS; 2017-11-21)
PROC: 30233N1 Transfusion of Nonautologous Red Blood Cells into Peripheral Vein, Percutaneous Approach (ICD-10-PCS; 2017-11-21)
PROC: 0SPC0JZ Removal of Synthetic Substitute from Right Knee Joint, Open Approach (ICD-10-PCS; principal; 2017-11-21 07:45)
PROC: 0SBC0ZZ Excision of Right Knee Joint, Open Approach (ICD-10-PCS; 2017-11-21 07:45)
PROC: 0KBS0ZZ Excision of Right Lower Leg Muscle, Open Approach (ICD-10-PCS; 2017-11-21 07:45)
DX: T84.53XA Infection and inflammatory reaction due to internal right knee prosthesis, initial encounter (principal); A41.9 Sepsis, unspecified organism; M00.861 Arthritis due to other bacteria, right knee; D61.818 Other pancytopenia; T81.31XA Disruption of external operation (surgical) wound, not elsewhere classified, initial encounter; E46 Unspecified protein-calorie malnutrition; T84.022A Instability of internal right knee prosthesis, initial encounter; M65.861 Other synovitis and tenosynovitis, right lower leg; F25.9 Schizoaffective disorder, unspecified; R56.9 Unspecified convulsions; D64.9 Anemia, unspecified; B19.20 Unspecified viral hepatitis C without hepatic coma; F31.9 Bipolar disorder, unspecified; F11.21 Opioid dependence, in remission; Z86.73 Personal history of transient ischemic attack (TIA), and cerebral infarction without residual deficits; Z87.81 Personal history of (healed) traumatic fracture

== ENCOUNTER 2018-01-07 01:25 | Emergency (ER) | payer MEDICARE, OTHER ==
[2018-01-07 01:26] VITALS: BMI 27.2
[2018-01-07 01:33] VITALS: O2SAT 100
[2018-01-07] MEDS ORDERED: Oxycodone/Acetaminophen 5/325 mg Tab PO ONE (02:09)
--- NOTE | 2018-01-07 02:12 | ED PDOC ---
Lower Extremity Pain/Injury Time Seen by Provider: 01/07/18 01:51 Chief Complaint (Nursing): Lower Extremity Problem/Injury Chief Complaint (Provider): knee pain History Per: Patient History/Exam Limitations: no limitations Onset/Duration Of Symptoms: Hrs Current Symptoms Are (Timing): Still Present Additional Complaint(s): 62 y/o female brought in by EMS for right knee pain x 2 hours. Patient states she has history of right total knee replacement, with multiple subsequent surgeries due to infection; states her last surgery was 3 weeks ago, hardware was removed and spacer was placed. Patient states she was just discharged from [facility] rehab yesterday and states "I was not ready to leave". Patient states she felt "dripping" from leg tonight which woke her from her sleep; patient then noted bleeding from wound and swelling to knee. Denies numbness/weakness right lower extremity, calf pain/tenderness. Patient states she was taking Percocet for pain but does not have any. Past Medical History Reviewed: Historical Data, Nursing Documentation, Vital Signs Vital Signs: Last Vital Signs Temp 98.1 F 01/07/18 01:29 Pulse 97 H 01/07/18 01:29 Resp 18 01/07/18 01:29 BP 125/86 01/07/18 01:29 Pulse Ox 100 01/07/18 01:29 - Medical History PMH: Anxiety, Bipolar Disorder, Depression, Gastritis, Personality Disorder, Schizophrenia, Seizures, TIA Denies: Alzheimer's Disease, Asthma, Atrial Fibrillation, Bronchitis, Cardia Arrhythmia, CHF, COPD, Dementia, Emphysema, HIV, HTN, Hypercholesterolemia, Chronic Kidney Disease, Sexually Transmitted Disease - Surgical History Surgical History: Cholecystectomy, - Family History Family History: States: Unknown Family Hx - Immunization History Hx Tetanus Toxoid Vaccination: No Hx Influenza Vaccination: No Hx Pneumococcal Vaccination: No - Home Medications Home Medications: Ambulatory Orders Medication Instructions Recorded lamoTRIgine [Lamictal] 25 mg PO DAILY 05/30/17 traZODone [Desyrel] 50 mg PO HS 05/30/17 Famotidine [Pepcid] 20 mg PO BID tab 06/27/17 Benztropine [Cogentin] 1 mg PO DAILY 10/06/17 Enoxaparin [Lovenox] 40 mg SC Q24H syr 11/22/17 Lactobacillus Acidophilus [Bacid 1 cap PO BID cap 11/22/17 Acidophilus] Meropenem IV 1 gm in NS [Merrem IV 1 gm IVPB Q12 #84 bag 11/22/17 1 gm Premix] Paliperidone [Invega] [address] 11/22/17 Vancomycin/0.9 % Sod Chloride 750 mg IV Q12 #84 plast..bag 11/22/17 [Vanco 750 mg/150 ml-0.9% NaCl] traMADol [Ultram] 50 mg PO Q6 PRN #30 tab 11/22/17 Cephalexin [Keflex] 500 mg PO Q6 #27 capsule 01/07/18 Naproxen [Naprosyn] 500 mg PO Q12 PRN #20 tablet 01/07/18 - Allergies Allergies/Adverse Reactions: Allergies Allergy/AdvReac Type Severity Reaction Status Date / Time No Known Allergies Allergy Verified 10/06/17 13:07 Review of Systems ROS Statement: Except As Marked, All Systems Reviewed And Found Negative Musculoskeletal: Positive for: Leg Pain (right knee) Physical Exam - Reviewed Nursing Documentation Reviewed: Yes Vital Signs Reviewed: Yes - Physical Exam Appears: Positive for: Well, Non-toxic, No Acute Distress Head Exam: Positive for: ATRAUMATIC Skin: Positive for: Normal Color Cardiovascular/Chest: Positive for: Regular Rate, Rhythm Respiratory: Positive for: Normal Breath Sounds Pulses-Dorsalis Pedis (L): 2+ Pulses-Dorsalis Pedis (R): 2+ Pulses-Post. Tibialis (L): 2+ Pulses-Post. Tibialis (R): 2+ Extremity: Positive for: Capillary Refill (<2 sec b/l LE), Swelling (anterior right knee soft, edematous without temp change. + erythema extending to distal femur (not new as per patient, reaction from medical bandage). Small pinhole- size opening noted proximal-mid surgical incision site with mild oozing blood. No purulent drainage noted. Limited ROM secondary to sx hx). Negative for: Calf Tenderness, Deformity Neurologic/Psych: Positive for: Alert, Oriented - Laboratory Results Result Diagrams: 01/07/18 02:15 01/07/18 02:15 - ECG O2 Sat by Pulse Oximetry: 100 - Progress ED Course And Treament: labs, percocet, xray EXAM: XR Right Knee, 3 views CLINICAL HISTORY: 62 years old, female; Pain; Knee; Right; Prior surgery; Surgery date: 6+ months ; Additional info: Knee pain, swelling h/o SX 3 wks ago TECHNIQUE: Three views of the right knee. COMPARISON: No relevant prior studies available. FINDINGS: Bones/joints: Small joint effusion. The femoral component is minimally anterior with respect to tibial component. Correlation with clinical examination is recommended if subluxation is clinically suspected. Right knee prosthesis. There are speckled hyperdensities within the posterior knee soft tissues. There are calcific densities along the medial soft tissues of the knee No acute fracture. Soft tissues: There is prepatellar soft tissue swelling. There is soft tissue swelling involving the posterior aspect of the knee surrounding the joint. IMPRESSION: 1. Small joint effusion. 2. There is prepatellar soft tissue swelling. There is soft tissue swelling involving the posterior aspect of the knee surrounding the joint. 3. The femoral component is minimally anterior with respect to tibial component. Correlation with clinical examination is recommended if subluxation or instability is clinically suspected. Case discussed with Dr. Sharpe, who recommends cleaning area with peroxide, bandage, knee immobilizer, PO antiobiotics and office follow up. Advised [facility] Patient educated on findings, advised follow up within 2-3 days. Rx Keflex (dose given in ED), naproxen given. RICE. Return precautions given. Disposition - Clinical Impression Clinical Impression: Visit for wound check, Knee pain - Patient ED Disposition Is Patient to be Admitted: No Counseled Patient/Family Regarding: Studies Performed, Diagnosis, Need For Followup, Rx Given - Disposition Referrals: Isaac Sharpe III, MD [Primary Care Provider] - [facility] [Outside] Disposition: Routine/Home Disposition Time: 05:43 Condition: IMPROVED Prescriptions: Cephalexin [Keflex] 500 mg PO Q6 #27 capsule Naproxen [Naprosyn] 500 mg PO Q12 PRN #20 tablet PRN Reason: Pain, Moderate (4-7) Instructions: Wound Care (DC), Knee Pain (DC)
[2018-01-07 02:47] LABS: CALCIUM 9.1 mg/dL (8.4-10.2); GFR AFRICAN-AMERICAN > 60; GFR NON-AFRICAN AMERICAN > 60
[2018-01-07 03:25] LABS: ALB/GLOB RATIO 0.9 (1.0-2.1); ALBUMIN 3.8 g/dL (3.5-5.0); ALT/SGPT 80 U/L (9-52); AST/SGOT 116 U/L (14-36); BLOOD UREA NITROGEN 14 mg/dl (7-17)
[2018-01-07 03:34] LABS: EOS # 0.2 K/uL (0.0-0.7); HEMOGLOBIN 11.4 g/dL (12.0-16.0); LYMPH # 1.1 K/uL (1.0-4.3); LYMPH % 30.4 % (20.0-40.0); MEAN CELL VOLUME 85.9 fl (81.0-99.0); MEAN CORPUSCULAR HEMOGLOBIN 28.3 pg (27.0-31.0); MEAN PLATELET VOLUME 9.4 fl (7.2-11.7); MONO # 0.7 K/uL (0.0-0.8); MONO % 20.1 % (0.0-10.0); NEUT # 1.5 K/uL (1.8-7.0); NEUT % 43.5 % (50.0-75.0); NRBC % 0.6 % (0.0-0.0); PLATELET COUNT 139 K/uL (130-400); RBC 4.02 Mil/uL (3.80-5.20); RED CELL DISTRIBUTION WIDTH 15.1 % (11.5-14.5); WHITE BLOOD COUNT 3.5 K/uL (4.8-10.8)
--- NOTE | 2018-01-07 04:34 | RAD ---
EXAM: XR Right Knee, 3 views CLINICAL HISTORY: 62 years old, female; Pain; Knee; Right; Prior surgery; Surgery date: 6+ months; Additional info: Knee pain, swelling h/o SX 3 wks ago TECHNIQUE: Three views of the right knee. COMPARISON: No relevant prior studies available. FINDINGS: Bones/joints: Small joint effusion. The femoral component is minimally anterior with respect to tibial component. Correlation with clinical examination is recommended if subluxation is clinically suspected. Right knee prosthesis. There are speckled hyperdensities within the posterior knee soft tissues. There are calcific densities along the medial soft tissues of the knee No acute fracture. Soft tissues: There is prepatellar soft tissue swelling. There is soft tissue swelling involving the posterior aspect of the knee surrounding the joint. IMPRESSION: 1. Small joint effusion. 2. There is prepatellar soft tissue swelling. There is soft tissue swelling involving the posterior aspect of the knee surrounding the joint. 3. The femoral component is minimally anterior with respect to tibial component. Correlation with clinical examination is recommended if subluxation or instability is clinically suspected.
[2018-01-07] MEDS ORDERED: Hydrogen Peroxide 3% Soln (480ml) TP ONE (05:41)
[2018-01-07 06:02] LABS: EOSINOPHIL 5 % (0-7); LYMPHOCYTE 29 % (20-50); MONOCYTE 16 % (0-10); NEUTROPHIL 50 % (42-75); TOTAL CELLS COUNTED 100
[2018-01-07 06:03] LABS: ANISOCYTOSIS SLIGHT; PLATELET ESTIMATE SLIGHTLY DECREASED (NORMAL)
[2018-01-07 06:04] LABS: ACANTHOCYTES MODERATE; LARGE PLATELETS PRESENT
[2018-01-07 10:08] VITALS: BP 125/79; PULSE 81; RESP 16; TEMP 98
== END 2018-01-07 10:06 | disposition home or self-care (01) ==
LOC: H.ER 01:25
DX: G89.18 Other acute postprocedural pain (principal); F20.9 Schizophrenia, unspecified; F31.9 Bipolar disorder, unspecified; F41.9 Anxiety disorder, unspecified; Z86.73 Personal history of transient ischemic attack (TIA), and cerebral infarction without residual deficits; Z98.890 Other specified postprocedural states

== ENCOUNTER 2018-01-20 06:39 | Inpatient (IN) | payer MEDICARE, OTHER ==
[2018-01-20 06:39] VITALS: BMI 27.2
[2018-01-20] MEDS ORDERED: Morphine 4 MG/ML VIAL IVP ONE (08:19)
--- NOTE | 2018-01-20 08:30 | CP.PCM.CON ---
History of Present Illness - History of Present Illness History of Present Illness: Orthopedic consultation Dr. Sharpe 62F 8 weeks s/p right knee prosthetic joint infection s/p explant and placement of antibiotic spacer 11/21/2017, presents to ER complaining of intractable knee pain. She says the pain is worse in her knee. She denies any trauma or falls. She does not have the knee immobilizer and she says that the brace is at home. Advised patient she must wear it all the time. Denies CP/SOB/dizziness/fever/ chills/nausea/vomiting. Denies drainage from knee. Review of Systems - Review of Systems All systems: reviewed and no additional remarkable complaints except - Musculoskeletal Musculoskeletal: As Per HPI Past Patient History - Infectious Disease Hx of Infectious Diseases: None - Tetanus Immunizations Tetanus Immunization: Unknown - Past Medical History & Family History Past Medical History?: Yes Past Family History: Reviewed and not pertinent - Past Social History Smoking Status: Never Smoked - CARDIAC Hx Atrial Fibrillation: No Hx Cardia Arrhythmia: No Hx Congestive Heart Failure: No Hx Hypercholesterolemia: No Hx Hypertension: No - PULMONARY Hx Asthma: No Hx Bronchitis: No Hx Chronic Obstructive Pulmonary Disease (COPD): No Hx Emphysema: No - NEUROLOGICAL Hx Alzheimer's Disease: No Hx Dementia: No Hx Seizures: Yes Hx Transient Ischemic Attacks (TIA): Yes - HEENT Hx HEENT Problems: No - RENAL Hx Chronic Kidney Disease: No - ENDOCRINE/METABOLIC Hx Endocrine Disorders: No - HEMATOLOGICAL/ONCOLOGICAL Hx Human Immunodeficiency Virus (HIV): No - INTEGUMENTARY Hx Dermatological Problems: No - MUSCULOSKELETAL/RHEUMATOLOGICAL Hx Musculoskeletal Disorders: Yes Hx Falls: Yes - GASTROINTESTINAL Hx Gastritis: Yes - GENITOURINARY/GYNECOLOGICAL Hx Sexually Transmitted Disorders: No - PSYCHIATRIC Hx Anxiety: Yes Hx Bipolar Disorder: Yes Hx Depression: Yes Hx Schizophrenia: Yes Hx Substance Use: Yes (hx heroin abuse) - SURGICAL HISTORY Hx Cholecystectomy: Yes - ANESTHESIA Hx Anesthesia: Yes Hx Anesthesia Reactions: No Meds Allergies/Adverse Reactions: Allergies Allergy/AdvReac Type Severity Reaction Status Date / Time No Known Allergies Allergy Verified 01/20/18 06:43 Physical Exam - Constitutional Appears: Well, No Acute Distress - Head Exam Head Exam: ATRAUMATIC - Expanded Lower Extremities Exam Right Knee exam: tenderness (mild swelling, no erythema, incision healed, calves soft NT neg homans +DP/PT pulses) Ankle exam: FULL ROM - Neurological Exam Neurological exam: Alert, Oriented x3 - Psychiatric Exam Psychiatric exam: Normal Affect, Normal Mood - Skin Skin Exam: Dry, Intact (incision well healed. Dry, No erythema, minimally warm) , Normal Color, Warm Results - Vital Signs Recent Vital Signs: Last Vital Signs Temp 97.3 F L 01/20/18 06:44 Pulse 74 01/20/18 06:44 Resp 16 01/20/18 06:44 BP 129/88 01/20/18 06:44 Pulse Ox 98 01/20/18 06:44 Assessment & Plan (1) Infection of prosthetic right knee joint Assessment and Plan: 8 weeks s/p removal of prosthesis and spacer placement per Dr. Sharpe, plan revision TKR on 01/22 f/u labs/u/a medical optimization ID consult cardio consult PT OOB knee immob d/w Dr. Sharpe, agrees with above Status: Acute
--- NOTE | 2018-01-20 08:34 | ED PDOC ---
Lower Extremity Pain/Injury Time Seen by Provider: 01/20/18 07:42 Chief Complaint (Nursing): Lower Extremity Problem/Injury Chief Complaint (Provider): Knee Pain History Per: Patient History/Exam Limitations: no limitations Onset/Duration Of Symptoms: Persistent Current Symptoms Are (Timing): Constant Additional Complaint(s): 62 year old female presents to ED with complaints of chronic right knee pain that has become intractable and has a past medical history of bipolar disorder and a right knee replacement. Patient states that she has had 3 following surgeries for revisions to the right knee replacement and has a history of post- operative infections, for which she is currently on a course of antibiotics. (- ) fever. Confirms she takes Percocet for pain. PCP: Dr. Ishmael Hassan Ortho: Dr. Sharpe Infectious diseases: Monocchibart Past Medical History Reviewed: Historical Data, Nursing Documentation, Vital Signs Vital Signs: Last Vital Signs Temp 97.3 F L 01/20/18 06:44 Pulse 74 01/20/18 06:44 Resp 16 01/20/18 06:44 BP 129/88 01/20/18 06:44 Pulse Ox 98 01/20/18 06:44 - Medical History PMH: Anxiety, Bipolar Disorder, Depression, Gastritis, Personality Disorder, Schizophrenia, Seizures, TIA Denies: Alzheimer's Disease, Asthma, Atrial Fibrillation, Bronchitis, Cardia Arrhythmia, CHF, COPD, Dementia, Emphysema, HIV, HTN, Hypercholesterolemia, Chronic Kidney Disease, Sexually Transmitted Disease - Surgical History Surgical History: Cholecystectomy, (x2) Other surgeries: 1 rt knee replacement surgery, 3 rt knee revision surgeries - Family History Family History: States: Unknown Family Hx - Immunization History Hx Tetanus Toxoid Vaccination: No Hx Influenza Vaccination: No Hx Pneumococcal Vaccination: No - Home Medications Home Medications: Ambulatory Orders Medication Instructions Recorded lamoTRIgine [Lamictal] 25 mg PO DAILY 05/30/17 traZODone [Desyrel] 50 mg PO HS 05/30/17 Famotidine [Pepcid] 20 mg PO BID tab 06/27/17 Benztropine [Cogentin] 1 mg PO DAILY 10/06/17 Enoxaparin [Lovenox] 40 mg SC Q24H syr 11/22/17 Lactobacillus Acidophilus [Bacid 1 cap PO BID cap 11/22/17 Acidophilus] Meropenem IV 1 gm in NS [Merrem IV 1 gm IVPB Q12 #84 bag 11/22/17 1 gm Premix] Paliperidone [Invega] [address] 11/22/17 Vancomycin/0.9 % Sod Chloride 750 mg IV Q12 #84 plast..bag 11/22/17 [Vanco 750 mg/150 ml-0.9% NaCl] traMADol [Ultram] 50 mg PO Q6 PRN #30 tab 11/22/17 Cephalexin [Keflex] 500 mg PO Q6 #27 capsule 01/07/18 Naproxen [Naprosyn] 500 mg PO Q12 PRN #20 tablet 01/07/18 - Allergies Allergies/Adverse Reactions: Allergies Allergy/AdvReac Type Severity Reaction Status Date / Time No Known Allergies Allergy Verified 01/20/18 06:43 Wells Criteria for PE - Wells Criteria for Pulmonary Embolism Clinical Signs and Symptoms of DVT: No P.E is #1 Diagnosis, or Equally Likely: No Heart Rate >100: No Immobilization at least 3 days;Surgery previous 4 weeks: No Previous, objectively diagnosed PE or DVT: No Hemoptysis: No Malignancy w/treatment within 6 months, or palliative: No Total Score: 0 Review of Systems ROS Statement: Except As Marked, All Systems Reviewed And Found Negative Constitutional: Negative for: Fever Musculoskeletal: Positive for: Leg Pain (right knee pain) Physical Exam - Reviewed Nursing Documentation Reviewed: Yes Vital Signs Reviewed: Yes - Physical Exam Appears: Positive for: Non-toxic, No Acute Distress. Negative for: Uncomfortable Head Exam: Positive for: ATRAUMATIC Skin: Positive for: Normal Color, Warm, Dry Eye Exam: Positive for: EOMI Cardiovascular/Chest: Positive for: Regular Rate, Rhythm Respiratory: Positive for: Normal Breath Sounds. Negative for: Respiratory Distress Gastrointestinal/Abdominal: Positive for: Soft. Negative for: Tenderness Extremity: Positive for: Tenderness (tenderness to right knee), Swelling ( swelling and warmth to right knee), Other (vertical scar over right knee). Negative for: Normal ROM (limited ROM secondary to pain for right knee), Deformity Neurologic/Psych: Positive for: Alert, Oriented. Negative for: Motor/Sensory Deficits - Laboratory Results Result Diagrams: 01/21/18 05:35 01/21/18 05:35 - ECG O2 Sat by Pulse Oximetry: 98 (RA) Pulse Ox Interpretation: Normal Medical Decision Making Medical Decision Makin Initial impression: right knee pain Initial plan: * Call Dr. Sharpe [address] Sharpe, who recommends patient be admitted under hospitalist for intractable pain. * Labs * Erythrocyte sedimentation rate * Morphine 4mg IVP * Re-eval [address] Kinsey and patient to be admitted for intractable pain. Scribe Attestation: Documented by Tamia Upton acting as a scribe Do Stewart MD. Scribe Attestation: All medical record entries made by the Scribe were at my direction and personally dictated by me. I have reviewed the chart and agree that the record accurately reflects my personal performance of the history, physical exam, medical decision making, and the department course for this patient. I have also personally directed, reviewed, and agree with the discharge instructions and disposition. Disposition - Clinical Impression Clinical Impression: Knee pain, acute - Patient ED Disposition Is Patient to be Admitted: Yes Discussed With DrMecca: Carl Kinsey Doctor Will See Patient In The: ED Counseled Patient/Family Regarding: Studies Performed, Diagnosis - Disposition Disposition Time: 09:30 Condition: FAIR - Pt Status Changed To: Hospital Disposition Of: Observation - POA Present On Arrival: None
[2018-01-20 08:50] LABS: BASO % 1.1 % (0.0-2.0); EOS # 0.2 K/uL (0.0-0.7); EOS % 6.2 % (0.0-4.0); HEMOGLOBIN 11.6 g/dL (12.0-16.0); LYMPH # 1.4 K/uL (1.0-4.3); MEAN CELL VOLUME 84.6 fl (81.0-99.0); MEAN CORPUSCULAR HEMOGLOBIN 28.3 pg (27.0-31.0); MEAN CORPUSCULAR HGB CONC 33.5 g/dL (33.0-37.0); MEAN PLATELET VOLUME 9.2 fl (7.2-11.7); MONO # 0.6 K/uL (0.0-0.8); NEUT % 31.7 % (50.0-75.0); NRBC % 0.3 % (0.0-0.0); RBC 4.1 Mil/uL (3.80-5.20); RED CELL DISTRIBUTION WIDTH 16.6 % (11.5-14.5); WHITE BLOOD COUNT 3.2 K/uL (4.8-10.8)
[2018-01-20 09:06] LABS: BLOOD UREA NITROGEN 7 mg/dl (7-17); CALCIUM 9.1 mg/dL (8.4-10.2); GFR AFRICAN-AMERICAN > 60; GFR NON-AFRICAN AMERICAN > 60
[2018-01-20 09:16] LABS: INR 1.2 (0.9-1.2); PARTIAL THROMBOPLASTIN TIME 35.8 Seconds (25.6-37.1); PROTHROMBIN TIME 13.1 Seconds (9.8-13.1)
[2018-01-20] MEDS ORDERED: Morphine 4 MG/ML VIAL ONE (09:18)
[2018-01-20 09:44] LABS: SQUAMOUS EPITHIAL 2 /hpf (0-5); URINE BILIRUBIN NEGATIVE (NEGATIVE); URINE BLOOD NEGATIVE (NEGATIVE); URINE CLARITY SLIGHTY-CLOUDY (Clear); URINE COLOR YELLOW (YELLOW); URINE GLUCOSE (UA) NEG (Normal); URINE LEUKOCYTE ESTERASE TRACE Leu/uL (Negative); URINE PROTEIN NEGATIVE (NEGATIVE); URINE UROBILINOGEN 0.2-1.0 mg/dL (0.2-1.0)
--- NOTE | 2018-01-20 11:00 | CP.PCM.HP ---
History of Present Illness - History of Present Illness History of Present Illness: 62 yo female with history of Bipolar DO, previous Heroin user, Hep C, history of CVA, Pancytopenia and history of right TKR with revision and placement of antibiotic spacer came back because of on and off pain and swelling of the right knee. Denied fever or chills. Present on Admission - Present on Admission Any Indicators Present on Admission: No History of DVT/PE: No History of Uncontrolled Diabetes: No Urinary Catheter: No Decubitus Ulcer Present: No Review of Systems - Review of Systems All systems: reviewed and no additional remarkable complaints except (aside from those mentioned above, 12 point system review were negative by me) Past Patient History - Infectious Disease Hx of Infectious Diseases: None - Tetanus Immunizations Tetanus Immunization: Unknown - Past Medical History & Family History Past Medical History?: Yes Past Family History: Reviewed and not pertinent - Past Social History Smoking Status: Never Smoked Alcohol: None Drugs: Opiates (previous Heroin user) - CARDIAC Hx Atrial Fibrillation: No Hx Cardia Arrhythmia: No Hx Congestive Heart Failure: No Hx Hypercholesterolemia: No Hx Hypertension: No - PULMONARY Hx Asthma: No Hx Bronchitis: No Hx Chronic Obstructive Pulmonary Disease (COPD): No Hx Emphysema: No - NEUROLOGICAL Hx Alzheimer's Disease: No Hx Dementia: No Hx Seizures: Yes Hx Transient Ischemic Attacks (TIA): Yes - HEENT Hx HEENT Problems: No - RENAL Hx Chronic Kidney Disease: No - ENDOCRINE/METABOLIC Hx Endocrine Disorders: No - HEMATOLOGICAL/ONCOLOGICAL Hx Human Immunodeficiency Virus (HIV): No - INTEGUMENTARY Hx Dermatological Problems: No - MUSCULOSKELETAL/RHEUMATOLOGICAL Hx Musculoskeletal Disorders: Yes Hx Falls: Yes - GASTROINTESTINAL Hx Gastritis: Yes - GENITOURINARY/GYNECOLOGICAL Hx Sexually Transmitted Disorders: No - PSYCHIATRIC Hx Anxiety: Yes Hx Bipolar Disorder: Yes Hx Depression: Yes Hx Schizophrenia: Yes - SURGICAL HISTORY Hx Cholecystectomy: Yes - ANESTHESIA Hx Anesthesia: Yes Hx Anesthesia Reactions: No Meds Allergies/Adverse Reactions: Allergies Allergy/AdvReac Type Severity Reaction Status Date / Time No Known Allergies Allergy Verified 01/20/18 06:43 Physical Exam - Constitutional Appears: No Acute Distress - Head Exam Head Exam: ATRAUMATIC - Eye Exam Eye Exam: absent: Scleral icterus - ENT Exam ENT Exam: Mucous Membranes Moist - Neck Exam Neck exam: Negative for: Meningismus - Respiratory Exam Respiratory Exam: absent: Rales, Rhonchi, Wheezes, Respiratory Distress - Cardiovascular Exam Cardiovascular Exam: REGULAR RHYTHM, +S1, +S2 - GI/Abdominal Exam GI & Abdominal Exam: Soft. absent: Tenderness - Rectal Exam Rectal Exam: Deferred - Extremities Exam Extremities exam: Positive for: joint swelling (swelling on right knee, slightly tender, not warm to touch, midline surgical scar healed and dry) - Back Exam Back exam: absent: tenderness - Neurological Exam Neurological exam: Alert, Oriented x3 - Psychiatric Exam Psychiatric exam: Normal Affect - Skin Skin Exam: Dry, Intact Results - Vital Signs Recent Vital Signs: Last Vital Signs Temp 97.3 F L 01/20/18 06:44 Pulse 90 01/20/18 09:40 Resp 18 01/20/18 09:40 BP 120/81 01/20/18 09:40 Pulse Ox 98 01/20/18 09:45 - Labs Result Diagrams: 01/20/18 08:43 01/20/18 08:43 Labs: Laboratory Results - last 24 hr 01/20/18 01/20/18 01/20/18 08:43 08:43 08:59 WBC 3.2 L RBC 4.10 Hgb 11.6 L Hct 34.7 MCV 84.6 MCH 28.3 MCHC 33.5 RDW 16.6 H Plt Count 110 L D MPV 9.2 Neut % (Auto) 31.7 L Lymph % (Auto) 43.0 H [place] % (Auto) 18.0 H Eos % (Auto) 6.2 H Baso % (Auto) 1.1 Neut # (Auto) 1.0 L Lymph # (Auto) 1.4 [place] # (Auto) 0.6 Eos # (Auto) 0.2 Baso # (Auto) 0.0 ESR 19 PT 13.1 INR 1.2 APTT 35.8 Sodium 145 Potassium 3.9 Chloride 106 Carbon Dioxide 24 Anion Gap 19 BUN 7 Creatinine 0.5 L Est GFR ( Amer) > 60 Est GFR (Non-Af Amer) > 60 Random Glucose 95 Calcium 9.1 Urine Color Urine Clarity Urine pH Ur Specific Pound Urine Protein Urine Glucose (UA) Urine Ketones Urine Blood Urine Nitrate Urine Bilirubin Urine Urobilinogen Ur Leukocyte Esterase Urine RBC (Auto) Urine Microscopic WBC Ur Squamous Epith Cells 01/20/18 09:00 WBC RBC Hgb Hct MCV MCH MCHC RDW Plt Count MPV Neut % (Auto) Lymph % (Auto) [place] % (Auto) Eos % (Auto) Baso % (Auto) Neut # (Auto) Lymph # (Auto) [place] # (Auto) Eos # (Auto) Baso # (Auto) ESR PT INR APTT Sodium Potassium Chloride Carbon Dioxide Anion Gap BUN Creatinine Est GFR ( Amer) Est GFR (Non-Af Amer) Random Glucose Calcium Urine Color Yellow Urine Clarity Slighty-cloudy Urine pH 5.0 Ur Specific Pound 1.020 Urine Protein Negative Urine Glucose (UA) Neg Urine Ketones Negative Urine Blood Negative Urine Nitrate Negative Urine Bilirubin Negative Urine Urobilinogen 0.2-1.0 Ur Leukocyte Esterase Trace Urine RBC (Auto) 7 H Urine Microscopic WBC 4 Ur Squamous Epith Cells 2 Assessment & Plan - Assessment and Plan (Free Text) Assessment: 62 yo female with history of Bipolar DO, previous Heroin user, Hep C, history of CVA, Pancytopenia and history of right TKR with revision and placement of antibiotic spacer came back because of on and off pain and swelling of the right knee. Denied fever or chills. 1. Pain on Right Knee Post revision TKR and placement of antibiotic spacer ortho consult with Dr Sharpe ID consult with Dr Fernandes cardiology consult with Dr Serrano as per ortho consult 2. Pancytopenia BM biopsy (11/20/2017): no evidence of lymphoproliferative disorder, no plasma cell proliferation, no evidence of metastatic disease, no increased stromal collagen deposition; no evidence of myeloid disorder or lymphoproliferative disorder probably secondary to Hep C
[2018-01-20] MEDS: Paliperidone 3 MG ER TAB PO SCH (17:33)
--- NOTE | 2018-01-20 18:34 | CP.PCM.CON ---
History of Present Illness - History of Present Illness History of Present Illness: THE PATIENT IS A 62 YEAR OLD FEMALE KNOWN TO ME FROM [facility] ADMISSIONS. SHE HAS A HISTORY OF A RIGHT KNEE REPLACEMENT ON 06/03/17 AND SHE FELL TWO WEEKS LATER AND THE WOUND OPENED AND SHE WAS READMITTED TWO WEEKS LATER FOR A REVISION. SHE WAS ADMITTED IN OCTOBER OF 2017 FOR A SUPERFICIAL INFECTION THAT WAS TREATED INCLUDING SURGERY. SHE WAS ADMITTED AGAIN IN NOVEMBER OF 2017 AND THE RIGHT KNEE PROSTHESIS WAS INFECTED AND IT WAS TOTALLY REMOVED AND A SPACER WAS IMPLANTED. SHE WAS SCHEDULED TO HAVE SURGERY NEXT WEEK, BUT HAD SEVERE PAIN AND ALSO HAD SWELLING OF THE RIGHT KNEE AND SHE WENT TO THE ER AND WAS ADMITTED. SHE WILL UNDERGO SURGERY AGAIN ON 01/22/18 AND CARDIOLOGY WAS ASKED TO SEE HER PRE-OPERATIVELY AND FOLLOW HER ON THIS ADMISSION. SHE ALSO HAS A HISTORY OF BIPOLAR DISEASE AND WAS A FORMER SUBSTANCE ABUSER AND HAS HEPATITIS C. SHE DENIES ANY CARDIAC HISTORY OR CHEST PAIN. Past Patient History - Infectious Disease Hx of Infectious Diseases: None - Tetanus Immunizations Tetanus Immunization: Unknown - Past Medical History & Family History Past Medical History?: Yes - Past Social History Smoking Status: Never Smoked - CARDIAC Hx Atrial Fibrillation: No Hx Cardia Arrhythmia: No Hx Congestive Heart Failure: No Hx Hypercholesterolemia: No Hx Hypertension: No - PULMONARY Hx Asthma: No Hx Bronchitis: No Hx Chronic Obstructive Pulmonary Disease (COPD): No Hx Emphysema: No - NEUROLOGICAL Hx Alzheimer's Disease: No Hx Dementia: No Hx Seizures: Yes Hx Transient Ischemic Attacks (TIA): Yes - HEENT Hx HEENT Problems: No - RENAL Hx Chronic Kidney Disease: No - ENDOCRINE/METABOLIC Hx Endocrine Disorders: No - HEMATOLOGICAL/ONCOLOGICAL Hx Human Immunodeficiency Virus (HIV): No - INTEGUMENTARY Hx Dermatological Problems: No - MUSCULOSKELETAL/RHEUMATOLOGICAL Hx Musculoskeletal Disorders: Yes Hx Falls: Yes - GASTROINTESTINAL Hx Gastritis: Yes - GENITOURINARY/GYNECOLOGICAL Hx Sexually Transmitted Disorders: No - PSYCHIATRIC Hx Anxiety: Yes Hx Bipolar Disorder: Yes Hx Depression: Yes Hx Schizophrenia: Yes Hx Substance Use: No - SURGICAL HISTORY Hx Cholecystectomy: Yes Other/Comment: R TKR with 3 Revisions - ANESTHESIA Hx Anesthesia: Yes Hx Anesthesia Reactions: No Meds Allergies/Adverse Reactions: Allergies Allergy/AdvReac Type Severity Reaction Status Date / Time No Known Allergies Allergy Verified 01/20/18 06:43 - Medications Medications: Current Medications Benztropine Mesylate (Cogentin) 1 mg PO DAILY [facility] Famotidine (Pepcid) 20 mg PO BID [facility] Last Admin: 01/20/18 17:33 Dose: 20 mg Lamotrigine (Lamictal) 25 mg PO DAILY [facility] Paliperidone (Invega) 3 mg PO BID [facility] Last Admin: 01/20/18 17:33 Dose: 3 mg Pantoprazole Sodium (Protonix Ec Tab) 40 mg PO DAILY [facility] Tramadol HCl (Ultram) 50 mg PO Q6 PRN PRN Reason: Pain, severe (8-10) Trazodone HCl (Desyrel) 50 mg PO [facility] Physical Exam - Respiratory Exam Respiratory Exam: Clear to Auscultation Bilateral - Cardiovascular Exam Cardiovascular Exam: REGULAR RHYTHM, +S1, +S2 - Extremities Exam Additional comments: RIGHT KNEE WITH IMMOBILIZER LLE IS EDEMA FREE - Additional Findings Additional findings: EKG NSR CXR NAD Results - Vital Signs Recent Vital Signs: Last Vital Signs Temp 98.1 F 01/20/18 16:05 Pulse 71 01/20/18 16:05 Resp 18 01/20/18 16:05 BP 99/60 L 01/20/18 16:05 Pulse Ox 98 01/20/18 16:05 - Labs Result Diagrams: 01/20/18 08:43 01/20/18 08:43 Labs: Laboratory Results - last 24 hr 01/20/18 01/20/18 01/20/18 08:43 08:43 08:59 WBC 3.2 L RBC 4.10 Hgb 11.6 L Hct 34.7 MCV 84.6 MCH 28.3 MCHC 33.5 RDW 16.6 H Plt Count 110 L D MPV 9.2 Neut % (Auto) 31.7 L Lymph % (Auto) 43.0 H Cook % (Auto) 18.0 H Eos % (Auto) 6.2 H Baso % (Auto) 1.1 Neut # (Auto) 1.0 L Lymph # (Auto) 1.4 Cook # (Auto) 0.6 Eos # (Auto) 0.2 Baso # (Auto) 0.0 ESR 19 PT INR APTT Sodium 145 Potassium 3.9 Chloride 106 Carbon Dioxide 24 Anion Gap 19 BUN 7 Creatinine 0.5 L Est GFR ( Amer) > 60 Est GFR (Non-Af Amer) > 60 Random Glucose 95 Calcium 9.1 C-React Prot High Sens 1.59 Urine Color Urine Clarity Urine pH Ur Specific [place] Urine Protein Urine Glucose (UA) Urine Ketones Urine Blood Urine Nitrate Urine Bilirubin Urine Urobilinogen Ur Leukocyte Esterase Urine RBC (Auto) Urine Microscopic WBC Ur Squamous Epith Cells 01/20/18 01/20/18 08:59 09:00 WBC RBC Hgb Hct MCV MCH MCHC RDW Plt Count MPV Neut % (Auto) Lymph % (Auto) Cook % (Auto) Eos % (Auto) Baso % (Auto) Neut # (Auto) Lymph # (Auto) Cook # (Auto) Eos # (Auto) Baso # (Auto) ESR PT 13.1 INR 1.2 APTT 35.8 Sodium Potassium Chloride Carbon Dioxide Anion Gap BUN Creatinine Est GFR ( Amer) Est GFR (Non-Af Amer) Random Glucose Calcium C-React Prot High Sens Urine Color Yellow Urine Clarity Slighty-cloudy Urine pH 5.0 Ur Specific [place] 1.020 Urine Protein Negative Urine Glucose (UA) Neg Urine Ketones Negative Urine Blood Negative Urine Nitrate Negative Urine Bilirubin Negative Urine Urobilinogen 0.2-1.0 Ur Leukocyte Esterase Trace Urine RBC (Auto) 7 H Urine Microscopic WBC 4 Ur Squamous Epith Cells 2 Assessment & Plan - Assessment and Plan (Free Text) Assessment: S/P EXPLANTATION OF INFECTED RIGHT TKR NOVEMBER 2017 WITH THE INSERTION OF AN ANTIBIOTIC INFUSED SPACER. NOW WITH RIGHT KNEE PAIN AND SWELLING BIPOLAR DISEASE HEPATITIS C STABLE CARDIAC STATUS Plan: FOR SURGERY 01/22/18 THE PATIENT IS CLEARED FOR SURGERY FROM THE CARDIAC [facility]IEWPOINT
--- NOTE | 2018-01-20 18:43 | CP.PCM.PN ---
Subjective - Date & Time of Evaluation Date of Evaluation: 01/20/18 Time of Evaluation: 18:40 - Subjective Subjective: I D NOTE PATIENT WELL KNOWN TO ME WILL HAVE PLACEMENT OF NEW [employer] RX c VANCOMYCIN 750MG IVPB Q12 Objective - Vital Signs/Intake and Output Vital Signs (last 24 hours): Temp Pulse Resp BP Pulse Ox 98.1 F 71 18 99/60 L 98 01/20/18 16:05 01/20/18 16:05 01/20/18 16:05 01/20/18 16:05 01/20/18 16:05 - Medications Medications: Current Medications Benztropine Mesylate (Cogentin) 1 mg PO DAILY [facility] Famotidine (Pepcid) 20 mg PO BID [facility] Last Admin: 01/20/18 17:33 Dose: 20 mg Vancomycin HCl 750 mg/ Sodium (Chloride) 250 mls @ 250 mls/hr IVPB Q12H [facility] PRN Reason: Protocol Lamotrigine (Lamictal) 25 mg PO DAILY [facility] Paliperidone (Invega) 3 mg PO BID [facility] Last Admin: 01/20/18 17:33 Dose: 3 mg Pantoprazole Sodium (Protonix Ec Tab) 40 mg PO DAILY [facility] Tramadol HCl (Ultram) 50 mg PO Q6 PRN PRN Reason: Pain, severe (8-10) Trazodone HCl (Desyrel) 50 mg PO HS [facility] - Labs Labs: 01/20/18 08:43 01/20/18 08:43 PT 13.1 Seconds (9.8-13.1) 01/20/18 08:59 INR 1.2 (0.9-1.2) 01/20/18 08:59 APTT 35.8 Seconds (25.6-37.1) 01/20/18 08:59
--- NOTE | 2018-01-20 19:41 | CARD ---
APPROVED REPORT EKG Measurement Heart [id number] <Conclusion> Normal sinus rhythm Minimal voltage criteria for LVH, may be normal variant Abnormal ECG
[2018-01-21 06:38] LABS: BASO % 0.8 % (0.0-2.0); EOS # 0.1 K/uL (0.0-0.7); EOS % 4.9 % (0.0-4.0); LYMPH # 0.8 K/uL (1.0-4.3); LYMPH % 31.8 % (20.0-40.0); MEAN CELL VOLUME 83.9 fl (81.0-99.0); MEAN CORPUSCULAR HEMOGLOBIN 28.4 pg (27.0-31.0); MEAN CORPUSCULAR HGB CONC 33.8 g/dL (33.0-37.0); MEAN PLATELET VOLUME 9.6 fl (7.2-11.7); MONO # 0.4 K/uL (0.0-0.8); MONO % 16.4 % (0.0-10.0); NEUT # 1.1 K/uL (1.8-7.0); NEUT % 46.1 % (50.0-75.0); NRBC % 0.3 % (0.0-0.0); RBC 3.88 Mil/uL (3.80-5.20); RED CELL DISTRIBUTION WIDTH 16.5 % (11.5-14.5); WHITE BLOOD COUNT 2.4 K/uL (4.8-10.8)
[2018-01-21 06:58] LABS: BLOOD UREA NITROGEN 10 mg/dl (7-17); CALCIUM 8.6 mg/dL (8.4-10.2); GFR AFRICAN-AMERICAN > 60; GFR NON-AFRICAN AMERICAN > 60
--- NOTE | 2018-01-21 07:45 | CP.PCM.PN ---
Subjective - Date & Time of Evaluation Date of Evaluation: 01/21/18 Time of Evaluation: 07:42 - Subjective Subjective: Patient was seen and examined at bedside comfortable. Pain well controlled. Transferring and ambulating with cane without difficulties. No acute events overnight. Objective - Vital Signs/Intake and Output Vital Signs (last 24 hours): Temp Pulse Resp BP Pulse Ox 98.4 F 75 18 109/70 97 01/21/18 07:39 01/21/18 07:39 01/21/18 07:39 01/21/18 07:39 01/21/18 07:39 - Medications Medications: Current Medications Benztropine Mesylate (Cogentin) 1 mg PO DAILY [facility] Famotidine (Pepcid) 20 mg PO BID [facility] Last Admin: 01/20/18 17:33 Dose: 20 mg Vancomycin HCl 750 mg/ Sodium (Chloride) 250 mls @ 250 mls/hr IVPB Q12H [facility] PRN Reason: Protocol Last Admin: 01/21/18 05:51 Dose: 250 mls/hr Lamotrigine (Lamictal) 25 mg PO DAILY [facility] Paliperidone (Invega) 3 mg PO BID [facility] Last Admin: 01/20/18 17:33 Dose: 3 mg Pantoprazole Sodium (Protonix Ec Tab) 40 mg PO DAILY [facility] Tramadol HCl (Ultram) 50 mg PO Q6 PRN PRN Reason: Pain, severe (8-10) Last Admin: 01/21/18 04:06 Dose: 50 mg Trazodone HCl (Desyrel) 50 mg PO HS [facility] Last Admin: 01/20/18 21:01 Dose: 50 mg - Labs Labs: 01/21/18 05:35 01/21/18 05:35 PT 13.1 Seconds (9.8-13.1) 01/20/18 08:59 INR 1.2 (0.9-1.2) 01/20/18 08:59 APTT 35.8 Seconds (25.6-37.1) 01/20/18 08:59 - Extremities Exam Additional comments: Right knee: Knee imm intact. Midline incision clean,dry and intact. Swelling improved. ROM not tested. Sensation intact SP/DP/TN. Motor intact EHL/FHL/TA/ GA. Pedal pulses intact. Assessment and Plan (1) Infection of prosthetic right knee joint Assessment & Plan: Patient is 8 weeks s/p explant and abz spacer placement. -NPO pMN -PT/OT -cardiac clearance appreciated -OR tomorrow AM for revision TKA -case and plan d/w Dr. Sharpe in agreement Status: Acute
--- NOTE | 2018-01-21 09:04 | RAD ---
PROCEDURE: Right Knee Radiographs. HISTORY: s/p explant COMPARISON: Right knee radiographs 01/07/2018. FINDINGS: BONES: Patient again seen to be status post right total knee replacement revision including apparent spacers between the distal femoral proximal tibial prosthetic devices once again. No interval change in alignment is appreciated. Trace lucency seen at the posterior margins of the tibial prosthetic component, only in the lateral view. No similar lucency is seen involving the cement related to this prosthesis or the anterior prosthesis/ bone interface. Persistent pre patellar edema is identified with edema and is also seen anterior to the distal femoral diaphysis/ metaphysis region and further clinical correlation is advised. JOINTS: As above. JOINT EFFUSION: Suprapatellar joint effusion is suggested once again, potentially increase. OTHER FINDINGS: None. IMPRESSION: Stable appearance status right total knee replacement revision with persistent if not increased suprapatellar bursa effusion. Prepatellar edema persists as well. Trace lucency seen inferiorly at the posterior margins of the tibial component but not involving the cement. This is likely stable finding but clinical correlation is advised here.
--- NOTE | 2018-01-21 09:51 | RAD ---
PROCEDURE: CHEST RADIOGRAPH, 1 VIEW HISTORY: pre op COMPARISON: None available. FINDINGS: LUNGS: Clear. PLEURA: No pneumothorax or pleural fluid seen. CARDIOVASCULAR: Normal. OSSEOUS STRUCTURES: No significant abnormalities. VISUALIZED UPPER ABDOMEN: Surgical clips noted right upper quadrant abdomen. OTHER FINDINGS: None. IMPRESSION: No acute cardiopulmonary disease appreciated.
--- NOTE | 2018-01-21 10:49 | CP.PCM.PN ---
Subjective - Date & Time of Evaluation Date of Evaluation: 01/21/18 Time of Evaluation: 10:30 - Subjective Subjective: NO CHEST PAIN OR SOB Objective - Vital Signs/Intake and Output Vital Signs (last 24 hours): Temp Pulse Resp BP Pulse Ox 98.4 F 75 18 109/70 97 01/21/18 07:39 01/21/18 07:39 01/21/18 07:39 01/21/18 07:39 01/21/18 07:39 - Medications Medications: Current Medications Benztropine Mesylate (Cogentin) 1 mg PO DAILY [facility] Famotidine (Pepcid) 20 mg PO BID [facility] Last Admin: 01/20/18 17:33 Dose: 20 mg Vancomycin HCl 750 mg/ Sodium (Chloride) 250 mls @ 250 mls/hr IVPB Q12H [facility] PRN Reason: Protocol Last Admin: 01/21/18 05:51 Dose: 250 mls/hr Lamotrigine (Lamictal) 25 mg PO DAILY [facility] Paliperidone (Invega) 3 mg PO BID [facility] Last Admin: 01/20/18 17:33 Dose: 3 mg Pantoprazole Sodium (Protonix Ec Tab) 40 mg PO DAILY [facility] Tramadol HCl (Ultram) 50 mg PO Q6 PRN PRN Reason: Pain, severe (8-10) Last Admin: 01/21/18 04:06 Dose: 50 mg Trazodone HCl (Desyrel) 50 mg PO HS [facility] Last Admin: 01/20/18 21:01 Dose: 50 mg - Labs Labs: 01/21/18 05:35 01/21/18 05:35 PT 13.1 Seconds (9.8-13.1) 01/20/18 08:59 INR 1.2 (0.9-1.2) 01/20/18 08:59 APTT 35.8 Seconds (25.6-37.1) 01/20/18 08:59 - Respiratory Exam Respiratory Exam: Clear to Ausculation Bilateral - Cardiovascular Exam Cardiovascular Exam: REGULAR RHYTHM, +S1, +S2 Assessment and Plan - Assessment and Plan (Free Text) Assessment: S/P RIGHT KNEE REPLACEMENT REMOVAL NOVEMBER 2017 SECONDARY TO AN INFECTION WITH INSERTION OF A SPACER STABLE CARDIAC STATUS Plan: FOR SURGERY TOMORROW
[2018-01-21] MEDS: Paliperidone 3 MG ER TAB PO SCH ×2 (11:30→18:37)
[2018-01-21] MEDS: Pantoprazole 40 mg EC Tab PO SCH (11:31)
--- NOTE | 2018-01-21 14:28 | CP.PCM.PN ---
Subjective - Date & Time of Evaluation Date of Evaluation: 01/21/18 Time of Evaluation: 13:20 - Subjective Subjective: Patient seen and examined. Denied any pain at the moment. Objective - Vital Signs/Intake and Output Vital Signs (last 24 hours): Temp Pulse Resp BP Pulse Ox 98.4 F 75 18 109/70 97 01/21/18 07:39 01/21/18 07:39 01/21/18 07:39 01/21/18 07:39 01/21/18 07:39 - Medications Medications: Current Medications Benztropine Mesylate (Cogentin) 1 mg PO DAILY [facility] Last Admin: 01/21/18 11:30 Dose: 1 mg Famotidine (Pepcid) 20 mg PO BID [facility] Last Admin: 01/21/18 11:30 Dose: 20 mg Vancomycin HCl 750 mg/ Sodium (Chloride) 250 mls @ 250 mls/hr IVPB Q12H [facility] PRN Reason: Protocol Last Admin: 01/21/18 05:51 Dose: 250 mls/hr Lamotrigine (Lamictal) 25 mg PO DAILY [facility] Last Admin: 01/21/18 11:30 Dose: 25 mg Paliperidone (Invega) 3 mg PO BID [facility] Last Admin: 01/21/18 11:30 Dose: 3 mg Pantoprazole Sodium (Protonix Ec Tab) 40 mg PO DAILY [facility] Last Admin: 01/21/18 11:31 Dose: 40 mg Tramadol HCl (Ultram) 50 mg PO Q6 PRN PRN Reason: Pain, severe (8-10) Last Admin: 01/21/18 04:06 Dose: 50 mg Trazodone HCl (Desyrel) 50 mg PO HS [facility] Last Admin: 01/20/18 21:01 Dose: 50 mg - Labs Labs: 01/21/18 05:35 01/21/18 05:35 PT 13.1 Seconds (9.8-13.1) 01/20/18 08:59 INR 1.2 (0.9-1.2) 01/20/18 08:59 APTT 35.8 Seconds (25.6-37.1) 01/20/18 08:59
[2018-01-22 06:34] LABS: HEMOGLOBIN 10.5 g/dL (12.0-16.0); MEAN CELL VOLUME 84.9 fl (81.0-99.0); MEAN CORPUSCULAR HEMOGLOBIN 27.8 pg (27.0-31.0); MEAN CORPUSCULAR HGB CONC 32.8 g/dL (33.0-37.0); RBC 3.78 Mil/uL (3.80-5.20); RED CELL DISTRIBUTION WIDTH 16.4 % (11.5-14.5)
[2018-01-22 07:09] LABS: BLOOD UREA NITROGEN 11 mg/dl (7-17); CALCIUM 8.8 mg/dL (8.4-10.2); GFR AFRICAN-AMERICAN > 60; GFR NON-AFRICAN AMERICAN > 60
[2018-01-22] MEDS: Cholecalciferol 1,000 INTLU TAB PO SCH (08:32)
[2018-01-22] MEDS: Paliperidone 3 MG ER TAB PO SCH ×2 (08:32→16:52)
[2018-01-22] MEDS: Pantoprazole 40 mg EC Tab PO SCH (08:33)
--- NOTE | 2018-01-22 10:23 | CP.PCM.PN ---
Subjective - Date & Time of Evaluation Date of Evaluation: 01/22/18 Time of Evaluation: 10:20 - Subjective Subjective: Patient was seen and examined at bedside comfortable. Pain well controlled this AM. Transferring and ambulating with can with some difficulty. No acute events overnight. Objective - Vital Signs/Intake and Output Vital Signs (last 24 hours): Temp Pulse Resp BP Pulse Ox 98.0 F 72 18 120/81 96 01/22/18 07:57 01/22/18 07:57 01/22/18 07:57 01/22/18 07:57 01/22/18 07:57 - Medications Medications: Current Medications Benztropine Mesylate (Cogentin) 1 mg PO DAILY [facility] Last Admin: 01/22/18 08:32 Dose: 1 mg Calcium Carbonate (Oscal) 500 mg PO DAILY [facility] Last Admin: 01/22/18 08:32 Dose: 500 mg Cholecalciferol (Vitamin D) 1,000 intlu PO DAILY [facility] Last Admin: 01/22/18 08:32 Dose: 1,000 intlu Famotidine (Pepcid) 20 mg PO BID [facility] Last Admin: 01/22/18 08:33 Dose: 20 mg Vancomycin HCl 750 mg/ Sodium (Chloride) 250 mls @ 250 mls/hr IVPB Q12H [facility] PRN Reason: Protocol Last Admin: 01/22/18 05:50 Dose: 250 mls/hr Lamotrigine (Lamictal) 25 mg PO DAILY [facility] Last Admin: 01/22/18 08:32 Dose: 25 mg Paliperidone (Invega) 3 mg PO BID [facility] Last Admin: 01/22/18 08:32 Dose: 3 mg Pantoprazole Sodium (Protonix Ec Tab) 40 mg PO DAILY [facility] Last Admin: 01/22/18 08:33 Dose: 40 mg Tramadol HCl (Ultram) 50 mg PO Q6 PRN PRN Reason: Pain, severe (8-10) Last Admin: 01/21/18 23:39 Dose: 50 mg Trazodone HCl (Desyrel) 50 mg PO HS [facility] Last Admin: 01/21/18 21:07 Dose: 50 mg - Labs Labs: 01/22/18 05:30 01/22/18 05:30 PT 13.1 Seconds (9.8-13.1) 01/20/18 08:59 INR 1.2 (0.9-1.2) 01/20/18 08:59 APTT 35.8 Seconds (25.6-37.1) 01/20/18 08:59 - Extremities Exam Additional comments: Right knee: Knee imm intact. Midline incision clean,dry and intact. Swelling improved. ROM not tested. Sensation intact SP/DP/TN. Motor intact EHL/FHL/TA/ GA. Pedal pulses intact. Assessment and Plan (1) Infection of prosthetic right knee joint Assessment & Plan: Patient is 8 weeks s/p explant and abx spacer placement. -NPO pMN -Type and cross 2 units for jonathan -PT/OT -OR tomorrow AM for revision TKA -case and plan d/w Dr. Sharpe in agreement Status: Acute
--- NOTE | 2018-01-22 10:29 | CP.PCM.PN ---
Subjective - Date & Time of Evaluation Date of Evaluation: 01/22/18 Time of Evaluation: 09:00 - Subjective Subjective: NO NEW COMPLAINTS RIGHT KNEE PAIN IS LESS WITH MEDICATIONS Objective - Vital Signs/Intake and Output Vital Signs (last 24 hours): Temp Pulse Resp BP Pulse Ox 98.0 F 72 18 120/81 96 01/22/18 07:57 01/22/18 07:57 01/22/18 07:57 01/22/18 07:57 01/22/18 07:57 - Medications Medications: Current Medications Benztropine Mesylate (Cogentin) 1 mg PO DAILY [facility] Last Admin: 01/22/18 08:32 Dose: 1 mg Calcium Carbonate (Oscal) 500 mg PO DAILY [facility] Last Admin: 01/22/18 08:32 Dose: 500 mg Cholecalciferol (Vitamin D) 1,000 intlu PO DAILY [facility] Last Admin: 01/22/18 08:32 Dose: 1,000 intlu Famotidine (Pepcid) 20 mg PO BID [facility] Last Admin: 01/22/18 08:33 Dose: 20 mg Vancomycin HCl 750 mg/ Sodium (Chloride) 250 mls @ 250 mls/hr IVPB Q12H [facility] PRN Reason: Protocol Last Admin: 01/22/18 05:50 Dose: 250 mls/hr Lamotrigine (Lamictal) 25 mg PO DAILY [facility] Last Admin: 01/22/18 08:32 Dose: 25 mg Paliperidone (Invega) 3 mg PO BID [facility] Last Admin: 01/22/18 08:32 Dose: 3 mg Pantoprazole Sodium (Protonix Ec Tab) 40 mg PO DAILY [facility] Last Admin: 01/22/18 08:33 Dose: 40 mg Tramadol HCl (Ultram) 50 mg PO Q6 PRN PRN Reason: Pain, severe (8-10) Last Admin: 01/21/18 23:39 Dose: 50 mg Trazodone HCl (Desyrel) 50 mg PO HS [facility] Last Admin: 01/21/18 21:07 Dose: 50 mg - Labs Labs: 01/22/18 05:30 01/22/18 05:30 PT 13.1 Seconds (9.8-13.1) 01/20/18 08:59 INR 1.2 (0.9-1.2) 01/20/18 08:59 APTT 35.8 Seconds (25.6-37.1) 01/20/18 08:59 - Respiratory Exam Respiratory Exam: Clear to Ausculation Bilateral - Cardiovascular Exam Cardiovascular Exam: REGULAR RHYTHM Assessment and Plan - Assessment and Plan (Free Text) Assessment: S/P RIGHT TKR REMOVAL WITH SPACER STABLE CARDIAC STATUS Plan: CONTINUE PRESENT TX FOR OR IN AM
--- NOTE | 2018-01-22 16:12 | CP.PCM.PN ---
Subjective - Date & Time of Evaluation Date of Evaluation: 01/22/18 Time of Evaluation: 10:30 - Subjective Subjective: Patient seen and examined. Denied any complaint. For surgery in am. Objective - Vital Signs/Intake and Output Vital Signs (last 24 hours): Temp Pulse Resp BP Pulse Ox 98.1 F 70 18 104/65 97 01/22/18 15:51 01/22/18 15:51 01/22/18 15:51 01/22/18 15:51 01/22/18 15:51 - Medications Medications: Current Medications Benztropine Mesylate (Cogentin) 1 mg PO DAILY [facility] Last Admin: 01/22/18 08:32 Dose: 1 mg Calcium Carbonate (Oscal) 500 mg PO DAILY [facility] Last Admin: 01/22/18 08:32 Dose: 500 mg Cholecalciferol (Vitamin D) 1,000 intlu PO DAILY [facility] Last Admin: 01/22/18 08:32 Dose: 1,000 intlu Famotidine (Pepcid) 20 mg PO BID [facility] Last Admin: 01/22/18 08:33 Dose: 20 mg Vancomycin HCl 750 mg/ Sodium (Chloride) 250 mls @ 250 mls/hr IVPB Q12H [facility] PRN Reason: Protocol Last Admin: 01/22/18 05:50 Dose: 250 mls/hr Lamotrigine (Lamictal) 25 mg PO DAILY [facility] Last Admin: 01/22/18 08:32 Dose: 25 mg Paliperidone (Invega) 3 mg PO BID [facility] Last Admin: 01/22/18 08:32 Dose: 3 mg Pantoprazole Sodium (Protonix Ec Tab) 40 mg PO DAILY [facility] Last Admin: 01/22/18 08:33 Dose: 40 mg Tramadol HCl (Ultram) 50 mg PO Q6 PRN PRN Reason: Pain, severe (8-10) Last Admin: 01/22/18 13:36 Dose: 50 mg Trazodone HCl (Desyrel) 50 mg PO HS [facility] Last Admin: 01/21/18 21:07 Dose: 50 mg - Labs Labs: 01/22/18 05:30 01/22/18 05:30 PT 13.1 Seconds (9.8-13.1) 01/20/18 08:59 INR 1.2 (0.9-1.2) 01/20/18 08:59 APTT 35.8 Seconds (25.6-37.1) 01/20/18 08:59 - Constitutional Appears: No Acute Distress - Head Exam Head Exam: ATRAUMATIC - Eye Exam Eye Exam: absent: Scleral icterus - ENT Exam ENT Exam: Mucous Membranes Moist - Neck Exam Neck Exam: absent: Meningismus - Respiratory Exam Respiratory Exam: absent: Rales, Rhonchi, Wheezes, Respiratory Distress - Cardiovascular Exam Cardiovascular Exam: REGULAR RHYTHM, +S1, +S2 - GI/Abdominal Exam GI & Abdominal Exam: Soft. absent: Tenderness - Rectal Exam Rectal Exam: Deferred - Extremities Exam Extremities Exam: absent: Full ROM (diminished ROM on post TKR right knee) - Neurological Exam Neurological Exam: Alert, Oriented x3 - Psychiatric Exam Psychiatric exam: Normal Affect - Skin Skin Exam: Dry, Intact Assessment and Plan - Assessment and Plan (Free Text) Assessment: 62 yo female with history of Bipolar DO, previous Heroin user, Hep C, history of CVA, Pancytopenia and history of right TKR with revision and placement of antibiotic spacer came back because of on and off pain and swelling of the right knee. 1. Pain on Right Knee Post revision TKR and placement of antibiotic spacer for surgery tomorrow continue Vancomycin 750mg IV q 12hrs 2. Pancytopenia BM biopsy (11/20/2017): no evidence of lymphoproliferative disorder, no plasma cell proliferation, no evidence of metastatic disease, no increased stromal collagen deposition; no evidence of myeloid disorder or lymphoproliferative disorder secondary to Hep C
[2018-01-23] MEDS ORDERED: Bacitracin Ointment 30 GM TUBE ONE (07:24)
[2018-01-23] MEDS ORDERED: Bupivacaine 0.5% Inj(30mL) ONE (07:24)
[2018-01-23] MEDS ORDERED: Absorbable Gelatin Sponge Size 100 ONE (07:25)
[2018-01-23] MEDS ORDERED: Thrombin Topical 5,000 Int Units Spray Kit ONE (07:25)
[2018-01-23] MEDS ORDERED: Etomidate 20 mg/10ml Inj IV ONE (08:12)
[2018-01-23] MEDS ORDERED: Propofol 10 mg/ml Inj (20 ML) ONE ×2 (08:12→12:46)
[2018-01-23] MEDS ORDERED: Succinylcholine 200 mg/10 ml Inj IV ONE (08:16)
[2018-01-23] MEDS ORDERED: Ropivacaine 0.5% 30ML IV ONE (08:25)
--- NOTE | 2018-01-23 08:28 | CP.PCM.PN ---
Subjective - Date & Time of Evaluation Date of Evaluation: 01/23/18 Time of Evaluation: 07:00 - Subjective Subjective: NO NEW COMPLAINTS Objective - Vital Signs/Intake and Output Vital Signs (last 24 hours): Temp Pulse Resp BP Pulse Ox 97.8 F 67 20 122/69 99 01/23/18 08:04 01/23/18 08:04 01/23/18 08:04 01/23/18 08:04 01/23/18 08:04 - Medications Medications: Current Medications Benztropine Mesylate (Cogentin) 1 mg PO DAILY [facility] Last Admin: 01/22/18 08:32 Dose: 1 mg Calcium Carbonate (Oscal) 500 mg PO DAILY [facility] Last Admin: 01/22/18 08:32 Dose: 500 mg Cholecalciferol (Vitamin D) 1,000 intlu PO DAILY [facility] Last Admin: 01/22/18 08:32 Dose: 1,000 intlu Famotidine (Pepcid) 20 mg PO BID [facility] Last Admin: 01/22/18 16:52 Dose: 20 mg Vancomycin HCl 750 mg/ Sodium (Chloride) 250 mls @ 250 mls/hr IVPB Q12H [facility] PRN Reason: Protocol Last Admin: 01/23/18 05:58 Dose: 250 mls/hr Lamotrigine (Lamictal) 25 mg PO DAILY [facility] Last Admin: 01/22/18 08:32 Dose: 25 mg Paliperidone (Invega) 3 mg PO BID [facility] Last Admin: 01/22/18 16:52 Dose: 3 mg Pantoprazole Sodium (Protonix Ec Tab) 40 mg PO DAILY [facility] Last Admin: 01/22/18 08:33 Dose: 40 mg Tramadol HCl (Ultram) 50 mg PO Q6 PRN PRN Reason: Pain, severe (8-10) Last Admin: 01/22/18 13:36 Dose: 50 mg Trazodone HCl (Desyrel) 50 mg PO HS [facility] Last Admin: 01/22/18 21:10 Dose: 50 mg - Labs Labs: 01/22/18 05:30 01/22/18 05:30 PT 13.1 Seconds (9.8-13.1) 01/20/18 08:59 INR 1.2 (0.9-1.2) 01/20/18 08:59 APTT 35.8 Seconds (25.6-37.1) 01/20/18 08:59 - Respiratory Exam Respiratory Exam: Clear to Ausculation Bilateral - Cardiovascular Exam Cardiovascular Exam: REGULAR RHYTHM, +S1, +S2 Assessment and Plan - Assessment and Plan (Free Text) Assessment: RIGHT KNEE HARDWARE REMOVAL NOVEMBER 2017 WITH SPACER Plan: FOR SURGERY TODAY
[2018-01-23] MEDS ORDERED: Lactated Ringer's 1,000 ML IV ONE ×2 (08:35→14:00)
[2018-01-23] MEDS ORDERED: Midazolam 2 MG/2 ML VIAL ONE (08:39)
[2018-01-23] MEDS ORDERED: Rocuronium 10 mg/ml (5 ml) ONE ×2 (08:59→09:40)
[2018-01-23] MEDS ORDERED: ePHEDrine 50 mg/ml Inj ONE (09:00)
[2018-01-23] MEDS ORDERED: Desflurane Inhalation Anesthetic Liq (240 ml) ONE (09:23)
[2018-01-23 10:11] LABS: FLUID TYPE SYNOVIAL FLUID
[2018-01-23 11:08] LABS: SF GROSS APPEARANCE CLOUDY (CLEAR); SYNOVIAL FLUID COMMENT BLOODY
[2018-01-23 11:09] LABS: SYNOVIAL FLUID MONO/MACROPHAGE 25 % (0-0)
--- NOTE | 2018-01-23 11:31 | CP.PCM.PN ---
Subjective - Date & Time of Evaluation Date of Evaluation: 01/23/18 Time of Evaluation: 08:30 - Subjective Subjective: Patient for OR today. Hemodynamically stable, afebrile. No acute issues overnight. seen post op in recovery room. Feeling well, denies any pain , SOB or CP Tachycardic in monitor HR 122 s/p 2 unit Plt and 2 unit PRBc transfusion Objective - Vital Signs/Intake and Output Vital Signs (last 24 hours): Temp Pulse Resp BP Pulse Ox 97.8 F 67 20 122/69 99 01/23/18 08:04 01/23/18 08:04 01/23/18 08:04 01/23/18 08:04 01/23/18 08:04 - Medications Medications: Current Medications Benztropine Mesylate (Cogentin) 1 mg PO DAILY [facility] Last Admin: 01/22/18 08:32 Dose: 1 mg Calcium Carbonate (Oscal) 500 mg PO DAILY [facility] Last Admin: 01/22/18 08:32 Dose: 500 mg Cholecalciferol (Vitamin D) 1,000 intlu PO DAILY [facility] Last Admin: 01/22/18 08:32 Dose: 1,000 intlu Famotidine (Pepcid) 20 mg PO BID [facility] Last Admin: 01/22/18 16:52 Dose: 20 mg Vancomycin HCl 750 mg/ Sodium (Chloride) 250 mls @ 250 mls/hr IVPB Q12H [facility] PRN Reason: Protocol Last Admin: 01/23/18 05:58 Dose: 250 mls/hr Lamotrigine (Lamictal) 25 mg PO DAILY [facility] Last Admin: 01/22/18 08:32 Dose: 25 mg Paliperidone (Invega) 3 mg PO BID [facility] Last Admin: 01/22/18 16:52 Dose: 3 mg Pantoprazole Sodium (Protonix Ec Tab) 40 mg PO DAILY [facility] Last Admin: 01/22/18 08:33 Dose: 40 mg Tramadol HCl (Ultram) 50 mg PO Q6 PRN PRN Reason: Pain, severe (8-10) Last Admin: 01/22/18 13:36 Dose: 50 mg Trazodone HCl (Desyrel) 50 mg PO HS [facility] Last Admin: 01/22/18 21:10 Dose: 50 mg - Labs Labs: 01/22/18 05:30 01/22/18 05:30 PT 13.1 Seconds (9.8-13.1) 01/20/18 08:59 INR 1.2 (0.9-1.2) 01/20/18 08:59 APTT 35.8 Seconds (25.6-37.1) 01/20/18 08:59 - Constitutional Appears: Non-toxic, No Acute Distress - Head Exam Head Exam: ATRAUMATIC, NORMOCEPHALIC - Eye Exam Eye Exam: EOMI, PERRL Pupil Exam: NORMAL ACCOMODATION - ENT Exam ENT Exam: Mucous Membranes Moist, Normal Exam - Neck Exam Neck Exam: Full ROM, Normal Inspection - Respiratory Exam Respiratory Exam: Clear to Ausculation Bilateral, NORMAL BREATHING PATTERN. absent: Rales, Rhonchi, Wheezes - Cardiovascular Exam Cardiovascular Exam: Tachycardia, REGULAR RHYTHM, RRR, +S1, +S2. absent: JVD - GI/Abdominal Exam GI & Abdominal Exam: Soft, Normal Bowel Sounds. absent: Distended, Tenderness, Rebound - Rectal Exam Rectal Exam: Deferred - Extremities Exam Extremities Exam: Full ROM, Normal Capillary Refill Additional comments: right knee dressing with JENNIFER bandage Hemovac in place pulses present capillary refill intact - Neurological Exam Neurological Exam: Alert, Awake, CN II-XII Intact, Oriented x3 - Psychiatric Exam Psychiatric exam: Normal Affect - Skin Skin Exam: Dry, Normal Color, Warm Assessment and Plan - Assessment and Plan (Free Text) Assessment: 62 yo female with history of Bipolar DO, previous Heroin user, Hep C, history of CVA, Pancytopenia and history of right TKR with history of infected TKR with revision and placement of antibiotic spacer came back because of on and off pain and swelling of the right knee. Ortho consulted and patient taken to OR today for revision of TKR . 1.Infection of prosthetic right knee joint s/p septic TKR with revision and insertion of antibiotic impregnated spacer 8 weeks ago s/p revision today with antibiotic spacer removal Ortho on consult and following transfused 2 unit Plt and 2 unit PRBC post surgery will transfer to telemetry for close monitoring due to tachycardia Hemovac in place. monitor output Pian mangement with LABOR COMMISSIONER pump Incentive spirometry use post op ID on consult . Follow up cultures continue Vancomycin 750mg IV q 12hrs 2. Pancytopenia-- chronic BM biopsy (11/20/2017): no evidence of lymphoproliferative disorder, no plasma cell proliferation, no evidence of metastatic disease, no increased stromal collagen deposition; no evidence of myeloid disorder or lymphoproliferative disorder secondary to Hep C Will transfuse 2 unit Plt and 2 unit PRBC post op repeat CBC in AM 3. Seizures cont Lamictal 4. Schizoaffective Disorder cont cogentin 1 mg PO qd pt is on Invega 5. History of CVA, Brain Aneurysm Chronic Stable at present 6.History of hep C outpt follow up 7.History of heroin/cocaine abuse in the past 8. Vitamin D deficiency replace with vitamin D 9. DVt prophylaxis As per ortyho recommendations post op day 1 SCD to LLE
[2018-01-23] MEDS ORDERED: Sodium Chloride 0.45% 1,000 ML IV ONE (11:40)
[2018-01-23] MEDS ORDERED: Vancomycin 1 g Inj IVPB ONE (12:07)
[2018-01-23 12:10] LABS: FLUID TYPE SYNOVIAL FLUID; SF GROSS APPEARANCE CLEAR (CLEAR); SYNOVIAL FLUID COMMENT COLORLESS; SYNOVIAL FLUID MONO/MACROPHAGE 0 % (0-0)
[2018-01-23] MEDS ORDERED: Esmolol 100 mg/10ml Inj IV ONE (12:44)
[2018-01-23] MEDS ORDERED: Sodium Chloride 0.9% 1,000 ML IV ONE (13:16)
--- NOTE | 2018-01-23 13:30 | PCM.ANESB3 ---
Femoral Nerve Block - Femoral Nerve Block Date of Procedure: 01/23/18 Anesthesiologist: bull Pre-Procedure Diagnosis: right TKR Post-Procedure Diagnosis: same Procedure Performed: Femoral Nerve Block Right - Procedure Femoral Nerve Block: The procedure was explained to the patient that it is for the post-operative pain management. Consent was obtained after a thorough discussion with the patient regarding the benefits and possible complications of local anesthetic block of the femoral nerve at the inguinal crease area. The patient was brought to the operating room and standard monitors were applied. Time-out was held with the circulating nurse to confirm the correct surgery and the appropriate block. After applying oxygen by nasal cannula and administering IV Sedation, patient was placed in supine position with fully extended lower extremities and the _right groin exposed. The femoral artery was then carefully palpated. The ultrasound transducer was then applied to this area in the transverse plane and the femoral nerve was visualized lateral to the femoral artery and underneath the fascia iliaca. After thorough identification, the inguinal crease area was prepped with Betadine solution three times and 1 % Lidocaine was injected subcutaneously for topical anesthesia. At this point, a #22 gauge Stimuplex 2-inch needle was inserted immediately lateral to the femoral artery pulse at the inguinal crease and advanced perpendicularly. The needle was inserted to the ultrasound transducer in-plane towards the femoral nerve in a [id number] direction. Needle advancement was performed carefully under direct ultrasound visualization. Nerve stimulator was used and twitch of the quadriceps muscle was obtained at current of 2.0 MA. After negative aspiration, _1____cc of __0.5___% __ropivicaine ____was injected and this was followed with 19 cc of __0.5 % ___ ropivicaine . Under ultrasound guidance the local anesthetics were observed spreading below fascia iliaca and around the femoral nerve. The needle was removed intact and sterile dressing was applied. The patient had stable vital signs, was conscious and in no apparent distress. The patient tolerated the femoral nerve block well with stable vital signs and was prepared for subsequent surgery.
[2018-01-23] MEDS: HYDROmorphone 0.5 mg/0.5 ml ISec IVP PRN ×2 (13:46→14:00)
--- NOTE | 2018-01-23 15:28 | RAD ---
PROCEDURE: Right Knee Radiographs. HISTORY: s/p R revision TKA COMPARISON: 01/17/2018 FINDINGS: BONES: Interval removal of prior femoral tibial joint spacers. . Interval tibial and interval femoral prosthetic components inserted. Femoral stem centered in medullary cavity. Distal tibial stem within medullary cavity . The patellar remnant projects at and slightly below circle femoral condyles. JOINTS: No gross spurring seen JOINT EFFUSION: Inferred present OTHER FINDINGS: Extensive soft tissue postop changes. Anterior skin sutures. Indwelling drain IMPRESSION: Status post interval right total knee arthroplasty revision
--- NOTE | 2018-01-23 15:28 | PCM.SURG1 ---
Surgeon's Initial Post Op Note - Surgeon's Notes Surgeon: Annemarie Low Voltage Electrician: [place]RIA De La Cruz/ 2nd assist Haider Ortiz PA-C Type of Anesthesia: General Endo, Block Regional Anesthesia Administered By: Dr Tanner Mi/DR Cagle Pre-Operative Diagnosis: s/p septic TKR R with insertion of abio impreganted spacer Operative Findings: as above. no evidence of residual sepsis Post-Operative Diagnosis: as abobe. synovitis- anterior and posterior compartments Operation Performed: Complex revision hinged R TKR. removal of abio impregnated spacer. anterior and posterior synovectomy. postyerior capsular release. lateral patella release Specimen/Specimens Removed: as above- spacer/synovium/bone Estimated Blood Loss: EBL {In ML}: 175 Blood Products Given: PRBC, Platlets Drains Used: Hemovac Post-Op Condition: Fair Date of Surgery/Procedure: 01/23/18 Time of Surgery/Procedure: 09:50 (t6ime in room/anaesthesia indcution time-[id number])
--- NOTE | 2018-01-23 20:54 | CP.PCM.CON ---
History of Present Illness - History of Present Illness History of Present Illness: 62 year old female with a history of schizophrenia, substance abuse, pancytopenia s/p bone marrow biopsy, right TKR s/p revision, admitted with right knee swelling and pain requiring repeat revision, with pancytopenia. She has not had any abnormal bleeding or hemostasis issues with prior surgery. She denies getting sick frequently but is noted to have neutropenia going back in our system since 2012. She underwent a bone marrow evaluation by me in 11/2017 which revealed a slightly hypercellular marrow with trilineage hematopoiesis. Cytogenetics and FISH are not noted in the report. Case discussed with Dr. Mi and Dr. Sharpe, pt to receive 2 bags platelets before surgery. Past medical history: Schizophrenia, leukopenia Past surgical history: right TKR Family history: Denies hematologic and oncologic problems Social history: Denies tobacco, alcohol, and illicit drug use. Allergies: Lorazepam Review of systems: All remaining review of systems including HEENT, cardiovascular, respiratory, gastrointestinal, genitourinary, musculoskeletal, dermatologic, neurologic, and psychiatric are negative unless mentioned in the HPI. Past Patient History - Infectious Disease Hx of Infectious Diseases: None - Tetanus Immunizations Tetanus Immunization: Unknown - Past Medical History & Family History Past Medical History?: Yes - Past Social History Smoking Status: Never Smoked - CARDIAC Hx Atrial Fibrillation: No Hx Cardia Arrhythmia: No Hx Congestive Heart Failure: No Hx Hypercholesterolemia: No Hx Hypertension: No - PULMONARY Hx Asthma: No Hx Bronchitis: No Hx Chronic Obstructive Pulmonary Disease (COPD): No Hx Emphysema: No - NEUROLOGICAL Hx Alzheimer's Disease: No Hx Dementia: No Hx Seizures: Yes Hx Transient Ischemic Attacks (TIA): Yes - HEENT Hx HEENT Problems: No - RENAL Hx Chronic Kidney Disease: No - ENDOCRINE/METABOLIC Hx Endocrine Disorders: No - HEMATOLOGICAL/ONCOLOGICAL Hx Human Immunodeficiency Virus (HIV): No - INTEGUMENTARY Hx Dermatological Problems: No - MUSCULOSKELETAL/RHEUMATOLOGICAL Hx Musculoskeletal Disorders: Yes Hx Falls: Yes - GASTROINTESTINAL Hx Gastritis: Yes - GENITOURINARY/GYNECOLOGICAL Hx Sexually Transmitted Disorders: No - PSYCHIATRIC Hx Anxiety: Yes Hx Bipolar Disorder: Yes Hx Depression: Yes Hx Schizophrenia: Yes - SURGICAL HISTORY Hx Cholecystectomy: Yes - ANESTHESIA Hx Anesthesia: Yes Hx Anesthesia Reactions: No Meds Allergies/Adverse Reactions: Allergies Allergy/AdvReac Type Severity Reaction Status Date / Time No Known Allergies Allergy Verified 01/20/18 06:43 - Medications Medications: Current Medications Acetaminophen (Tylenol 325mg Tab) 650 mg PO Q4 PRN PRN Reason: Fever 101 degrees fahrenheit Benztropine Mesylate (Cogentin) 1 mg PO DAILY [facility] Last Admin: 01/22/18 08:32 Dose: 1 mg Calcium Carbonate (Oscal) 500 mg PO DAILY [facility] Last Admin: 01/22/18 08:32 Dose: 500 mg Cholecalciferol (Vitamin D) 1,000 intlu PO DAILY [facility] Last Admin: 01/22/18 08:32 Dose: 1,000 intlu Docusate Sodium (Colace) 100 mg PO BID [facility] Enoxaparin Sodium (Lovenox) 40 mg SC DAILY [facility] PRN Reason: Protocol Famotidine (Pepcid) 20 mg PO BID [facility] Last Admin: 01/22/18 16:52 Dose: 20 mg Hydromorphone HCl (Dilaudid 0.2 Mg/Ml Dog Sitter) 0 mg IV PRN PRN; Protocol PRN Reason: Pain, severe (8-10) Last Admin: 01/23/18 14:45 Dose: 0.2 mg Vancomycin HCl 750 mg/ Sodium (Chloride) 250 mls @ 250 mls/hr IVPB Q12H [facility] PRN Reason: Protocol Last Admin: 01/23/18 05:58 Dose: 250 mls/hr Sodium Chloride (Sodium Chloride 0.9%) 1,000 mls @ 100 mls/hr IV .Q10H [facility] Stop: 01/24/18 13:19 Lamotrigine (Lamictal) 25 mg PO DAILY [facility] Last Admin: 01/22/18 08:32 Dose: 25 mg Ondansetron HCl (Zofran Inj) 4 mg IVP ONCE PRN PRN Reason: Nausea/Vomiting Paliperidone (Invega) 3 mg PO BID [facility] Last Admin: 01/22/18 16:52 Dose: 3 mg Pantoprazole Sodium (Protonix Ec Tab) 40 mg PO DAILY [facility] Last Admin: 01/22/18 08:33 Dose: 40 mg Tramadol HCl (Ultram) 50 mg PO Q6 PRN PRN Reason: Pain, severe (8-10) Last Admin: 01/22/18 13:36 Dose: 50 mg Trazodone HCl (Desyrel) 50 mg PO HS [facility] Last Admin: 01/22/18 21:10 Dose: 50 mg Physical Exam - Head Exam Head Exam: ATRAUMATIC - Eye Exam Eye Exam: Normal appearance - ENT Exam ENT Exam: Mucous Membranes Dry - Respiratory Exam Respiratory Exam: NORMAL BREATHING PATTERN - Cardiovascular Exam Cardiovascular Exam: +S1, +S2 - GI/Abdominal Exam GI & Abdominal Exam: Normal Bowel Sounds - Extremities Exam Additional comments: right LE brace - Neurological Exam Neurological exam: Oriented x3 - Psychiatric Exam Psychiatric exam: Normal Affect, Normal Mood - Skin Skin Exam: Warm Results - Vital Signs Recent Vital Signs: Last Vital Signs Temp 98.2 F 01/23/18 19:11 Pulse 125 H 01/23/18 19:11 Resp 20 01/23/18 19:11 BP 103/70 01/23/18 19:11 Pulse Ox 100 01/23/18 19:11 - Labs Result Diagrams: 01/22/18 05:30 01/22/18 05:30 Labs: Laboratory Results - last 24 hr 01/21/18 01/23/18 01/23/18 09:38 09:54 10:07 Fluid Type Synovial fluid Synovial fluid Synovial WBC 59.0 0.0 Synovial RBC 71777.0 H 762.0 H Synovial Neutrophils 5.0 H 0.0 Synovial Lymphocytes 20.0 H 0.0 Synov Monos/Macrophage 25 H 0 Synovial Fluid Comment Bloody Colorless Blood Type O POSITIVE Antibody Screen Negative Crossmatch See Detail BBK History Checked Patient has bt Assessment & Plan (1) Pancytopenia Assessment and Plan: bone marrow negative for malignancy and 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 Status: Acute
[2018-01-23] MEDS: Sodium Chloride 0.9% 1,000 ML IV SCH (23:35)
[2018-01-24 06:13] LABS: HEMOGLOBIN 9.7 g/dL (12.0-16.0); MEAN CELL VOLUME 85.4 fl (81.0-99.0); MEAN CORPUSCULAR HEMOGLOBIN 28.5 pg (27.0-31.0); MEAN CORPUSCULAR HGB CONC 33.3 g/dL (33.0-37.0); RBC 3.39 Mil/uL (3.80-5.20); RED CELL DISTRIBUTION WIDTH 15.9 % (11.5-14.5); WHITE BLOOD COUNT 5.2 K/uL (4.8-10.8)
[2018-01-24 06:58] LABS: BLOOD UREA NITROGEN 11 mg/dl (7-17); CALCIUM 8.3 mg/dL (8.4-10.2); GFR AFRICAN-AMERICAN > 60; GFR NON-AFRICAN AMERICAN > 60
[2018-01-24] MEDS: Enoxaparin 40 mg Syringe SC SCH (10:31)
[2018-01-24] MEDS: Paliperidone 3 MG ER TAB PO SCH ×2 (10:33→16:50)
[2018-01-24] MEDS: Cholecalciferol 1,000 INTLU TAB PO SCH (10:35)
[2018-01-24] MEDS: Pantoprazole 40 mg EC Tab PO SCH (10:35)
--- NOTE | 2018-01-24 11:32 | CP.PCM.PN ---
Subjective - Date & Time of Evaluation Date of Evaluation: 01/24/18 Time of Evaluation: 11:00 - Subjective Subjective: NO CHEST PAIN OR SOB ONLY HAS PAIN AT SURGICAL SITE Objective - Vital Signs/Intake and Output Vital Signs (last 24 hours): Temp Pulse Resp BP Pulse Ox 99.1 F 118 H 18 112/76 97 01/24/18 07:58 01/24/18 10:40 01/24/18 07:58 01/24/18 07:58 01/24/18 07:58 Intake and Output: 01/24/18 01/24/18 06:59 18:59 Intake Total 1680 Output Total 810 Balance 870 - Medications Medications: Current Medications Acetaminophen (Tylenol 325mg Tab) 650 mg PO Q4 PRN PRN Reason: Fever 101 degrees fahrenheit Benztropine Mesylate (Cogentin) 1 mg PO DAILY [facility] Last Admin: 01/24/18 10:33 Dose: 1 mg Calcium Carbonate (Oscal) 500 mg PO DAILY [facility] Last Admin: 01/24/18 10:35 Dose: 500 mg Cholecalciferol (Vitamin D) 1,000 intlu PO DAILY [facility] Last Admin: 01/24/18 10:35 Dose: 1,000 intlu Docusate Sodium (Colace) 100 mg PO BID [facility] Last Admin: 01/24/18 10:32 Dose: 100 mg Enoxaparin Sodium (Lovenox) 40 mg SC DAILY [facility] PRN Reason: Protocol Last Admin: 01/24/18 10:31 Dose: 40 mg Famotidine (Pepcid) 20 mg PO BID [facility] Last Admin: 01/24/18 10:34 Dose: 20 mg Hydromorphone HCl (Dilaudid 0.2 Mg/Ml Dye Reel Operator) 0 mg IV PRN PRN; Protocol PRN Reason: Pain, severe (8-10) Last Admin: 01/23/18 14:45 Dose: 0.2 mg Vancomycin HCl 750 mg/ Sodium (Chloride) 250 mls @ 250 mls/hr IVPB Q12H [facility] PRN Reason: Protocol Last Admin: 01/24/18 07:58 Dose: 250 mls/hr Sodium Chloride (Sodium Chloride 0.9%) 1,000 mls @ 100 mls/hr IV .Q10H [facility] Stop: 01/24/18 13:19 Last Admin: 01/23/18 23:35 Dose: 100 mls/hr Lamotrigine (Lamictal) 25 mg PO DAILY [facility] Last Admin: 01/24/18 10:33 Dose: 25 mg Ondansetron HCl (Zofran Inj) 4 mg IVP ONCE PRN PRN Reason: Nausea/Vomiting Paliperidone (Invega) 3 mg PO BID [facility] Last Admin: 01/24/18 10:33 Dose: 3 mg Pantoprazole Sodium (Protonix Ec Tab) 40 mg PO DAILY [facility] Last Admin: 01/24/18 10:35 Dose: 40 mg Tramadol HCl (Ultram) 50 mg PO Q6 PRN PRN Reason: Pain, severe (8-10) Last Admin: 01/22/18 13:36 Dose: 50 mg Trazodone HCl (Desyrel) 50 mg PO HS [facility] Last Admin: 01/23/18 23:32 Dose: 50 mg - Labs Labs: 01/24/18 05:30 01/24/18 05:30 PT 13.1 Seconds (9.8-13.1) 01/20/18 08:59 INR 1.2 (0.9-1.2) 01/20/18 08:59 APTT 35.8 Seconds (25.6-37.1) 01/20/18 08:59 - Respiratory Exam Respiratory Exam: Clear to Ausculation Bilateral - Cardiovascular Exam Cardiovascular Exam: REGULAR RHYTHM, +S1, +S2 - Extremities Exam Additional comments: RIGHT LE IN IMMOBILIZER LLE WITHOUT EDEMA - Additional Findings Additional findings: MICROCOMPUTER TECHNICIAN SINUS, R [address] MORAN REVIEWED HEMATOLOGY CONSULT REVIEWED Assessment and Plan - Assessment and Plan (Free Text) Assessment: REVISION OF RIGHT TKR STABLE CARDIAC STATUS Plan: CONTINUE PRESENT TREATMENT OK TO TRANSFER TO REGULAR FLOOR
--- NOTE | 2018-01-24 11:42 | CP.PCM.PN ---
Subjective - Date & Time of Evaluation Date of Evaluation: 01/24/18 Time of Evaluation: 12:00 - Subjective Subjective: Patient seen and examined bedside. Complains of pain to her right knee and states that PLASTICS FABRICATOR AND ASSEMBLER pump is helping . Appears slightly lethargic.No acute issues overnight tachycardic HR 110 Hemovac to right knee with 295 ml sanguinous output last 12 hours . With urinary retention post op requiring twice straight catheter Objective - Vital Signs/Intake and Output Vital Signs (last 24 hours): Temp Pulse Resp BP Pulse Ox 99.1 F 118 H 18 112/76 97 01/24/18 07:58 01/24/18 10:40 01/24/18 07:58 01/24/18 07:58 01/24/18 07:58 Intake and Output: 01/24/18 01/24/18 06:59 18:59 Intake Total 1680 Output Total 810 Balance 870 - Medications Medications: Current Medications Acetaminophen (Tylenol 325mg Tab) 650 mg PO Q4 PRN PRN Reason: Fever 101 degrees fahrenheit Benztropine Mesylate (Cogentin) 1 mg PO DAILY [facility] Last Admin: 01/24/18 10:33 Dose: 1 mg Calcium Carbonate (Oscal) 500 mg PO DAILY [facility] Last Admin: 01/24/18 10:35 Dose: 500 mg Cholecalciferol (Vitamin D) 1,000 intlu PO DAILY [facility] Last Admin: 01/24/18 10:35 Dose: 1,000 intlu Docusate Sodium (Colace) 100 mg PO BID [facility] Last Admin: 01/24/18 10:32 Dose: 100 mg Enoxaparin Sodium (Lovenox) 40 mg SC DAILY [facility] PRN Reason: Protocol Last Admin: 01/24/18 10:31 Dose: 40 mg Famotidine (Pepcid) 20 mg PO BID [facility] Last Admin: 01/24/18 10:34 Dose: 20 mg Hydromorphone HCl (Dilaudid 0.2 Mg/Ml Technical Data Analyst) 0 mg IV PRN PRN; Protocol PRN Reason: Pain, severe (8-10) Last Admin: 01/23/18 14:45 Dose: 0.2 mg Vancomycin HCl 750 mg/ Sodium (Chloride) 250 mls @ 250 mls/hr IVPB Q12H [facility] PRN Reason: Protocol Last Admin: 01/24/18 07:58 Dose: 250 mls/hr Sodium Chloride (Sodium Chloride 0.9%) 1,000 mls @ 100 mls/hr IV .Q10H [facility] Stop: 01/24/18 13:19 Last Admin: 01/23/18 23:35 Dose: 100 mls/hr Lamotrigine (Lamictal) 25 mg PO DAILY [facility] Last Admin: 01/24/18 10:33 Dose: 25 mg Ondansetron HCl (Zofran Inj) 4 mg IVP ONCE PRN PRN Reason: Nausea/Vomiting Paliperidone (Invega) 3 mg PO BID [facility] Last Admin: 01/24/18 10:33 Dose: 3 mg Pantoprazole Sodium (Protonix Ec Tab) 40 mg PO DAILY [facility] Last Admin: 01/24/18 10:35 Dose: 40 mg Tramadol HCl (Ultram) 50 mg PO Q6 PRN PRN Reason: Pain, severe (8-10) Last Admin: 01/22/18 13:36 Dose: 50 mg Trazodone HCl (Desyrel) 50 mg PO HS [facility] Last Admin: 01/23/18 23:32 Dose: 50 mg - Labs Labs: 01/24/18 05:30 01/24/18 05:30 PT 13.1 Seconds (9.8-13.1) 01/20/18 08:59 INR 1.2 (0.9-1.2) 01/20/18 08:59 APTT 35.8 Seconds (25.6-37.1) 01/20/18 08:59 - Constitutional Appears: Non-toxic, No Acute Distress, Other (lethargic) - Head Exam Head Exam: ATRAUMATIC, NORMAL INSPECTION, NORMOCEPHALIC - Eye Exam Eye Exam: EOMI, Normal appearance, PERRL Pupil Exam: NORMAL ACCOMODATION - ENT Exam ENT Exam: Mucous Membranes Moist, Normal Exam - Neck Exam Neck Exam: Full ROM, Normal Inspection - Respiratory Exam Respiratory Exam: Clear to Ausculation Bilateral, NORMAL BREATHING PATTERN. absent: Rales, Rhonchi, Wheezes - Cardiovascular Exam Cardiovascular Exam: Tachycardia, +S1, +S2. absent: JVD - GI/Abdominal Exam GI & Abdominal Exam: Soft, Normal Bowel Sounds. absent: Distended, Guarding, Tenderness, Rebound - Rectal Exam Rectal Exam: Deferred - Extremities Exam Extremities Exam: Normal Inspection Additional comments: right knee with dressing and immobilizer in place Hemovac with sanguinous output - Back Exam Back Exam: NORMAL INSPECTION - Neurological Exam Neurological Exam: Alert, Awake, CN II-XII Intact, Oriented x3 - Psychiatric Exam Psychiatric exam: Normal Affect - Skin Skin Exam: Dry, Warm Assessment and Plan - Assessment and Plan (Free Text) Assessment: 62 yo female with history of Bipolar DO, previous Heroin user, Hep C, history of CVA, Pancytopenia and history of right TKR with history of infected TKR with revision and placement of antibiotic spacer came back because of on and off pain and swelling of the right knee. Ortho consulted and patient taken to OR 01/23 for revision of TKR . Today 01/24 post op day 1 on PLASTICS FABRICATOR AND ASSEMBLER pump . Complains of pain to right knee. Hemovac with 295 ml output last 12 hours With urinary retention post op. 1.Infection of prosthetic right knee joint s/p septic TKR with revision and insertion of antibiotic impregnated spacer 8 weeks ago s/p revision 01/23 with antibiotic spacer removal Ortho on consult and following transfused 2 unit Plt and 2 unit PRBC post surgery transfered to telemetry for close monitoring due to tachycardia Hemovac in place with 295 ml sanguinous output last 12 hours Will call anesthesiology for converting from PLAST[employer] FABRICATOR AND ASSEMBLER pump to PO pain management. Daughter asking no narcotics Incentive spirometry use post op ID on consult . Follow up cultures continue Vancomycin 750mg IV q 12hrs Lovenox for DVt prophylaxis Continue PT as per ortho recommandation sfor weight bearing Plan to d/c to [facility] for PT and IV antibiotics once cleared by ortho 2. Pancytopenia-- chronic BM biopsy (11/20/2017): no evidence of lymphoproliferative disorder, no plasma cell proliferation, no evidence of metastatic disease, no increased stromal collagen deposition; no evidence of myeloid disorder or lymphoproliferative disorder secondary to Hep C Hematology consulted transfused 2 unit Plt and 2 unit PRBC post op hgb 9.7 post op 3. Urinary retention post op Most likely secondary to anesthesia and narcotic use Straight cathed twice Monitor closely for retention Might need Hansen placement if continuos to have retention 4. Seizures cont Lamictal 5. Schizoaffective Disorder cont cogentin 1 mg PO qd pt is on Invega 6. History of CVA, Brain Aneurysm Chronic Stable at present 7.History of hep C outpt follow up 8.History of heroin/cocaine abuse in the past 9. Vitamin D deficiency replace with vitamin D 10. DVt prophylaxis Lovenox as per ortho recommendations SCD to LLE
[2018-01-24] MEDS: Sodium Chloride 0.9% 1,000 ML IV SCH (12:57)
--- NOTE | 2018-01-24 14:49 | CP.PCM.PN ---
Subjective - Date & Time of Evaluation Date of Evaluation: 01/24/18 Time of Evaluation: 14:45 - Subjective Subjective: Patient states pain is severe, but dilaudid helps. Denies CP/SOB/dizziness/palp Objective - Vital Signs/Intake and Output Vital Signs (last 24 hours): Temp Pulse Resp BP Pulse Ox 99.3 F 120 H 18 129/81 100 01/24/18 12:00 01/24/18 12:00 01/24/18 12:00 01/24/18 12:00 01/24/18 12:00 Intake and Output: 01/24/18 01/24/18 06:59 18:59 Intake Total 1680 Output Total 810 Balance 870 - Medications Medications: Current Medications Acetaminophen (Tylenol 325mg Tab) 650 mg PO Q4 PRN PRN Reason: Fever 101 degrees fahrenheit Benztropine Mesylate (Cogentin) 1 mg PO DAILY [facility] Last Admin: 01/24/18 10:33 Dose: 1 mg Calcium Carbonate (Oscal) 500 mg PO DAILY [facility] Last Admin: 01/24/18 10:35 Dose: 500 mg Cholecalciferol (Vitamin D) 1,000 intlu PO DAILY [facility] Last Admin: 01/24/18 10:35 Dose: 1,000 intlu Docusate Sodium (Colace) 100 mg PO BID [facility] Last Admin: 01/24/18 10:32 Dose: 100 mg Enoxaparin Sodium (Lovenox) 40 mg SC DAILY [facility] PRN Reason: Protocol Last Admin: 01/24/18 10:31 Dose: 40 mg Famotidine (Pepcid) 20 mg PO BID [facility] Last Admin: 01/24/18 10:34 Dose: 20 mg Vancomycin HCl 750 mg/ Sodium (Chloride) 250 mls @ 250 mls/hr IVPB Q12H [facility] PRN Reason: Protocol Last Admin: 01/24/18 07:58 Dose: 250 mls/hr Lamotrigine (Lamictal) 25 mg PO DAILY [facility] Last Admin: 01/24/18 10:33 Dose: 25 mg Ondansetron HCl (Zofran Inj) 4 mg IVP ONCE PRN PRN Reason: Nausea/Vomiting Paliperidone (Invega) 3 mg PO BID [facility] Last Admin: 01/24/18 10:33 Dose: 3 mg Pantoprazole Sodium (Protonix Ec Tab) 40 mg PO DAILY [facility] Last Admin: 01/24/18 10:35 Dose: 40 mg Tramadol HCl (Ultram) 50 mg PO Q6 PRN PRN Reason: Pain, severe (8-10) Last Admin: 01/22/18 13:36 Dose: 50 mg Trazodone HCl (Desyrel) 50 mg PO HS [facility] Last Admin: 01/23/18 23:32 Dose: 50 mg - Labs Labs: 01/24/18 05:30 01/24/18 05:30 PT 13.1 Seconds (9.8-13.1) 01/20/18 08:59 INR 1.2 (0.9-1.2) 01/20/18 08:59 APTT 35.8 Seconds (25.6-37.1) 01/20/18 08:59 - Extremities Exam Additional comments: Dressing changed and hemovac pulled. Noted sig bloody drainage over dressing. New dressing applied and hemovac pulled. Patient tolerated well. +ROM ankle/toes , sensation intact +DP/PT pulses Assessment and Plan (1) Infection of prosthetic right knee joint Assessment & Plan: POD#1 revision R TKR/hinge monitor h/h PT/OT VTE proph d/c planning prelim cx neg d/w Dr. Sharpe, agrees with above Status: Acute
--- NOTE | 2018-01-25 07:20 | CP.PCM.PN ---
Subjective - Date & Time of Evaluation Date of Evaluation: 01/25/18 Time of Evaluation: 07:20 - Subjective Subjective: doing well pain controlled discharge planning per ortho rec hd stable nad Objective - Vital Signs/Intake and Output Vital Signs (last 24 hours): Temp Pulse Resp BP Pulse Ox 97.6 F 94 H 18 109/70 100 01/25/18 05:18 01/25/18 05:18 01/25/18 05:18 01/25/18 05:18 01/25/18 05:18 Vitals Reviewed GEN: WDWN, alert, cooperative HEENT: NCAT, PERRL, EOMI HEART: RRR, +S1S2, NO MRG LUNG: CTAB, NO WRR ABD: soft, NT, ND, No HSM, No masses EXT: normal pedal pulses, normal capillary refill NEURO: awake, alert, no focal deficits SKIN: warm, dry PSYCH: normal mood, normal affect Intake and Output: 01/25/18 01/25/18 06:59 18:59 Intake Total 340 Output Total 650 Balance -310 - Medications Medications: Current Medications Acetaminophen (Tylenol 325mg Tab) 650 mg PO Q4 PRN PRN Reason: Fever 101 degrees fahrenheit Benztropine Mesylate (Cogentin) 1 mg PO DAILY [facility] Last Admin: 01/24/18 10:33 Dose: 1 mg Calcium Carbonate (Oscal) 500 mg PO DAILY [facility] Last Admin: 01/24/18 10:35 Dose: 500 mg Cholecalciferol (Vitamin D) 1,000 intlu PO DAILY [facility] Last Admin: 01/24/18 10:35 Dose: 1,000 intlu Docusate Sodium (Colace) 100 mg PO BID [facility] Last Admin: 01/24/18 16:51 Dose: 100 mg Enoxaparin Sodium (Lovenox) 40 mg SC DAILY [facility] PRN Reason: Protocol Last Admin: 01/24/18 10:31 Dose: 40 mg Famotidine (Pepcid) 20 mg PO BID [facility] Last Admin: 01/24/18 16:50 Dose: 20 mg Vancomycin HCl 750 mg/ Sodium (Chloride) 250 mls @ 250 mls/hr IVPB Q12H [facility] PRN Reason: Protocol Last Admin: 01/25/18 06:39 Dose: 250 mls/hr Lamotrigine (Lamictal) 25 mg PO DAILY [facility] Last Admin: 01/24/18 10:33 Dose: 25 mg Ondansetron HCl (Zofran Inj) 4 mg IVP ONCE PRN PRN Reason: Nausea/Vomiting Paliperidone (Invega) 3 mg PO BID [facility] Last Admin: 01/24/18 16:50 Dose: 3 mg Pantoprazole Sodium (Protonix Ec Tab) 40 mg PO DAILY [facility] Last Admin: 01/24/18 10:35 Dose: 40 mg Tramadol HCl (Ultram) 50 mg PO Q6 PRN PRN Reason: Pain, moderate (4-7) Last Admin: 01/24/18 21:52 Dose: 50 mg Tramadol HCl (Ultram) 100 mg PO Q6 PRN PRN Reason: Pain, severe (8-10) Last Admin: 01/25/18 03:27 Dose: 100 mg Trazodone HCl (Desyrel) 50 mg PO HS [facility] Last Admin: 01/24/18 22:01 Dose: 50 mg - Labs Labs: 01/24/18 05:30 01/24/18 05:30 PT 13.1 Seconds (9.8-13.1) 01/20/18 08:59 INR 1.2 (0.9-1.2) 01/20/18 08:59 APTT 35.8 Seconds (25.6-37.1) 01/20/18 08:59 Assessment and Plan - Assessment and Plan (Free Text) Plan: 62 yo female with history of Bipolar DO, previous Heroin user, Hep C, history of CVA, Pancytopenia and history of right TKR with history of infected TKR with revision and placement of antibiotic spacer came back because of on and off pain and swelling of the right knee. Ortho consulted and patient taken to OR 01/23 for revision of TKR . Today 01/24 post op day 1 on [employer] pump . Complains of pain to right knee. Hemovac with 295 ml output last 12 hours With urinary retention post op. 1.Infection of prosthetic right knee joint s/p septic TKR with revision and insertion of antibiotic impregnated spacer 8 weeks ago s/p revision 01/23 with antibiotic spacer removal Ortho on consult and following transfused 2 unit Plt and 2 unit PRBC post surgery transfered to telemetry for close monitoring due to tachycardia Hemovac in place with 295 ml sanguinous output last 12 hours Will call anesthesiology for converting from [employer] pump to PO pain management. Daughter asking no narcotics Incentive spirometry use post op ID on consult . Follow up cultures continue Vancomycin 750mg IV q 12hrs Lovenox for DVt prophylaxis Continue PT as per ortho recommandation sfor weight bearing Plan to d/c to [facility] for PT and IV antibiotics once cleared by ortho 2. Pancytopenia-- chronic BM biopsy (11/20/2017): no evidence of lymphoproliferative disorder, no plasma cell proliferation, no evidence of metastatic disease, no increased stromal collagen deposition; no evidence of myeloid disorder or lymphoproliferative disorder secondary to Hep C Hematology consulted transfused 2 unit Plt and 2 unit PRBC post op hgb 9.7 post op , today 8.22 3. Urinary retention post op Most likely secondary to anesthesia and narcotic use Straight cathed twice Monitor closely for retention Might need Hansen placement if continuos to have retention 4. Seizures cont Lamictal 5. Schizoaffective Disorder cont cogentin 1 mg PO qd pt is on Invega 6. History of CVA, Brain Aneurysm Chronic Stable at present 7.History of hep C outpt follow up 8.History of heroin/cocaine abuse in the past 9. Vitamin D deficiency replace with vitamin D 10. DVt prophylaxis Lovenox as per ortho recommendations SCD to LLE
[2018-01-25 07:25] LABS: HEMOGLOBIN 8.2 g/dL (12.0-16.0); MEAN CELL VOLUME 84.3 fl (81.0-99.0); MEAN CORPUSCULAR HEMOGLOBIN 28.9 pg (27.0-31.0); MEAN CORPUSCULAR HGB CONC 34.2 g/dL (33.0-37.0); RBC 2.84 Mil/uL (3.80-5.20); WHITE BLOOD COUNT 4.6 K/uL (4.8-10.8)
[2018-01-25 07:36] LABS: BLOOD UREA NITROGEN 6 mg/dl (7-17); CALCIUM 8.1 mg/dL (8.4-10.2); GFR AFRICAN-AMERICAN > 60; GFR NON-AFRICAN AMERICAN > 60
[2018-01-25] MEDS: Enoxaparin 40 mg Syringe SC SCH (09:30)
[2018-01-25] MEDS: Paliperidone 3 MG ER TAB PO SCH ×2 (09:31→17:48)
[2018-01-25] MEDS: Cholecalciferol 1,000 INTLU TAB PO SCH (09:32)
[2018-01-25] MEDS: Pantoprazole 40 mg EC Tab PO SCH (09:33)
--- NOTE | 2018-01-25 12:15 | CP.PCM.PN ---
Subjective - Date & Time of Evaluation Date of Evaluation: 01/15/18 Time of Evaluation: 11:15 - Subjective Subjective: NO CHEST PAIN OR SOB Objective - Vital Signs/Intake and Output Vital Signs (last 24 hours): Temp Pulse Resp BP Pulse Ox 98.5 F 80 18 115/73 100 01/25/18 08:03 01/25/18 08:03 01/25/18 08:03 01/25/18 08:03 01/25/18 10:00 Intake and Output: 01/25/18 01/25/18 06:59 18:59 Intake Total 340 Output Total 650 Balance -310 - Medications Medications: Current Medications Acetaminophen (Tylenol 325mg Tab) 650 mg PO Q4 PRN PRN Reason: Fever 101 degrees fahrenheit Benztropine Mesylate (Cogentin) 1 mg PO DAILY [facility] Last Admin: 01/25/18 09:32 Dose: 1 mg Calcium Carbonate (Oscal) 500 mg PO DAILY [facility] Last Admin: 01/25/18 09:32 Dose: 500 mg Cholecalciferol (Vitamin D) 1,000 intlu PO DAILY [facility] Last Admin: 01/25/18 09:32 Dose: 1,000 intlu Docusate Sodium (Colace) 100 mg PO BID [facility] Last Admin: 01/25/18 09:32 Dose: 100 mg Enoxaparin Sodium (Lovenox) 40 mg SC DAILY [facility] PRN Reason: Protocol Last Admin: 01/25/18 09:30 Dose: 40 mg Famotidine (Pepcid) 20 mg PO BID [facility] [place] Last Admin: 01/25/18 09:33 Dose: 20 mg Vancomycin HCl 750 mg/ Sodium (Chloride) 250 mls @ 250 mls/hr IVPB Q12H [facility] PRN Reason: Protocol Last Admin: 01/25/18 06:39 Dose: 250 mls/hr Lamotrigine (Lamictal) 25 mg PO DAILY [facility] Last Admin: 01/25/18 09:30 Dose: 25 mg Ondansetron HCl (Zofran Inj) 4 mg IVP ONCE PRN PRN Reason: Nausea/Vomiting Paliperidone (Invega) 3 mg PO BID [facility] [place] Last Admin: 01/25/18 09:31 Dose: 3 mg Pantoprazole Sodium (Protonix Ec Tab) 40 mg PO DAILY [facility] [place] Last Admin: 01/25/18 09:33 Dose: 40 mg Tramadol HCl (Ultram) 50 mg PO Q6 PRN PRN Reason: Pain, moderate (4-7) Last Admin: 01/24/18 21:52 Dose: 50 mg Tramadol HCl (Ultram) 100 mg PO Q6 PRN PRN Reason: Pain, severe (8-10) Last Admin: 01/25/18 09:29 Dose: 100 mg Trazodone HCl (Desyrel) 50 mg PO HS [facility] Last Admin: 01/24/18 22:01 Dose: 50 mg - Labs Labs: 01/25/18 06:30 01/25/18 06:30 PT 13.1 Seconds (9.8-13.1) 01/20/18 08:59 INR 1.2 (0.9-1.2) 01/20/18 08:59 APTT 35.8 Seconds (25.6-37.1) 01/20/18 08:59 - Respiratory Exam Respiratory Exam: Clear to Ausculation Bilateral - Cardiovascular Exam Cardiovascular Exam: REGULAR RHYTHM, +S1, +S2 - Extremities Exam Additional comments: RLE WITH IMMOBILIZER LLE WITHOUT EDEMA Assessment and Plan - Assessment and Plan (Free Text) Assessment: RIGHT KNEE REVISION-STABLE Plan: CONTINUE PRESENT TREATMENT FOR REHAB
--- NOTE | 2018-01-26 00:12 | OP ---
PROCEDURE DATE: 01/23/2018 TIME IN THE ROOM: 08:35 TIME OF SURGERY: 09:50 PREOPERATIVE DIAGNOSIS: Status post septic right total knee replacement with insertion of antibiotic impregnated spacer. POSTOPERATIVE DIAGNOSIS: No evidence of residual sepsis, status post septic right total knee replacement with insertion of antibiotic impregnated spacer. OPERATIVE FINDINGS: As above with evidence of synovitis. No evidence of residual sepsis on Gram stain x2. OPERATION PERFORMED: 1. Complex revision hinged right total knee replacement. 2. Removal of antibiotic impregnated spacer. 3. Anterior and posterior synovectomy. 4. Posterior capsular release. 5. Lateral patellar retinacular release. SPECIMEN: The spacer was removed, synovium and bone. ESTIMATED BLOOD LOSS: 175 mL BLOOD PRODUCTS GIVEN: Two units of packed red cells, two units of platelets, and one Hemovac drain. POSTOPERATIVE CONDITION: Fair. OPERATIVE INDICATION: Nadira Leslie is a 62-year-old very noncompliant woman who presented several months ago to [facility] with a displaced tibial plateau fracture with arthritis. Successful knee replacement was accomplished. The patient unfortunately sustained a subsequent infection. The patient was taken back to the surgery and the knee was debrided, and the components were removed and antibiotic impregnated spacer was introduced. The patient was treated with 6 weeks of IV antibiotics. The patient was taken back to surgery, and there was no evidence of residual sepsis after the fluid had been sent down for stat Gram stain. Pros, cons, risks, and benefits of surgical approach were discussed. The concept of the use of a hinged prosthesis was discussed, possibility of mechanical failure, infection, thromboembolic disease, and secondary and tertiary surgery was discussed. OPERATIVE PROCEDURE: After having obtained informed consent, after having identified side, site and procedure and critical pause/time-out after the satisfactory induction of the anesthetic, the patient identified as Nadira Leslie in the supine position with all bony prominences well padded. The right lower extremity was prepped and free draped in the usual fashion for extremity surgery. The tourniquet had been applied, but was not yet inflated. After having obtained informed consent, after the satisfactory induction of the general and regional anesthesia by Dr. Cagle and Dr. Mi. After sterilely prepping and draping and after having obtained informed consent, lower extremity was exsanguinated using a 6-inch Esmarch bandage and tourniquet, which had been applied was inflated to 350 mmHg. The incision was extended two fingerbreadths proximal, two fingerbreadths distal, and an ellipse of skin was removed. Skin incision was carried down through the skin and subcutaneous tissue. Flaps were elevated. Great care was taken to keep these flaps deep to expose the lateral retinaculum. A medial arthrotomy was accomplished. The patella was everted and a lateral patellar retinacular release was accomplished to mobilize the patella. The synovial fluid was sent, two different aspirates were sent for stat Gram stain with number of white cells per high-power field and the presence of bacteria. The Gram stain show less than 2 to 5 white cells per high-power field. The second less than two white blood cells per high-power field with no evidence of bacteria. At this point in time, the patella was everted, and the knee was flexed, and attention was turned to the antibiotic impregnated spacers. The spacer for the patella was removed, and at this point in time, a thorough anterior and posterior synovectomy was accomplished. The tibia was first addressed in the interface between the antibiotic impregnated static spacers and the cement was developed using an oscillating saw. The tibial components were removed, the spacer was removed, and at this point in time, a very tedious exercise to meticulously remove all the cement from the tibia was accomplished using a combination of the oscillating saw. The [employer] high-power drill and the manual cement removal instruments. The cement was removed from the tibia . Attention is now turned to the femur where the interval between the cement and the antibiotic impregnated spacer was developed. The antibiotic impregnated spacer was removed. At this point in time, attention was turned to the tibia and using the external tibial alignment guide, a neutral cut was accomplished on the tibia, a 0 degrees varus-valgus and 0 degrees anterior posterior slope. This having been accomplished, reaming was carried down through to the tibia, and at this point in time, sequential reaming was carried out for a stemmed tibial component. The tibial component trial was placed and the fit was found to be acceptable. Attention was turned to the femur. The intramedullary canal was entered after all residual cement was removed. The distal cut was accomplished with 5 degrees of valgus removing approximately 2 mm of bone in a very conservative cut. This having been accomplished, the 4:1 block was placed along the epicondylar axis of the femur. Anterior and posterior osteotomy cuts were accomplished. There was no need for chamfer since the constrained femoral component was flushed to the distal femoral cut. This having been accomplished, the reaming was carried out to a 14 mm femoral component with number 2. The femoral component was introduced. The tibial component was introduced with the 40 mm polyethylene. The yoke was placed and the interlocking screw was placed across and the construct was found to be stable. It should be noted that a posterior capsular release had been carefully accomplished since the capsule had adhered to the posterior aspect of the femur when the antibiotic impregnated spacer was employed, so anterior and posterior synovectomy had been accomplished, lateral patellar retinacular release, posterior capsular release, and the femoral component was trialed with the tibial component and 20 mm polyethylene. Flexion and extension was found to be excellent. A lateral patellar retinacular release was accomplished, and it should be noted that a proximal patellar realignment and lateral patellar release was accomplished with reinforcement of the patellar ligament to ensure tracking of the patella. This having been accomplished, the wound was thoroughly irrigated. Trialing having been successful, the stemmed femoral component and stem tibial component after preparing both the femur and the tibia with the [employer]. The stem femoral component was inserted, the stem tibial component was inserted with a 20 mm polyethylene. The construct was reduced. The cross pin was placed through the yoke constraining the femoral and tibial components and was found to be excellent. The wound was thoroughly irrigated. It should be noted that the number 29 mm patellar component was inserted as well. At this point in time, the lateral patellar retinacular release and proximal quadriceps realignment was accomplished, and the quadriceps tendon was imbricated to allow appropriate tracking of the patella, which it does. The patellar ligament was reinforced as well and the patellar ligament was repaired and reinforced with a nonabsorbable suture anchor. This having been accomplished, the wound was thoroughly irrigated. It should be noted that the tourniquet had been deflated. Hemostasis was controlled and after 20 minutes, the tourniquet was reinflated, the tourniquet was again deflated, hemostasis controlled with the Aquamantys, and closures in layers with interrupted Vicryl over an 8-inch suction Hemovac drain, and trin[place] were employed as well. Harvey Womack compression dressing and knee immobilizers were applied. Isaac Sharpe MD [facility] # [id number]
[2018-01-26 08:34] LABS: HEMOGLOBIN 6.9 g/dL (12.0-16.0); MEAN CELL VOLUME 85.7 fl (81.0-99.0); MEAN CORPUSCULAR HEMOGLOBIN 29.2 pg (27.0-31.0); MEAN CORPUSCULAR HGB CONC 34.1 g/dL (33.0-37.0); RBC 2.35 Mil/uL (3.80-5.20); RED CELL DISTRIBUTION WIDTH 16.5 % (11.5-14.5); WHITE BLOOD COUNT 2.9 K/uL (4.8-10.8)
[2018-01-26 08:59] LABS: BLOOD UREA NITROGEN 9 mg/dl (7-17); CALCIUM 7.7 mg/dL (8.4-10.2); GFR AFRICAN-AMERICAN > 60; GFR NON-AFRICAN AMERICAN > 60
[2018-01-26] MEDS: Enoxaparin 40 mg Syringe SC SCH (09:18)
[2018-01-26] MEDS: Paliperidone 3 MG ER TAB PO SCH ×2 (09:19→17:18)
[2018-01-26] MEDS: Pantoprazole 40 mg EC Tab PO SCH (09:19)
[2018-01-26] MEDS: Cholecalciferol 1,000 INTLU TAB PO SCH (09:19)
--- NOTE | 2018-01-26 09:49 | CP.PCM.PN ---
Subjective - Date & Time of Evaluation Date of Evaluation: 01/26/18 Time of Evaluation: 09:49 - Subjective Subjective: pain controlled Hgb 6.8 today, transfuse additional unit PRBC hd stable, no acute distress no complaints no cp no dyspnea Objective - Vital Signs/Intake and Output Vital Signs (last 24 hours): Temp Pulse Resp BP Pulse Ox 97.9 F 80 18 106/70 100 01/26/18 08:36 01/26/18 08:36 01/26/18 08:36 01/26/18 08:36 01/26/18 08:36 Vitals Reviewed GEN: WDWN, alert, cooperative HEENT: NCAT, PERRL, EOMI HEART: RRR, +S1S2, NO MRG LUNG: CTAB, NO WRR ABD: soft, NT, ND, No HSM, No masses EXT: normal pedal pulses, normal capillary refill NEURO: awake, alert, no focal deficits SKIN: warm, dry PSYCH: normal mood, normal affect - Medications Medications: Current Medications Acetaminophen (Tylenol 325mg Tab) 650 mg PO Q4 PRN PRN Reason: Fever 101 degrees fahrenheit Benztropine Mesylate (Cogentin) 1 mg PO DAILY [facility] Last Admin: 01/26/18 09:18 Dose: 1 mg Calcium Carbonate (Oscal) 500 mg PO DAILY [facility] Last Admin: 01/26/18 09:20 Dose: 500 mg Cholecalciferol (Vitamin D) 1,000 intlu PO DAILY [facility] Last Admin: 01/26/18 09:19 Dose: 1,000 intlu Docusate Sodium (Colace) 100 mg PO BID [facility] Last Admin: 01/26/18 09:20 Dose: 100 mg Enoxaparin Sodium (Lovenox) 40 mg SC DAILY [facility] PRN Reason: Protocol Last Admin: 01/26/18 09:18 Dose: 40 mg Famotidine (Pepcid) 20 mg PO BID [facility] Last Admin: 01/26/18 09:19 Dose: 20 mg Vancomycin HCl 750 mg/ Sodium (Chloride) 250 mls @ 250 mls/hr IVPB Q12H [facility] PRN Reason: Protocol Last Admin: 01/26/18 07:15 Dose: 250 mls/hr Lamotrigine (Lamictal) 25 mg PO DAILY [facility] Last Admin: 01/26/18 09:20 Dose: 25 mg Ondansetron HCl (Zofran Inj) 4 mg IVP ONCE PRN PRN Reason: Nausea/Vomiting Paliperidone (Invega) 3 mg PO BID [facility] Last Admin: 01/26/18 09:19 Dose: 3 mg Pantoprazole Sodium (Protonix Ec Tab) 40 mg PO DAILY [facility] Last Admin: 01/26/18 09:19 Dose: 40 mg Tramadol HCl (Ultram) 50 mg PO Q6 PRN PRN Reason: Pain, moderate (4-7) Last Admin: 01/24/18 21:52 Dose: 50 mg Tramadol HCl (Ultram) 100 mg PO Q6 PRN PRN Reason: Pain, severe (8-10) Last Admin: 01/26/18 04:31 Dose: 100 mg Trazodone HCl (Desyrel) 50 mg PO HS [facility] Last Admin: 01/25/18 21:35 Dose: 50 mg - Labs Labs: 01/26/18 08:00 01/26/18 04:00 PT 13.1 Seconds (9.8-13.1) 01/20/18 08:59 INR 1.2 (0.9-1.2) 01/20/18 08:59 APTT 35.8 Seconds (25.6-37.1) 01/20/18 08:59 Assessment and Plan - Assessment and Plan (Free Text) Plan: 62 yo female with history of Bipolar DO, previous Heroin user, Hep C, history of CVA, Pancytopenia and history of right TKR with history of infected TKR with revision and placement of antibiotic spacer came back because of on and off pain and swelling of the right knee. Ortho consulted and patient taken to OR 01/23 for revision of TKR . 1.Infection of prosthetic right knee joint s/p septic TKR with revision and insertion of antibiotic impregnated spacer 8 weeks ago s/p revision 01/23 with antibiotic spacer removal Ortho on consult and following transfused 2 unit Plt and 2 unit PRBC post surgery transfered to telemetry for close monitoring due to tachycardia Hemovac in place with 295 ml sanguinous output last 12 hours Will call anesthesiology for converting from [employer] pump to PO pain management. Daughter asking no narcotics Incentive spirometry use post op ID on consult . Follow up cultures continue Vancomycin 750mg IV q 12hrs Lovenox for DVt prophylaxis Continue PT as per ortho recommandation sfor weight bearing Plan to d/c to [facility] for PT and IV antibiotics once cleared by ortho 2. Pancytopenia-- chronic BM biopsy (11/20/2017): no evidence of lymphoproliferative disorder, no plasma cell proliferation, no evidence of metastatic disease, no increased stromal collagen deposition; no evidence of myeloid disorder or lymphoproliferative disorder secondary to Hep C Hematology consulted transfused 2 unit Plt and 2 unit PRBC post op hgb dropping, 6.8 today, will HOLD lovenox - transfused additional until PRBC today 3. Urinary retention post op Most likely secondary to anesthesia and narcotic use Straight cathed twice Monitor closely for retention Might need Hansen placement if continuos to have retention 4. Seizures cont Lamictal 5. Schizoaffective Disorder cont cogentin 1 mg PO qd pt is on Invega 6. History of CVA, Brain Aneurysm Chronic Stable at present 7.History of hep C outpt follow up 8.History of heroin/cocaine abuse in the past 9. Vitamin D deficiency replace with vitamin D 10. DVt prophylaxis Lovenox as per ortho recommendations SCD to LLE
[2018-01-26 10:26] LABS: HEMOGLOBIN 6.8 g/dL (12.0-16.0); MEAN CELL VOLUME 86.8 fl (81.0-99.0); MEAN CORPUSCULAR HGB CONC 33.4 g/dL (33.0-37.0); RBC 2.35 Mil/uL (3.80-5.20); RED CELL DISTRIBUTION WIDTH 16.4 % (11.5-14.5)
--- NOTE | 2018-01-26 12:36 | CP.PCM.PN ---
Subjective - Date & Time of Evaluation Date of Evaluation: 01/26/18 Time of Evaluation: 11:00 - Subjective Subjective: NO CHEST PAIN OR SOB Objective - Vital Signs/Intake and Output Vital Signs (last 24 hours): Temp Pulse Resp BP Pulse Ox 97.9 F 80 18 106/70 100 01/26/18 08:36 01/26/18 08:36 01/26/18 08:36 01/26/18 08:36 01/26/18 08:36 - Medications Medications: Current Medications Acetaminophen (Tylenol 325mg Tab) 650 mg PO Q4 PRN PRN Reason: Fever 101 degrees fahrenheit Benztropine Mesylate (Cogentin) 1 mg PO DAILY [facility] Last Admin: 01/26/18 09:18 Dose: 1 mg Calcium Carbonate (Oscal) 500 mg PO DAILY [facility] Last Admin: 01/26/18 09:20 Dose: 500 mg Cholecalciferol (Vitamin D) 1,000 intlu PO DAILY [facility] Last Admin: 01/26/18 09:19 Dose: 1,000 intlu Docusate Sodium (Colace) 100 mg PO BID [facility] Last Admin: 01/26/18 09:20 Dose: 100 mg Enoxaparin Sodium (Lovenox) 40 mg SC DAILY [facility] PRN Reason: Protocol Last Admin: 01/26/18 09:18 Dose: 40 mg Famotidine (Pepcid) 20 mg PO BID [facility] Last Admin: 01/26/18 09:19 Dose: 20 mg Vancomycin HCl 750 mg/ Sodium (Chloride) 250 mls @ 250 mls/hr IVPB Q12H [facility] PRN Reason: Protocol Last Admin: 01/26/18 07:15 Dose: 250 mls/hr Lamotrigine (Lamictal) 25 mg PO DAILY [facility] Last Admin: 01/26/18 09:20 Dose: 25 mg Ondansetron HCl (Zofran Inj) 4 mg IVP ONCE PRN PRN Reason: Nausea/Vomiting Paliperidone (Invega) 3 mg PO BID [facility] Last Admin: 01/26/18 09:19 Dose: 3 mg Pantoprazole Sodium (Protonix Ec Tab) 40 mg PO DAILY [facility] Last Admin: 01/26/18 09:19 Dose: 40 mg Tramadol HCl (Ultram) 50 mg PO Q6 PRN PRN Reason: Pain, moderate (4-7) Last Admin: 01/24/18 21:52 Dose: 50 mg Tramadol HCl (Ultram) 100 mg PO Q6 PRN PRN Reason: Pain, severe (8-10) Last Admin: 01/26/18 04:31 Dose: 100 mg Trazodone HCl (Desyrel) 50 mg PO HS [facility] Last Admin: 01/25/18 21:35 Dose: 50 mg - Labs Labs: 01/26/18 10:00 01/26/18 04:00 PT 13.1 Seconds (9.8-13.1) 01/20/18 08:59 INR 1.2 (0.9-1.2) 01/20/18 08:59 APTT 35.8 Seconds (25.6-37.1) 01/20/18 08:59 - Respiratory Exam Respiratory Exam: Clear to Ausculation Bilateral - Cardiovascular Exam Cardiovascular Exam: REGULAR RHYTHM, +S1, +S2 - Extremities Exam Extremities Exam: Normal Inspection Assessment and Plan - Assessment and Plan (Free Text) Assessment: RIGHT TKR STABLE CARDIAC STATUS Plan: FOR DISCHARGE TO REHAB
[2018-01-26 12:41] LABS: WHITE BLOOD COUNT 2.9 K/uL (4.8-10.8)
[2018-01-26 15:55] VITALS: RESP 20
[2018-01-27 05:50] LABS: HEMOGLOBIN 7.9 g/dL (12.0-16.0); MEAN CELL VOLUME 86.3 fl (81.0-99.0); MEAN CORPUSCULAR HEMOGLOBIN 29.5 pg (27.0-31.0); MEAN CORPUSCULAR HGB CONC 34.2 g/dL (33.0-37.0); RBC 2.66 Mil/uL (3.80-5.20); RED CELL DISTRIBUTION WIDTH 16.5 % (11.5-14.5); WHITE BLOOD COUNT 3.1 K/uL (4.8-10.8)
[2018-01-27 06:04] LABS: BLOOD UREA NITROGEN 8 mg/dl (7-17); CALCIUM 7.8 mg/dL (8.4-10.2); GFR AFRICAN-AMERICAN > 60; GFR NON-AFRICAN AMERICAN > 60
--- NOTE | 2018-01-27 09:36 | CP.PCM.PN ---
Subjective - Date & Time of Evaluation Date of Evaluation: 01/27/18 Time of Evaluation: 09:30 - Subjective Subjective: NO CHEST PAIN OR SOB Objective - Vital Signs/Intake and Output Vital Signs (last 24 hours): Temp Pulse Resp BP Pulse Ox 98.4 F 88 20 108/71 99 01/27/18 08:23 01/27/18 08:23 01/27/18 08:23 01/27/18 08:23 01/27/18 08:23 Intake and Output: 01/27/18 01/27/18 06:59 18:59 Intake Total 740 Output Total 1100 Balance -360 - Medications Medications: Current Medications Acetaminophen (Tylenol 325mg Tab) 650 mg PO Q4 PRN PRN Reason: Fever 101 degrees fahrenheit Benztropine Mesylate (Cogentin) 1 mg PO DAILY [facility] Last Admin: 01/26/18 09:18 Dose: 1 mg Calcium Carbonate (Oscal) 500 mg PO DAILY [facility] Last Admin: 01/26/18 09:20 Dose: 500 mg Cholecalciferol (Vitamin D) 1,000 intlu PO DAILY [facility] Last Admin: 01/26/18 09:19 Dose: 1,000 intlu Docusate Sodium (Colace) 100 mg PO BID [facility] Last Admin: 01/26/18 17:18 Dose: 100 mg Enoxaparin Sodium (Lovenox) 40 mg SC DAILY [facility] PRN Reason: Protocol Last Admin: 01/26/18 09:18 Dose: 40 mg Famotidine (Pepcid) 20 mg PO BID [facility] Last Admin: 01/26/18 17:18 Dose: 20 mg Vancomycin HCl 750 mg/ Sodium (Chloride) 250 mls @ 250 mls/hr IVPB Q12H [facility] PRN Reason: Protocol Last Admin: 01/27/18 05:51 Dose: 250 mls/hr Lamotrigine (Lamictal) 25 mg PO DAILY [facility] Last Admin: 01/26/18 09:20 Dose: 25 mg Ondansetron HCl (Zofran Inj) 4 mg IVP ONCE PRN PRN Reason: Nausea/Vomiting Paliperidone (Invega) 3 mg PO BID [facility] Last Admin: 01/26/18 17:18 Dose: 3 mg Pantoprazole Sodium (Protonix Ec Tab) 40 mg PO DAILY [facility] Last Admin: 01/26/18 09:19 Dose: 40 mg Tramadol HCl (Ultram) 50 mg PO Q6 PRN PRN Reason: Pain, moderate (4-7) Last Admin: 01/24/18 21:52 Dose: 50 mg Tramadol HCl (Ultram) 100 mg PO Q6 PRN PRN Reason: Pain, severe (8-10) Last Admin: 01/27/18 00:32 Dose: 100 mg Trazodone HCl (Desyrel) 50 mg PO HS [facility] Last Admin: 01/26/18 21:11 Dose: 50 mg - Labs Labs: 01/27/18 04:20 01/27/18 04:20 PT 13.1 Seconds (9.8-13.1) 01/20/18 08:59 INR 1.2 (0.9-1.2) 01/20/18 08:59 APTT 35.8 Seconds (25.6-37.1) 01/20/18 08:59 - Respiratory Exam Respiratory Exam: Clear to Ausculation Bilateral - Cardiovascular Exam Cardiovascular Exam: REGULAR RHYTHM, +S1, +S2 - Extremities Exam Additional comments: S/P REVISION OF RIGHT TKR STABLE CARDIAC STATUS Assessment and Plan - Assessment and Plan (Free Text) Plan: FOR DISCHARGE TO SUBACUTE REHAB
[2018-01-27] MEDS: Paliperidone 3 MG ER TAB PO SCH ×2 (09:42→16:25)
[2018-01-27] MEDS: Cholecalciferol 1,000 INTLU TAB PO SCH (09:43)
[2018-01-27] MEDS: Pantoprazole 40 mg EC Tab PO SCH (09:44)
[2018-01-27] MEDS ORDERED: Potassium Chloride 20 mEq/15 ml LIQ UD PO ONE (11:31)
--- NOTE | 2018-01-27 11:33 | CP.PCM.DIS ---
Provider - Provider Date of Admission: 01/20/18 09:39 Attending physician: Carl Kinsey MD Primary care physician: none Consults: Ortho consult ID consult Pt consult Time Spent in preparation of Discharge (in minutes): 15 Hospital Course - Lab Results Lab Results: Micro Results 01/23/18 09:55 Body Fluid - Knee-Right Anaerobic Culture - Final NO ANAEROBES ISOLATED. 01/23/18 09:55 Body Fluid - Knee-Right Body Fluid Culture - Final No growth. 01/23/18 10:08 Body Fluid - Knee-Right Gram Stain - Final 01/23/18 10:08 Body Fluid - Knee-Right Anaerobic Culture - Final NO ANAEROBES ISOLATED. 01/23/18 10:08 Body Fluid - Knee-Right Body Fluid Culture - Final No growth. 01/23/18 10:36 Knee - Right Gram Stain - Final 01/23/18 10:36 Knee - Right Wound Culture - Final No growth. 01/23/18 10:36 Knee - Right Gram Stain - Final 01/23/18 10:36 Knee - Right Wound Culture - Final No growth. 01/23/18 10:36 Knee - Right Gram Stain - Final 01/23/18 10:36 Knee - Right Wound Culture - Final No growth. 01/23/18 10:36 Knee - Right Gram Stain - Final 01/23/18 10:36 Knee - Right Wound Culture - Final No growth. 01/23/18 10:36 Knee - Right Gram Stain - Final 01/23/18 10:36 Knee - Right Wound Culture - Final No growth. 01/23/18 10:36 Knee - Right Gram Stain - Final 01/23/18 10:36 Knee - Right Wound Culture - Final No growth. 01/23/18 10:36 Knee - Right Gram Stain - Final 01/23/18 10:36 Knee - Right Wound Culture - Final No growth. 01/23/18 10:46 Knee - Right Gram Stain - Final 01/23/18 10:46 Knee - Right Anaerobic Culture - Final NO ANAEROBES ISOLATED. 01/23/18 10:46 Knee - Right Wound Culture - Final No growth. 01/23/18 10:46 Knee - Right Gram Stain - Final 01/23/18 10:46 Knee - Right Wound Culture - Final No growth. 01/23/18 10:46 Knee - Right Gram Stain - Final 01/23/18 10:46 Knee - Right Wound Culture - Final No growth. 01/23/18 10:46 Knee - Right Gram Stain - Final 01/23/18 10:46 Knee - Right Wound Culture - Final No growth. 01/23/18 10:46 Knee - Right Gram Stain - Final 01/23/18 10:46 Knee - Right Wound Culture - Final No growth. 01/23/18 10:46 Knee - Right Gram Stain - Final 01/23/18 10:46 Knee - Right Wound Culture - Final No growth. 01/23/18 10:46 Knee - Right Gram Stain - Final 01/23/18 10:46 Knee - Right Wound Culture - Final No growth. 01/23/18 10:46 Knee - Right Gram Stain - Final 01/23/18 10:46 Knee - Right Anaerobic Culture - Final NO ANAEROBES ISOLATED. 01/23/18 10:46 Knee - Right Wound Culture - Final No growth. 01/20/18 12:45 Blood-Venous Blood Culture - Final NO GROWTH AFTER 5 DAYS 01/20/18 12:45 Blood-Venous Gram Stain - Final TEST NOT PERFORMED 01/20/18 12:30 Blood-Venous Blood Culture - Final NO GROWTH AFTER 5 DAYS 01/20/18 12:30 Blood-Venous Gram Stain - Final TEST NOT PERFORMED 01/23/18 10:36 Knee Right Fungal Culture - Preliminary 01/23/18 10:36 Knee Right Fungal Culture - Preliminary 01/23/18 10:36 Other: Please Indicate Mycobacterial Culture - Preliminary 01/23/18 10:36 Other: Please Indicate Mycobacterial Culture - Preliminary Most Recent Lab Values WBC 3.1 K/uL (4.8-10.8) L 01/27/18 04:20 RBC 2.66 Mil/uL (3.80-5.20) L 01/27/18 04:20 Hgb 7.9 g/dL (12.0-16.0) L 01/27/18 04:20 Hct 23.0 % (34.0-47.0) L 01/27/18 04:20 MCV 86.3 fl (81.0-99.0) 01/27/18 04:20 MCH 29.5 pg (27.0-31.0) 01/27/18 04:20 MCHC 34.2 g/dL (33.0-37.0) 01/27/18 04:20 RDW 16.5 % (11.5-14.5) H 01/27/18 04:20 Plt Count 90 K/uL (130-400) L 01/27/18 04:20 MPV 9.6 fl (7.2-11.7) 01/21/18 05:35 Neut % (Auto) 46.1 % (50.0-75.0) L 01/21/18 05:35 Lymph % (Auto) 31.8 % (20.0-40.0) 01/21/18 05:35 Pacific % (Auto) 16.4 % (0.0-10.0) H 01/21/18 05:35 Eos % (Auto) 4.9 % (0.0-4.0) H 01/21/18 05:35 Baso % (Auto) 0.8 % (0.0-2.0) 01/21/18 05:35 Neut # (Auto) 1.1 K/uL (1.8-7.0) L 01/21/18 05:35 Lymph # (Auto) 0.8 K/uL (1.0-4.3) L 01/21/18 05:35 Pacific # (Auto) 0.4 K/uL (0.0-0.8) 01/21/18 05:35 Eos # (Auto) 0.1 K/uL (0.0-0.7) 01/21/18 05:35 Baso # (Auto) 0.0 K/uL (0.0-0.2) 01/21/18 05:35 ESR 19 mm/hr (0-30) 01/20/18 08:43 PT 13.1 Seconds (9.8-13.1) 01/20/18 08:59 INR 1.2 (0.9-1.2) 01/20/18 08:59 APTT 35.8 Seconds (25.6-37.1) 01/20/18 08:59 Sodium 138 mmol/l (132-148) 01/27/18 04:20 Potassium 3.3 MMOL/L (3.6-5.0) L 01/27/18 04:20 Chloride 104 mmol/L (98-107) 01/27/18 04:20 Carbon Dioxide 28 mmol/L (22-30) 01/27/18 04:20 Anion Gap 9 (10-20) L 01/27/18 04:20 BUN 8 mg/dl (7-17) 01/27/18 04:20 Creatinine 0.5 mg/dl (0.7-1.2) L 01/27/18 04:20 Est GFR ( Amer) > 60 01/27/18 04:20 Est GFR (Non-Af Amer) > 60 01/27/18 04:20 Random Glucose 105 mg/dL (65-105) 01/27/18 04:20 Calcium 7.8 mg/dL (8.4-10.2) L 01/27/18 04:20 C-React Prot High Sens 1.59 mg/L (1.00-3.00) 01/20/18 08:59 25-OH Vitamin D Total 25.3 NG/ML (30.0-100.0) L 01/21/18 08:36 Urine Color Yellow (YELLOW) 01/20/18 09:00 Urine Clarity Slighty-cloudy (Clear) 01/20/18 09:00 Urine pH 5.0 (5.0-8.0) 01/20/18 09:00 Ur Specific Mcintosh 1.020 (1.003-1.030) 01/20/18 09:00 Urine Protein Negative mg/dL (NEGATIVE) 01/20/18 09:00 Urine Glucose (UA) Neg mg/dL (Normal) 01/20/18 09:00 Urine Ketones Negative mg/dL (NEGATIVE) 01/20/18 09:00 Urine Blood Negative (NEGATIVE) 01/20/18 09:00 Urine Nitrate Negative (NEGATIVE) 01/20/18 09:00 Urine Bilirubin Negative (NEGATIVE) 01/20/18 09:00 Urine Urobilinogen 0.2-1.0 mg/dL (0.2-1.0) 01/20/18 09:00 Ur Leukocyte Esterase Trace Shannon/uL (Negative) 01/20/18 09:00 Urine RBC (Auto) 7 /hpf (0-3) H 01/20/18 09:00 Urine Microscopic WBC 4 /hpf (0-5) 01/20/18 09:00 Ur Squamous Epith Cells 2 /hpf (0-5) 01/20/18 09:00 Fluid Type Synovial fluid 01/23/18 10:07 Synovial WBC 0.0 /mm3 (0.0-150.0) 01/23/18 10:07 Synovial RBC 762.0 /mm3 (0.0-0.0) H 01/23/18 10:07 Synovial Neutrophils 0.0 % (0-0) 01/23/18 10:07 Synovial Lymphocytes 0.0 % (0-0) 01/23/18 10:07 Synov Monos/Macrophage 0 % (0-0) 01/23/18 10:07 Synovial Fluid Comment Colorless 01/23/18 10:07 Blood Type O POSITIVE 01/26/18 11:25 Antibody Screen Negative 01/26/18 11:25 Crossmatch See Detail 01/26/18 11:25 BBK History Checked Patient has bt 01/26/18 11:25 - Hospital Course Hospital Course: 62 yo female with history of Bipolar DO, previous Heroin user, Hep C, history of CVA, Pancytopenia and history of right TKR with history of infected TKR with revision and placement of antibiotic spacer came back because of on and off pain and swelling of the right knee. Ortho consulted and patient taken to OR 01/23 for revision of TKR .She underwent TKR revision with antibiotic spacer removal and synovectomy . She was transfused total 4 unit PRBC and 2 unit plt post op. Hematology was consulted as well She was strated omn vancomycin 750 mg iv Q12 by Id and witll be discharged on the same for 4 more weeks Post op doing well, pain is controlled with Tramadol , hemovac removed Cleared by ortho for discharge to [facility] for continuation of Physical therapy with weight bearing as tolerated to right lower extremity patient is hemodynamically stable, afebrile,participating with PT. Will d/c to [facility] Follow up with Dr. Sharpe in 1 week 1.Infection of prosthetic right knee joint s/p septic TKR with revision and insertion of antibiotic impregnated spacer 8 weeks ago s/p revision 01/23 with antibiotic spacer removal Ortho was consulted transfused total 2 unit Plt and 4 unit PRBC post surgery transferred to telemetry for close monitoring due to tachycardia Hemovac removed Anesthesiology consulted for converting [employer] pump to PO pain management. Daughter asked no narcotics. On Tramadol Incentive spirometry use post op ID consulted .Cultures with no growth Will d/c on Vancomycin 750mg IV q 12hrs for 4 more weeks Lovenox for DVt prophylaxis Continue PT as per ortho recommendations for weight bearing d/c to [facility] for PT and IV antibiotics once cleared by ortho 2. Pancytopenia-- chronic BM biopsy (11/20/2017): no evidence of lymphoproliferative disorder, no plasma cell proliferation, no evidence of metastatic disease, no increased stromal collagen deposition; no evidence of myeloid disorder or lymphoproliferative disorder secondary to Hep C Hematology consulted transfused 2 unit Plt and 4 unit PRBC post op Hgb 7.9 today 3. Urinary retention post op Most likely secondary to anesthesia and narcotic use Straight cathed twice Hansen catheter placed Will need bladder training in [facility] 4. Seizures cont Lamictal 5. Schizoaffective Disorder cont cogentin 1 mg PO qd pt is on Invega 6. History of CVA, Brain Aneurysm Chronic Stable at present 7.History of hep C outpt follow up 8.History of heroin/cocaine abuse in the past 9. Vitamin D deficiency replace with vitamin D 10. DVt prophylaxis Lovenox as per ortho recommendations SCD to LLE Discharge Exam - Head Exam Head Exam: ATRAUMATIC, NORMAL INSPECTION, NORMOCEPHALIC - Eye Exam Eye Exam: EOMI, Normal appearance, PERRL Pupil Exam: NORMAL ACCOMODATION - ENT Exam ENT Exam: Mucous Membranes Moist, Normal Exam - Neck Exam Neck exam: Full Rom, Normal Inspection - Respiratory Exam Respiratory Exam: Clear to PA & Lateral, NORMAL BREATHING PATTERN. absent: Rales, Rhonchi, Wheezes - Cardiovascular Exam Cardiovascular Exam: REGULAR RHYTHM, RRR, +S1, +S2. absent: JVD - GI/Abdominal Exam GI & Abdominal Exam: Normal Bowel Sounds, Soft. absent: Distended, Guarding, Rebound, Tenderness - Rectal Exam Rectal Exam: Deferred - Extremities Exam Extremities exam: normal inspection, pedal pulses present Additional comments: right knee with madeline bandage and knee immobilizer in place pulses intact warm to touch pain is controlled - Back Exam Back exam: NORMAL INSPECTION - Neurological Exam Neurological exam: Alert, CN II-XII Intact, Oriented x3, Reflexes Normal - Psychiatric Exam Psychiatric exam: Flat Affect, Normal Mood - Skin Skin Exam: Dry, Intact, Normal Color, Warm Discharge Plan - Discharge Medications Prescriptions: Vancomycin 750mg/NS 150 ml [Vancocin 750MG/NS 150 ML] 750 mg IV Q12 #84 vial - Follow Up Plan Condition: STABLE Disposition: REHAB FACILITY/REHAB UNIT Patient education suggested?: Yes Instructions: Knee Immobilizer (DC), Knee Pain (DC) Referrals: Isaac Sharpe III, MD [Staff Provider] - Korey Serrano MD [Staff Provider] - Nicholas Fernandes MD [Medical Doctor] -
[2018-01-27 12:42] VITALS: O2SAT 100
--- NOTE | 2018-01-27 16:06 | CP.PCM.PN ---
Subjective - Date & Time of Evaluation Date of Evaluation: 01/27/18 Time of Evaluation: 12:30 - Subjective Subjective: Patient seen and examined at bedside comfortable. Pain is well controlled. Receiving unit of PRBC. No acute events overnight. Objective - Vital Signs/Intake and Output Vital Signs (last 24 hours): Temp Pulse Resp BP Pulse Ox 98.7 F 84 20 109/72 100 01/27/18 12:41 01/27/18 12:41 01/27/18 12:41 01/27/18 12:41 01/27/18 12:41 Intake and Output: 01/27/18 01/27/18 06:59 18:59 Intake Total 740 Output Total 1100 Balance -360 - Medications Medications: Current Medications Acetaminophen (Tylenol 325mg Tab) 650 mg PO Q4 PRN PRN Reason: Fever 101 degrees fahrenheit Benztropine Mesylate (Cogentin) 1 mg PO DAILY [facility] Last Admin: 01/27/18 09:44 Dose: 1 mg Calcium Carbonate (Oscal) 500 mg PO DAILY [facility] Last Admin: 01/27/18 09:44 Dose: 500 mg Cholecalciferol (Vitamin D) 1,000 intlu PO DAILY [facility] Last Admin: 01/27/18 09:43 Dose: 1,000 intlu Docusate Sodium (Colace) 100 mg PO BID [facility] Last Admin: 01/27/18 09:43 Dose: 100 mg Enoxaparin Sodium (Lovenox) 40 mg SC DAILY [facility] PRN Reason: Protocol Last Admin: 01/26/18 09:18 Dose: 40 mg Famotidine (Pepcid) 20 mg PO BID [facility] Last Admin: 01/27/18 09:43 Dose: 20 mg Vancomycin HCl 750 mg/ Sodium (Chloride) 250 mls @ 250 mls/hr IVPB Q12H [facility] PRN Reason: Protocol Last Admin: 01/27/18 05:51 Dose: 250 mls/hr Lamotrigine (Lamictal) 25 mg PO DAILY [facility] Last Admin: 01/27/18 09:44 Dose: 25 mg Ondansetron HCl (Zofran Inj) 4 mg IVP ONCE PRN PRN Reason: Nausea/Vomiting Paliperidone (Invega) 3 mg PO BID [facility] Last Admin: 01/27/18 09:42 Dose: 3 mg Pantoprazole Sodium (Protonix Ec Tab) 40 mg PO DAILY [facility] Last Admin: 01/27/18 09:44 Dose: 40 mg Tramadol HCl (Ultram) 50 mg PO Q6 PRN PRN Reason: Pain, moderate (4-7) Last Admin: 01/24/18 21:52 Dose: 50 mg Tramadol HCl (Ultram) 100 mg PO Q6 PRN PRN Reason: Pain, severe (8-10) Last Admin: 01/27/18 10:05 Dose: 100 mg Trazodone HCl (Desyrel) 50 mg PO HS [facility] Last Admin: 01/26/18 21:11 Dose: 50 mg - Labs Labs: 01/27/18 04:20 01/27/18 04:20 PT 13.1 Seconds (9.8-13.1) 01/20/18 08:59 INR 1.2 (0.9-1.2) 01/20/18 08:59 APTT 35.8 Seconds (25.6-37.1) 01/20/18 08:59 - Extremities Exam Additional comments: RLE: Knee immobilizer intact. Dressings intact with dry blood. Surgical wound with scant sang drainage. sensation intact SP/DP/TN. Motor intact EHL/FHL/TA/G. Pedal pulses intact. Compartment soft and NT b/l Assessment and Plan (1) Infection of prosthetic right knee joint Assessment & Plan: Patient is POD# 4 from R revision TKA doing well -Advance to PWB 50% with assistive device. Keep knee imm on at all times. -PT/OT -Daily dry dressings changes -Clear to d/c to rehab from ortho standpoint -F/u in office next Saturday -Case and plan d/w Dr. Sharpe in agreement Status: Acute
[2018-01-27 16:28] VITALS: BP 117/75; PULSE 97; TEMP 98.3
== END 2018-01-27 16:50 | DRG 467 ==
LOC: H.ER 06:39 → H.ERHOLD 09:39 → H.MEDSURG1 12:00 → H.TEL 01-23 18:52
PROC: 0SRT0JZ Replacement of Right Knee Joint, Femoral Surface with Synthetic Substitute, Open Approach (ICD-10-PCS; 2018-01-23)
PROC: 0SBC0ZZ Excision of Right Knee Joint, Open Approach (ICD-10-PCS; 2018-01-23)
PROC: 0SPC08Z Removal of Spacer from Right Knee Joint, Open Approach (ICD-10-PCS; 2018-01-23)
PROC: 3E0T3BZ Introduction of Anesthetic Agent into Peripheral Nerves and Plexi, Percutaneous Approach (ICD-10-PCS; 2018-01-23)
PROC: 3E0T33Z Introduction of Anti-inflammatory into Peripheral Nerves and Plexi, Percutaneous Approach (ICD-10-PCS; 2018-01-23)
PROC: 30233N1 Transfusion of Nonautologous Red Blood Cells into Peripheral Vein, Percutaneous Approach (ICD-10-PCS; 2018-01-23)
PROC: 0SPT0JZ Removal of Synthetic Substitute from Right Knee Joint, Femoral Surface, Open Approach (ICD-10-PCS; principal; 2018-01-23 09:00)
PROC: 0SPV0JZ Removal of Synthetic Substitute from Right Knee Joint, Tibial Surface, Open Approach (ICD-10-PCS; 2018-01-23 09:00)
PROC: 0SRV0JZ Replacement of Right Knee Joint, Tibial Surface with Synthetic Substitute, Open Approach (ICD-10-PCS; 2018-01-23 09:00)
DX: T84.53XA Infection and inflammatory reaction due to internal right knee prosthesis, initial encounter (principal); D61.818 Other pancytopenia; R56.9 Unspecified convulsions; F25.9 Schizoaffective disorder, unspecified; M65.861 Other synovitis and tenosynovitis, right lower leg; G89.29 Other chronic pain; M25.561 Pain in right knee; Z96.651 Presence of right artificial knee joint; Y83.1 Surgical operation with implant of artificial internal device as the cause of abnormal reaction of the patient, or of later complication, without mention of misadventure at the time of the procedure; E55.9 Vitamin D deficiency, unspecified; R33.0 Drug induced retention of urine; T41.295A Adverse effect of other general anesthetics, initial encounter; Z91.19 Patient's noncompliance with other medical treatment and regimen; B19.20 Unspecified viral hepatitis C without hepatic coma; F31.9 Bipolar disorder, unspecified; Z86.73 Personal history of transient ischemic attack (TIA), and cerebral infarction without residual deficits; Y92.239 Unspecified place in hospital as the place of occurrence of the external cause